=== PATIENT | female | born 1940 | race Caucasian/White ===

== ENCOUNTER → 2017-01-28 | Outpatient (CLI) | payer MEDICARE, BC ==
[~2017-01-28] MED LIST: ABIL15TA PO; AMIT75TA2 PO; ASPI81TA83 OR; COMBIGAN OS; FOCALIN PO; IBUP600T26 PO; KETOROLAC OS; LIDOCAINE 1% MDV 20ML VIAL As Ordered ONE; LIPI10TA OR; NORCOTAB PO; PREDNISOLONE 1% OS; PROZ20CA PO; RIVASTIGMINE PO; TRAVOPROST OS; VESICARE PO; VIGAMOX OS; ZOFR4TAB3 PO
--- NOTE | 2017-01-28 16:14 | REP ---
Specimen radiography left breast: History: Micro calcific grouping left breast. The patient is status post stereotactic needle biopsy. Findings: Specimen radiography demonstrates multiple polymorphic microcalcifications scattered about each of the removed specimens. Impression: Specimen radiography shows microcalcifications from the target grouping. Signed by Bret Galloway MD 01/28/2017 04:48 P
--- NOTE | 2017-01-28 17:22 | REP ---
STEREOTACTIC LEFT BREAST BIOPSY: The procedure was performed under the direct supervision of Dr. Galloway. The patient has a history of a suspicious cluster of calcifications in the upper inner left breast seen on a previous mammogram from [facility] performed on 01/20/2017. The risks and benefits of the procedure were explained to the patient and informed consent was obtained. A cranial caudal approach was utilized. The calcifications were localized using stereotactic mammographic guidance. The skin was prepped and draped in a sterile fashion 1% Lidocaine was used as a local anesthetic. A 10-gauge suction assisted Mammotome needle was inserted and 6 core biopsy samples were obtained. Specimen radiograph demonstrates the presence of calcifications to be within the specimen. A marker clip was placed at the biopsy site. Post-clip placement the patient did develop a large hematoma. Pressure was held at the site until hemostasis was achieved. The patient will return at a later date when the hematoma has subsided for post-clip placement images. Reviewed by JERE Emery 01/29/2017 08:53 AEdited and Signed by Bret Galloway MD 01/29/2017 12:46 P
== END ==
LOC: M RADPRO 12:03
PROVIDERS: ATTEND Internal Medicine
DX: C50.912 Malignant neoplasm of unspecified site of left female breast (principal); J45.909 Unspecified asthma, uncomplicated; M54.9 Dorsalgia, unspecified; M19.90 Unspecified osteoarthritis, unspecified site; G47.30 Sleep apnea, unspecified; F32.9 Major depressive disorder, single episode, unspecified; Z79.82 Long term (current) use of aspirin; Z79.899 Other long term (current) drug therapy

== ENCOUNTER 2017-02-02 05:57 | Emergency (ER) | payer MEDICARE, BC ==
[~2017-02-02] VITALS: Ht 165.1 cm; Wt 83.9 kg
[~2017-02-02 05:57] MED LIST changes: -IBUP600T26 PO; -LIDOCAINE 1% MDV 20ML VIAL As Ordered ONE; -NORCOTAB PO; -ZOFR4TAB3 PO
[2017-02-02] MEDS ORDERED: NS 1,000 ML IV ONE (06:45)
[2017-02-02 07:03] LABS: BASO % 0.3 % (0.0-1.0); EOS # 0.2 K/mm3 (0.0-0.50); EOS % 2.4 % (0.0-3.0); LARGE UNSTAINED CELL # 0.1 K/mm3 (0.0-0.4); LARGE UNSTAINED CELL % 1.4 % (0.0-4.0); LYMPH # 1.7 K/mm3 (1.5-4.5); LYMPH % 21.7 % (24.0-44.0); MEAN CORPUSCULAR HEMOGLOBIN 35.7 pg (27.0-33.0); MEAN CORPUSCULAR VOLUME 99.2 fl (80.0-96.0); MONO # 0.5 K/mm3 (0.0-0.8); MONO % 5.9 % (0.0-5.0); NEUTROPHILS # 5.4 K/mm3 (1.8-7.7); NEUTROPHILS % 68.3 % (36.0-66.0); PLATELET COUNT, AUTOMATED 166 k/mm3 (150-450); RED CELL DISTRIBUTION WIDTH 14.6 % (11.5-14.5); WHITE BLOOD COUNT 7.9 K/mm3 (4.0-10.0)
[2017-02-02 07:04] LABS: INR 1.05
[2017-02-02 07:21] LABS: ALBUMIN 3.3 GM/DL (3.2-5.2); ALBUMIN/GLOBULIN RATIO 0.94 (1.00-1.93); BILIRUBIN,DIRECT 0.2 MG/DL (0.0-0.2); BILIRUBIN,TOTAL 0.8 MG/DL (0.2-1.0); CREATININE FOR GFR 0.98 MG/DL (0.55-1.02); GLOMERULAR FILTRATION RATE 59.1 (>39); POTASSIUM SERUM 3.8 MEQ/L (3.5-5.1); TOTAL PROTEIN 6.8 GM/DL (6.4-8.2)
[2017-02-02] MEDS ORDERED: ISOVUE-370 76% 100ML VIAL (Q9967) As Ordered ONE (07:55)
[2017-02-02] MEDS ORDERED: KETOROLAC 30 MG/ML VIAL (J1885) IV ONE (08:30)
--- NOTE | 2017-02-02 09:07 | REP ---
CT ABDOMEN AND PELVIS WITH CONTRAST: CT ABDOMEN AND PELVIS WITH CONTRAST: TECHNIQUE: Axial contrast enhanced images from the lung bases to the pubic symphysis using 100 mL Isovue 370 intravenous contrast material with multiplanar reformations. Visualized lung bases demonstrate bibasilar fibroatelectatic change. There are a couple of cysts in the liver. The spleen, adrenals, and pancreas are unremarkable. Large duodenum diverticulum is noted. Small cysts are seen in the kidneys. There is moderate left hydroureteronephrosis caused by a 5 mm stone in the distal left ureter. No bladder calculi are seen. There is no abdominal aortic aneurysm. There is no adenopathy. There is no free air or free fluid. There is no bowel wall thickening. There is no pelvic mass. IMPRESSION: There is a 5 mm calculus of the distal left ureter causing moderate left hydroureteronephrosis. Signed by Diogo Manrique MD 02/02/2017 05:23 P
[2017-02-02] MEDS ORDERED: ZOFR4TAB3 PO (10:15)
[2017-02-02] MEDS ORDERED: IBUP600T26 PO (10:15)
[2017-02-02] MEDS ORDERED: NORCOTAB PO (10:15)
[2017-02-02 10:44] VITALS: BP 134/75
== END 2017-02-02 10:46 | disposition home or self-care (01) ==
LOC: M ED 07:00
DX: N13.2 Hydronephrosis with renal and ureteral calculous obstruction (principal); S20.02XA Contusion of left breast, initial encounter; X58.XXXA Exposure to other specified factors, initial encounter; Y92.89 Other specified places as the place of occurrence of the external cause; Y93.89 Activity, other specified; Y99.8 Other external cause status; C50.912 Malignant neoplasm of unspecified site of left female breast; G89.29 Other chronic pain; M54.9 Dorsalgia, unspecified; F33.9 Major depressive disorder, recurrent, unspecified; Z79.899 Other long term (current) drug therapy; Z79.82 Long term (current) use of aspirin; Z87.891 Personal history of nicotine dependence
CPT/HCPCS: 36415; 74177; 80048; 80076; 81001; 85025; 85610; 85730; 96361; 96374; 99283; J1885; Q9967

== ENCOUNTER → 2017-02-11 | Outpatient (REF) | payer MEDICARE, BC ==
[~2017-02-11] MED LIST changes: +IBUP600T26 PO; +NORCOTAB PO; +ZOFR4TAB3 PO
[2017-02-11 15:17] LABS: MICROSCOPIC INDICATED? MAN YES (NO)
[2017-02-11 15:18] LABS: WBC, URINE 0-1 /hpf (0-3)
[2017-02-11 15:19] LABS: BACTERIA, URINE SMALL AMOUNT; HYALINE CAST, URINE NONE SEEN /lpf (0-1); MICROSCOPIC EXAM UNSPUN; RBC, URINE NONE SEEN /hpf (0-3); SQUAMOUS EPITHELIAL CELL URINE SMALL AMOUNT /hpf (SMALL AMT)
== END ==
LOC: M SMT 12:51
PROVIDERS: ATTEND Nurse Practitioner Women's Health
DX: N13.2 Hydronephrosis with renal and ureteral calculous obstruction (principal)

== ENCOUNTER → 2017-03-16 | Day surgery (SDC) | payer MEDICARE, BC ==
[~2017-03-16] VITALS: Ht 165.1 cm; Wt 83.9 kg
[~2017-03-16] MED LIST changes: +ABIL5TAB5 PO; +AMIT75TA PO; +ASPI1TAB PO; +BUPIVACAINE/EPIN 0.25% 30 ML VIAL As Ordered ONE; +BUPR15TA PO; +GLYCOPYRROLATE INJ 0.2 MG/ML 2 ML VIAL As Ordered ONE; +HYDROmorphone HCL 2 MG/ML 1ML VIAL (J1170) As Ordered ONE; +LABETALOL HCL 100 MG/20 ML VIAL As Ordered ONE; +LABETALOL HCL 100 MG/20 ML VIAL IV ONE; +LIDOCAINE 1% MDV 20ML VIAL As Ordered ONE; +LIDOCAINE 1% SDV INJ 30 ML VIAL As Ordered ONE; +LIDOCAINE 2% INJ 100 MG/5 ML SDV (FOR ANES.) As Ordered ONE; +LIDOCAINE 5% (LIDODERM) PATCH As Ordered ONE; +LIDOCAINE 5% (LIDODERM) PATCH TD ONE; +LR 1,000 ML IV ONE; +LR 1,000 ML IV SCH; +METHYLENE BLUE 0.5% (5MG/ML) 10 ML AMP (PROVAYBLUE)(Q9968 PER 1MG) As Ordered ONE; +METOCLOPRAMIDE INJ 10MG/2ML VIAL (J2765) As Ordered ONE; +MIDAZOLAM INJ 2 MG/2 ML VIAL (J2250) As Ordered ONE; +MORPHINE 2 MG/ML 1ML SYRINGE IV PRN; +NEOSTIGMINE 1MG/ML 5 ML SYRINGE (J2710) As Ordered ONE; +NORCO, ANEXSIA 5/325MG TABLET (HYDROcodone/ACETAMINOPHEN) PO PRN; +OCUVTAB PO; +ONDANSETRON 4MG/2ML VIAL (J2405) As Ordered ONE; +ONDANSETRON 4MG/2ML VIAL (J2405) IV PRN; +PERCOCET 5MG/325MG TAB PO PRN; +PHENYLephrine HCL 500 MCG/5 ML (100MCG/ML) SYRINGE (J2370) As Ordered ONE; +PROPOFOL 200 MG/20 ML VIAL As Ordered ONE; +RIVA6CAP PO; +VITA400C29 PO; +ceFAZolin 1GM INJ (J0690) As Ordered ONE; +dexameTHASONE 4 MG/ML 1ML VIAL (J1100) As Ordered ONE; +fentaNYL 100 MCG/2 ML INJECTION (J3010) As Ordered ONE; +fentaNYL 100 MCG/2 ML INJECTION (J3010) IV PRN
[2017-03-16 13:49] VITALS: BP 170/74
[2017-03-16] MEDS: LABETALOL HCL 100 MG/20 ML VIAL IV SCH ×5 (13:49→14:15)
--- NOTE | 2017-03-16 15:46 | REP ---
LEFT BREAST LOCALIZATION: The procedure was performed under the direct supervision of Dr. Galloway. The patient has a history of a suspicious cluster of calcifications in the upper inner left breast seen on a previous mammogram from [facility] performed on 01/20/2017. The patient had a stereotactic left breast biopsy performed on 01/28/2017. A marker clip was placed at the biopsy site. The risks and benefits of the procedure were explained to the patient and informed consent was obtained. A craniocaudal approach was utilized. The marker clip was localized using mammographic guidance. The skin was prepped and draped in a sterile fashion. 1% Xylocaine was used as a local anesthetic. A 7.5 cm Boncarbo needle wire system was inserted. Followup mammographic images demonstrate good needle placement. The patient tolerated the procedure well and there were no immediate complications. Reviewed by JERE Emery 03/16/2017 04:15 PEdited and Signed by Bret Galloway MD 03/16/2017 05:24 P
--- NOTE | 2017-03-16 16:13 | ECGEPIP ---
Stationary ECG Study [facility] Test Date: 2017-03-16 Pat Name: JARET MAHARAJ Department: Room: - Gender: F Regulatory Compliance Coordinator: [place] : 1940 Requested By: Skip Aguilera Order Number: [id number] Reading MD: Lev Anaya Measurements Intervals [place] Rate: 82 P: 54 FL: 157 QRS: 11 QRSD: 87 T: 34 QT: 296 QTc: 346 Interpretive Statements SINUS RHYTHM WITH SINUS ARRHYTHMIA NONSPECIFIC T-WAVE ABNORMALITY Electronically Signed On 03-16-2017 16:13:10 EDT by Lev Anaya
--- NOTE | 2017-03-16 16:23 | REP ---
Specimen radiography: Single view: History: Left lumpectomy. Findings: A single radiograph of the excised specimen demonstrates the needle biopsy marker clip and some microcalcifications along with the known hematoma centrally located in the breast specimen along with the localizer wire needle device. This report was telephoned to Dr. Rich in the OR at the time of the study. Signed by Bret Galloway MD 03/16/2017 05:23 P
[2017-03-16 17:15] VITALS: BP 134/92
--- NOTE | 2017-03-16 20:47 | REP ---
LEFT BREAST LYMPHOSCINTIGRAPHY: The procedure was performed under the direct supervision of Dr. Galloway. The images were reviewed with Dr. Galloway. Using topical anesthetic and sterile technique, 1.037 mCi of technetium 99 filtered sulfur colloid was injected subdermally in eight fractionated periareolar injections. Images obtained one hour after injection show no appreciable uptake in the left axially region. IMPRESSION: Left breast lymphoscintigraphy. Reviewed by JERE Emery 03/18/2017 04:08 PEdited and Signed by Bret Galloway MD 03/18/2017 04:51 P
--- NOTE | 2017-03-22 05:25 | RO ---
DATE OF PROCEDURE: 03/16/2017 PREOPERATIVE DIAGNOSIS: Left breast cancer, ductal carcinoma in situ. POSTOPERATIVE DIAGNOSIS: Left breast cancer, ductal carcinoma in situ. PROCEDURE: Left breast quadrantectomy (needle localization) and sentinel node biopsy. SURGEON: Skip Rich MD BLENDING MACHINE OPERATOR: ANESTHESIA: General endotracheal anesthesia. ESTIMATED BLOOD LOSS: Minimal. FLUIDS: Crystalloid. DESCRIPTION OF PROCEDURE: The patient was brought to the operating room and was given general anesthesia. After adequate anesthesia and preoperative antibiotics were given, the patient had lymphoscintigraphy preoperatively. However, it did not reach the sentinel node on the preoperative x-rays. However, using the Neoprobe in the operating room, I was able to get a hot node that and was able to vito this out with a permanent marker location in the axilla. Periareolar infiltration of methylene blue was performed at this time to define a blue node as well. Next, the patient had a very large hematoma associated with a stereotactic biopsy previously. This was actually smaller than it was previously and I aspirated the hematoma and obtained 10 mL of old bloody fluid. After this was decompressed, it was much more amenable to excision. Thus, an elliptical incision was made around the needle and there was some very attenuated skin in this area where the hematoma had almost necessitated through the skin superior to the nipple-areolar complex. Then, skin flaps both superiorly and inferiorly were performed to include this entire hematoma, cue my hand on the hematoma and dissecting out lateral to this at least a centimeter margin was created around this hematoma and given the calcifications were posterior to the hematoma this continued circumferentially. Hemostasis was achieved with electrocautery throughout the dissection. Eventually the lesion was removed in its entirety and the lesion/dissection continued down to the pectoral fascia. This lesion/area of breast tissue was removed in its entirety. Given the previous hematoma site itself, this was relatively a large biopsy and was much more of a quadrantectomy than a typical lumpectomy. There was obvious defect of subcutaneous tissue in this area with some dimpling of the subcutaneous tissue in this area. In any case, the area was copiously irrigated until clear. Dermis was brought together with #3-0 Vicryl and #4-0 Vicryl subcuticular was used to approximate the skin. Then, the axilla was addressed in the following manner. The sentinel node was removed after affirmation of the hot node was obtained by needle probe and this transverse incision was made in the axilla. Blunt and sharp dissection as well as electrocautery was used cut through skin, dermis, subcutaneous tissue down through clavipectoral fascia. The axillary fat pad was able to be grasped at this time, mobilized up and the node was quite deep. It was almost up to the chest wall. Eventually, I was able to see this blue node and care was taken not to actually grasp the node and placing an Allis clamp on the fatty tissue around this, I was able to dissect this off surrounding tissue and some minimal bridging vessels in this area were treated with electrocautery. There was one small vein that was going adjacent to this and I did not know if there is a small branch coming off this. This was clipped. But otherwise, good hemostasis was achieved. The area was copiously irrigated and the hot node was 401 units and the background was 6. Once again, this may have been early in the lymphoscintigraphy, but in any case, the appropriate numbers for the hot node was obtained. The incision was closed in two layers with #3-0 Vicryl dermal layer and #4-0 Vicryl subcuticular. Steri-Strips and dry sterile dressing was applied. The patient was awakened, extubated, brought to the recovery room awake, alert, hemodynamically stable. Sponge, needle counts correct times two.
== END | disposition home or self-care (01) ==
LOC: M SDC 06:46
PROVIDERS: ATTEND Surgery
DX: C50.912 Malignant neoplasm of unspecified site of left female breast (principal); M17.0 Bilateral primary osteoarthritis of knee; M54.5 Low back pain; J45.909 Unspecified asthma, uncomplicated; G47.33 Obstructive sleep apnea (adult) (pediatric); R06.83 Snoring; F41.9 Anxiety disorder, unspecified; F32.9 Major depressive disorder, single episode, unspecified; Z79.899 Other long term (current) drug therapy; Z79.82 Long term (current) use of aspirin; Z87.442 Personal history of urinary calculi; Z90.710 Acquired absence of both cervix and uterus; Z78.0 Asymptomatic menopausal state
CPT/HCPCS: 19125; 38525; 72265; 76098; 78195; 88305; 88307; 93005; A9541; J0690; J1100; J1170; J2250; J2370; J2405; J2710; J2765; J3010; Q9968

== ENCOUNTER → 2017-04-29 | Outpatient (CLI) | payer MEDICARE, BC ==
[~2017-04-29] MED LIST changes: +ABIL1TAB11 PO; -ABIL5TAB5 PO; -BUPIVACAINE/EPIN 0.25% 30 ML VIAL As Ordered ONE; -GLYCOPYRROLATE INJ 0.2 MG/ML 2 ML VIAL As Ordered ONE; -HYDROmorphone HCL 2 MG/ML 1ML VIAL (J1170) As Ordered ONE; +IBUP-1022 PO; -IBUP600T26 PO; -LABETALOL HCL 100 MG/20 ML VIAL As Ordered ONE; -LABETALOL HCL 100 MG/20 ML VIAL IV ONE; -LIDOCAINE 1% MDV 20ML VIAL As Ordered ONE; -LIDOCAINE 1% SDV INJ 30 ML VIAL As Ordered ONE; -LIDOCAINE 2% INJ 100 MG/5 ML SDV (FOR ANES.) As Ordered ONE; -LIDOCAINE 5% (LIDODERM) PATCH As Ordered ONE; -LIDOCAINE 5% (LIDODERM) PATCH TD ONE; -LR 1,000 ML IV ONE; -LR 1,000 ML IV SCH; -METHYLENE BLUE 0.5% (5MG/ML) 10 ML AMP (PROVAYBLUE)(Q9968 PER 1MG) As Ordered ONE; -METOCLOPRAMIDE INJ 10MG/2ML VIAL (J2765) As Ordered ONE; -MIDAZOLAM INJ 2 MG/2 ML VIAL (J2250) As Ordered ONE; -MORPHINE 2 MG/ML 1ML SYRINGE IV PRN; -NEOSTIGMINE 1MG/ML 5 ML SYRINGE (J2710) As Ordered ONE; -NORCO, ANEXSIA 5/325MG TABLET (HYDROcodone/ACETAMINOPHEN) PO PRN; -ONDANSETRON 4MG/2ML VIAL (J2405) As Ordered ONE; -ONDANSETRON 4MG/2ML VIAL (J2405) IV PRN; -PERCOCET 5MG/325MG TAB PO PRN; -PHENYLephrine HCL 500 MCG/5 ML (100MCG/ML) SYRINGE (J2370) As Ordered ONE; -PROPOFOL 200 MG/20 ML VIAL As Ordered ONE; +VITA-110 PO; -VITA400C29 PO; -ceFAZolin 1GM INJ (J0690) As Ordered ONE; -dexameTHASONE 4 MG/ML 1ML VIAL (J1100) As Ordered ONE; -fentaNYL 100 MCG/2 ML INJECTION (J3010) As Ordered ONE; -fentaNYL 100 MCG/2 ML INJECTION (J3010) IV PRN
--- NOTE | 2017-04-29 21:28 | RADONC ---
RADIATION ONCOLOGY CONSULTATION NOTE DATE: 04/29/2017 CHART NUMBER: [id number] DIAGNOSIS: Left breast cancer. STAGE: 0, [id number]. ECOG PERFORMANCE STATUS: 0 Ms. 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 HISTORY OF PRESENT ILLNESS: The patient was in her usual state of health until routine mammogram was done and showed microcalcifications in the left breast. On 01/28/2017, the patient underwent stereotactic biopsy, and pathology revealed a poorly differentiated high-grade ductal carcinoma in situ. The tumor was weakly estrogen receptor positive and progesterone receptor negative. On 03/16/2017, the patient underwent re-excision and sentinel lymph node biopsy. Again, the specimen showed foci of residual ductal carcinoma in situ in proximity to the biopsy cavity. There was a small foci, which was stated to be worrisome for possible microinvasion of ductal carcinoma. All inked specimen margins were negative for malignancy. One sentinel lymph node was sampled and was negative for malignancy as well. The patient has done well since surgery and is now presenting for consideration of postoperative radiation therapy in an attempt to increase the likelihood of achieving local control and cure. PAST MEDICAL HISTORY: The patient's past medical history is positive for arthritis. ALLERGIES: The patient is allergic to SULFA DRUGS. SOCIAL HISTORY: The patient had been a smoker but quit smoking over 30 years ago. She does not abuse alcohol. FAMILY HISTORY: The patient's family history is negative for breast cancer or other malignancies. REVIEW OF SYSTEMS: The patient's review of systems is noncontributory. She denies nausea, vomiting, fevers, chills, night sweats, diplopia, headaches, anxiety or depression, anorexia, weight loss, visual disturbances, chest pain, urinary or bowel difficulties, bone pain, or neurological problems. PHYSICAL EXAMINATION The patient is a well-developed, well-nourished female in no acute distress. HEENT exam is normocephalic, atraumatic. Extraocular movements are intact. There is no palpable cervical, supraclavicular, infraclavicular, axillary, or inguinal lymphadenopathy present. Lungs are clear to auscultation and percussion. Heart has a regular rate and rhythm. Abdomen is benign with no hepatosplenomegaly, masses, or tenderness. Breast examination reveals no masses or discharge bilaterally. Skeletal examination reveals no tenderness to pressure or percussion of the bony skeleton. Extremities reveal no clubbing, cyanosis, or edema. Neurologic exam is grossly intact, as is the remainder of the physical examination. ASSESSMENT: Clearly, the patient is a candidate for external beam radiation therapy, and I have so informed her. I have discussed with the patient in detail the potential benefits as well as possible acute and chronic sequelae of external beam radiation therapy. We have discussed logistics of treatment planning, simulation, and subsequent fractionated daily radiation treatments. I have scheduled the patient for the next available simulation slot, and radiation treatments will begin subsequently. Thank you for allowing us to participate in the care of this very pleasant woman. If I could be of any further assistance or provide you with any information, please feel free to contact me at anytime. cc: Skip Rich Jr, MD Day Hills, MD Julie LaPointe, MD
--- NOTE | 2017-05-31 09:20 | RADONC ---
RADIATION ONCOLOGY SIMULATION NOTE DATE: 05/31/2017 CHART NUMBER: [id number] Ms. Velasquez was taken to the CT scan for simulation of her left breast field. Simulation was accomplished without difficulty or discomfort. Radiation treatment planning is underway and radiation treatments will begin subsequently. An immobilization device was created without difficulty or discomfort. It will be used throughout the course of treatment. I was physically present throughout the course of CT simulation.
== END ==
LOC: M ONCR 13:55
PROVIDERS: ATTEND Radiology Radiation Oncology
DX: C50.912 Malignant neoplasm of unspecified site of left female breast (principal)

== ENCOUNTER 2017-05-31 09:10 | Outpatient (RCR) | payer MEDICARE, BC ==
--- NOTE | 2017-06-08 12:26 | RADONC ---
RADIATION ONCOLOGY PROGRESS NOTE DATE: 06/07/2017 CHART NUMBER: [id number] Ms. Velasquez underwent her first fraction of radiation today to her breast. It was tolerated without difficulty or discomfort. The patient's review of systems is noncontributory. She denies nausea, vomiting, fevers, chills, night sweats, diplopia, headaches, anxiety or depression, anorexia, weight loss, visual disturbances, chest pain, urinary or bowel difficulties, bone pain, or neurological problems. PHYSICAL EXAMINATION: Clearly the patient's skin shows no evidence of radiation change present as this was her first fraction. The remainder of her physical exam remains unchanged since time of consultation. Ms. Velasquez tolerated her treatment quite well and radiation will continue as scheduled.
== END 2017-06-10 ==
LOC: M ONCR 09:10
PROVIDERS: ATTEND Radiology Radiation Oncology
DX: D05.12 Intraductal carcinoma in situ of left breast (principal)

== ENCOUNTER → 2017-05-31 | Outpatient (CLI) | payer MEDICARE, BC ==
[2017-05-31 10:02] LABS: MEAN CORPUSCULAR HEMOGLOBIN 32.8 pg (27.0-33.0); MEAN CORPUSCULAR VOLUME 99.5 fl (80.0-96.0)
== END ==
LOC: M RAD 08:12
PROVIDERS: ATTEND Radiology Radiation Oncology
DX: C50.919 Malignant neoplasm of unspecified site of unspecified female breast (principal)

== ENCOUNTER 2017-06-11 11:52 | Outpatient (RCR) | payer MEDICARE, BC ==
--- NOTE | 2017-06-16 08:53 | RADONC ---
RADIATION ONCOLOGY PROGRESS NOTE: DATE: 06/11/2017 CHART NUMBER: [id number]. PROGRESS NOTE: Ms. Velasquez is presently a dose of 1080 cGy to her left breast and is tolerating treatments quite well at this point with no complaints related to her radiation therapy. She is having no breast or bone pain. REVIEW OF SYSTEMS: The patient's review of systems is noncontributory. Denies nausea, vomiting, fevers, chills, night sweats, diplopia, headaches, anxiety or depression, anorexia, weight loss, visual disturbances, chest pain, urinary or bowel difficulties, bone pain, or neurological problems. PHYSICAL EXAMINATION: The patient's skin is in good condition with no evidence of radiation change present. There is no moist or dry desquamation. The remainder of her physical exam remains unchanged. Ms. Velasquez is tolerating treatments quite well and radiation will continue as scheduled.
--- NOTE | 2017-06-21 10:30 | RADONC ---
RADIATION ONCOLOGY PROGRESS NOTE DATE: 06/21/2017 CHART NUMBER: [id number] Ms. Velasquez is presently at a dose of 1800 cGy to her left breast and is tolerating treatments quite well at this point with no complaints related to her radiation therapy. She is having no breast or bone pain. REVIEW OF SYSTEMS: The patient's review of systems is noncontributory. Denies nausea, vomiting, fevers, chills, night sweats, diplopia, headaches, anxiety or depression, anorexia, weight loss, visual disturbances, chest pain, urinary or bowel difficulties, bone pain, or neurological problems. PHYSICAL EXAMINATION: The patient's skin is in good condition with no evidence of moist or dry desquamation. The remainder of her physical exam remains unchanged. Ms. Velasquez is tolerating treatments quite well and radiation will continue as scheduled.
--- NOTE | 2017-06-28 10:53 | RADONC ---
RADIATION ONCOLOGY PROGRESS NOTE: DATE: 06/28/2017 CHART NUMBER: [id number]. PROGRESS NOTE: Ms. Velasquez is presently at a dose of 2700 cGy to her left breast and is tolerating treatments quite well at this point with no complaints related to her radiation therapy. She is having no breast or bone pain. REVIEW OF SYSTEMS: The patient's review of systems is noncontributory. Denies nausea, vomiting, fevers, chills, night sweats, diplopia, headaches, anxiety or depression, anorexia, weight loss, visual disturbances, chest pain, urinary or bowel difficulties, bone pain, or neurological problems. PHYSICAL EXAMINATION: The patient's skin is in good condition with no evidence of moist or dry desquamation. The remainder of her physical exam remains unchanged. Ms. Velasquez is tolerating treatments quite well and radiation will continue as scheduled.
--- NOTE | 2017-07-05 13:56 | RADONC ---
RADIATION ONCOLOGY PROGRESS NOTE DATE: 07/05/2017 CHART NUMBER: [id number] Ms Velasquez is presently at a dose of 3600 cGy to her left breast and is tolerating treatments quite well at this point with no significant difficulties related to her radiation therapy other than some tenderness in the inframammary region. PHYSICAL EXAMINATION: On physical examination, the patient's skin overall is in good condition. There is some dry desquamation noted in the inframammary area. The remainder of her skin shows some erythema or tanning but no evidence of moist or dry desquamation. The remainder of her physical examination remains unchanged. Ms. Velasquez is tolerating her treatments quite well, and radiation will continue as scheduled.
--- NOTE | 2017-07-12 10:45 | RADONC ---
RADIATION ONCOLOGY PROGRESS NOTE DATE: 07/12/2017 CHART NUMBER: [id number] Ms. Velasquez is thus far at a dose of 4320 cGy to her left breast and was last treated on 07/09/2017. The patient came in today complaining of discomfort in the inframammary region. The patient's review of systems is positive for the inframammary discomfort but is otherwise noncontributory. She denies nausea, vomiting, fevers, chills, night sweats, diplopia, headaches, anxiety or depression, anorexia, weight loss, visual disturbances, chest pain, urinary or bowel difficulties, bone pain, or neurological problems. PHYSICAL EXAMINATION: The patient's skin overall shows marked tanning present. In the inframammary region, however, there is moist desquamation. The remainder of physical exam remains unchanged. The patient unfortunately is allergic to sulfa drugs. She is therefore using Aquaphor on the skin. I have given the patient 1 week rest and she will return to us on Wednesday for reevaluation. She has been instructed to feel free and contact me if I could be of any assistance in the meantime or if she has any questions or problems over this week.
== END 2017-07-10 ==
LOC: M ONCR 11:52
PROVIDERS: ATTEND Radiology Radiation Oncology
DX: D05.12 Intraductal carcinoma in situ of left breast (principal)

== ENCOUNTER → 2017-09-01 | Outpatient (CLI) | payer MEDICARE, BC ==
--- NOTE | 2017-09-03 07:06 | RADONC ---
RADIATION ONCOLOGY FOLLOWUP NOTE DATE: 09/01/2017 CHART NUMBER: [id number] DIAGNOSIS: Left breast cancer. STAGE: 0, [id number]. ECOG PERFORMANCE STATUS: 0 FOLLOWUP NOTE: Ms. 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 The patient presents today reporting that she is doing quite well with no difficulties at this time related to her radiation therapy or disease. She is having no breast or bone pain. REVIEW OF SYSTEMS: The patient's review of systems is noncontributory. She denies nausea, vomiting, fevers, chills, night sweats, diplopia, headaches, anxiety or depression, anorexia, weight loss, visual disturbances, chest pain, urinary or bowel difficulties, bone pain, or neurological problems. PHYSICAL EXAMINATION: The patient is a well-developed, well-nourished white female in no acute distress. HEENT exam is normocephalic, atraumatic. Extraocular movements are intact. There is no palpable cervical, supraclavicular, infraclavicular, axillary, or inguinal lymphadenopathy present. Lungs are clear to auscultation and percussion. Heart has a regular rate and rhythm. Abdomen is benign with no hepatosplenomegaly, masses, or tenderness. Breast examination reveals no masses or discharge bilaterally. Skeletal examination reveals no tenderness to pressure or percussion of the bony skeleton. Extremities reveal no clubbing, cyanosis, or edema. Neurologic exam is grossly intact, as is the remainder of the physical examination. ASSESSMENT: The patient is clinically ROSITA at this time and will be seen by us again in 3 months for further followup. She will also continue to be followed by her other physicians as well. cc: Balbina Aldrich MD, DELROY Rich Jr, MD Carmelina Dallas MD
== END ==
LOC: M ONCR 09:01
PROVIDERS: ATTEND Radiology Radiation Oncology
DX: D05.12 Intraductal carcinoma in situ of left breast (principal)

== ENCOUNTER → 2017-12-01 | Outpatient (CLI) | payer MEDICARE, BC | LOC: M ONCR 09:00 | DX: D05.12 Intraductal carcinoma in situ of left breast (principal) | CPT/HCPCS: G0463 ==

== ENCOUNTER → 2018-02-23 | Outpatient (CLI) | payer MEDICARE, BC | LOC: M RAD 07:43 | DX: Z12.31 Encounter for screening mammogram for malignant neoplasm of breast (principal) | CPT/HCPCS: 77067 ==

== ENCOUNTER 2018-03-29 20:56 | Emergency (ER) | payer MEDICARE, BC ==
[2018-03-29 22:12] LABS: BASO % 0.7 % (0.0-1.0); EOS # 0.8 10^3/uL (0.0-0.50); EOS % 14.1 % (0.0-3.0); HEMATOCRIT 38.7 % (36.0-47.0); HEMOGLOBIN 12.8 g/dl (12.0-15.5); IMMATURE GRANULOCYTE % 0.4 % (0-3.0); LYMPH # 1.8 10^3/uL (1.5-4.5); MEAN CORPUSCULAR HGB CONC 33.1 g/dl (32.0-36.5); MEAN CORPUSCULAR VOLUME 99.7 fl (80.0-96.0); MONO # 0.7 10^3/uL (0.0-0.8); MONO % 13.2 % (0.0-5.0); NEUTROPHILS # 2.1 10^3/uL (1.8-7.7); NEUTROPHILS % 38.6 % (36.0-66.0); PLATELET COUNT, AUTOMATED 207 10^3/uL (150-450); RED BLOOD COUNT 3.88 10^6/uL (4.00-5.40); RED CELL DISTRIBUTION WIDTH 14.2 % (11.5-14.5); WHITE BLOOD COUNT 5.5 10^3/uL (4.0-10.0)
[2018-03-29 22:20] LABS: ANION GAP 6 MEQ/L (8-16); BLOOD UREA NITROGEN 21 MG/DL (7-18); CALCIUM LEVEL 8.9 MG/DL (8.8-10.2); CARBON DIOXIDE LEVEL 29 MEQ/L (21-32); CHLORIDE LEVEL 113 MEQ/L (98-107); CK-MB VALUE MASS 5.1 NG/ML (<3.6); CPK CREATINE PHOSPHOKINASE 309 U/L (26-192); CREATININE FOR GFR 0.64 MG/DL (0.55-1.30); GLOMERULAR FILTRATION RATE > 60.0 (>39); GLUCOSE, FASTING 155 MG/DL (70-100); MB/CK RELATIVE INDEX 1.65 (< OR =4); POTASSIUM SERUM 3.8 MEQ/L (3.5-5.1); SODIUM LEVEL 148 MEQ/L (136-145); TROPONIN I < 0.02 NG/ML (< 0.10)
[2018-03-29 22:25] LABS: INR 0.92; PARTIAL THROMBOPLASTIN TIME 26.9 SECONDS (26.8-37.9); PROTHROMBIN TIME 12.4 SECONDS (12.4-14.5)
[2018-03-29] MEDS: dexameTHASONE 20 MG/5 ML VIAL (J1100) IV (22:40)
[2018-03-29] MEDS: NS 500 ML IV (22:42)
[2018-03-29 23:00] LABS: ABG BASE EXCESS -0.4 (-2.0-2.0); ABG O2 SATURATION 95.9 % (95.0-99.0); ABG PARTIAL PRESSURE CO2 33.9 mmHg (35.0-45.0); ABG PARTIAL PRESSURE O2 79.9 mmHg (75.0-100.0); ABG STANDARD HCO3 24.1 MEQ/L (22.0-26.0); ABG pH (ARTERIAL) 7.449 UNITS (7.350-7.450)
[2018-03-29] MEDS ORDERED: ISOVUE-370 76% 100ML VIAL (Q9967) As Ordered (23:12)
[2018-03-30 01:28] LABS: CK-MB VALUE MASS 4.6 NG/ML (<3.6); CPK CREATINE PHOSPHOKINASE 285 U/L (26-192); MB/CK RELATIVE INDEX 1.61 (< OR =4); TROPONIN I < 0.02 NG/ML (< 0.10)
== END 2018-03-30 01:54 | disposition home or self-care (01) ==
LOC: M ED 03-30 01:54
DX: J45.909 Unspecified asthma, uncomplicated (principal); R07.1 Chest pain on breathing; F32.9 Major depressive disorder, single episode, unspecified; Z85.3 Personal history of malignant neoplasm of breast; Z87.891 Personal history of nicotine dependence
CPT/HCPCS: J1100

== ENCOUNTER → 2018-04-06 | Outpatient (CLI) | payer MEDICARE, BC | LOC: M ONCR 09:31 | DX: C50.912 Malignant neoplasm of unspecified site of left female breast (principal) | CPT/HCPCS: G0463 ==

== ENCOUNTER 2018-06-30 08:46 | Emergency (ER) | payer MEDICARE, BC ==
[2018-06-30 11:06] LABS: KETONE, URINE AUTO RFX TRACE mg/dL (NEGATIVE); LEUKOCYTE ESTERASE UR AUTO RFX NEGATIVE (NEGATIVE); MUCUS, URINE RFX SMALL (NEGATIVE); NITRITE, URINE AUTO RFX NEGATIVE (NEGATIVE); RBC, URINE AUTO RFX 1 /HPF (0-3); SPECIFIC GRAVITY UR AUTO RFX 1.012 (1.002-1.035); SQUAM EPITHELIAL CELL UR AURFX 0 /HPF (0-6); WBC, URINE AUTO RFX 4 /HPF (0-3)
[2018-06-30] MEDS: MAGNESIUM CITRATE 300 ML BTL PO (13:03)
== END 2018-06-30 13:06 | disposition home or self-care (01) ==
LOC: M ED 08:46
DX: K59.00 Constipation, unspecified (principal); E11.9 Type 2 diabetes mellitus without complications; J45.909 Unspecified asthma, uncomplicated; Z87.442 Personal history of urinary calculi; Z85.3 Personal history of malignant neoplasm of breast; Z86.73 Personal history of transient ischemic attack (TIA), and cerebral infarction without residual deficits; Z87.891 Personal history of nicotine dependence; Z79.899 Other long term (current) drug therapy
CPT/HCPCS: 74021

== ENCOUNTER → 2018-12-14 | Outpatient (CLI) | payer MEDICARE, BC ==
[~2018-12-14] MED LIST changes: +ALEN10TA20 PO; +AMIT25TA; +CALC500T36 PO; +COLA100C5 PO; +EXEM25TA PO; +MELA5TAB20 PO; +PRED20TA PO; +TRAZ-160 PO; +ZOFR4TAB14 PO; -ZOFR4TAB3 PO
--- NOTE | 2018-12-14 10:59 | RADONC ---
RADIATION ONCOLOGY FOLLOWUP NOTE DATE: 12/14/2018 CHART #: [id number] DIAGNOSIS: Left breast cancer. STAGE: 0, [id number]. ECOG PERFORMANCE STATUS: 0. FOLLOWUP NOTE: Ms. 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 The patient presents today reporting that she is doing quite well with no complaints at this time related to her radiation therapy or disease. She has no breast or bone pain. REVIEW OF SYSTEMS: The patient's review of systems is noncontributory. Denies nausea, vomiting, fevers, chills, night sweats, diplopia, headaches, anxiety or depression, anorexia, weight loss, visual disturbances, chest pain, urinary or bowel difficulties, bone pain, or neurological problems. PHYSICAL EXAMINATION: The patient is a well-developed, well-nourished, 78-year-old female in no acute distress. HEENT exam is normocephalic, atraumatic. Extraocular movements are intact. There is no palpable cervical, supraclavicular, infraclavicular, axillary, or inguinal lymphadenopathy present. Lungs are clear to auscultation and percussion. Heart has a regular rate and rhythm. Abdomen is benign with no hepatosplenomegaly, masses, or tenderness. Breast examination reveals no masses or discharge bilaterally. Skeletal examination reveals no tenderness to pressure or percussion of the bony skeleton. Extremities reveal no clubbing, cyanosis, or edema. Neurologic exam is grossly intact, as is the remainder of the physical examination. ASSESSMENT: The patient is clinically ROSITA at this time. Since she is continuing her close followup and monitoring with her medical oncologist, I have discharged this patient from our followup except on a p.r.n. basis. We are available to her at anytime if she has any questions or if we could be of any assistance whatsoever. The patient has my cell phone number as well as my office number. I have ordered a bilateral screening mammogram to be undertaken after February 27 of this year. cc: Skip Rich Jr, MD Day Hills, MD Julie LaPointe, MD Ann LePine, YON
== END ==
LOC: M ONCR 09:57
PROVIDERS: ATTEND Radiology Radiation Oncology
DX: C50.912 Malignant neoplasm of unspecified site of left female breast (principal)

== ENCOUNTER → 2018-12-27 | Outpatient (REF) | payer MEDICARE, BC ==
[~2018-12-27] MED LIST changes: +BUPR150T3 PO; +FISH100042 PO; +VITA2000 PO
[2018-12-27 16:28] LABS: C REACTIVE PROTEIN QUANTITATIV < 0.30 MG/DL (0.00-0.30); RHEUMATOID FACTOR QUANT < 10.0 IU/ML (<15.0)
[2018-12-30 00:09] LABS: ANTINUCLEAR ANTIBODIES DIRECT Negative (Negative); CYCLIC CITRULLINATED PEPTIDE 7 units (0-19); Lyme Disease IgG/IgM Antibodie <0.91 ISR (0.00-0.90); Lyme Disease IgM Ab Quantitati <0.80 index (0.00-0.79)
== END ==
LOC: M LAB REF 15:40
PROVIDERS: ATTEND Internal Medicine
DX: M25.50 Pain in unspecified joint (principal)

== ENCOUNTER 2019-03-17 02:31 | Emergency (ER) | payer MEDICARE, BC ==
[~2019-03-17] VITALS: Ht 165.1 cm; Wt 80.5 kg
[~2019-03-17 02:31] MED LIST changes: -ASPI1TAB PO; +ASPI81TA26 PO; +CALC12504 PO; -CALC500T36 PO; +HYDR-3715 PO; -NORCOTAB PO; -TRAZ-160 PO; +TRAZ-252 PO
[2019-03-17] MEDS ORDERED: CALCTAB89 PO (03:03)
[2019-03-17] MEDS ORDERED: SERT-155 PO (03:03)
[2019-03-17] MEDS ORDERED: BUPR300T34 PO (03:03)
[2019-03-17 03:46] LABS: BASO # 0.1 10^3/uL (0.0-0.2); BASO % 0.5 % (0.0-1.0); EOS # 0.1 10^3/uL (0.0-0.50); EOS % 1.2 % (0.0-3.0); HEMOGLOBIN 14.5 g/dl (12.0-15.5); LYMPH # 1.2 10^3/uL (1.5-4.5); LYMPH % 12.6 % (24.0-44.0); MEAN CORPUSCULAR HGB CONC 34.5 g/dl (32.0-36.5); MEAN CORPUSCULAR VOLUME 101.4 fl (80.0-96.0); MONO # 0.8 10^3/uL (0.0-0.8); MONO % 8.5 % (0.0-5.0); NEUTROPHILS # 7.6 10^3/uL (1.8-7.7); NEUTROPHILS % 76.9 % (36.0-66.0); PLATELET COUNT, AUTOMATED 177 10^3/uL (150-450); RED BLOOD COUNT 4.14 10^6/uL (4.00-5.40); WHITE BLOOD COUNT 9.8 10^3/uL (4.0-10.0)
[2019-03-17 03:56] LABS: INR 1.02; PROTHROMBIN TIME 13.5 SECONDS (12.1-14.4)
[2019-03-17 04:20] LABS: ALBUMIN 3.8 GM/DL (3.2-5.2); ALT/SGPT 29 U/L (12-78); BILIRUBIN,DIRECT 0.2 MG/DL (0.0-0.2); BILIRUBIN,TOTAL 0.5 MG/DL (0.2-1.0); BLOOD UREA NITROGEN 21 MG/DL (7-18); CALCIUM LEVEL 9.9 MG/DL (8.8-10.2); CARBON DIOXIDE LEVEL 27 MEQ/L (21-32); CHLORIDE LEVEL 107 MEQ/L (98-107); CPK CREATINE PHOSPHOKINASE 147 U/L (26-192); CREATININE FOR GFR 0.83 MG/DL (0.55-1.30); FREE T4 1.15 NG/DL (0.76-1.46); GLOMERULAR FILTRATION RATE > 60.0 (>39); GLUCOSE, FASTING 109 MG/DL (70-100); MB/CK RELATIVE INDEX 1.77 (< OR =4); POTASSIUM SERUM 4.3 MEQ/L (3.5-5.1); SODIUM LEVEL 142 MEQ/L (136-145); TOTAL PROTEIN 6.5 GM/DL (6.4-8.2); TROPONIN I < 0.02 NG/ML (< 0.10)
--- NOTE | 2019-03-17 04:37 | REPVR ---
EXAM: CT Head Without Contrast EXAM DATE/TIME: 03/17/2019 3:04 AM CLINICAL HISTORY: 78 years old, female; Injury or trauma; Fall; Initial encounter; Blunt trauma (contusions or hematomas) TECHNIQUE: Imaging protocol: Axial computed tomography images of the head without contrast. Radiation optimization: All CT scans at this facility use at least one of these dose optimization techniques: automated exposure control; mA and/or kV adjustment per patient size (includes targeted exams where dose is matched to clinical indication); or iterative reconstruction. COMPARISON: CT Head without contrast 06/12/2014 2:04 PM FINDINGS: Brain: There is mild, diffuse parenchymal volume loss with slight progression of volume loss compared to 2013. The cortical/white matter interfaces are preserved throughout the brain. There is no evidence of intracranial hemorrhage. Ventricles: The ventricular system demonstrates mild diffuse compensatory enlargement. Bones/joints: No acute fractures of the skull are identified. Sinuses: The visualized paranasal sinuses are clear. Mastoid air cells: The visualized mastoid air cells are clear. Soft tissues: Unremarkable. Vasculature: Atherosclerotic calcifications are seen in the cerebral arteries at the skull base. IMPRESSION: No evidence of acute intracranial injury. Electronically signed by: Katrina Hebert On 03/17/2019 04:37:09 AM
--- NOTE | 2019-03-17 04:48 | REPVR ---
EXAM: CT Cervical Spine Without Contrast EXAM DATE/TIME: 03/17/2019 3:04 AM CLINICAL HISTORY: 78 years old, female; Injury or trauma; Fall; Initial encounter; Blunt trauma TECHNIQUE: Imaging protocol: Axial computed tomography images of the cervical spine without contrast. Coronal and sagittal reformatted images were created and reviewed. Radiation optimization: All CT scans at this facility use at least one of these dose optimization techniques: automated exposure control; mA and/or kV adjustment per patient size (includes targeted exams where dose is matched to clinical indication); or iterative reconstruction. COMPARISON: CT Spine,cervical w/o contrast 06/12/2014 2:04 PM FINDINGS: Vertebrae: There is again loss of the cervical lordosis with a mild kyphosis of the mid cervical spine. There is 1-2 mm of anterolisthesis of C3 on C4, unchanged. There is no evidence of acute fracture. Hypertrophic degenerative changes are seen at the articulation of the odontoid process with the anterior arch of C1. There is prominent bony hypertrophy especially extending anteriorly from C4-C7. There is multilevel facet joint hypertrophic arthropathy, most prominent at C3-C4 and C7-T1. Discs/Spinal canal/Neural foramina: There is again fusion across the C4-C5 disc. There is now also fusion across the C5-C6 disc. The C6-C7 disc is markedly narrowed, with associated endplate spurs endplate sclerosis. There is moderate to severe narrowing of the spinal canal at C4-C5, C5-C6, and C6-C7 with bilateral neuroforaminal narrowing at each of these levels as well. There is mild narrowing of the spinal canal at C3-C4, with more advanced bilateral neural foraminal narrowing related to the facet arthropathy at this level. Prevertebral Space: The prevertebral soft tissues appear normal. Soft tissues: Soft tissue calcifications are again seen adjacent to the tip of the spinous process of T1, increased from the prior exam. Lungs: The visualized lungs are grossly clear. IMPRESSION: 1. No acute fractures identified. 2. Fusion across the C4-C5 disc again seen, with progressive fusion across the C5-C6 disc, and advanced degenerative disc disease at C6-C7 with associated central and foraminal narrowing at these levels. 3. Slight anterolisthesis of C3 on C4 and kyphosis through the mid cervical spine, without significant change. 4. Multilevel advanced facet arthropathy, especially at C3-C4 and C7-T1. Electronically signed by: Katrina Hebert On 03/17/2019 04:48:26 AM
[2019-03-17] MEDS ORDERED: ADACEL/BOOSTRIX VACCINE (DIPHTH/PERTUSS/ACELL/TETANUS)0.5ML SYR (90715) IM ONE (05:45)
[2019-03-17 05:49] VITALS: O2SAT 94
[2019-03-17 05:50] VITALS: BP 139/79
--- NOTE | 2019-03-17 09:17 | REP ---
CHEST, TWO VIEWS: Two views of the chest are performed and compared to prior studies, including 01/25/2015. There is no acute infiltrate. Heart is not significantly enlarged. There is calcification and tortuosity of the thoracic aorta. The mediastinal silhouette is unchanged. There are degenerative changes of the spine. IMPRESSION: No acute pulmonary disease. Electronically Signed by Diogo Manrique MD 03/20/2019 05:02 P
--- NOTE | 2019-03-18 08:35 | ECGEPIP ---
[facility] - ED Test Date: 2019-03-17 Pat Name: JARET MAHARAJ Department: Room: - Gender: Female [employer]ator: SARAH : 1940 Requested By: ALMA Koroma Order Number: [id number] Reading MD: Lev Anyaa Measurements Intervals [place] Rate: 77 P: 52 WY: 156 QRS: 2 QRSD: 82 T: 46 QT: 385 QTc: 437 Interpretive Statements SINUS RHYTHM Electronically Signed on 03-18-2019 8:35:36 EDT by Lev Anaya
== END 2019-03-17 06:13 | disposition home or self-care (01) ==
LOC: M ED 02:31
DX: S01.01XA Laceration without foreign body of scalp, initial encounter (principal); W18.39XA Other fall on same level, initial encounter; Y92.89 Other specified places as the place of occurrence of the external cause; F33.9 Major depressive disorder, recurrent, unspecified; F41.9 Anxiety disorder, unspecified; E78.9 Disorder of lipoprotein metabolism, unspecified; M79.7 Fibromyalgia; M43.00 Spondylolysis, site unspecified; G47.33 Obstructive sleep apnea (adult) (pediatric); Z79.899 Other long term (current) drug therapy; Z79.82 Long term (current) use of aspirin; Z87.891 Personal history of nicotine dependence

== ENCOUNTER 2019-03-24 18:43 | Observation (INO) | payer MEDICARE, BC ==
[~2019-03-24] VITALS: Ht 165.1 cm; Wt 75.4 kg
[~2019-03-24 18:43] MED LIST changes: +BUPR300T34 PO; +CALCTAB89 PO; +SERT-155 PO
[2019-03-24] MEDS ORDERED: EXEM25TA PO (19:46)
[2019-03-24] MEDS ORDERED: ALEN70TA74 PO (19:47)
[2019-03-24] MEDS ORDERED: ABIL1TAB11 PO (19:47)
[2019-03-24 20:31] LABS: ALBUMIN 3.6 GM/DL (3.2-5.2); ALT/SGPT 32 U/L (12-78); BILIRUBIN,DIRECT 0.2 MG/DL (0.0-0.2); BILIRUBIN,TOTAL 0.4 MG/DL (0.2-1.0); CK-MB VALUE MASS 1.4 NG/ML (<3.6); CPK CREATINE PHOSPHOKINASE 96 U/L (26-192); MB/CK RELATIVE INDEX 1.46 (< OR =4); TOTAL PROTEIN 6.4 GM/DL (6.4-8.2); TROPONIN I < 0.02 NG/ML (< 0.10)
[2019-03-24] MEDS ORDERED: LIDOCAINE W/EPINEPHRINE 1% 20ML VIAL As Ordered ONE (20:37)
[2019-03-24] MEDS ORDERED: LIDOCAINE W/EPINEPHRINE 1% 20ML VIAL SC ONE (20:45)
[2019-03-24] MEDS: SERTRALINE HCL 50 MG TAB PO SCH (21:00)
--- NOTE | 2019-03-24 21:01 | REPVR ---
EXAM: CT Head Without Contrast EXAM DATE/TIME: 03/24/2019 8:02 PM CLINICAL HISTORY: 78 years old, female; Injury or trauma; Fall; Initial encounter; Blunt trauma (contusions or hematomas); Consciousness not specified TECHNIQUE: Imaging protocol: Axial computed tomography images of the head without contrast. Radiation optimization: All CT scans at this facility use at least one of these dose optimization techniques: automated exposure control; mA and/or kV adjustment per patient size (includes targeted exams where dose is matched to clinical indication); or iterative reconstruction. COMPARISON: CT Head without contrast 03/17/2019 2:56 AM FINDINGS: Brain: There is mild age-related parenchymal volume loss. White matter changes are demonstrated in the subcortical, centrum semiovale and periventricular white matter consistent with small vessel white matter angiopathic gliosis. Ventricles: Normal. No ventriculomegaly. Bones/joints: Unremarkable. No acute fracture. Sinuses: Visualized sinuses are unremarkable. No fluid levels. Mastoid air cells: Visualized mastoid air cells are well aerated. No mastoid effusion. Soft tissues: Right frontal soft tissue laceration. IMPRESSION: 1. There is mild age-related parenchymal volume loss. White matter changes are demonstrated in the subcortical, centrum semiovale and periventricular white matter consistent with small vessel white matter angiopathic gliosis. 2. Right frontal soft tissue laceration. No fracture. Electronically signed by: William Laws On 03/24/2019 21:01:11 PM
--- NOTE | 2019-03-24 21:09 | REPVR ---
EXAM: CT Cervical Spine Without Contrast EXAM DATE/TIME: 03/24/2019 8:02 PM CLINICAL HISTORY: 78 years old, female; Injury or trauma; Fall; Initial encounter; Blunt trauma TECHNIQUE: Imaging protocol: Axial computed tomography images of the cervical spine without contrast. Coronal and sagittal reformatted images were created and reviewed. Radiation optimization: All CT scans at this facility use at least one of these dose optimization techniques: automated exposure control; mA and/or kV adjustment per patient size (includes targeted exams where dose is matched to clinical indication); or iterative reconstruction. COMPARISON: CT Spine,cervical w/o contrast 03/17/2019 2:56 AM FINDINGS: Vertebrae: Reversal of normal cervical lordosis. Linear lucency in the superior articulating facet of C6 likely represents a nutrient foramen or less likely an incomplete fracture. Mild anterolisthesis of C3 on C4. Discs/Spinal canal/Neural foramina: Degenerative arthropathy atlantoaxial joint with thickening and calcification of the transverse ligament. Autofusion C4-5 disc space. Disc space narrowing at C5-6 and C6-7 with prominent uncovertebral osteophytes. Mild foraminal stenosis on the left at C2, bilateral moderate to severe foraminal stenosis at C3, severe foraminal stenosis on the right and moderate foraminal stenosis on the left at C4, bilateral severe foraminal stenosis at C5 bilateral severe foraminal stenosis at C6 secondary to uncinate joint hypertrophic changes. Multilevel disc osteophyte complexes most pronounced at C5-6 and C6-7 with mild left hemicord at C5-6 and diffuse mild impingement C6-7. Multilevel facet joint arthropathy. Soft tissues: Unremarkable. Lungs: Lung apices are normal. IMPRESSION: Degenerative spondylosis. No acute fractures. Electronically signed by: William Laws On 03/24/2019 21:09:06 PM
--- NOTE | 2019-03-24 21:12 | REPVR ---
EXAM: CT Maxillofacial Without Contrast EXAM DATE/TIME: 03/24/2019 8:02 PM CLINICAL HISTORY: 78 years old, female; Injury or trauma; Fall; Initial encounter; Blunt trauma (contusions or hematomas); Forehead TECHNIQUE: Imaging protocol: Axial computed tomography images of the face without intravenous contrast. Coronal and sagittal reformatted images were created and reviewed. Radiation optimization: All CT scans at this facility use at least one of these dose optimization techniques: automated exposure control; mA and/or kV adjustment per patient size (includes targeted exams where dose is matched to clinical indication); or iterative reconstruction. COMPARISON: No relevant prior studies available. FINDINGS: Orbits: No acute intraorbital abnormality. Globes are unremarkable. Sinuses: Normal. No air-fluid levels. Bones/joints: Age-indeterminate nasal fractures. Nasal cavity: Bilateral estefania bullosa. Deviated nasal septum to the right with an ipsilateral nasal spur. Soft tissues: Right frontal soft tissue contusion/laceration. IMPRESSION: 1. Right frontal soft tissue contusion/laceration. No skull fracture. 2. Age-indeterminate nasal fractures. Electronically signed by: William Laws On 03/24/2019 21:12:03 PM
[2019-03-24] MEDS ORDERED: POLYSPORIN TOPICAL OINTMENT 15GM TOP ONE (22:30)
[2019-03-24] MEDS ORDERED: NEOSPORIN OINT 0.9 GM PKT (FLOOR STOCK) TOP ONE (22:30)
[2019-03-24] MEDS ORDERED: traZODone 100 MG TAB PO PRN (22:45)
[2019-03-24] MEDS: ACETAMINOPHEN TAB 650MG DOSE (2X325MG) PO PRN (23:43)
--- NOTE | 2019-03-24 23:43 | HPE ---
DATE OF ADMISSION: 03/24/2019 PRIMARY CARE PROVIDER: Dr. Dallas CHIEF COMPLAINT: Fall at home. HISTORY OF THE PRESENT ILLNESS: The patient is a 78-year-old white female with a history of chronic back and depression, presented to the emergency room (ER) for evaluation after fall. History is provided by herself. Per the patient, she has chronic lower back pain, she had back surgery done in the past, and she usually uses a walker or a cane to move around. On 03/17/2019, she fell. She came to the ER here, and she was found to have a laceration on the back of her head, which was sutured and she was discharged home after treatment in the ER. She saw her primary care provider (PCP) recently and sutures were removed. Today, she stated she was carrying her groceries, and she fell in front of her apartment and came back to the ER for further evaluation. She denies any syncopal episode and no other injury. In the ER, she underwent CT of her head, face, and cervical spine, which did not show any fracture. However, she was found to have a skin laceration on her forehead, which was sutured in the ER. Medicine service was called for admission. REVIEW OF SYSTEMS: Denies fever, chills. No syncopal episode. No headache. No chest pain. No abdominal pain. No tingling, numbness, weakness of arms or lower extremities. All other systems were reviewed but negative. PAST MEDICAL HISTORY: 1. Depression. 2. Chronic lower back pain. PAST SURGICAL HISTORY: 1. Back surgery. 2. Hysterectomy. 3. Appendectomy. ALLERGIES: No known drug allergies. SOCIAL HISTORY: She denies tobacco use. Denies alcohol abuse. Denies illicit drug abuse. She lives by herself, and she is a F[employer]. MEDICATIONS: Reviewed. FAMILY HISTORY: Both parents , and no family history of coronary artery disease or diabetes. PHYSICAL EXAMINATION: VITAL SIGNS: Temperature 98.3 and pulse 73, respirations 18, blood pressure 158/77, oxygen saturation 97% on room air. She does not have orthostatic per ER management. GENERAL: She is awake, alert, oriented times three. She is not in acute distress. HEENT: She has a contusion as well as a skin laceration on her face and forehead, which was sutured. Pupils equal, round, reactive to light. Extraocular muscles intact. No jaundice. Ear, nose and throat are normal. Mouth: Mucosa a little dry. NECK: No jugular venous distention (JVD), no bruits. LUNGS: Clear. No wheezing, no crackles. HEART; S1, S2, regular. No murmur. ABDOMEN: Soft. Bowel sounds positive, nontender. LOWER EXTREMITIES: No edema in bilateral lower extremities. NEUROLOGIC: Nonfocal. SKIN: No rash. PSYCHOLOGIC: No acute psychosis. DIAGNOSTIC AND LAB STUDIES: CBC is pending and liver function test was normal. IMPRESSION: 1. Forehead skin laceration and contusion secondary to mechanical fall. 2. History of depression. 3. History of chronic low back pain. PLAN: The patient will be admitted for observation. Will get a physical therapy (PT), occupational therapy (OT) evaluation, and if she has a balance problem, may consider outpatient referral to see a neurologist.
[2019-03-25 02:00] VITALS: BP 132/75
[2019-03-25] MEDS: ACETAMINOPHEN TAB 650MG DOSE (2X325MG) PO PRN ×2 (04:45→08:55)
[2019-03-25 06:00] VITALS: BP 124/62
[2019-03-25] MEDS: OMEGA-3 1000MG CAPSULE PO SCH (08:23)
[2019-03-25] MEDS: ASPIRIN 81 MG ENTERIC TAB PO SCH (08:23)
[2019-03-25] MEDS: VITAMIN D 1,000 INTERNATIONAL UNITS TABLET PO SCH (08:23)
[2019-03-25] MEDS: buPROPion **XL** TABLET 150MG (WELLBUTRIN XL) PO SCH (08:23)
[2019-03-25 14:00] VITALS: BP 128/79
--- NOTE | 2019-03-25 16:58 | IPNPDOC ---
Text Note Date of Service The patient was seen on 03/25/19. NOTE Ms. Velasquez is seen on bedside rounds this morning, she states that she doesn't feel well but can't exactly put her finger on why, she thinks she is just very fatigued. She denies cp, sob , palpitations or n/v. She states she has fell about 5x in the past month, due to weakness, there is never any antecedent cp, sob, bowel or bladder incontinence, cough, n/v or light headedness, she just feels weak and sometimes falls. She is at home by herself. She usually ambulates well at home without the use of a walker or cane, however she sometimes uses a cane outside to walk. When she fell 6..19 she started to use a walker inside the house to help her ambulate. She has been eating and drinking appropriately at home, denies recent n/v, chills or fevers, no change in weight she is concerned with. She just doesn't want to go home today because she is still weak. ROS: 12 point ROS reviewed with patient and negative except for pertinent positives above PS: Vitals: see below General: 78 yo female sitting on her bed, conversant with full sentences, NAD,appears comfortable HEENT: moist mucus membranes, she has a small laceration on her middle forehead just medial to left eyebrow area, sutured, dried blood evident, she has bruising around her nose and mouth from her prior fall, EOMI, nares patent bl Cardiac: normal s1 and s2, no murmurs, rubs or gallops Resp: CTA b/l, no wheezing, rales or rhonchi appreciated Abdomen: soft, nabsx4, no pain to palpation, non distended, no rebound ridgity or guarding, no hepatosplenomegaly or masses Extremities: no swelling, cyanosis or mottling appreciated PLAN: 1. Recurrent mechianical falls -Right now, not a clear etiology to recurrent falls, CT head was without concern for stroke -PT has worked with patient and determined her safe for home d/c -we will have her stay one more night and continue to work with PT tomorrow to help her gain her strength, she may perhaps need rehab outpt -likely secondary to chronic deconditioning, do not suspect cardiac nature to this -c/w monitoring for now 2. Depression -c/w home medications 4. Insomnia -c/w home trazodone VS,Fishbone, I+O VS, Fishbone, I+O Vital Signs Date Time Temp Pulse Resp B/P (MAP) Pulse Ox O2 Delivery O2 Flow Rate FiO2 03/25/19 14:00 97.8 74 18 128/79 (95) 95 03/25/19 01:00 Room Air I&O- Last 24 Hours up to 6 AM 03/25/19 06:00 Intake Total 50 ml Output Total 150 ml Balance -100 ml GME ATTESTATION GME ATTESTATION My faculty preceptor for this patient encounter was physically present during the encounter and was fully available. All aspects of the patient interview, examination, medical decision making process, and medical care plan development were reviewed and approved by the faculty preceptor. The faculty preceptor is aware and concurs with the plan as stated in the body of this note and will attest to such by his/her cosignature. ATTENDING NOTE I have personally interviewed and examined the patient. I have discussed the plan of care with the resident. I agree with the resident's documentation above. NORAH BEACH DO Mar 25, 2019 16:58 FINA ORNELAS MD Mar 26, 2019 16:36
[2019-03-25] MEDS: SERTRALINE HCL 50 MG TAB PO SCH (20:42)
[2019-03-25 22:00] VITALS: BP 115/57
[2019-03-26 06:00] VITALS: BP 122/64
[2019-03-26 06:44] LABS: BASO % 0.5 % (0.0-1.0); EOS # 0.7 10^3/uL (0.0-0.50); EOS % 8.9 % (0.0-3.0); HEMATOCRIT 36.4 % (36.0-47.0); HEMOGLOBIN 12.4 g/dl (12.0-15.5); LYMPH # 2.1 10^3/uL (1.5-4.5); MEAN CORPUSCULAR HEMOGLOBIN 34.2 pg (27.0-33.0); MEAN CORPUSCULAR HGB CONC 34.1 g/dl (32.0-36.5); MEAN CORPUSCULAR VOLUME 100.3 fl (80.0-96.0); MONO % 13.9 % (0.0-5.0); NEUTROPHILS # 3.5 10^3/uL (1.8-7.7); NEUTROPHILS % 48.4 % (36.0-66.0); PLATELET COUNT, AUTOMATED 158 10^3/uL (150-450); RED BLOOD COUNT 3.63 10^6/uL (4.00-5.40); WHITE BLOOD COUNT 7.3 10^3/uL (4.0-10.0)
[2019-03-26 07:07] LABS: BLOOD UREA NITROGEN 22 MG/DL (7-18); CALCIUM LEVEL 9.1 MG/DL (8.8-10.2); CARBON DIOXIDE LEVEL 30 MEQ/L (21-32); CHLORIDE LEVEL 112 MEQ/L (98-107); CREATININE FOR GFR 0.71 MG/DL (0.55-1.30); GLOMERULAR FILTRATION RATE > 60.0 (>39); GLUCOSE, FASTING 82 MG/DL (70-100); SODIUM LEVEL 144 MEQ/L (136-145)
[2019-03-26] MEDS: ASPIRIN 81 MG ENTERIC TAB PO SCH (07:51)
[2019-03-26] MEDS: OMEGA-3 1000MG CAPSULE PO SCH (07:51)
[2019-03-26] MEDS: buPROPion **XL** TABLET 150MG (WELLBUTRIN XL) PO SCH (07:52)
[2019-03-26] MEDS: VITAMIN D 1,000 INTERNATIONAL UNITS TABLET PO SCH (07:52)
[2019-03-26] MEDS ORDERED: ACET-683 PO (09:50)
--- NOTE | 2019-03-26 15:51 | DS.PDOC ---
Discharge Summary General Date of Admission Mar 24, 2019 at 22:36 Date of Discharge 03/26/19 Discharge Summary PROCEDURES PERFORMED DURING STAY: Sutures on the forehead DISCHARGE DIAGNOSES: Mechanical fall and trauma to the face. 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 HISTORY OF PRESENT ILLNESS: Please see history and physical HOSPITAL COURSE: This is a 78 year old female with PMH of Breast cancer, chronic back pain s/p back surgery in the past, depression , gait instability , insomnia, multiple falls over the past 10 years came to the ED after another mechanical fall when she was walking with her cane. This is her second fall this month with lacerations requiring sutures. There was no dizziness or light headedness or loss of consciousness. Telemetry did not show any cardiac arrhythmia. Her trazodone was recently increased to 200 mg by her psychiatrist. This was felt to be a mechanical fall due to peripheral neuropathy, muscle weakness causing disbalance and gait instability. Recurrent mechanical falls Multifactorial Has history of moderate to severe cervical stenosis with lumber stenosis. Possibly also has peripheral neuropathy with chronic muscular deconditioning along with recent increase in trazodone. No cardiac cause found CT head was without concern for stroke PT has worked with patient and determined her safe for home d/c . Pateint instruted to always use her walker. SHe is no longer safe to use her cane . H/O Left Breast cancer s/p Lumpectomy adn Radiation. currently on Hormone therapy. DCIS ER weakly positive, DE negative. [facility] microinvasion Left breast lumpectomy done by Dr. Rich on March 16, 2017. 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 Pathology is poorly differentiated high- grade and the ER was still weakly positive, DE was negative. There was one small foci which was worrisome for microinvasion of ductal carcinoma. Margins were all clear and one sentinel node was negative. Stage 0 ([id number]). Adjuvant radiation therapy given completed in July 2017. Adjuvant endocrine therapy with letrozole begun May 2017. Exemestane switched over from letrozole for body aches February 2018 and tolerating exemestane reasonably well. Depression c/w home medications except will reduce trazodone to prior dosage. patient says it was recently increased form 150 mg to 200 mg. Insomnia -c/w home trazodone DISCHARGE MEDICATIONS: Please see below. ALLERGIES: Please see below. PHYSICAL EXAMINATION ON DISCHARGE: VITAL SIGNS: Please see below. General: 78 yo female sitting on her bed, conversant with full sentences, NAD,appears comfortable HEENT: moist mucus membranes, she has a small laceration on her middle forehead just medial to left eyebrow area, sutured, dried blood evident, she has bruising around her nose and mouth from her prior fall, EOMI, nares patent bl Cardiac: normal s1 and s2, no murmurs, rubs or gallops Resp: CTA b/l, no wheezing, rales or rhonchi appreciated Abdomen: soft, nabsx4, no pain to palpation, non distended, no rebound ridgity or guarding, no hepatosplenomegaly or masses Extremities: no swelling, cyanosis or mottling appreciated LABORATORY DATA: Please see below. ACTIVITY: [As tolerated]. DIET: As tolerated DISPOSITION: 01 Home, Self-Care. DISCHARGE INSTRUCTIONS: Follow up with PMD in 1 week for suture removal DISCHARGE CONDITION: [Stable]. TIME SPENT ON DISCHARGE: 35 minutes. Vital Signs/I&Os Vital Signs Date Time Temp Pulse Resp B/P (MAP) Pulse Ox O2 Delivery O2 Flow Rate FiO2 03/26/19 06:00 96.8 72 18 122/64 (83) 94 03/25/19 01:00 Room Air I&O- Last 24 Hours up to 6 AM 03/26/19 06:00 Intake Total 950 ml Output Total 425 ml Balance 525 ml Laboratory Data Labs 24H Laboratory Tests 2 03/26/19 06:27: Immature Granulocyte % (Auto) 0.3, White Blood Count 7.3, Red Blood Count 3.63L, Hemoglobin 12.4, Hematocrit 36.4, Mean Corpuscular Volume 100.3H, Mean Corpuscular Hemoglobin 34.2H, Mean Corpuscular Hemoglobin Concent 34.1, Red Cell Distribution Width 14.6H, Platelet Count 158, Neutrophils (%) (Auto) 48.4, Lymphocytes (%) (Auto) 28.0, Monocytes (%) (Auto) 13.9H, Eosinophils (%) (Auto) 8.9H, Basophils (%) (Auto) 0.5, Neutrophils # (Auto) 3.5, Lymphocytes # (Auto) 2.1, Monocytes # (Auto) 1.0H, Eosinophils # (Auto) 0.7H, Basophils # (Auto) 0.0, Nucleated Red Blood Cells % (auto) 0.0, Anion Gap 2L, Glomerular Filtration Rate > 60.0, Blood Urea Nitrogen 22H, Creatinine 0.71, Sodium Level 144, Potassium Level 4.0, Chloride Level 112H, Carbon Dioxide Level 30, Calcium Level 9.1 CBC/BMP Laboratory Tests 03/26/19 06:27 Red Blood Count 3.63 L, Mean Corpuscular Volume 100.3 H, Mean Corpuscular Hemoglobin 34.2 H, Mean Corpuscular Hemoglobin Concent 34.1, Red Cell D istribution Width 14.6 H, Neutrophils (%) (Auto) 48.4, Lymphocytes (%) (Auto) 28.0, Monocytes (%) (Auto) 13.9 H, Eosinophils (%) (Auto) 8.9 H, Basophils (%) (Auto) 0.5, Neutrophils # (Auto) 3.5, Lymphocytes # (Auto) 2.1, Monocytes # (Auto) 1.0 H, Eosinophils # (Auto) 0.7 H, Basophils # (Auto) 0.0, Calcium Level 9.1 Discharge Medications Scheduled Acetaminophen (Acetaminophen) 500 Mg Tablet, 1,000 MG PO Q8HP Alendronate Sodium (Alendronate Sodium) 70 Mg Tablet, 70 MG PO 1XWK, (Reported) TAKES ON WEDNESDAY Aripiprazole (Abilify) 5 Mg Tablet, 5 MG PO DAILY, (Reported) Aspirin (Aspirin EC) 81 Mg Tab, 81 MG PO DAILY, (Reported) Bupropion HCl (Bupropion Xl) 300 Mg Tab.er.24h, 300 MG PO DAILY, (Reported) Calcium Carbonate (Calcium) 600 Mg Tablet, 600 MG PO DAILY, (Reported) Cholecalciferol (Vitamin D3) (Vitamin D3) 2,000 Unit Cap, 2,000 UNIT PO DAILY, (Reported) Exemestane (Exemestane) 25 Mg Tablet, 25 MG PO DAILY, (Reported) [place]-3S/Dha/Epa/Fish Oil (Fish Oil Dr 1,000 mg Softgel) 1 Cap Cap, 1,000 MG PO DAILY, (Reported) Sertraline HCl (Sertraline HCl) 50 Mg Tablet, 150 MG PO QHS, (Reported) Scheduled PRN Trazodone HCl (Trazodone HCl) 50 Mg Tab, 100 MG PO QHS PRN for INSOMNIA, (Reported) Allergies Coded Allergies: No Known Allergies (Unverified , 01/04/19) FINA ORNELAS MD Mar 26, 2019 13:15
== END 2019-03-26 12:35 | disposition home or self-care (01) ==
LOC: EDBD 18:43 → M ED 19:49 → M ED INP 22:36 → M MSPAV 03-25 01:46
PROVIDERS: ADMIT Hospitalist; ATTEND Internal Medicine Nephrology
DX: G62.9 Polyneuropathy, unspecified (principal); M62.81 Muscle weakness (generalized); R26.81 Unsteadiness on feet; S01.81XA Laceration without foreign body of other part of head, initial encounter; W19.XXXA Unspecified fall, initial encounter; Y92.098 Other place in other non-institutional residence as the place of occurrence of the external cause; M54.5 Low back pain; F32.9 Major depressive disorder, single episode, unspecified; G47.00 Insomnia, unspecified; C50.912 Malignant neoplasm of unspecified site of left female breast; F41.9 Anxiety disorder, unspecified; M79.7 Fibromyalgia; G47.33 Obstructive sleep apnea (adult) (pediatric); F03.90 Unspecified dementia, unspecified severity, without behavioral disturbance, psychotic disturbance, mood disturbance, and anxiety; G47.61 Periodic limb movement disorder; Z91.81 History of falling; Z79.899 Other long term (current) drug therapy; Z79.82 Long term (current) use of aspirin
CPT/HCPCS: 12011; 36415; 70450; 70486; 72125; 80047; 80048; 80076; 82550; 82553; 84484; 85025; 97161; 99285; G0378

== ENCOUNTER 2019-04-15 18:28 | Emergency (ER) | payer MEDICARE, BC ==
[~2019-04-15] VITALS: Ht 165.1 cm; Wt 79.1 kg
[~2019-04-15 18:28] MED LIST changes: +ACET-683 PO; +ALEN70TA74 PO; -CALC12504 PO; +CALC500T61 PO
--- NOTE | 2019-04-15 20:35 | REPVR ---
EXAM: CT Lumbar Spine Without Contrast EXAM DATE/TIME: 04/15/2019 7:06 PM CLINICAL HISTORY: 78 years old, female; Injury or trauma; Fall; Initial encounter; Blunt trauma (contusions or hematomas) TECHNIQUE: Imaging protocol: Axial computed tomography images of the lumbar spine without intravenous contrast. Coronal and sagittal reformatted images were created and reviewed. Radiation optimization: All CT scans at this facility use at least one of these dose optimization techniques: automated exposure control; mA and/or kV adjustment per patient size (includes targeted exams where dose is matched to clinical indication); or iterative reconstruction. COMPARISON: No relevant prior studies available. FINDINGS: The lowest disc space is designated as L5-S1 for numbering purposes. L5-S1: There is posterior disc osteophyte at L5-S1 causing moderate impression on the anterior aspect of the thecal sac. There is sclerosis and facet hypertrophy bilaterally and causing severe bilateral L5 neural foramina narrowing. L4-L5: There is a grade 2 spondylolisthesis of L4 and L5. This creates a posterior bony ridge causing impression on the thecal sac. The facet hypertrophy all producing moderate central spinal canal stenosis. There is severe bilateral L4 neural foramina narrowing secondary to facet hypertrophy and disc osteophyte complex. L3-L4: There is severe bilateral L3 neural foramina narrowing secondary to facet hypertrophy and osteophyte formation. L2-L3: There is moderate posterior osteophyte formation and facet hypertrophy causing moderate central spinal canal stenosis. There is also severe bilateral L2 neural foramina narrowing secondary to facet hypertrophy and osteophyte formation. L1-L2: There is a large posterior osteophyte and with facet hypertrophy causing moderate central spinal canal stenosis. There is severe bilateral L1 neural foramina narrowing. There is no evidence of fracture. IMPRESSION: 1. Severe bilateral L5 neural foraminal narrowing. 2. L4-L5 level demonstrates moderate central spinal canal stenosis. Severe bilateral L4 neural foramina narrowing. 3. The L3-L4 level demonstrates severe bilateral L3 neural foramina narrowing. 4. The L2-L3 level demonstrates moderate central spinal canal stenosis and severe bilateral L2 neural foramina narrowing. 5. L1-L2 level demonstrates moderate central spinal canal stenosis severe bilateral L1 neural foramina narrowing. Electronically signed by: Harris Funk On 04/15/2019 20:35:06 PM
[2019-04-15 21:01] VITALS: BP 131/75
--- NOTE | 2019-04-17 13:07 | ED PDOC ---
Post-Departure Follow-Up dr ventura faxed formal report of ct ls spine for fu Jyoti Monson MD Apr 17, 2019 13:07
== END 2019-04-15 21:10 | disposition home or self-care (01) ==
LOC: M ED 18:28
DX: S20.229A Contusion of unspecified back wall of thorax, initial encounter (principal); W18.39XA Other fall on same level, initial encounter; Y92.018 Other place in single-family (private) house as the place of occurrence of the external cause; I25.10 Atherosclerotic heart disease of native coronary artery without angina pectoris; Z79.899 Other long term (current) drug therapy; Z79.82 Long term (current) use of aspirin

== ENCOUNTER → 2019-06-19 | Outpatient (REF) | payer MEDICARE, BC ==
[~2019-06-19] MED LIST changes: -ALEN10TA20 PO; +ALEN10TA21 PO
[2019-06-19 16:03] LABS: TOTAL PROTEIN 6.6 GM/DL (6.4-8.2)
[2019-06-19 16:13] LABS: FOLATE > 24.0 NG/ML; VITAMIN B12 LEVEL 542 PG/ML
[2019-06-22 10:00] LABS: ALBUMIN 4.17 GM/DL (3.29-5.55); ALBUMIN % 63.2 % (55.8-66.1); ALPHA-1-GLOBULIN % 4.4 % (2.9-4.9); ALPHA-1-GLOBULINS 0.29 GM/DL (0.17-0.41); ALPHA-2-GLOBULINS 0.69 GM/DL (0.42-0.99); ALPHA-2-GLOBULINS % 10.5 % (7.1-11.8); BETA-1-GLOBULINS % 6.1 % (4.7-7.2); BETA-2-GLOBULINS % 6.1 % (3.2-6.5); GAMMA GLOBULIN % 9.7 % (11.1-18.8); GAMMA GLOBULINS 0.64 GM/DL (0.65-1.58)
[2019-06-26 00:07] LABS: CERULOPLASMIN 22.8 mg/dL (19.0-39.0); VITAMIN B1 LEVEL WHOLE BLOOD 94.8 nmol/L (66.5-200.0); VITAMIN B6,PYRIDOXAL PHOSPHATE 1.7 ug/L (2.0-32.8); VITAMIN E(ALPHA TOCOPHEROL) 14.9 mg/L (9.0-29.0)
== END ==
LOC: M LAB REF 13:53
PROVIDERS: ATTEND Internal Medicine
DX: D51.9 Vitamin B12 deficiency anemia, unspecified (principal); E53.9 Vitamin B deficiency, unspecified; E83.01 Wilson's disease

== ENCOUNTER 2019-09-19 18:32 | Observation (INO) | payer MEDICARE, BC ==
[~2019-09-19] VITALS: Ht 167.6 cm; Wt 73.6 kg
[~2019-09-19 18:32] MED LIST changes: -SERT-155 PO; +SERT50TA29 PO
[2019-09-19] MEDS ORDERED: ONDANSETRON 4MG/2ML VIAL (J2405) IV ONE (19:45)
[2019-09-19] MEDS ORDERED: ACETAMINOPHEN TAB 650MG DOSE (2X325MG) PO ONE (19:45)
[2019-09-19] MEDS ORDERED: NS 1,000 ML IV ONE (19:45)
--- NOTE | 2019-09-19 19:52 | REPVR ---
PROCEDURE INFORMATION: Exam: CT Head Without Contrast Exam date and time: 09/19/2019 7:10 PM Age: 78 years old Clinical history: Injury or trauma; Fall; Initial encounter; Blunt trauma (contusions or hematomas); Additional info: Fall/weakness TECHNIQUE: Imaging protocol: Computed tomography of the head without contrast. Radiation optimization: All CT scans at this facility use at least one of these dose optimization techniques: automated exposure control; mA and/or kV adjustment per patient size (includes targeted exams where dose is matched to clinical indication); or iterative reconstruction. COMPARISON: CT Head without contrast 03/24/2019 7:53 PM FINDINGS: Brain: Subtle, patchy areas of hypoattenuation in the periventricular and subcortical white matter, nonspecific but suggestive of mild chronic small vessel ischemic disease. No CT evidence of acute intracranial hemorrhage or acute territorial infarction. No significant mass effect or midline shift. Basal cisterns patent. Ventricles: Prominence of the cortical sulci, cisterns and ventricular system, consistent with cerebral and cerebellar volume loss. Bones/joints: No acute osseous abnormality. Sinuses: Minimal ethmoid mucosal thickening. Mastoid air cells: Grossly unremarkable. Soft tissues: Grossly unremarkable. Vasculature: Calcific atherosclerotic disease in the cavernous internal carotid arteries. IMPRESSION: 1. No CT evidence of acute intracranial pathology. 2. Additional findings, as above. Electronically signed by: Zachery Morgan On 09/19/2019 19:52:37 PM
[2019-09-19 19:54] LABS: BASO % 0.2 % (0.0-1.0); HEMATOCRIT 41.8 % (36.0-47.0); HEMOGLOBIN 13.9 g/dl (12.0-15.5); LYMPH # 0.4 10^3/uL (1.5-5.0); LYMPH % 4.6 % (24.0-44.0); MEAN CORPUSCULAR HEMOGLOBIN 32.4 pg (27.0-33.0); MEAN CORPUSCULAR HGB CONC 33.3 g/dl (32.0-36.5); MEAN CORPUSCULAR VOLUME 97.4 fl (80.0-96.0); MONO # 0.4 10^3/uL (0.0-0.8); MONO % 4.8 % (0.0-5.0); NEUTROPHILS # 8.1 10^3/uL (1.5-8.5); PLATELET COUNT, AUTOMATED 130 10^3/uL (150-450); RED BLOOD COUNT 4.29 10^6/uL (4.00-5.40)
--- NOTE | 2019-09-19 19:56 | REPVR ---
PROCEDURE INFORMATION: Exam: CT Cervical Spine Without Contrast Exam date and time: 09/19/2019 7:15 PM Age: 78 years old Clinical history: Injury or trauma; Fall; Initial encounter; Blunt trauma TECHNIQUE: Imaging protocol: Computed tomography images of the cervical spine without contrast. Axial, coronal and sagittal reformatted images were created and reviewed. Radiation optimization: All CT scans at this facility use at least one of these dose optimization techniques: automated exposure control; mA and/or kV adjustment per patient size (includes targeted exams where dose is matched to clinical indication); or iterative reconstruction. COMPARISON: CT Spine,cervical w/o contrast 03/24/2019 7:53 PM FINDINGS: Vertebrae: Osteopenia. Reversal of the normal cervical lordosis. Alignment anatomic. No CT evidence of acute fracture, dislocation or subluxation. Vertebral body heights maintained. Discs/Spinal canal/Neural foramina: C4-C5 bony fusion. Multilevel degenerative changes, characterized by disc space narrowing, osteophytosis and uncovertebral and facet joint hypertrophy. Multilevel spinal canal and neural foraminal narrowing. Soft tissues: Grossly unremarkable. Lungs: Grossly unremarkable. IMPRESSION: 1. No CT evidence of acute cervical spine traumatic injury. 2. Additional findings, as above. Electronically signed by: Zachery Morgan On 09/19/2019 19:56:22 PM
[2019-09-19 19:58] LABS: INR 1.18; PROTHROMBIN TIME 14.7 SECONDS (11.8-14.0)
[2019-09-19 20:04] LABS: ALBUMIN 3.2 GM/DL (3.2-5.2); ALT/SGPT 30 U/L (12-78); BILIRUBIN,DIRECT 0.3 MG/DL (0.0-0.2); CK-MB VALUE MASS < 1.0 NG/ML (<3.6); CPK CREATINE PHOSPHOKINASE 124 U/L (26-192); LIPASE 95 U/L (73-393); MB/CK RELATIVE INDEX 0.81 (< OR =4); TOTAL PROTEIN 5.6 GM/DL (6.4-8.2); TROPONIN I < 0.02 NG/ML (< 0.10)
--- NOTE | 2019-09-20 00:49 | REPVR ---
PROCEDURE INFORMATION: Exam: CT Abdomen And Pelvis Without Contrast Exam date and time: 09/20/2019 12:19 AM Age: 78 years old Clinical history: Abdominal pain; Flank; Other: Bilateral; Additional info: Hematuria, b/l flank pain TECHNIQUE: Imaging protocol: Computed tomography of the abdomen and pelvis without contrast. Axial, coronal and sagittal reformatted images were created and reviewed. Radiation optimization: All CT scans at this facility use at least one of these dose optimization techniques: automated exposure control; mA and/or kV adjustment per patient size (includes targeted exams where dose is matched to clinical indication); or iterative reconstruction. COMPARISON: CT ABD/PEL W/IV CONTRAST ONLY 02/02/2017 8:00 AM FINDINGS: Lungs: Mild linear stranding and groundglass at the lung bases, likely due to atelectasis and/or scarring. Liver: Mild hepatic steatosis. Gallbladder and bile ducts: No radiodense gallstones. No biliary ductal dilatation. Pancreas: Unremarkable. Spleen: Unremarkable. Adrenals: Unremarkable. Kidneys and ureters: 1.9 x 1.6 cm right renal cyst. Nonobstructing bilateral renal calculi. No hydronephrosis. Stomach and bowel: Small duodenal diverticulum. Moderate amount of retained stool in the colon. No obstruction. No bowel wall thickening. No pneumatosis. Appendix: Appendix not identified with certainty but no right lower quadrant inflammatory change to suggest acute appendicitis. Intraperitoneal space: No free fluid. No organized fluid collection. No free air. Vasculature: Unremarkable. No aneurysm. Lymph nodes: No pathologically enlarged lymph nodes. Bladder: Mild circumferential urinary bladder wall thickening, possibly secondary to underdistention. Reproductive: Status post hysterectomy. Bones/joints: No acute osseous abnormality. Osteopenia. Degenerative changes. Soft tissues: Small, fat-containing umbilical hernia. Other findings: Elevated left hemidiaphragm. IMPRESSION: 1. Limited noncontrast examination. 2. Nonobstructing bilateral renal calculi. No hydronephrosis. 3. Mild circumferential urinary bladder wall thickening, possibly secondary to underdistention. Correlate with urinalysis to exclude cystitis. 4. Additional findings, as above. Electronically signed by: Zachery Morgan On 09/20/2019 00:48:37 AM
[2019-09-20] MEDS ORDERED: SERT-138 PO (00:52)
[2019-09-20] MEDS ORDERED: ACET-897 PO (00:52)
[2019-09-20] MEDS ORDERED: cefTRIAXone SOD 1 GM in D5W MINI-BAG PLUS 50 ML IV ONE (01:00)
[2019-09-20] MEDS ORDERED: traZODone 25MG PER 1/2 TABLET PO PRN (02:00)
[2019-09-20] MEDS ORDERED: NS 1,000 ML IV SCH (02:00)
[2019-09-20 02:55] VITALS: BP 125/77
[2019-09-20 03:07] LABS: C REACTIVE PROTEIN QUANTITATIV 6.72 MG/DL (0.00-0.30)
[2019-09-20] MEDS: SERTRALINE 100 MG TAB PO SCH ×2 (03:26→21:02)
[2019-09-20] MEDS: ASPIRIN 81 MG ENTERIC TAB PO SCH ×2 (03:26→21:02)
[2019-09-20] MEDS ORDERED: EXCEDRIN MIGRAINE TABLET PO PRN (04:45)
--- NOTE | 2019-09-20 05:00 | HPEPDOC ---
[facility] Medical History & Physical Date of Admission Sep 20, 2019 Date of Service: Sep 20, 2019 Primary Care Physician: Carmelina Dallas Attending Physician: CLAUS MOSHER MD History and Physical CHIEF COMPLAINT: Dizziness and weakness/ fall/head trauma HISTORY OF PRESENT ILLNESS: This is a 78-year-old female who presented to the ER for dizziness and weakness. Patient is not the best historian. She arrived to the ER via EMS. She states that when she was walking home last night she tripped and fell and hit her head on the ground. She denies having any syncopal episodes or any lightheadedness. She denies having her foot caught on anything and she just fell. She admits to having a history of falls in the past her last fall was in March which she contributes to her Abilify use. She states that she was evaluated by a neurologist and she was told that she had parkinsonian-like symptoms exacerbated by the Abilify. When she was taken off the Abilify shes noticed that shes not had as much frequent falls. She does endorse having some urinary incontinence for the last couple of months but no lower extremity weakness or sensation loss. She does have a history of chronic low back pain status post back surgery multiple years ago but nothing new. She does admit to having loose bowels the day before which she had explosive diarrhea. She denies having any blood in her stool or any nausea. She denies having any other episodes of loss of rectal tone. She denies any fevers chills or night sweats. She denies any weight loss, lightheadedness, chest pain, shortness of breath, cough, or chest pain. She does admit to having some headache at this current time but she admits that occurred after the fall. REVIEW OF SYSTEMS: 10 systems reviewed and negative other than HPI PAST MEDICAL HISTORY: 1. Depression. 2. Chronic lower back pain. PAST SURGICAL HISTORY: 1. Back surgery. 2. Hysterectomy. 3. Appendectomy. HOME MEDICATIONS: Please see below. ALLERGIES: Please see below SOCIAL HISTORY: Lives with: By herself,Tobacco use: Denies. ETOH: Denies, Illicit drug use: Tinnitus, CODE STATUS: Full code FAMILY HISTORY: Reviewed and noncontributory. No family history of heart disease or diabetes. PHYSICAL EXAMINATION: VITAL SIGNS: See below GENERAL: Pleasant 78-year-old female laying in bed sitting up in bed awake alert oriented speaking in complete sentences no acute distress HEENT: Pupils are equal round and reactive PERRLA, dry mucous membranes poor dentition no JVD noted. Over the left eyebrow on the forehead slight bruising s/p to fall. Slightly tender to touch but not significant with the no swelling CARDIOVASCULAR: S1 S2 regular no additional heart sounds appreciated. RESPIRATORY: Clear to auscultation bilaterally. ABDOMINAL: Bowel sounds present abdomen soft and nontender] obese abdomen normal rectal tone EXTREMITIES: No clubbing cyanosis or edema]. Minimal bruising appreciated on the right knee on the medial aspect. Trendelenburg test positive on the right? NEUROLOGICAL: Spontaneously moves all 4 extremities cranial 2 through 12 grossly intact no gross focal deficits appreciated] DTR areflexia (patient states is normal for her). Muscle strength 5 out of 5 in the upper and lower extremities. PSYCHOLOGICAL: Appropriate LABORATORY DATA: See below. MICROBIOLOGY: Please see below. IMAGIN09/19/[address] evidence of acute intracranial pathology. 2. Additional findings, as above. Cervical spine CT 1. No CT evidence of acute cervical spine traumatic injury. 2. Additional findings, as above. X-ray knee Official report pending X-ray chest Official report pending Abdominal/pelvis CT 1. Limited noncontrast examination. 2. Nonobstructing bilateral renal calculi. No hydronephrosis. 3. Mild circumferential urinary bladder wall thickening, possibly secondary to underdistention. Correlate with urinalysis to exclude cystitis. ASSESSMENT & PLAN: This is a 78-year-old female admitted for evaluation after having a fall. PROBLEMS: 1. Dizziness and weakness s/p Fall. Possible mechanical fall.. EKG in the ER sinus rhythm. Patient has a unsteady gait on exam with positive Trendelenburg test on the right possibly. No red sign symptoms or physical findings. Will obtain orthostatics 1. Gently hydrate the patient with IV fluids at 100cc an hour and reassess after 1 L. I believe the patient can benefit from PT and OT while admitted and appreciate the recommendation if he will need to continue outpatient. 2. Diarrhea- Patient did have a complaint of GI symptoms 24 hours prior. Will obtain GI panel if she is having loose stools while admitted. 3. Depression - continue with home Sertraline 100 mg daily at bedtime 4. Abnormal abdominal pelvic CT - Mild circumferential urinary bladder wall thickening documented on CT. Patient has a problem of urinary incontinence for last 6 months. If patient is stable can consider outpatient follow-up with urology vs inpatient. Urinalysis negative for UTI, antibiotics not indicated. 5. Insomnia. Continue trazodone 25 mg daily at bedtime as needed 6. Headache. Status post fall. Head CT negative for any acute processes. Excedrin 1 mg every 6 hours as needed (work. DVT PROPHYLAXIS: TEDs DISPOSITION: will likely go home after less than 2 midnight's stay Vital Signs Vital Signs Date Time Temp Pulse Resp B/P (MAP) Pulse Ox O2 Delivery O2 Flow Rate FiO2 09/20/19 02:55 98.1 44 18 125/77 (93) 95 Room Air Laboratory Data Labs 24H Laboratory Tests 2 09/19/19 18:54: Immature Granulocyte % (Auto) 0.4, Neutrophils (%) (Auto) 90.0H, Lymphocytes (%) (Auto) 4.6L, Monocytes (%) (Auto) 4.8, Eosinophils (%) (Auto) 0.0, Basophils (%) (Auto) 0.2, Neutrophils # (Auto) 8.1, Lymphocytes # (Auto) 0.4L, Monocytes # (Auto) 0.4, Eosinophils # (Auto) 0.0, Basophils # (Auto) 0.0, Nucleated Red Blood Cells % (auto) 0.0, Prothrombin Time 14.7H, Prothromb Time International Ratio 1.18, Activated Partial Thromboplast Time 30.0, Total Bilirubin 1.0, Direct Bilirubin 0.3H, Aspartate Amino Transf (AST/SGOT) 27, Alanine Aminotransferase (ALT/SGPT) 30, Alkaline Phosphatase 129H, Total Creatine Kinase 124, Creatine Kinase MB < 1.0, Creatine Kinase MB Relative Index 0.81, Troponin I < 0.02, C-Reactive Protein, Quantitative 6.72H, Total Protein 5.6L, Albumin 3.2, Albumin/Globulin Ratio 1.33, Lipase 95 09/19/19 20:44: POC Glucose (Misc Panel) 99, POC Sodium (Misc Panel) 138, POC Potassium (Misc Panel) 3.2L, POC Chloride (Misc Panel) 103, POC Total CO2 (Misc Panel) 23.0, POC Blood Urea Nitrogen (Misc Panel 21, POC Ionized Calcium (Misc Panel) 4.8, POC Creatinine (Misc Panel) 0.6, POC Hematocrit (Misc Panel) 39.0 09/19/19 22:46: Urine Color YELLOW, Urine Appearance HAZY, Urine pH 5.0, Urine Specific Boyds 1.021, Urine Protein 1+H, Urine Glucose (UA) NEGATIVE, Urine Ketones TRACEH, U rine Blood 3+H, Urine Nitrite NEGATIVE, Urine Bilirubin NEGATIVE, Urine Urobilinogen 0.2, Urine Leukocyte Esterase NEGATIVE, Urine WBC (Auto) 1, Urine RBC (Auto) TNTCH, Urine Hyaline Casts (Auto) 0, Urine Bacteria (Auto) NEGATIVE, Urine Squamous Epithelial Cells 0, Urine Mucus (Auto) SMALL, Urine Sperm (Auto) CBC/BMP Laboratory Tests 09/19/19 18:54 Microbiology Microbiology 09/19/19 Blood Culture, Received Pending 09/19/19 Blood Culture, Received Pending Home Medications Scheduled Alendronate Sodium (Alendronate Sodium) 70 Mg Tablet, 70 MG PO 1XWK TAKES ON WEDNESDAY Aspirin (Aspirin EC) 81 Mg Tab, 81 MG PO QHS Cephalexin (Keflex) 500 Mg Capsule, 1 CAP PO BID Exemestane (Exemestane) 25 Mg Tablet, 25 MG PO QHS Sertraline HCl (Sertraline HCl) 100 Mg Tablet, 100 MG PO QHS Scheduled PRN Acetaminophen (Tylenol Extra Strength) 500 Mg Tablet, 1,000 MG PO Q6H PRN for HEADACHE OR PAIN Trazodone HCl (Trazodone HCl) 50 Mg Tab, 25 MG PO QHS PRN for INSOMNIA Allergies Coded Allergies: No Known Allergies (Unverified , 01/04/19) GME ATTESTATION GME ATTESTATION My faculty preceptor for this patient encounter was physically present during the encounter and was fully available. All aspects of the patient interview, examination, medical decision making process, and medical care plan development were reviewed and approved by the faculty preceptor. The faculty preceptor is aware and concurs with the plan as stated in the body of this note and will attest to such by his/her cosignature. ATTENDING NOTE TIME OF SERVICE 228AM I reviewed 's note, edited it and agree with the findings as documented. GERDA JARAMILLO DO Sep 20, 2019 05:00 CLAUS MOSHER MD Sep 20, 2019 05:44
[2019-09-20] MEDS: ACETAMINOPHEN TAB 650MG DOSE (2X325MG) PO PRN ×2 (05:39→21:02)
--- NOTE | 2019-09-20 05:40 | ECGEPIP ---
[facility] - ED Test Date: 2019-09-19 Pat Name: JARET MAHARAJ Department: Room: - Gender: Female [employer]: : [id number] Requested By: Deanna Casey Order Number: [id number] Reading MD: Rufus Stack Measurements Intervals [place] Rate: 80 P: 65 SC: 147 QRS: 30 QRSD: 77 T: 31 QT: 293 QTc: 338 Interpretive Statements SINUS RHYTHM NONSPECIFIC T-WAVE ABNORMALITY SIMILAR TO 03/17/19 Electronically Signed on 09-20-2019 5:39:59 EST by Rufus Stack
[2019-09-20 05:41] VITALS: BP 127/79
[2019-09-20 05:44] VITALS: BP 130/79
[2019-09-20 05:49] VITALS: BP 131/80
[2019-09-20 06:00] VITALS: BP 121/78
--- NOTE | 2019-09-20 08:35 | REP ---
Two-view chest: 09/19/2019. Indication: Epigastric pain. Comparison: 03/17/2019. Findings: There is no focal airspace consolidation. There is no pleural effusion or pneumothorax. Cardiac silhouette is unremarkable. Aortic atherosclerotic disease and ectasia are present. Impression: No acute cardiopulmonary process. Electronically Signed by Christiano Pearl DO 09/20/2019 08:27 A
--- NOTE | 2019-09-20 08:49 | REP ---
Five views right knee: 09/19/2019. Indication: Right knee pain following fall. Comparison: 02/18/2015. Findings: There is no acute fracture, subluxation or dislocation. No significant joint effusion is present. Tricompartmental osteoarthritic changes are present and have advance compared to the previous study most pronounced within the medial compartment. Impression: No acute osseous right knee injury. Electronically Signed by Christiano Pearl DO 09/20/2019 08:41 A
[2019-09-20] MEDS ORDERED: ONDANSETRON 4MG/2ML VIAL (J2405) IV PRN (12:45)
[2019-09-20] MEDS: NS 1,000 ML IV SCH (13:02)
[2019-09-20 19:45] VITALS: BP 119/80
[2019-09-21] MEDS ORDERED: cefTRIAXone SOD 1 GM in D5W MINI-BAG PLUS 50 ML IV SCH (01:00)
[2019-09-21] MEDS: NS 1,000 ML IV SCH (03:29)
[2019-09-21 05:40] VITALS: BP 131/85
[2019-09-21 06:25] LABS: BASO % 0.5 % (0.0-1.0); EOS # 0.2 10^3/uL (0.0-0.5); EOS % 4.8 % (0.0-3.0); HEMATOCRIT 37.6 % (36.0-47.0); HEMOGLOBIN 12.2 g/dl (12.0-15.5); LYMPH # 1.3 10^3/uL (1.5-5.0); LYMPH % 31.9 % (24.0-44.0); MEAN CORPUSCULAR HEMOGLOBIN 31.9 pg (27.0-33.0); MEAN CORPUSCULAR HGB CONC 32.4 g/dl (32.0-36.5); MEAN CORPUSCULAR VOLUME 98.2 fl (80.0-96.0); MONO # 0.6 10^3/uL (0.0-0.8); MONO % 15.2 % (0.0-5.0); NEUTROPHILS # 1.9 10^3/uL (1.5-8.5); NEUTROPHILS % 47.1 % (36.0-66.0); PLATELET COUNT, AUTOMATED 110 10^3/uL (150-450); RED BLOOD COUNT 3.83 10^6/uL (4.00-5.40)
[2019-09-21 06:49] LABS: ALBUMIN 2.6 GM/DL (3.2-5.2); ALT/SGPT 26 U/L (12-78); BILIRUBIN,TOTAL 0.4 MG/DL (0.2-1.0); BLOOD UREA NITROGEN 13 MG/DL (7-18); CALCIUM LEVEL 8.2 MG/DL (8.8-10.2); CARBON DIOXIDE LEVEL 26 MEQ/L (21-32); CHLORIDE LEVEL 116 MEQ/L (98-107); CREATININE FOR GFR 0.53 MG/DL (0.55-1.30); GLOMERULAR FILTRATION RATE > 60.0 (>39); GLUCOSE, FASTING 94 MG/DL (70-100); POTASSIUM SERUM 3.1 MEQ/L (3.5-5.1); SODIUM LEVEL 148 MEQ/L (136-145); TOTAL PROTEIN 5.2 GM/DL (6.4-8.2)
[2019-09-21] MEDS ORDERED: POTASSIUM CHLORIDE 10 MEQ SR TABLET PO ONE (07:45)
[2019-09-21 08:00] VITALS: BP 144/74
[2019-09-21] MEDS ORDERED: KEFL500C17 PO (10:09)
--- NOTE | 2019-09-21 11:41 | DS.PDOC ---
Discharge Summary General Date of Admission Sep 19, 2019 at 18:33 Date of Discharge 09/21/19 Discharge Summary PROCEDURES PERFORMED DURING STAY: None. ADMITTING DIAGNOSES: 1. UTI, fall. DISCHARGE DIAGNOSES: 1. UTI, no virus infection, hypokalemia, fall. COMPLICATIONS/CHIEF COMPLAINT: UTI. HISTORY OF PRESENT ILLNESS: This is a 78-year-old female who presented to the ER for dizziness and weakness. Patient is not the best historian. She arrived to the ER via EMS. She states that when she was walking home last night she tripped and fell and hit her head on the ground. She denies having any syncopal episodes or any lightheadedness. She denies having her foot caught on anything and she just fell. She admits to having a history of falls in the past her last fall was in March which she contributes to her Abilify use. She states that she was evaluated by a neurologist and she was told that she had parkinsonian-like symptoms exacerbated by the Abilify. When she was taken off the Abilify shes noticed that shes not had as much frequent falls. She does endorse having some urinary incontinence for the last couple of months but no lower extremity weakness or sensation loss. She does have a history of chronic low back pain status post back surgery multiple years ago but nothing new. She does admit to having loose bowels the day before which she had explosive diarrhea. She denies having any blood in her stool or any nausea. She denies having any other episodes of loss of rectal tone. She denies any fevers chills or night sweats. She denies any weight loss, lightheadedness, chest pain, shortness of breath, cough, or chest pain. She does admit to having some headache at this current time but she admits that occurred after the fal. HOSPITAL COURSE: April admitted with the diagnosis of falls, which was most likely secondary to Abilify causing Parkinson symptoms. Abilify has been stopped and patient had very less falls except of 1 prior to admission when she feels tired and sustained a fall. Patient was found to have no virus positive in the stool cultures. Also, there was questionable UTI. Patient was treated with IV hydration and IV antibiotics for UTI and oral hydration was recommended for possible no viral infection. Patient is clinically stable. Her potassium was slightly low. She'll see was supplemented with by mouth potassium and she'll be discharged home on all her all her current medications as well as by mouth cephalosporins for possible UTI. Patient will follow with her PCP in one week. DISCHARGE MEDICATIONS: Please see below. ALLERGIES: Please see below. PHYSICAL EXAMINATION ON DISCHARGE: VITAL SIGNS: Please see below. GENERAL: Within normal limits HEENT: PERRLA. Extraocular muscles intact NECK: Supple CARDIOVASCULAR EXAMINATION: S1, S2, regular RESPIRATORY EXAMINATION: Clear to A&P ABDOMINAL EXAMINATION: , Soft, nontender, bowel sounds present EXTREMITIES: No clubbing, cyanosis, edema SKIN: Within normal limits NEUROLOGICAL EXAMINATION: . No focal motor sensory deficit PSYCHIATRIC EXAMINATION: Within normal limits LABORATORY DATA: Please see below. IMAGING: CT head: Negative PROGNOSIS: Good ACTIVITY: As tolerated. DIET: As tolerated DISCHARGE PLAN: Follow with PCP in one week DISPOSITION: . Home DISCHARGE INSTRUCTIONS: 1. As per discharge instructions. ITEMS TO FOLLOWUP ON ON OUTPATIENT: 1. [Follow with PCP in one week DISCHARGE CONDITION: Stable. TIME SPENT ON DISCHARGE: 38 minutes. Vital Signs/I&Os Vital Signs Date Time Temp Pulse Resp B/P (MAP) Pulse Ox O2 Delivery O2 Flow Rate FiO2 09/21/19 08:00 97.4 62 18 144/74 (97) 95 Room Air I&O- Last 24 Hours up to 6 AM 09/21/19 06:00 Intake Total 2860 ml Output Total 600 ml Balance 2260 ml Laboratory Data Labs 24H Laboratory Tests 2 09/20/19 19:42: Bedside Glucose (Misc Panel) 100 09/21/19 06:04: Immature Granulocyte % (Auto) 0.5, Neutrophils (%) (Auto) 47.1, Lymphocytes (%) (Auto) 31.9, Monocytes (%) (Auto) 15.2H, Eosinophils (%) (Auto) 4.8H, Basophils (%) (Auto) 0.5, Neutrophils # (Auto) 1.9, Lymphocytes # (Auto) 1.3L, Monocytes # (Auto) 0.6, Eosinophils # (Auto) 0.2, Basophils # (Auto) 0.0, Nucleated Red Blood Cells % (auto) 0.0, Anion Gap 6L, Glomerular Filtration Rate > 60.0, Calcium Level 8.2L, Magnesium Level 2.0, Total Bilirubin 0.4#, Aspartate Amino Transf (AST/SGOT) 26, Alanine Aminotransferase (ALT/SGPT) 26, Alkaline Phosphatase 123H, Total Protein 5.2L, Albumin 2.6L, Albumin/Globulin Ratio 1.00 CBC/BMP Laboratory Tests 09/21/19 06:04 FSBS Laboratory Tests Test 09/20/19 19:42 Range/Units Bedside Glucose (Misc Panel) 100 83-110 MG/DL Microbiology Microbiology 09/20/19 Gastrointestinal Tract Panel (PCR) - Final, Complete Norovirus 09/19/19 Blood Culture - Preliminary, Resulted No growth after 24 hours . All specim... 09/19/19 Blood Culture - Preliminary, Resulted No growth after 24 hours . All specim... Discharge Medications Scheduled Alendronate Sodium (Alendronate Sodium) 70 Mg Tablet, 70 MG PO 1XWK, (Reported) TAKES ON WEDNESDAY Aspirin (Aspirin EC) 81 Mg Tab, 81 MG PO QHS, (Reported) Cephalexin (Keflex) 500 Mg Capsule, 1 CAP PO BID Exemestane (Exemestane) 25 Mg Tablet, 25 MG PO QHS, (Reported) Sertraline HCl (Sertraline HCl) 100 Mg Tablet, 100 MG PO QHS, (Reported) Scheduled PRN Acetaminophen (Tylenol Extra Strength) 500 Mg Tablet, 1,000 MG PO Q6H PRN for HEADACHE OR PAIN, (Reported) Trazodone HCl (Trazodone HCl) 50 Mg Tab, 25 MG PO QHS PRN for INSOMNIA, (Reported) Allergies Coded Allergies: No Known Allergies (Unverified , 01/04/19) KELYL GABRIEL MD Sep 21, 2019 11:41
== END 2019-09-21 14:30 | disposition home or self-care (01) ==
LOC: EDBD 18:32 → M ED 18:32 → M ED INP 18:33 → M MS5PR 09-20 02:42
PROVIDERS: ADMIT Internal Medicine; ATTEND Internal Medicine
DX: N39.0 Urinary tract infection, site not specified (principal); A08.11 Acute gastroenteropathy due to Norwalk agent; E87.6 Hypokalemia; S00.83XA Contusion of other part of head, initial encounter; S80.01XA Contusion of right knee, initial encounter; W01.198A Fall on same level from slipping, tripping and stumbling with subsequent striking against other object, initial encounter; Y92.89 Other specified places as the place of occurrence of the external cause; F32.9 Major depressive disorder, single episode, unspecified; M54.2 Cervicalgia; R32 Unspecified urinary incontinence; G47.00 Insomnia, unspecified; R51 Headache; R26.2 Difficulty in walking, not elsewhere classified; Z79.899 Other long term (current) drug therapy; Z79.82 Long term (current) use of aspirin; Z79.2 Long term (current) use of antibiotics; Z91.81 History of falling
CPT/HCPCS: 36415; 70450; 71046; 72125; 73564; 74176; 80047; 80053; 80076; 81001; 82550; 82553; 83690; 83735; 84484; 85025; 85610; 85730; 86140; 87040; 87507; 93005; 93041; 96361; 96365; 96366; 96375; 97161; 97165; 99285; G0378; J0696; J2405; P9612

== ENCOUNTER → 2019-11-06 | Outpatient (REF) | payer MEDICARE, BC ==
[~2019-11-06] MED LIST changes: +ACET-897 PO; -ALEN10TA21 PO; +ALEN10TA5 PO; -BUPR300T34 PO; +BUPR300T92 PO; +KEFL500C17 PO; +SERT-138 PO
[2019-11-06 19:56] LABS: APPEARANCE, URINE HAZY (CLEAR); BACTERIA, URINE AUTO NEGATIVE (NEGATIVE); BILIRUBIN, URINE AUTO NEGATIVE (NEGATIVE); BLOOD, URINE BLOOD 2+ (NEGATIVE); COLOR, URINE YELLOW (YELLOW); GLUCOSE, URINE (UA) AUTO NEGATIVE (NEGATIVE); KETONE, URINE AUTO NEGATIVE (NEGATIVE); LEUKOCYTE ESTERASE, URINE AUTO NEGATIVE (NEGATIVE); MUCUS, URINE SMALL (NEGATIVE); NITRITE, URINE AUTO NEGATIVE (NEGATIVE); PROTEIN, URINE AUTO NEGATIVE (NEGATIVE); RBC, URINE AUTO 80 /HPF (0-3); SPECIFIC GRAVITY URINE AUTO 1.016 (1.002-1.035); SQUAMOUS EPITHELIAL CELL UR AU 1 /HPF (0-6); UROBILINOGEN, URINE AUTO 0.2 mg/dL (0.0-2.0); WBC, URINE AUTO 4 /HPF (0-3)
== END ==
LOC: M SMT 17:45
PROVIDERS: ATTEND Nurse Practitioner Family
DX: R32 Unspecified urinary incontinence (principal)
CPT/HCPCS: 51798; 81001; 87086; G0463

== ENCOUNTER → 2019-11-30 | Outpatient (REF) | payer MEDICARE, BC ==
[2019-11-30 14:44] LABS: AMORPHOUS SEDIMENT SMALL (NEGATIVE); APPEARANCE, URINE HAZY (CLEAR); BACTERIA, URINE AUTO NEGATIVE (NEGATIVE); BILIRUBIN, URINE AUTO NEGATIVE (NEGATIVE); BLOOD, URINE BLOOD 2+ (NEGATIVE); COLOR, URINE YELLOW (YELLOW); GLUCOSE, URINE (UA) AUTO NEGATIVE (NEGATIVE); KETONE, URINE AUTO NEGATIVE (NEGATIVE); LEUKOCYTE ESTERASE, URINE AUTO NEGATIVE (NEGATIVE); MUCUS, URINE SMALL (NEGATIVE); NITRITE, URINE AUTO NEGATIVE (NEGATIVE); OSMOLALITY URINE 416 MOSM/KG (500-800); PROTEIN, URINE AUTO NEGATIVE (NEGATIVE); RBC, URINE AUTO 144 /HPF (0-3); SQUAMOUS EPITHELIAL CELL UR AU 0 /HPF (0-6); UROBILINOGEN, URINE AUTO 0.2 mg/dL (0.0-2.0); WBC, URINE AUTO 2 /HPF (0-3)
[2019-11-30 15:05] LABS: SODIUM,RANDOM URINE 104 MEQ/L
== END ==
LOC: M LAB REF 14:09
PROVIDERS: ATTEND Internal Medicine
DX: G25.70 Drug induced movement disorder, unspecified (principal); E87.6 Hypokalemia; F32.89 Other specified depressive episodes

== ENCOUNTER 2020-01-29 12:04 | Emergency (ER) | payer MEDICARE, BC ==
[~2020-01-29] VITALS: Ht 167.6 cm; Wt 77.3 kg
[~2020-01-29 12:04] MED LIST changes: -RIVA6CAP PO; +RIVA6CAP17 PO
[2020-01-29] MEDS ORDERED: INGR80CA (12:20)
[2020-01-29] MEDS ORDERED: OXYB5TAB10 (12:20)
[2020-01-29] MEDS ORDERED: BRIN10TA4 (12:20)
[2020-01-29] MEDS ORDERED: lisinopriL 10 MG TAB PO ONE (12:30)
[2020-01-29] MEDS ORDERED: NS 1,000 ML IV SCH (12:30)
[2020-01-29 12:53] LABS: BASO # 0.1 10^3/uL (0.0-0.2); EOS # 0.4 10^3/uL (0.0-0.5); EOS % 7.2 % (0.0-3.0); HEMATOCRIT 44.8 % (36.0-47.0); HEMOGLOBIN 14.9 g/dl (12.0-15.5); LYMPH # 1.4 10^3/uL (1.5-5.0); MEAN CORPUSCULAR HGB CONC 33.3 g/dl (32.0-36.5); MEAN CORPUSCULAR VOLUME 99.3 fl (80.0-96.0); MONO # 0.5 10^3/uL (0.0-0.8); MONO % 10.2 % (0.0-5.0); NEUTROPHILS # 2.8 10^3/uL (1.5-8.5); NEUTROPHILS % 54.4 % (36.0-66.0); PLATELET COUNT, AUTOMATED 158 10^3/uL (150-450); RED BLOOD COUNT 4.51 10^6/uL (4.00-5.40); WHITE BLOOD COUNT 5.1 10^3/uL (4.0-10.0)
[2020-01-29 13:03] LABS: INR 1.08; PROTHROMBIN TIME 13.7 SECONDS (11.8-14.0)
[2020-01-29 13:20] LABS: ALBUMIN 3.7 GM/DL (3.2-5.2); ALT/SGPT 21 U/L (12-78); BILIRUBIN,DIRECT 0.2 MG/DL (0.0-0.2); BILIRUBIN,TOTAL 0.8 MG/DL (0.2-1.0); BLOOD UREA NITROGEN 14 MG/DL (7-18); CALCIUM LEVEL 10.1 MG/DL (8.8-10.2); CARBON DIOXIDE LEVEL 29 MEQ/L (21-32); CHLORIDE LEVEL 108 MEQ/L (98-107); CREATININE FOR GFR 0.63 MG/DL (0.55-1.30); GLOMERULAR FILTRATION RATE > 60.0 (>39); GLUCOSE, FASTING 112 MG/DL (70-100); SODIUM LEVEL 142 MEQ/L (136-145); TOTAL PROTEIN 6.9 GM/DL (6.4-8.2)
--- NOTE | 2020-01-29 13:46 | REP ---
CHEST, PORTABLE: AP portable view of the chest is performed and compared to a prior study of 09/19/2019. There is chronic interstitial prominence of the lung bases, stable. No definite superimposed acute infiltrate is seen. The heart does not appear to be significantly enlarged. There is calcification and tortuosity of the thoracic aorta. The mediastinal silhouette is unchanged. Metallic clips are again seen in the left chest wall. IMPRESSION: Stable chronic findings without evidence of superimposed infiltrate. Electronically Signed by Diogo Manrique MD 01/29/2020 01:51 P
[2020-01-29] MEDS ORDERED: ISOVUE-370 76% 100ML VIAL As Ordered ONE (14:11)
[2020-01-29] MEDS ORDERED: LABETALOL 100MG/20ML VIAL IV STA (15:18)
--- NOTE | 2020-01-29 15:26 | REP ---
CT ANGIOGRAM CHEST: TECHNIQUE: Axial contrast enhanced images from the thoracic inlet to the upper abdomen using 100 mL Isovue 370 intravenous contrast material with multiplanar reformations. There is no CT evidence of pulmonary embolism. There is no thoracic aortic aneurysm or dissection. There is no axillary, mediastinal or hilar adenopathy. The heart is slightly enlarged. There is no pleural or pericardial effusion. Diffuse interstitial fibrosis is seen in both lungs. There appears to be a subcentimeter cyst or hemangioma in the liver near the gallbladder. There are degenerative changes of the spine. There appears to be mild chronic anterior listhesis of T2 on T3 due to posterior facet arthropathy. IMPRESSION: No CT evidence of pulmonary embolism. No aortic dissection. Chronic interstitial fibrosis in the lungs. Electronically Signed by Diogo Manrique MD 01/29/2020 07:37 P
[2020-01-29 15:30] VITALS: BP 186/85
[2020-01-29 15:57] VITALS: BP 128/70
== END 2020-01-29 15:59 | disposition home or self-care (01) ==
LOC: M ED 12:04 → EDBD 12:04 → M ED 15:59
DX: I10 Essential (primary) hypertension (principal); F41.9 Anxiety disorder, unspecified; R31.9 Hematuria, unspecified; Z86.73 Personal history of transient ischemic attack (TIA), and cerebral infarction without residual deficits; Z79.899 Other long term (current) drug therapy; Z79.82 Long term (current) use of aspirin
CPT/HCPCS: 71045; 71275; 80048; 80076; 81001; 85025; 85610; 87040; 93041; 94760; 96361; 96374; 99285; Q9967

== ENCOUNTER → 2020-02-21 | Outpatient (CLI) | payer MEDICARE, BC ==
[~2020-02-21] MED LIST changes: +BRIN10TA4; +GABA-1171 PO; +INGR80CA; +OXYB5TAB10
[2020-02-21 12:42] LABS: BASO # 0.1 10^3/uL (0.0-0.2); EOS # 0.3 10^3/uL (0.0-0.5); EOS % 5.7 % (0.0-3.0); HEMATOCRIT 40.2 % (36.0-47.0); HEMOGLOBIN 13.5 g/dl (12.0-15.5); LYMPH # 1.1 10^3/uL (1.5-5.0); LYMPH % 21.4 % (24.0-44.0); MEAN CORPUSCULAR HEMOGLOBIN 33.4 pg (27.0-33.0); MEAN CORPUSCULAR HGB CONC 33.6 g/dl (32.0-36.5); MEAN CORPUSCULAR VOLUME 99.5 fl (80.0-96.0); MONO # 0.5 10^3/uL (0.0-0.8); NEUTROPHILS # 3.2 10^3/uL (1.5-8.5); NEUTROPHILS % 61.7 % (36.0-66.0); PLATELET COUNT, AUTOMATED 158 10^3/uL (150-450); RED BLOOD COUNT 4.04 10^6/uL (4.00-5.40); WHITE BLOOD COUNT 5.1 10^3/uL (4.0-10.0)
[2020-02-21 13:12] LABS: ALBUMIN 3.4 GM/DL (3.2-5.2); ALT/SGPT 25 U/L (12-78); BILIRUBIN,TOTAL 0.8 MG/DL (0.2-1.0); BLOOD UREA NITROGEN 13 MG/DL (7-18); CALCIUM LEVEL 10.1 MG/DL (8.8-10.2); CARBON DIOXIDE LEVEL 27 MEQ/L (21-32); CHLORIDE LEVEL 109 MEQ/L (98-107); CREATININE FOR GFR 0.62 MG/DL (0.55-1.30); GLOMERULAR FILTRATION RATE > 60.0 (>39); GLUCOSE, FASTING 111 MG/DL (70-100); POTASSIUM SERUM 3.8 MEQ/L (3.5-5.1); SODIUM LEVEL 143 MEQ/L (136-145); TOTAL PROTEIN 6.3 GM/DL (6.4-8.2)
== END ==
LOC: M WUC 09:51
PROVIDERS: ATTEND Internal Medicine Hematology & Oncology
DX: D05.12 Intraductal carcinoma in situ of left breast (principal)

== ENCOUNTER 2020-03-05 11:54 | Emergency (ER) | payer MEDICARE, BC ==
[~2020-03-05] VITALS: Ht 165.1 cm; Wt 75.2 kg
[~2020-03-05 11:54] MED LIST changes: -BRIN10TA4; +BRIN10TA4 PO; -INGR80CA; +INGR80CA PO; -OXYB5TAB10; +OXYB5TAB10 PO
[2020-03-05 15:50] LABS: BASO # 0.1 10^3/uL (0.0-0.2); BASO % 0.9 % (0.0-1.0); EOS # 0.2 10^3/uL (0.0-0.5); EOS % 3.5 % (0.0-3.0); HEMATOCRIT 42.4 % (36.0-47.0); HEMOGLOBIN 14.4 g/dl (12.0-15.5); LYMPH # 1.8 10^3/uL (1.5-5.0); LYMPH % 33.4 % (24.0-44.0); MEAN CORPUSCULAR HEMOGLOBIN 33.6 pg (27.0-33.0); MEAN CORPUSCULAR VOLUME 98.8 fl (80.0-96.0); MONO # 0.6 10^3/uL (0.0-0.8); MONO % 10.9 % (0.0-5.0); NEUTROPHILS # 2.8 10^3/uL (1.5-8.5); NEUTROPHILS % 51.1 % (36.0-66.0); PLATELET COUNT, AUTOMATED 183 10^3/uL (150-450); RED BLOOD COUNT 4.29 10^6/uL (4.00-5.40); WHITE BLOOD COUNT 5.4 10^3/uL (4.0-10.0)
[2020-03-05 15:53] LABS: APPEARANCE, URINE CLEAR (CLEAR); BACTERIA, URINE AUTO NEGATIVE (NEGATIVE); BILIRUBIN, URINE AUTO NEGATIVE (NEGATIVE); BLOOD, URINE BLOOD 2+ (NEGATIVE); COLOR, URINE YELLOW (YELLOW); GLUCOSE, URINE (UA) AUTO NEGATIVE (NEGATIVE); KETONE, URINE AUTO NEGATIVE (NEGATIVE); LEUKOCYTE ESTERASE, URINE AUTO 1+ (NEGATIVE); MUCUS, URINE SMALL (NEGATIVE); NITRITE, URINE AUTO NEGATIVE (NEGATIVE); PROTEIN, URINE AUTO NEGATIVE (NEGATIVE); RBC, URINE AUTO 77 /HPF (0-3); SPECIFIC GRAVITY URINE AUTO 1.017 (1.002-1.035); SQUAMOUS EPITHELIAL CELL UR AU 0 /HPF (0-6); WBC, URINE AUTO 20 /HPF (0-3)
[2020-03-05 16:16] LABS: BLOOD UREA NITROGEN 16 MG/DL (7-18); CALCIUM LEVEL 9.7 MG/DL (8.8-10.2); CARBON DIOXIDE LEVEL 30 MEQ/L (21-32); CHLORIDE LEVEL 109 MEQ/L (98-107); CK-MB VALUE MASS 1.6 NG/ML (<3.6); CPK CREATINE PHOSPHOKINASE 170 U/L (26-192); CREATININE FOR GFR 0.62 MG/DL (0.55-1.30); FREE T4 1.04 NG/DL (0.76-1.46); GLOMERULAR FILTRATION RATE > 60.0 (>39); GLUCOSE, FASTING 88 MG/DL (70-100); MB/CK RELATIVE INDEX 0.94 (< OR =4); POTASSIUM SERUM 3.6 MEQ/L (3.5-5.1); SODIUM LEVEL 141 MEQ/L (136-145); THYROID STIMULATING HORMONE 0.508 uIU/ML (0.358-3.740); TROPONIN I < 0.02 NG/ML (< 0.10)
[2020-03-05] MEDS ORDERED: CARB25TA18 PO (16:48)
[2020-03-05 16:55] VITALS: BP 168/91
--- NOTE | 2020-03-05 18:58 | ECGEPIP ---
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
--- NOTE | 2020-03-05 23:00 | REP ---
CT BRAIN WITHOUT CONTRAST: CT brain performed without IV contrast. Coronal reconstruction images are performed. There is mild atrophy. There is no midline shift or mass effect. Basal ganglia calcification is seen on the left. I see no acute intracranial hemorrhage or extra-axial fluid collection. I see no skull fracture. There are mild vascular calcifications in the carotid siphons. IMPRESSION: Mild atrophy. No acute intracranial hemorrhage or skull fracture. Electronically Signed by Diogo Manrique MD 03/06/2020 09:19 A
--- NOTE | 2020-03-05 23:08 | REP ---
CT CERVICAL SPINE WITHOUT CONTRAST: CT cervical spine performed without IV contrast. Sagittal and coronal reconstruction images are performed. There is no compression fracture or malalignment. There is mild reversal of the normal cervical lordosis. C4 and C5 vertebral bodies are fused. There is moderate anterior spurring diffusely. There is probably partial fusion at C6-7. There is no prevertebral soft tissue swelling. Facet and uncovertebral spurring appear to cause mild to moderate foraminal narrowing at C3-4 on the right with moderate to moderately severe narrowing of C4-5 on the right and C5-6 on the left. There is mild to moderate spinal stenosis at C5-6 level. IMPRESSION: Diffuse degenerative changes. No evidence of fracture or dislocation. Electronically Signed by Diogo Manrique MD 03/06/2020 09:20 A
== END 2020-03-05 16:58 | disposition home or self-care (01) ==
LOC: M ED 11:54
DX: S09.90XA Unspecified injury of head, initial encounter (principal); R00.1 Bradycardia, unspecified; W19.XXXA Unspecified fall, initial encounter; Y92.89 Other specified places as the place of occurrence of the external cause; F32.9 Major depressive disorder, single episode, unspecified; G31.9 Degenerative disease of nervous system, unspecified; R73.03 Prediabetes; J45.909 Unspecified asthma, uncomplicated; M54.9 Dorsalgia, unspecified; G89.29 Other chronic pain; Z85.3 Personal history of malignant neoplasm of breast; F41.9 Anxiety disorder, unspecified; Z87.442 Personal history of urinary calculi; Z91.81 History of falling; Z79.899 Other long term (current) drug therapy; Z79.82 Long term (current) use of aspirin; Z88.2 Allergy status to sulfonamides

== ENCOUNTER 2020-03-16 12:34 | Emergency (ER) | payer MEDICARE, BC ==
[~2020-03-16] VITALS: Ht 165.1 cm; Wt 75.0 kg
[~2020-03-16 12:34] MED LIST changes: -ALEN70TA74 PO; +ALEN70TA82 PO; -AMIT25TA; +AMIT25TA17; -BUPR150T3 PO; +BUPR150T4 PO; +CARB25TA18 PO
[2020-03-16] MEDS ORDERED: ACETAMINOPHEN TAB 650MG DOSE (2X325MG) PO ONE (14:30)
[2020-03-16] MEDS ORDERED: traMADol 50 MG TAB PO ONE (14:30)
[2020-03-16] MEDS ORDERED: TRAM50TA2 PO (16:15)
[2020-03-16 16:35] VITALS: BP 128/71
[2020-03-17] MEDS ORDERED: TRAM50TA2 PO (00:19)
[2020-03-17] MEDS ORDERED: BENZ-52 PO (00:19)
[2020-03-17] MEDS ORDERED: CARB25TA18 PO (00:19)
--- NOTE | 2020-03-18 10:51 | REP ---
REASON FOR EXAM: Trauma. Preliminary report given by Dr. Trevino. Fractures are seen involving the distal fibula and the medial malleolus. The bones are somewhat demineralized. There is soft tissue swelling and a joint effusion. Plantar and retrocalcaneal heel spurs are present. Degenerative changes are seen involving the mid foot and hindfoot regions. IMPRESSION: Fractures and other related findings as described above. Electronically Signed by Kwabena Stuart DO 03/18/2020 10:59 A
--- NOTE | 2020-03-18 10:58 | REP ---
REASON FOR EXAM: Proximal pain as well as ankle pain. Preliminary report given by Dr. Trevino. Please see the ankle report made same day showing medial and lateral fractures. There is a proximal fibular fracture consistent with a Maisonneuve fracture. Degenerative changes are also seen involving the knee. IMPRESSION: Maisonneuve fracture. Electronically Signed by Kwabena Stuart DO 03/18/2020 03:13 P
[2020-04-01] MEDS ORDERED: PANT40TA29 PO (10:07)
[2020-04-01] MEDS ORDERED: AMLO1TAB24 PO (10:07)
== END 2020-03-16 16:37 | disposition home or self-care (01) ==
LOC: M ED 12:34
DX: S82.862A Displaced Maisonneuve's fracture of left leg, initial encounter for closed fracture (principal); S82.52XA Displaced fracture of medial malleolus of left tibia, initial encounter for closed fracture; S82.832A Other fracture of upper and lower end of left fibula, initial encounter for closed fracture; M77.32 Calcaneal spur, left foot; M17.12 Unilateral primary osteoarthritis, left knee; X50.1XXA Overexertion from prolonged static or awkward postures, initial encounter; Y92.099 Unspecified place in other non-institutional residence as the place of occurrence of the external cause; Y93.9 Activity, unspecified; Y99.9 Unspecified external cause status; Z86.73 Personal history of transient ischemic attack (TIA), and cerebral infarction without residual deficits; J45.909 Unspecified asthma, uncomplicated; Z87.01 Personal history of pneumonia (recurrent); G47.33 Obstructive sleep apnea (adult) (pediatric); Z87.440 Personal history of urinary (tract) infections; Z87.442 Personal history of urinary calculi; R73.03 Prediabetes; Z85.3 Personal history of malignant neoplasm of breast; M54.9 Dorsalgia, unspecified; F41.9 Anxiety disorder, unspecified; F32.9 Major depressive disorder, single episode, unspecified; Z79.82 Long term (current) use of aspirin; Z79.899 Other long term (current) drug therapy; Z88.2 Allergy status to sulfonamides

== ENCOUNTER 2020-03-16 22:53 | Inpatient (IN) | payer MEDICARE, BC ==
[~2020-03-16] VITALS: Ht 165.1 cm; Wt 72.5 kg
[~2020-03-16 22:53] MED LIST changes: +ALEN70TA74 PO; -ALEN70TA82 PO; +AMIT25TA; -AMIT25TA17; +BUPR150T3 PO; -BUPR150T4 PO; +TRAM50TA2 PO
[2020-03-16] MEDS ORDERED: NORCO, ANEXSIA 5/325MG TABLET (HYDROcodone/ACETAMINOPHEN) PO ONE (23:45)
[2020-03-17] MEDS ORDERED: BENZ-52 PO (00:19)
[2020-03-17] MEDS ORDERED: TRAM50TA2 PO (00:19)
[2020-03-17] MEDS ORDERED: CARB25TA18 PO (00:19)
[2020-03-17] MEDS ORDERED: MAALOX 30 ML SUSP *UDC PO PRN (01:45)
[2020-03-17] MEDS ORDERED: ACETAMINOPHEN TAB 650MG DOSE (2X325MG) PO PRN (01:45)
[2020-03-17] MEDS ORDERED: MOM 30ML SUSPENSION UDC PO PRN (01:45)
[2020-03-17] MEDS ORDERED: PERCOCET 5MG/325MG TAB PO ONE (01:45)
[2020-03-17] MEDS ORDERED: PERCOCET 5MG/325MG TAB PO PRN (01:45)
[2020-03-17] MEDS ORDERED: MORPHINE 2 MG/ML 1ML VIAL (J2270) IV PRN (01:45)
--- NOTE | 2020-03-17 01:50 | HPEPDOC ---
General Date of Admission Mar 17, 2020 at 01:35 Date of Service: Mar 17, 2020 Chief Complaint The patient is a 79-year-old female admitted with a reason for visit of Fibula Fracture, Unable To Ambulate. Source: Patient Exam Limitations: No limitations Timing/Duration: Other (since yesterday) Severity: Severe Associated Symptoms: Other (, unable to ambulate and severe pain in her left lower extremity) History of Present Illness This is a 79 years old white female with past medical history of anxiety, depression, asthma, fibromyalgia, COPD, dementia, periodic limb movement disorder was seen in ED yesterday when she tripped and sustained fracture of distal and the fibula on left side and she had a cast placed in. Patient lives alone in a alf community. When she was discharged home. She has been exp eriencing severe pain in her left lower extremity and she is unable to ambulate and she was brought back by ambulance back to the emergency room. On interview, patient complaining of increasing severe pain in the left lower extremity and she is unable to ambulate and take care of for daily chores. Patient lives alone and has been no help at home. Patient denies chest pain, shortness of breath, nausea, vomiting, diarrhea, etc. Home Medications Scheduled Aspirin (Aspirin EC) 81 Mg Tab, 81 MG PO QHS, (Reported) Benztropine Mesylate (Benztropine Mesylate) 1 Mg Tablet, 1 MG PO BID, (Reported) Carbidopa/Levodopa (Carbidopa-Levo 25-100 mg Odt) 1 Each Tab.rapdis, 0.5 TAB PO TID, (Reported) Oxybutynin Chloride (Oxybutynin Chloride) 5 Mg Tablet, 5 MG PO BID, (Reported) Valbenazine Tosylate (Ingrezza) 80 Mg Capsule, 80 MG PO DAILY, (Reported) Vortioxetine Hydrobromide (Trintellix) 10 Mg Tablet, 10 MG PO DAILY, (Reported) Scheduled PRN Acetaminophen (Tylenol Extra Strength) 500 Mg Tablet, 1,000 MG PO Q6H PRN for HEADACHE OR PAIN, (Reported) Tramadol HCl (Tramadol HCl) 50 Mg Tablet, 50 MG PO Q6H PRN for PAIN, (Reported) NEW MEDICATION, HAS NOT STARTED Trazodone HCl (Trazodone HCl) 50 Mg Tab, 25 MG PO QHS PRN for INSOMNIA, (Reported) Allergies Coded Allergies: Sulfa (Sulfonamide Antibiotics) (Verified Adverse Reaction, Mild, nausea , 03/16/20) Past Medical History Medical History anxiety, depression, asthma, fibromyalgia, COPD, dementia, periodic limb movement disord, left distal fibula fracture Surgical History Hysterectomy and bilateral cataract surgery Family History As per patient, she has a history of pancreatic cancer in the family. Otherwise noncontributory Social History * Smoker: Denies Alcohol: Denies Drugs: denies A-FIB/CHADSVASC A-FIB History Current/History of A-Fib/PAF?: No Review of Systems Constitutional: Denies: Chills, Fever, Malaise, Night Sweats, Weakness, Fatigue, Weight Loss, Lethargy, Other Eyes: Denies: Pain, Vision change, Conjunctivae inflammation, Eyelid inflammation, Redness, Other ENT: Denies: Head Aches, Ear Pain, Dysphagia, Sinus Congestion, Post Nasal Drip, Sore Throat, Epistaxis, Other Symptoms Skin: Denies: Rash, Lesions, Jaundice, Bruising, Itching, Dry, Breakdown, Nail Changes, Other Pulmonary: Denies: Dyspnea, Cough, Pleuritic Chest Pain, Other Symptoms Cardiovascular: Denies: Chest Pain, Palpitations, Orthopnea, Paroxysmal Noc. Dyspnea, Edema, Lt Headedness, Other Symptoms Gastrointestinal: Denies: Nausea, Vomiting, Abdominal Pain, Diarrhea, Constipation, Melena, Hematochezia, Other Symptoms Genitourinary: Denies: Dysuria, Frequency, Incontinence, Hematuria, Retention, Other Symptoms Hematologic: Denies: Bruising, Bleeding Excessively, Petecchia, Purpura, Enlarged Lymph Nodes, Other Hematologic Endocrine: Denies: Polydipsia, Polyphagia, Polyuria, Heat Intolerance, Cold Intolerance, Other Endocrine Sx Musculoskeletal: Reports: Other Symptoms (pain and left lower extremity) Neurological: Denies: Weakness, Numbness, Incoordination, Change in speech, Confusion, Seizures, Other Symptoms Psych: Denies: Mood Normal, Anxiety, Depression, Memory Issues, Thoughts of Self Harm, Anger, Thoughts of Harming Other, Other Psych Physical Examination General Exam: Positive: Alert, Cooperative Eye Exam: Positive: PERRLA, Conjunctiva & lids normal ENT Exam: Positive: Atraumatic, Mucous membr. moist/pink Neck Exam: Positive: Supple Chest Exam: Positive: Clear to auscultation, Normal air movement Heart Exam: Positive: Rate Normal, Normal S1, Normal S2 Abdomen Exam: Positive: Normal bowel sounds Extremity Exam: Positive: Other (casted left lower extremity. Distal pulses positive bilaterally) Neuro Exam: Positive: Cranial Nerves 3-12 NL, Other (. Strength positive all extremities except left lower extreme which could not be examined) Psych Exam: Positive: Mood NL, Oriented x 3 Vital Signs Vital Signs Date Time Temp Pulse Resp B/P (MAP) Pulse Ox O2 Delivery O2 Flow Rate FiO2 03/17/20 00:45 16 03/17/20 00:15 Room Air 03/16/20 23:01 99.9 76 140/74 95 Problems (1) Unable to ambulate Status: Acute Problem Text: 79 years old pleasant white female lives in a alf community, had a mechanical fall sustaining a fracture of her left distal fibula and she was seen in emergency room and cast was applied. Patient went home but has been uncomfortable, unable to ambulate increasing pain and unable to take care of for her activities of daily living and decided to come back for possible placement in the rehabilitation unit. Admit patient to Medr floor Elevated left lower extremity to make patient comfortable Pain management with Percocet and morphine sulfate for breakthrough as per orders Continue all home meds Social work consult for placement in rehabilitation facility as patient lives alone and is unable to take care of herself. Physical therapy consult called in a.m. Diet regular Activity as per physical therapy recommendations DVT prophylaxis with heparin (2) Intractable pain Status: Acute Problem Text: Secondary fracture of her left distal fibula Pain management has been ordered and will follow patient clinically (3) Fracture of left fibula Status: Acute Problem Text: Patient was seen in emergency room and its nonsurgical fracture. Hence, the cast was applied Further, as per orthopedic as outpatient Plan / VTE VTE Prophylaxis Ordered?: Yes KELLY GABRIEL MD Mar 17, 2020 01:50
[2020-03-17 04:30] VITALS: BP 133/74
[2020-03-17] MEDS: PERCOCET 5MG/325MG TAB PO PRN (05:49)
[2020-03-17] MEDS ORDERED: traMADol 50 MG TAB PO PRN (07:00)
[2020-03-17] MEDS: SINEMET 12.5MG/50MG PER 1/2 TABLET PO SCH ×3 (08:33→20:24)
[2020-03-17] MEDS: oxyBUTYnin 5 MG TAB PO SCH ×2 (08:33→20:24)
[2020-03-17] MEDS: BENZTROPINE 1 MG TAB PO SCH ×2 (08:33→20:24)
[2020-03-17] MEDS: DOCUSATE SODIUM 100 MG CAP PO SCH ×2 (08:33→20:24)
[2020-03-17] MEDS: HEPARIN SOD (PORCINE) 5000UNITS/ML VIAL (J1644 PER 1000UNITS) SC SCH ×2 (08:35→20:24)
[2020-03-17] MEDS: MIRALAX *UNIT DOSE* 17GM PACKET PO SCH (08:35)
[2020-03-17 08:47] LABS: BASO % 0.7 % (0.0-1.0); EOS # 0.2 10^3/uL (0.0-0.5); EOS % 4.1 % (0.0-3.0); HEMATOCRIT 35.7 % (36.0-47.0); HEMOGLOBIN 12.1 g/dl (12.0-15.5); LYMPH # 1.6 10^3/uL (1.5-5.0); LYMPH % 29.3 % (24.0-44.0); MEAN CORPUSCULAR HEMOGLOBIN 33.8 pg (27.0-33.0); MEAN CORPUSCULAR HGB CONC 33.9 g/dl (32.0-36.5); MEAN CORPUSCULAR VOLUME 99.7 fl (80.0-96.0); MONO # 0.8 10^3/uL (0.0-0.8); MONO % 15.1 % (0.0-5.0); NEUTROPHILS # 2.7 10^3/uL (1.5-8.5); NEUTROPHILS % 50.6 % (36.0-66.0); PLATELET COUNT, AUTOMATED 105 10^3/uL (150-450); RED BLOOD COUNT 3.58 10^6/uL (4.00-5.40); WHITE BLOOD COUNT 5.4 10^3/uL (4.0-10.0)
[2020-03-17 09:07] LABS: ALBUMIN 3.1 GM/DL (3.2-5.2); ALT/SGPT 20 U/L (12-78); BILIRUBIN,TOTAL 1.4 MG/DL (0.2-1.0); BLOOD UREA NITROGEN 20 MG/DL (7-18); CALCIUM LEVEL 9.1 MG/DL (8.8-10.2); CARBON DIOXIDE LEVEL 29 MEQ/L (21-32); CHLORIDE LEVEL 108 MEQ/L (98-107); GLOMERULAR FILTRATION RATE > 60.0 (>39); GLUCOSE, FASTING 99 MG/DL (70-100); POTASSIUM SERUM 3.8 MEQ/L (3.5-5.1); SODIUM LEVEL 141 MEQ/L (136-145); TOTAL PROTEIN 5.6 GM/DL (6.4-8.2)
[2020-03-17 09:12] LABS: INR 1.23; PARTIAL THROMBOPLASTIN TIME 27.8 SECONDS (25.0-38.4); PROTHROMBIN TIME 15.2 SECONDS (11.8-14.0)
[2020-03-17 14:00] VITALS: BP 128/70
--- NOTE | 2020-03-17 14:42 | IPNPDOC ---
Date Seen The patient was seen on 03/17/20. Progress Note SUBJECTIVE: Has no acute complaints this AM on exam. Discussed case with orthopedic surgery, who recommends eggshell weightbearing and splint, ambulate with crutches and encourage ambulation. If the patient is not able to be mobilized then orthopedic surgery will follow her while inpatient and discuss possible surgery. Currently she denies shortness of breath, nausea, vomiting fevers, chills, increased lower extremity pain. OBJECTIVE: VITAL SIGNS: Please see below PHYSICAL EXAMINATION: CONSTITUTIONAL: No acute distress, resting comfortably, AAO x 3 EYES: PERRLA, EOM intact HENT, MOUTH: Normocephalic, atraumatic, moist mucous membranes NECK: SUPPLE, no JVD, no lymphadenopathy, no carotid bruit CV: Regular rate and rhythm, S1S2 normal, no murmurs/rubs/gallops RESPIRATORY: Clear to auscultation bilaterally, no rales/rhonchi/wheezes GI: BS positive in 4 quadrants, soft, nontender, nondistended, no rebound or guarding, no organomegaly : Deferred MUSCULOSKELETAL: ROM not tested. No cyanosis, clubbing, swelling, joint deformity, extremity edema. LLE in cast/splint, Pulses strong in LLE, good capillary refill in digits on Left foot INTEGUMENTARY: Intact, no rashes, no lesions, no erythema NEUROLOGIC: Cranial Nerves II-XII are intact, no focal deficits PSYCHIATRIC: Mood and affect are normal CURRENT MEDICATIONS: Please see below LABORATORY DATA: Please see below IMAGING: No new imaging ASSESSMENT: 79 y/o F admitted for ambulatory dysfunction 2/2 to left nondisplaced medial malleolus fracture and distal fibular fracture. PLAN: 1. Ambulatory dysfunction 2/2 to left nondisplaced medial malleolus fracture and distal fibular fracture. Eggshell weightbearing and splint, ambulate with c rutches and encourage ambulation. Orthopedic surgery will be happy to see her in office after discharge. If unable to mobilize, patient will be followed by orthopedic surgery and surgery can be discussed. Pain regimen in place, PT/OT. 2. Anxiety/depression. Stable. C/w home medications. 3. Periodic limb movements. C/w home medications 4. Dementia. ? Parkinson's disease. C/w home meds. 5. DVT px. Heparin sc. DISPOSITION: Will discuss discharge with planning team on 03/18/20. PT/OT, orthop edic surgery consulted. VS, I&O, 24H, Fishbone Vital Signs/I&O Vital Signs Date Time Temp Pulse Resp B/P (MAP) Pulse Ox O2 Delivery O2 Flow Rate FiO2 03/17/20 09:04 14 03/17/20 04:30 98.8 65 133/74 (93) 93 Room Air I&O- Last 24 Hours up to 6 AM 03/17/20 05:59 Intake Total 0 ml Output Total 200 ml Balance -200 ml Laboratory Data 24H LABS Laboratory Tests 2 03/17/20 08:31: Immature Granulocyte % (Auto) 0.2, Neutrophils (%) (Auto) 50.6, Lymphocytes (%) (Auto) 29.3, Monocytes (%) (Auto) 15.1H, Eosinophils (%) (Auto) 4.1H, Basophils (%) (Auto) 0.7, Neutrophils # (Auto) 2.7, Lymphocytes # (Auto) 1.6, Monocytes # (Auto) 0.8, Eosinophils # (Auto) 0.2, Basophils # (Auto) 0.0, Nucleated Red Blood Cells % (auto) 0.0, Prothrombin Time 15.2H, Prothromb Time International Ratio 1.23, Activated Partial Thromboplast Time 27.8, Anion Gap 4L, Glomerular Filtration Rate > 60.0, Calcium Level 9.1, Total Bilirubin 1.4H, Aspartate Amino Transf (AST/SGOT) 22, Alanine Aminotransferase (ALT/SGPT) 20, Alkaline Phosphatase 97, Total Protein 5.6L, Albumin 3.1L, Albumin/Globulin Ratio 1.2 CBC/BMP Laboratory Tests 03/17/20 08:31 Current Medications Current Medications Medications (Trade) Dose Ordered Sig/Johnny Route PRN Reason Start Time Stop Time Status Last Admin Dose Admin Acetaminophen (Tylenol Tab) 650 mg Q4H PRN PO PAIN OR FEVER 03/17/20 01:45 Al Hydrox/Mg Hydrox/Simethicone (Mylanta) 30 ml DAILY PRN PO DYSPEPSIA 03/17/20 01:45 Aspirin (Ecotrin) 81 mg QHS PO 03/17/20 21:00 Benztropine Mesylate (Cogentin) 1 mg BID PO 03/17/20 09:00 03/17/20 08:33 Carbidopa/Levodopa (Sinemet 12.5/50) 1 tab TID PO 03/17/20 09:00 03/17/20 08:33 Docusate Sodium (Colace) 100 mg BID PO 03/17/20 09:00 03/17/20 08:33 Heparin Sodium (Porcine) (Heparin) 5,000 units Q12H SC 03/17/20 09:00 03/17/20 08:35 Home Med (Med Rec Complete!) ASDIRECTED XX 03/17/20 00:30 03/17/20 00:25 DC Magnesium Hydroxide (Milk Of Magnesia) 30 ml DAILY PRN PO CONSTIPATION 03/17/20 01:45 Morphine Sulfate (Morphine Sulfate Inj) 2 mg Q4H PRN IV BREAKTHROUGH PAIN 03/17/20 01:45 Cancel Nystatin (Mycostatin Powder, Nystop) 1 dose BID TOP 03/17/20 21:00 Oxybutynin Chloride (Ditropan) 5 mg BID PO 03/17/20 09:00 03/17/20 08:33 Oxycodone/ Acetaminophen (Percocet 5mg/ 325mg Tablet) 1 tab Q4HP PRN PO MILD/MODERATE PAIN (PS 1-7) 03/17/20 05:15 03/17/20 05:49 Oxycodone/ Acetaminophen (Percocet 5mg/ 325mg Tablet) 2 tab Q4HP PRN PO SEVERE PAIN (PS 8-10) 03/17/20 01:45 Polyethylene Glycol (Miralax) 1 pkt DAILY PO 03/17/20 09:00 03/17/20 08:35 Tramadol HCl (Ultram) 50 mg Q6H PRN PO PAIN 03/17/20 07:00 03/17/20 08:34 Trazodone HCl (Desyrel) 25 mg QHS PRN PO INSOMNIA 03/17/20 07:00 Allergies Coded Allergies: Sulfa (Sulfonamide Antibiotics) (Verified Adverse Reaction, Mild, nausea , 03/16/20) Mary Green MD Mar 17, 2020 14:42
[2020-03-17] MEDS: NYSTATIN 100,000 UNITS/GM TOPICAL PWD 15 GM TOP SCH (20:24)
[2020-03-17] MEDS: ASPIRIN 81 MG ENTERIC TAB PO SCH (20:24)
[2020-03-17 22:00] VITALS: BP 130/85
[2020-03-18] VITALS (9 sets, daily range): BP systolic 110–169; BP diastolic 69–86
[2020-03-18] MEDS: PERCOCET 5MG/325MG TAB PO PRN (00:19)
[2020-03-18] MEDS ORDERED: ceFAZolin SOD 2 GM in IV 1 EA IV ONE (06:00)
[2020-03-18 07:37] LABS: HEMATOCRIT 36.2 % (36.0-47.0); HEMOGLOBIN 12.1 g/dl (12.0-15.5); MEAN CORPUSCULAR HEMOGLOBIN 33.7 pg (27.0-33.0); MEAN CORPUSCULAR HGB CONC 33.4 g/dl (32.0-36.5); MEAN CORPUSCULAR VOLUME 100.8 fl (80.0-96.0); PLATELET COUNT, AUTOMATED 106 10^3/uL (150-450); RED BLOOD COUNT 3.59 10^6/uL (4.00-5.40); WHITE BLOOD COUNT 5.8 10^3/uL (4.0-10.0)
[2020-03-18 07:56] LABS: ALBUMIN 3.1 GM/DL (3.2-5.2); ALT/SGPT 19 U/L (12-78); BILIRUBIN,TOTAL 1.3 MG/DL (0.2-1.0); BLOOD UREA NITROGEN 15 MG/DL (7-18); CALCIUM LEVEL 9.1 MG/DL (8.8-10.2); CARBON DIOXIDE LEVEL 27 MEQ/L (21-32); CHLORIDE LEVEL 108 MEQ/L (98-107); CREATININE FOR GFR 0.63 MG/DL (0.55-1.30); GLOMERULAR FILTRATION RATE > 60.0 (>39); GLUCOSE, FASTING 98 MG/DL (70-100); MAGNESIUM LEVEL 1.8 MG/DL (1.8-2.4); POTASSIUM SERUM 3.9 MEQ/L (3.5-5.1); SODIUM LEVEL 140 MEQ/L (136-145); TOTAL PROTEIN 5.7 GM/DL (6.4-8.2)
--- NOTE | 2020-03-18 08:47 | CR ---
DATE OF CONSULTATION: 03/17/2020 Consult for the hospital service. CHIEF COMPLAINT: Fibula fracture, inability to ambulate. HISTORY OF PRESENT ILLNESS: 79-year-old woman with anxiety, depression, asthma, fibromyalgia, chronic obstructive pulmonary disease (COPD), dementia and other problems who had tripped and sustained a fracture that was described as a fibular fracture on the left side. She was placed in a splint by the ER and able to be mobilized, admitted for mobilization and pain control. She lives in an assisted living community. She had actually been placed in a splint and then discharged home. She was unable to ambulate at home and was brought back in the ambulance. In the assisted living community, she apparently has no help, it is an independent facility. The consultation was accomplished on 03/17/2020, yesterday. ALLERGIES: - SULFA apparently causes nausea MEDICAL HISTORY: As per history of present illness (HPI), anxiety, depression, asthma, fibromyalgia, COPD, dementia, periodic limb movement disorder, left fibula fracture as described. PAST SURGICAL HISTORY: Includes hysterectomy and bilateral cataract surgery. MEDICATIONS AT HOME: - aspirin - benztropine - carbidopa-levodopa - oxybutynin - Ingrezza - Trintellex - tramadol and trazodone used p.r.n. FAMILY HISTORY: Not contributory. SOCIAL HISTORY: She does not smoke, drink or use illicit drugs. IMAGING STUDIES: I reviewed the imaging. She has a nondisplaced proximal fibula fracture. She has a minimally laterally displaced distal fibula fracture. She also has a medial malleolus fracture that was not noted previously. REVIEW OF SYSTEMS: Ten point review of systems was reviewed with the patient and negative except as per HPI. CLINICAL EXAMINATION: She is alert, oriented, cooperative, and pleasant. She is not febrile. Respiratory: She is not short of breath. No evidence of respiratory infection. Coronary: Regular, about 70. Abdomen: Soft. Not distended. No obesity. Neurologic: Seems to appreciate light touch in both lower extremities. Musculoskeletal: Left lower extremity has tenderness about the ankle. No appreciable edema. Warm and well-perfused. No effusion at the knee. No tenderness with hip rotation. Recorded vitals include temperature peak of 99.9, pulse of 76, blood pressure of 140/74, and pulse oximetry 95% room air. LABS: Hematocrit is 35, creatinine 0.6, albumin 3.1. COVID screen reported to be negative. IMPRESSION: Bimalleolar fracture in a 79-year-old female. Suspect osteoporosis. RECOMMENDATIONS: Because of the bimalleolar component, this would likely benefit from a surgical stabilization. I coordinated with Dr. Cardoso with respect to the patient's situation and we planned to offer the patient surgery on 03/18/2020. The surgery will be performed by Dr. Cardoso who is available at that time. Further coordination with Dr. Cardoso was accomplished. Coordination with the operating room was accomplished. For further details, please refer to the medical record.
[2020-03-18] MEDS: MIRALAX *UNIT DOSE* 17GM PACKET PO SCH (09:00)
[2020-03-18] MEDS: HEPARIN SOD (PORCINE) 5000UNITS/ML VIAL (J1644 PER 1000UNITS) SC SCH ×2 (09:00→20:28)
[2020-03-18] MEDS: DOCUSATE SODIUM 100 MG CAP PO SCH ×2 (09:00→20:28)
[2020-03-18] MEDS: NYSTATIN 100,000 UNITS/GM TOPICAL PWD 15 GM TOP SCH ×2 (09:30→20:29)
[2020-03-18] MEDS: SINEMET 12.5MG/50MG PER 1/2 TABLET PO SCH ×3 (09:30→20:28)
[2020-03-18] MEDS: oxyBUTYnin 5 MG TAB PO SCH ×2 (09:30→20:29)
[2020-03-18] MEDS: BENZTROPINE 1 MG TAB PO SCH ×2 (09:30→20:28)
[2020-03-18] MEDS ORDERED: MIDAZOLAM INJ 2MG/2ML VIAL (J2250 PER 1MG) As Ordered ONE (10:56)
[2020-03-18] MEDS ORDERED: propofoL 500 MG/50 ML VIAL As Ordered ONE (10:57)
[2020-03-18] MEDS ORDERED: fentaNYL 100 MCG/2 ML INJECTION (J3010) As Ordered ONE (10:57)
[2020-03-18] MEDS ORDERED: LIDOCAINE 2% 100MG/5ML SDV (FOR ANES.) As Ordered ONE (10:57)
[2020-03-18] MEDS ORDERED: ROCURONIUM BROMIDE 50 MG/5 ML VIAL As Ordered ONE (11:06)
[2020-03-18] MEDS ORDERED: SUGAMMADEX SODIUM 500 MG/5 ML VIAL (BRIDION) As Ordered ONE (11:06)
[2020-03-18] MEDS ORDERED: dexameTHASONE 4 MG/ML 1ML VIAL (J1100 PER 1MG) As Ordered ONE (11:06)
[2020-03-18] MEDS ORDERED: ONDANSETRON 4MG/2ML VIAL As Ordered ONE (11:06)
[2020-03-18] MEDS ORDERED: ceFAZolin 2 GM/D5W 50 ML IV BAG (J0690 PER 500MG) As Ordered ONE (11:35)
[2020-03-18] MEDS ORDERED: BUPIVACAINE HCL 0.5% 30 ML VIAL As Ordered ONE (11:36)
[2020-03-18] MEDS ORDERED: ePHEDrine SULFATE 25 MG/5 ML(5MG/ML) SYRINGE As Ordered ONE (13:27)
[2020-03-18] MEDS ORDERED: PHENYLephrine HCL 500 MCG/5 ML (100MCG/ML) SYRINGE (J2370) As Ordered ONE (13:27)
[2020-03-18] MEDS ORDERED: fentaNYL 100 MCG/2 ML INJECTION (J3010) IV PRN (14:00)
[2020-03-18] MEDS ORDERED: LR 1,000 ML IV SCH (14:00)
[2020-03-18] MEDS ORDERED: METOCLOPRAMIDE INJ 10MG/2ML VIAL (J2765 PER 1) IV PRN (14:00)
[2020-03-18] MEDS ORDERED: PERCOCET 5MG/325MG TAB PO PRN (14:00)
[2020-03-18] MEDS ORDERED: ONDANSETRON 4MG/2ML VIAL IV PRN (14:00)
--- NOTE | 2020-03-18 14:47 | IPNPDOC ---
Date Seen The patient was seen on 03/18/20. Progress Note SUBJECTIVE: Has no acute complaints this AM on exam. Discussed case with orthopedic surgery, who recommends eggshell weightbearing and splint, ambulate with crutches and encourage ambulation. If the patient is not able to be mobilized then orthopedic surgery will follow her while inpatient and discuss possible surgery. Currently she denies shortness of breath, nausea, vomiting fevers, chills, increased lower extremity pain. OBJECTIVE: VITAL SIGNS: Please see below PHYSICAL EXAMINATION: CONSTITUTIONAL: No acute distress, resting comfortably, AAO x 3 EYES: PERRLA, EOM intact HENT, MOUTH: Normocephalic, atraumatic, moist mucous membranes NECK: SUPPLE, no JVD, no lymphadenopathy, no carotid bruit CV: Regular rate and rhythm, S1S2 normal, no murmurs/rubs/gallops RESPIRATORY: Clear to auscultation bilaterally, no rales/rhonchi/wheezes GI: BS positive in 4 quadrants, soft, nontender, nondistended, no rebound or guarding, no organomegaly : Deferred MUSCULOSKELETAL: ROM not tested. No cyanosis, clubbing, swelling, joint deformity, extremity edema. LLE in cast/splint, Pulses strong in LLE, good capillary refill in digits on Left foot INTEGUMENTARY: Intact, no rashes, no lesions, no erythema NEUROLOGIC: Cranial Nerves II-XII are intact, no focal deficits PSYCHIATRIC: Mood and affect are normal CURRENT MEDICATIONS: Please see below LABORATORY DATA: Please see below IMAGING: No new imaging ASSESSMENT: 79 y/o F admitted for ambulatory dysfunction 2/2 to left nondisplaced medial malleolus fracture and distal fibular fracture. PLAN: 1. Ambulatory dysfunction 2/2 to left nondisplaced medial malleolus fracture and distal fibular fracture. Eggshell weightbearing and splint, ambulate with c rutches and encourage ambulation. Orthopedic surgery will be happy to see her in office after discharge. If unable to mobilize, patient will be followed by orthopedic surgery and surgery can be discussed. Pain regimen in place, PT/OT. 2. Anxiety/depression. Stable. C/w home medications. 3. Periodic limb movements. C/w home medications 4. Dementia. ? Parkinson's disease. C/w home meds. 5. DVT px. Heparin sc. DISPOSITION: Will discuss discharge with planning team on 03/18/20. PT/OT, orthop edic surgery consulted. VS, I&O, 24H, Fishbone Vital Signs/I&O Vital Signs Date Time Temp Pulse Resp B/P (MAP) Pulse Ox O2 Delivery O2 Flow Rate FiO2 03/18/20 14:35 98.6 69 18 141/67 (91) 93 Room Air 03/18/20 13:38 10 I&O- Last 24 Hours up to 6 AM 03/18/20 05:59 Intake Total 760 ml Output Total 1150 ml Balance -390 ml Laboratory Data 24H LABS Laboratory Tests 2 03/18/20 07:16: Nucleated Red Blood Cells % (auto) 0.0, Anion Gap 5L, Glomerular Filtration Rate > 60.0, Calcium Level 9.1, Magnesium Level 1.8, Total Bilirubin 1.3H, Aspartate Amino Transf (AST/SGOT) 25, Alanine Aminotransferase (ALT/SGPT) 19, Alkaline Phosphatase 100, Total Protein 5.7L, Albumin 3.1L, Albumin/Globulin Ratio 1.2 CBC/BMP Laboratory Tests 03/18/20 07:16 Microbiology Microbiology 03/18/20 Respiratory Virus Panel (PCR) ([facility]) - Final, Complete Mary Green MD Mar 18, 2020 14:47
--- NOTE | 2020-03-18 16:01 | IPNPDOC ---
Date Seen The patient was seen on 03/18/20. Progress Note SUBJECTIVE: The patient had continued pain throughout the day and into the evening. Orthopedic surgery decided to take patient for surgery today. Currently she denies shortness of breath, nausea, vomiting fevers, chills, increased lower extremity pain. OBJECTIVE: VITAL SIGNS: Please see below PHYSICAL EXAMINATION: CONSTITUTIONAL: No acute distress, resting comfortably, AAO x 3 EYES: PERRLA, EOM intact HENT, MOUTH: Normocephalic, atraumatic, moist mucous membranes NECK: SUPPLE, no JVD, no lymphadenopathy, no carotid bruit CV: Regular rate and rhythm, S1S2 normal, no murmurs/rubs/gallops RESPIRATORY: Clear to auscultation bilaterally, no rales/rhonchi/wheezes GI: BS positive in 4 quadrants, soft, nontender, nondistended, no rebound or guarding, no organomegaly : Deferred MUSCULOSKELETAL: ROM not tested. No cyanosis, clubbing, swelling, joint deformity, extremity edema. LLE in cast/splint, Pulses strong in LLE, good capillary refill in digits on Left foot INTEGUMENTARY: Intact, no rashes, no lesions, no erythema NEUROLOGIC: Cranial Nerves II-XII are intact, no focal deficits PSYCHIATRIC: Mood and affect are normal CURRENT MEDICATIONS: Please see below LABORATORY DATA: Please see below IMAGING: No new imaging ASSESSMENT: 79 y/o F admitted for ambulatory dysfunction 2/2 to left nondisp laced medial malleolus fracture and distal fibular fracture. PLAN: 1. Ambulatory dysfunction 2/2 to left nondisplaced medial malleolus fracture and distal fibular fracture. RCRI 0, Class I risk. Risks/benefits to be discussed with patient by orthopedic surgery. NPO for OR today, f/u post-operatively. Pain regimen in place. PT/OT to resume when ok with orthopedic surgery. 2. Anxiety/depression. Stable. C/w home medications. 3. Periodic limb movements. C/w home medications 4. Dementia. ? Parkinson's disease. C/w home meds. 5. DVT px. Heparin sc. DISPOSITION: Attempted to discuss case with daughter Claudia, left message with call back number per request by patient. Once PT/OT given ok to resume, we will have a better idea about discharge. VS, I&O, 24H, Fishbone Vital Signs/I&O Vital Signs Date Time Temp Pulse Resp B/P (MAP) Pulse Ox O2 Delivery O2 Flow Rate FiO2 03/18/20 15:47 98.5 83 18 129/85 (100) 94 Room Air 03/18/20 13:38 10 I&O- Last 24 Hours up to 6 AM 03/18/20 05:59 Intake Total 760 ml Output Total 1150 ml Balance -390 ml Laboratory Data 24H LABS Laboratory Tests 2 03/18/20 07:16: Nucleated Red Blood Cells % (auto) 0.0, Anion Gap 5L, Glomerular Filtration Rate > 60.0, Calcium Level 9.1, Magnesium Level 1.8, Total Bilirubin 1.3H, Aspartate Amino Transf (AST/SGOT) 25, Alanine Aminotransferase (ALT/SGPT) 19, Alkaline Phosphatase 100, Total Protein 5.7L, Albumin 3.1L, Albumin/Globulin Ratio 1.2 CBC/BMP Laboratory Tests 03/18/20 07:16 Microbiology Microbiology 03/18/20 Respiratory Virus Panel (PCR) (BLANCA) - Final, Complete Current Medications Current Medications Medications (Trade) Dose Ordered Sig/Johnny Route PRN Reason Start Time Stop Time Status Last Admin Dose Admin Acetaminophen (Tylenol Tab) 650 mg Q4H PRN PO PAIN OR FEVER 03/17/20 01:45 03/17/20 20:24 Al Hydrox/Mg Hydrox/Simethicone (Mylanta) 30 ml DAILY PRN PO DYSPEPSIA 03/17/20 01:45 Aspirin (Ecotrin) 81 mg QHS PO 03/17/20 21:00 03/17/20 20:24 Benztropine Mesylate (Cogentin) 1 mg BID PO 03/17/20 09:00 03/18/20 09:30 Carbidopa/Levodopa (Sinemet 12.5/50) 1 tab TID PO 03/17/20 09:00 03/18/20 09:30 Cefazolin Sodium/ Dextrose 2 gm/IV Miscellaneous Supplies 50 ml @ 75 mls/hr Q8H IV 03/18/20 20:00 03/19/20 04:39 Docusate Sodium (Colace) 100 mg BID PO 03/17/20 09:00 03/17/20 20:24 Fentanyl Citrate (Sublimaze) 25 mcg Q5MP PRN IV PAIN LEVEL 5-10 03/18/20 14:00 03/18/20 15:00 DC Heparin Sodium (Porcine) (Heparin) 5,000 units Q12H SC 03/17/20 09:00 03/17/20 20:24 Home Med (Med Rec Complete!) ASDIRECTED XX 03/17/20 00:30 03/17/20 00:25 DC Lactated Ringer's 1,000 ml @ 100 mls/hr Q10H IV 03/18/20 14:00 03/18/20 15:00 DC Magnesium Hydroxide (Milk Of Magnesia) 30 ml DAILY PRN PO CONSTIPATION 03/17/20 01:45 Metoclopramide HCl (REGLAN INJection) 10 mg Q6HP PRN IV NAUSEA OR VOMITING 03/18/20 14:00 03/18/20 15:00 DC Morphine Sulfate (Morphine Sulfate Inj) 2 mg Q4H PRN IV BREAKTHROUGH PAIN 03/17/20 01:45 Cancel Nystatin (Mycostatin Powder, Nystop) 1 dose BID TOP 03/17/20 21:00 03/18/20 09:30 Ondansetron HCl (ZOFRAN INJection) 4 mg Q4HP PRN IV NAUSEA OR VOMITING 03/18/20 14:00 03/18/20 15:00 DC Oxybutynin Chloride (Ditropan) 5 mg BID PO 03/17/20 09:00 03/18/20 09:30 Oxycodone/ Acetaminophen (Percocet 5mg/ 325mg Tablet) 1 tab ASDIRECTED PRN PO PAIN LEVEL 1-4 03/18/20 14:00 03/18/20 15:00 DC Oxycodone/ Acetaminophen (Percocet 5mg/ 325mg Tablet) 1 tab Q4HP PRN PO MILD/MODERATE PAIN (PS 1-7) 03/17/20 05:15 03/18/20 00:19 Oxycodone/ Acetaminophen (Percocet 5mg/ 325mg Tablet) 2 tab Q4HP PRN PO SEVERE PAIN (PS 8-10) 03/17/20 01:45 Polyethylene Glycol (Miralax) 1 pkt DAILY PO 03/17/20 09:00 03/17/20 08:35 Tramadol HCl (Ultram) 50 mg Q6H PRN PO PAIN 03/17/20 07:00 03/17/20 08:34 Trazodone HCl (Desyrel) 25 mg QHS PRN PO INSOMNIA 03/17/20 07:00 Allergies Coded Allergies: Sulfa (Sulfonamide Antibiotics) (Verified Adverse Reaction, Mild, nausea , 03/16/20) Mary Green MD Mar 18, 2020 16:01
--- NOTE | 2020-03-18 17:29 | REP ---
C-ARM VIEWS LEFT ANKLE: Multiple C-arm views left ank performed during placement of metallic internal fixation in the distal tibia and fibula. The osseous structures are well aligned. The ankle mortise appears anatomic. 83 seconds fluoroscopy time utilized. Electronically Signed by Diogo Manrique MD 03/18/2020 11:13 P
[2020-03-18] MEDS ORDERED: traMADol 50 MG TAB PO PRN (18:15)
[2020-03-18] MEDS: ceFAZolin SOD 2 GM in IV 1 EA IV SCH (20:27)
[2020-03-18] MEDS: ASPIRIN 81 MG ENTERIC TAB PO SCH (20:28)
[2020-03-18] MEDS: ACETAMINOPHEN 500 MG TAB PO PRN (20:29)
[2020-03-18] MEDS: traZODone 25MG PER 1/2 TABLET PO PRN (20:34)
[2020-03-19 02:00] VITALS: BP 121/73
[2020-03-19] MEDS: ceFAZolin SOD 2 GM in IV 1 EA IV SCH (04:20)
[2020-03-19 06:00] VITALS: BP 126/75
[2020-03-19 07:12] LABS: HEMATOCRIT 33.9 % (36.0-47.0); HEMOGLOBIN 11.8 g/dl (12.0-15.5); MEAN CORPUSCULAR HEMOGLOBIN 34.2 pg (27.0-33.0); MEAN CORPUSCULAR HGB CONC 34.8 g/dl (32.0-36.5); MEAN CORPUSCULAR VOLUME 98.3 fl (80.0-96.0); PLATELET COUNT, AUTOMATED 117 10^3/uL (150-450); RED BLOOD COUNT 3.45 10^6/uL (4.00-5.40); WHITE BLOOD COUNT 8.7 10^3/uL (4.0-10.0)
[2020-03-19] MEDS ORDERED: XARE10TA PO (08:45)
[2020-03-19] MEDS: MIRALAX *UNIT DOSE* 17GM PACKET PO SCH (09:12)
[2020-03-19] MEDS: DOCUSATE SODIUM 100 MG CAP PO SCH ×2 (09:12→21:43)
[2020-03-19] MEDS: oxyBUTYnin 5 MG TAB PO SCH ×2 (09:12→21:43)
[2020-03-19] MEDS: BENZTROPINE 1 MG TAB PO SCH ×2 (09:12→21:43)
[2020-03-19] MEDS: NYSTATIN 100,000 UNITS/GM TOPICAL PWD 15 GM TOP SCH ×2 (09:13→21:43)
[2020-03-19] MEDS: HEPARIN SOD (PORCINE) 5000UNITS/ML VIAL (J1644 PER 1000UNITS) SC SCH (09:13)
[2020-03-19] MEDS: SINEMET 12.5MG/50MG PER 1/2 TABLET PO SCH ×3 (09:13→21:43)
[2020-03-19 10:00] VITALS: BP 130/72
[2020-03-19] MEDS: ACETAMINOPHEN 500 MG TAB PO PRN ×2 (10:26→21:43)
[2020-03-19 14:00] VITALS: BP 126/69
[2020-03-19] MEDS: RIVAROXABAN 10 MG TAB (XARELTO) PO SCH (17:02)
--- NOTE | 2020-03-19 17:22 | IPNPDOC ---
Text Note Date of Service The patient was seen on 03/19/20. NOTE SUBJECTIVE: -s/p L ankle ORIF yesterday OBJECTIVE: VITALS: HDS, afebrile, see below for details CONSTITUTIONAL: NAD, resting comfortably EYES: PERRLA, EOMI HENT, MOUTH: NCAT, MMM NECK: SUPPLE, no JVD, no adenopathy CV: Regular rate and rhythm, S1S2 normal, no murmurs/rubs/gallops RESPIRATORY: Clear to auscultation bilaterally, no rales/rhonchi/wheezes GI: Normoactive bowel sounds, soft, nontender, nondistended, no rebound or guarding, no organomegaly EXT: ROM not tested with LLE in cast. WWP toes, no cyanosis or swelling. SKIN: Intact, no rashes, no lesions, no erythema NEUROLOGIC: Cranial Nerves II-XII are intact, no focal deficits. PSYCHIATRIC: AOx3 LABORATORY DATA: Reviewed WBC 8.7 hgb 11.8 platelets 117 Cr 0.63 mag 1.8 IMAGING: No new imaging ASSESSMENT: 79 y/o W L bimalleolar fracture now s/p L ankle ORIF. PLAN: 1. Inability to ambulate 2/2 to left nondisplaced medial malleolus fracture and distal fibular fracture. -s/p L ORIF yesterdat -Pain regimen in place per orthopedics - PT/OT per orthopedics recs 2. Anxiety/depression. -Stable. C/w home medications. 3. Periodic limb movements. -C/w home medications 4. Dementia. ? Parkinson's disease. -C/w home meds. 5. DVT px. Heparin sc. being switched to Xarelto per ortho DISPOSITION: pending PT/OT recs VS,Fishbone, I+O VS, Fishbone, I+O Laboratory Tests 03/19/20 06:54 Vital Signs Date Time Temp Pulse Resp B/P (MAP) Pulse Ox O2 Delivery O2 Flow Rate FiO2 03/19/20 06:00 97.5 68 19 126/75 (92) 93 Room Air 03/18/20 13:38 10 I&O- Last 24 Hours up to 6 AM 03/19/20 06:00 Intake Total 1770 ml Output Total 700 ml Balance 1070 ml SHERICE MCDONALD MD Mar 19, 2020 08:39
[2020-03-19] MEDS: traZODone 25MG PER 1/2 TABLET PO PRN (21:43)
[2020-03-19 22:00] VITALS: BP 135/76
[2020-03-20 06:00] VITALS: BP 138/80
[2020-03-20 06:03] LABS: HEMOGLOBIN 11.8 g/dl (12.0-15.5); MEAN CORPUSCULAR HEMOGLOBIN 34.3 pg (27.0-33.0); MEAN CORPUSCULAR HGB CONC 34.7 g/dl (32.0-36.5); MEAN CORPUSCULAR VOLUME 98.8 fl (80.0-96.0); PLATELET COUNT, AUTOMATED 123 10^3/uL (150-450); RED BLOOD COUNT 3.44 10^6/uL (4.00-5.40); WHITE BLOOD COUNT 6.1 10^3/uL (4.0-10.0)
[2020-03-20] MEDS: NYSTATIN 100,000 UNITS/GM TOPICAL PWD 15 GM TOP SCH (08:55)
[2020-03-20] MEDS: BENZTROPINE 1 MG TAB PO SCH (08:56)
[2020-03-20] MEDS: SINEMET 12.5MG/50MG PER 1/2 TABLET PO SCH ×2 (08:56→16:43)
[2020-03-20] MEDS: DOCUSATE SODIUM 100 MG CAP PO SCH (08:56)
[2020-03-20] MEDS: MIRALAX *UNIT DOSE* 17GM PACKET PO SCH (08:56)
[2020-03-20] MEDS: oxyBUTYnin 5 MG TAB PO SCH (08:56)
[2020-03-20] MEDS ORDERED: TRAM50TA2 PO (10:42)
[2020-03-20] MEDS ORDERED: NYST10006 TOP (10:42)
[2020-03-20] MEDS ORDERED: DOCU100C16 PO (10:42)
--- NOTE | 2020-03-20 10:44 | DS.PDOC ---
Discharge Summary General Date of Admission Mar 17, 2020 at 01:35 Date of Discharge 03/20/2020 Attending Physician: SHERICE MCDONALD MD Discharge Summary PROCEDURES PERFORMED DURING STAY: L ankle ORIF on 03/18/2020 ADMITTING DIAGNOSES: 1. L fibula fracture with inability to ambulate DISCHARGE DIAGNOSES: L fibula fracture with inability to ambulate anxiety depression asthma without acute exacerbation this admission fibromyalgia COPD without acute exacerbation this admission dementia, periodic limb movement disorder COMPLICATIONS/CHIEF COMPLAINT: Fibula Fracture, Unable To Ambulate. HISTORY OF PRESENT ILLNESS: 79 years old white W with a history of anxiety, depression, asthma, fibromyalgia, COPD, dementia, periodic limb movement disorder was seen in ED the day a prior to admission after tripping and sustaining fracture of distal fibula on left side and she had a cast placed, complaining of inability to ambulate and severe pain with any movement, with the challenge being that she lives alone in a residential community. HOSPITAL COURSE: She was admitted to medicine and had an L ankle ORIF on 03/18 and thereafter had her pain managed by the orthopedics, was started on xarelto per orthopedics guidelines and evaluated for physical rehabilitation and is now bein g discharged to the ARU. DISCHARGE MEDICATIONS: Please see below. ALLERGIES: Please see below. PHYSICAL EXAMINATION ON DISCHARGE: VITAL SIGNS: Please see below. GENERAL: NAD, sitting up in chair EYES: PERRLA, EOMI HENT, MOUTH: NCAT, MMM NECK: SUPPLE, no JVD, no adenopathy CV: Regular rate and rhythm, S1S2 normal, no murmurs/rubs/gallops RESPIRATORY: Clear to auscultation bilaterally, no rales/rhonchi/wheezes GI: Normoactive bowel sounds, soft, nontender, nondistended, no rebound or guarding, no organomegaly EXT: LLE in cast. WWP toes, no cyanosis or swelling. RLE wnl with FROM SKIN: Intact, no rashes, no lesions, no erythema NEUROLOGIC: Cranial Nerves II-XII are intact, no focal deficits. PSYCHIATRIC: AOx3 LABORATORY DATA: Please see below. IMAGING: None this admission PROGNOSIS: Good ACTIVITY: As tolerated DIET: regular DISCHARGE PLAN: ARU DISPOSITION: ARU DISCHARGE INSTRUCTIONS: 1. per ARU. To follow up with orthopedics as an outpatient ITEMS TO FOLLOWUP ON ON OUTPATIENT: 1. L ankle fracture s/p ORIF DISCHARGE CONDITION: Stable TIME SPENT ON DISCHARGE: 33 minutes. Vital Signs/I&Os Vital Signs Date Time Temp Pulse Resp B/P (MAP) Pulse Ox O2 Delivery O2 Flow Rate FiO2 03/20/20 06:00 99.0 67 19 138/80 (99) 92 Room Air 03/18/20 13:38 10 I&O- Last 24 Hours up to 6 AM 03/20/20 06:00 Intake Total 1420 ml Output Total 200 ml Balance 1220 ml Laboratory Data Labs 24H Laboratory Tests 2 03/20/20 05:51: Nucleated Red Blood Cells % (auto) 0.0 CBC/BMP Laboratory Tests 03/20/20 05:51 Microbiology Microbiology 03/18/20 Respiratory Virus Panel (PCR) (BLANCA) - Final, Complete Discharge Medications Scheduled Aspirin (Aspirin EC) 81 Mg Tab, 81 MG PO QHS, (Reported) Benztropine Mesylate (Benztropine Mesylate) 1 Mg Tablet, 1 MG PO BID, (Reported) Carbidopa/Levodopa (Carbidopa-Levo 25-100 mg Odt) 1 Each Tab.rapdis, 0.5 TAB PO TID, (Reported) Docusate Sodium (Docusate Sodium) 100 Mg Capsule, 100 MG PO BID Nystatin (Nystop) 60 Gm Powder, 1 DOSE TOP BID Oxybutynin Chloride (Oxybutynin Chloride) 5 Mg Tablet, 5 MG PO BID, (Reported) Rivaroxaban (Xarelto) 10 Mg Tablet, 10 MG PO DAILY Valbenazine Tosylate (Ingrezza) 80 Mg Capsule, 80 MG PO DAILY, (Reported) Vortioxetine Hydrobromide (Trintellix) 10 Mg Tablet, 10 MG PO DAILY, (Reported) Scheduled PRN Acetaminophen (Tylenol Extra Strength) 500 Mg Tablet, 1,000 MG PO Q6H PRN for HEADACHE OR PAIN, (Reported) Tramadol HCl (Tramadol HCl) 50 Mg Tablet, 100 MG PO Q6H PRN for PAIN NEW MEDICATION, HAS NOT STARTED Trazodone HCl (Trazodone HCl) 50 Mg Tab, 25 MG PO QHS PRN for INSOMNIA, (Reported) Allergies Coded Allergies: Sulfa (Sulfonamide Antibiotics) (Verified Adverse Reaction, Mild, nausea , 03/16/20) SHERICE MCDONALD MD Mar 20, 2020 07:24
[2020-03-20] MEDS: ACETAMINOPHEN 500 MG TAB PO PRN (11:04)
[2020-03-20 14:00] VITALS: BP 132/78
[2020-03-20] MEDS: RIVAROXABAN 10 MG TAB (XARELTO) PO SCH (16:43)
--- NOTE | 2020-03-21 22:51 | RO ---
DATE OF PROCEDURE: 03/18/2020 PREPROCEDURE DIAGNOSIS: Left bimalleolar ankle fracture with associated proximal fibula fracture. POSTPROCEDURE DIAGNOSIS: Left bimalleolar ankle fracture with associated proximal fibula fracture. PROCEDURE: Open reduction internal fixation left bimalleolar ankle fracture. SURGEON: Faith Cardoso MD TILTING SAW OPERATOR: None. ANESTHESIA: ESTIMATED BLOOD LOSS: 25 mL. COMPLICATIONS: None. CONDITION: Stable to recovery. INDICATIONS: Florencia Velasquez is a 79-year-old female who sustained a mechanical fall in her bathroom. She was unable to ambulate and was found to have a left bimalleolar ankle fracture. She was admitted to the medical service and has been cleared for surgery. Risks and benefits of surgery were discussed with the patient in detail and include, but are not limited to, infection, damage to nerves and blood vessels, continued pain and stiffness, need for additional procedures. Informed consent was obtained prior to the procedure. DESCRIPTION OF PROCEDURE: The patient was met in the preoperative holding area where her left lower extremity was marked as the corrective operative site. She was taken to the operating room where she underwent spinal anesthetic. A well-padded tourniquet was placed on the left upper thigh. The left lower extremity was prepped and draped in the normal sterile fashion. She received antibiotics within 60 minutes prior to incision. An official time-out was held where the correct patient, operative side and operative procedure were verified. The leg was exsanguinated and tourniquet was inflated to 250 mmHg. It was up for approximately 80 minutes. An incision was made over the posterolateral aspect of the fibula. Fracture was identified and cleaned the hematoma and debris. This was a somewhat comminuted fracture with a small butterfly fragment. Given the comminution, I was unable to place a lag screw, but fracture was reduced and held in place with a 0.062 K-wire. I then placed a 7-hole bridge plate with good fixation. Proximally, was secured with 3.5 mm cortical screws and distally with 4.0 cancellous screws. After the fibula fracture was fixed, the medial incision was made. The medial malleolar fracture was cleaned of hematoma and debris. It was reduced and held in place with a 0.062 K-wire. I then placed two 4.0 mm partially threaded 40 mm screws. Final x-rays were performed in AP, lateral, mortise view and reduction and hardware placement were found to be satisfactory. The ankle was stable to external rotation and cotton test. Copious irrigation was performed of both wounds. Soft tissues were closed with #3-0 Vicryl and #3-0 nylon I was able to close the periosteum over the plate laterally. Then, I used 0.50% Marcaine for local anesthesia. A sterile dressing was applied, as well as a well-padded splint. The patient was taken to the recovery room in stable condition. PLAN: The patient will be non-weightbearing on the left lower extremity for 6 weeks. She will be seen in 2 weeks for a wound check and cast placement.
== END 2020-03-20 17:10 | DRG 494 ==
LOC: M ED 22:53 → M ED INP 03-17 01:35 → ENRESERV 03-17 02:04 → M MS5PR 03-17 03:59
PROVIDERS: ADMIT Internal Medicine; ATTEND Internal Medicine
PROC: 0QSK04Z Reposition Left Fibula with Internal Fixation Device, Open Approach (ICD-10-PCS; principal; 2020-03-18 10:15)
DX: S82.842A Displaced bimalleolar fracture of left lower leg, initial encounter for closed fracture (principal); J44.9 Chronic obstructive pulmonary disease, unspecified; F03.90 Unspecified dementia, unspecified severity, without behavioral disturbance, psychotic disturbance, mood disturbance, and anxiety; F41.9 Anxiety disorder, unspecified; F32.9 Major depressive disorder, single episode, unspecified; Z79.899 Other long term (current) drug therapy; Z79.82 Long term (current) use of aspirin; Z88.2 Allergy status to sulfonamides; M79.7 Fibromyalgia; W18.30XA Fall on same level, unspecified, initial encounter; Y92.009 Unspecified place in unspecified non-institutional (private) residence as the place of occurrence of the external cause

== ENCOUNTER 2020-03-20 12:10 | Inpatient (IN) | payer MEDICARE, BC ==
[~2020-03-20] VITALS: Ht 165.1 cm; Wt 73.2 kg
[~2020-03-20 12:10] MED LIST changes: +BENZ-52 PO; +DOCU100C16 PO; +NYST10006 TOP; +XARE10TA PO
[2020-03-20] MEDS ORDERED: BISACODYL 10 MG SUPP PR PRN (14:15)
[2020-03-20] MEDS: REMEDY PHYTOPLEX Z-GUARD PASTE 113GM TUBE (FROM STOREROOM PRODUCT) TOP SCH ×2 (16:00→21:00)
[2020-03-20] MEDS: ACETAMINOPHEN 500 MG TAB PO SCH ×2 (16:00→21:00)
[2020-03-20] MEDS: DOCUSATE SODIUM 100 MG CAP PO SCH (21:00)
--- NOTE | 2020-03-20 22:05 | REPVR ---
PROCEDURE INFORMATION: Exam: US Duplex Lower Extremity Veins, Bilateral Exam date and time: 03/20/2020 9:54 PM Age: 79 years old Clinical indication: Screening exam; Immobility; Prior surgery TECHNIQUE: Imaging protocol: Real-time duplex ultrasound of the extremities with 2-D joyner scale, color Doppler flow and spectral waveform analysis with image documentation. Complete exam focused on the bilateral lower extremity veins. COMPARISON: US Duplex, Ext,LOWER veins,unilat 03/29/2018 11:00 PM FINDINGS: Right deep veins: Unremarkable. The common femoral, femoral, proximal profunda femoral and popliteal veins are patent without thrombus. Normal Doppler waveforms. Normal compressibility and/or augmentation response. Right superficial veins: Saphenofemoral junction is patent without thrombus. Left deep veins: Unremarkable. The common femoral, femoral, proximal profunda femoral and popliteal veins are patent without thrombus. Normal Doppler waveforms. Normal compressibility and/or augmentation response. Left superficial veins: Saphenofemoral junction is patent without thrombus. Soft tissues: Unremarkable. IMPRESSION: No evidence of deep vein thrombosis. Electronically signed by: Dave Hebert On 03/20/2020 22:04:48 PM
[2020-03-20 22:30] VITALS: BP 133/65
[2020-03-20] MEDS: NYSTATIN 100,000 UNITS/GM TOPICAL PWD 15 GM TOP SCH (22:35)
[2020-03-20] MEDS: BENZTROPINE 1 MG TAB PO SCH (22:36)
[2020-03-20] MEDS: SENNA 8.6 MG TAB (SENOKOT) PO SCH (22:36)
[2020-03-20] MEDS: traZODone 25MG PER 1/2 TABLET PO PRN (22:36)
[2020-03-20] MEDS: oxyBUTYnin 5 MG TAB PO SCH (22:36)
[2020-03-20] MEDS: SINEMET 12.5MG/50MG PER 1/2 TABLET PO SCH (22:36)
[2020-03-20] MEDS: traMADol 50 MG TAB PO PRN (22:36)
[2020-03-21 06:41] LABS: BASO # 0.1 10^3/uL (0.0-0.2); BASO % 0.8 % (0.0-1.0); EOS # 0.6 10^3/uL (0.0-0.5); EOS % 8.6 % (0.0-3.0); HEMATOCRIT 35.8 % (36.0-47.0); HEMOGLOBIN 11.9 g/dl (12.0-15.5); LYMPH # 1.9 10^3/uL (1.5-5.0); LYMPH % 28.9 % (24.0-44.0); MEAN CORPUSCULAR HGB CONC 33.2 g/dl (32.0-36.5); MEAN CORPUSCULAR VOLUME 99.2 fl (80.0-96.0); MONO # 0.8 10^3/uL (0.0-0.8); MONO % 12.6 % (0.0-5.0); NEUTROPHILS # 3.2 10^3/uL (1.5-8.5); NEUTROPHILS % 48.8 % (36.0-66.0); PLATELET COUNT, AUTOMATED 140 10^3/uL (150-450); RED BLOOD COUNT 3.61 10^6/uL (4.00-5.40); WHITE BLOOD COUNT 6.5 10^3/uL (4.0-10.0)
[2020-03-21 07:09] LABS: ALBUMIN 2.8 GM/DL (3.2-5.2); ALT/SGPT 15 U/L (12-78); BILIRUBIN,TOTAL 1.1 MG/DL (0.2-1.0); BLOOD UREA NITROGEN 14 MG/DL (7-18); CALCIUM LEVEL 8.7 MG/DL (8.8-10.2); CARBON DIOXIDE LEVEL 27 MEQ/L (21-32); CHLORIDE LEVEL 109 MEQ/L (98-107); CREATININE FOR GFR 0.57 MG/DL (0.55-1.30); GLOMERULAR FILTRATION RATE > 60.0 (>39); GLUCOSE, FASTING 85 MG/DL (70-100); POTASSIUM SERUM 3.8 MEQ/L (3.5-5.1); SODIUM LEVEL 142 MEQ/L (136-145); TOTAL PROTEIN 5.4 GM/DL (6.4-8.2)
[2020-03-21 08:00] VITALS: BP 168/90
[2020-03-21] MEDS: IPRATROPIUM 0.5MG/ALBUTEROL 2.5MG INH SOL UD 3ML (DUONEB) NEB SCH ×4 (08:00→19:54)
[2020-03-21 08:30] VITALS: BP 160/84
--- NOTE | 2020-03-21 09:11 | HPEPDOC ---
Edger Technician Note DATE OF ADMISSION: 03-20-20 DATE OF SERVICE: 03-20-20 TIME OF ADMISSION: Please refer to physician's admission order. SOURCE OF ADMISSION INFORMATION: [facility] record and patient CHIEF COMPLAINT: ankle and fibular fracture in setting of parkinsons HISTORY OF PRESENT ILLNESS: 79F pmh parkinsons, anxiety/depression, asthma, fibromyalgia, COPD, dementia fell at home and presented to [facility] ED on 03-17-20 with ankle pain and difficulty walking after having been sent home from the ED the previous day for a deemed to be non-operative left bilateral malleoli and proximal maisonneuve fracture. She had been casted, but was unable to mobilize around her home and had extreme pain. She returned to [facility], was re-evaluated by surgery and underwent a left ank le ORIF on 03-18-20 with no complications except for post-op anemia and persistent pain. She was evaluated by therapy, found to be well below her prior level of function with impairments in mobility and ADLs and deemed medically appropriate for discharge to ARU on 03-20-20. REVIEW OF SYSTEMS: The following is a completed review of systems and has been reviewed. Review of systems otherwise unremarkable. PAIN: Patient self reports left ankle pain EYES: No recent vision changes EARS, NOSE, & THROAT: No throat pain, or dysphagia, or rhinorrhea CARDIOVASCULAR: Denies chest pain or palpitations PULMONARY: Denies shortness of breath GASTROINTESTINAL: Denies constipation/diarrhea GENITOURINARY: +dysuria MUSCULOSKELETAL:left ankle and proximal fibular fracture NEUROLOGICAL:+tardive dyskinesia HEMATOLOGICAL: denies easy bruising SKIN: no rash PSYCHIATRIC: Unremarkable All other review of systems found to be negative. PAST MEDICAL HISTORY: as per HPI PAST SURGICAL HISTORY: Hysterectomy, bilat cataracts ALLERGIES: Please see below. MEDICATIONS: Please see below. FAMILY HISTORY:pancreatic cancer SOCIAL HISTORY: No etoh/illicit drugs/smoking DIET: regular PHYSICAL EXAMINATION: VITAL SIGNS: Please see below. GENERAL: Pleasant and cooperative. No acute distress. HEENT: PERRL. Extraocular movements intact. Clear conjunctiva CARDIOVASCULAR: Regular rate and rhythm. No murmurs, rubs, or gallops LUNGS: Clear to auscultation bilaterally. No wheezes. No rhonchi ABDOMEN: Soft, nontender, nondistended. Positive bowel sounds. Normal active bowel sounds NEUROLOGICAL: Alert and oriented times three. Cranial nerves II through XII grossly intact. Sensation grossly intact +tardive dyskinesia EXTREMITIES: 5\5 strength bilateral upper extremities.5\5 strength right lower extremity. on left able to wiggle toes, hip flexors >3/5 (limited to due casting) SKIN: no sacral erythrma LABORATORY DATA: Please see below. IMAGING:Imaging documentation personally reviewed by record FUNCTIONAL STATUS: Premorbid: Independent with all activities of daily life as well as mobility On Admission: Min-Total assist for bed mobility and functional transfers, max for toileting, and total for toileting GOALS:Mod-I from a wheelchair level, functional transfers, dressing, bathing, toileting ASSESSMENT:79-year-old F with past medical history of parkinson's who presents status post fall with left ankle fracture PLAN: 1. Rehab- PT/OT advance mobility and ADLs with NWB to the LLE- strengthen/stretch.maintain ROM 2. Neuro- hx of parkinson's c/u sinemet, movement disorder contributing to her overall mobility impairments, will adjust sinemet dosing as needed -hx of dementia c/u cogentin 3. CArdiac-no rerpoted active hx, c/u ASA for cardiac protection -medicine consulted to assist with overall management 4. Resp: hx of COPD, encourage incentive spirometry, monitor for infection -duonebs prn 5. Ortho- s/p left ankle ORIF, NWB-ortho consulted 6. DVT ppx- XArelto 7. Pain- Tylenol and tramadol 8. - c/u ditropan 9. DIspo- TBD POST ADMISSION PHYSICIAN EVALUATION: Medical and functional status: Description of medical status, medical assessment: As above. Rehabilitation diagnosis and current and prior cold morbid medical conditions as above. Risk of complications and plans to mitigate them as above. Description of functional status current status is as above. Prior status as above. Status compared to preadmission: There are no clinically significant differences between the patient's current status and the information described on the preadmission screening document. Treatment plan anticipated: Treatment plan is as described above. Required disciplines including physical therapy, occupational therapy, others as noted above. Intensity of services: 3 hours a day,6 days a week. Special considerations: There are no specific special or safety considerations that would likely preclude immediate implementation of an intensive rehabilitation program or subsequently influence the plan of care. ATTESTATION: Considering all the information above, it is my best judgment that this patient requires intensive rehabilitation therapy as described above and an inpatient hospital environment due to the complexity of nursing, medical, and rehabilitation needs required by the patient. Furthermore, this patient can reasonably be expected to participate in an benefit from an inpatient rehabilitation stay with an interdisciplinary team approach to the delivery of rehabilitation care under the direction and supervision of rehabilitation physician PROGNOSIS: Excellent ESTIMATED LENGTH OF STAY:10-14 days. PROJECTED DISCHARGE DESTINATION: Home with family support and any durable medical equipment required to increase functional safety and mobility. TIME SPENT COUNSELING AND COORDINATING INITIAL CARE: Greater than 70 minutes. Vital Signs Vital Sign - Last 24 Hours 03/20/20 03/20/20 03/20/20 03/21/20 22:30 22:36 23:36 08:00 Temp 97.9 98.0 Pulse 76 77 Resp 18 18 16 17 B/P (MAP) 133/65 (87) 168/90 (116) Pulse Ox 97 94 O2 Delivery Room Air Room Air 03/21/20 08:30 B/P (MAP) 160/84 (109) Laboratory Data CBC/BMP Laboratory Tests 03/21/20 06:25 Labs 24H Laboratory Tests 2 03/21/20 06:25: Immature Granulocyte % (Auto) 0.3, Neutrophils (%) (Auto) 48.8, Lymphocytes (%) (Auto) 28.9, Monocytes (%) (Auto) 12.6H, Eosinophils (%) (Auto) 8.6H, Basophils (%) (Auto) 0.8, Neutrophils # (Auto) 3.2, Lymphocytes # (Auto) 1.9, Monocytes # (Auto) 0.8, Eosinophils # (Auto) 0.6H, Basophils # (Auto) 0.1, Nucleated Red Blood Cells % (auto) 0.0, Anion Gap 6L, Glomerular Filtration Rate > 60.0, Calcium Level 8.7L, Total Bilirubin 1.1H, Aspartate Amino Transf (AST/SGOT) 17, Alanine Aminotransferase (ALT/SGPT) 15, Alkaline Phosphatase 109, Total Protein 5.4L, Albumin 2.8L, Albumin/Globulin Ratio 1.1L Home Medications Scheduled Aspirin (Aspirin EC) 81 Mg Tab, 81 MG PO QHS, (Reported) Benztropine Mesylate (Benztropine Mesylate) 1 Mg Tablet, 1 MG PO BID, (Reported) Carbidopa/Levodopa (Carbidopa-Levo 25-100 mg Odt) 1 Each Tab.rapdis, 0.5 TAB PO TID, (Reported) Docusate Sodium (Docusate Sodium) 100 Mg Capsule, 100 MG PO BID Nystatin (Nystop) 60 Gm Powder, 1 DOSE TOP BID Oxybutynin Chloride (Oxybutynin Chloride) 5 Mg Tablet, 5 MG PO BID, (Reported) Rivaroxaban (Xarelto) 10 Mg Tablet, 10 MG PO DAILY Valbenazine Tosylate (Ingrezza) 80 Mg Capsule, 80 MG PO DAILY, (Reported) Vortioxetine Hydrobromide (Trintellix) 10 Mg Tablet, 10 MG PO DAILY, (Reported) Scheduled PRN Acetaminophen (Tylenol Extra Strength) 500 Mg Tablet, 1,000 MG PO Q6H PRN for HEADACHE OR PAIN, (Reported) Tramadol HCl (Tramadol HCl) 50 Mg Tablet, 100 MG PO Q6H PRN for PAIN NEW MEDICATION, HAS NOT STARTED Trazodone HCl (Trazodone HCl) 50 Mg Tab, 25 MG PO QHS PRN for INSOMNIA, (Reported) Allergies Coded Allergies: Sulfa (Sulfonamide Antibiotics) (Verified Adverse Reaction, Mild, nausea , 03/16/20) A-FIB/CHADSVASC A-FIB History Current/History of A-Fib/PAF?: No SUYAPA ABBOTT MD Mar 21, 2020 09:11
[2020-03-21] MEDS: ASPIRIN 81 MG ENTERIC TAB PO SCH (10:07)
[2020-03-21] MEDS: SINEMET 12.5MG/50MG PER 1/2 TABLET PO SCH ×3 (10:07→20:35)
[2020-03-21] MEDS: BENZTROPINE 1 MG TAB PO SCH ×2 (10:07→20:35)
[2020-03-21] MEDS: oxyBUTYnin 5 MG TAB PO SCH ×2 (10:07→20:35)
[2020-03-21] MEDS: DOCUSATE SODIUM 100 MG CAP PO SCH ×2 (10:07→20:35)
[2020-03-21] MEDS: PANTOPRAZOLE 40MG TAB (PROTONIX) PO SCH (10:08)
[2020-03-21] MEDS: NYSTATIN 100,000 UNITS/GM TOPICAL PWD 15 GM TOP SCH ×2 (10:09→20:36)
[2020-03-21] MEDS: ACETAMINOPHEN 500 MG TAB PO SCH ×3 (10:09→20:36)
[2020-03-21] MEDS: REMEDY PHYTOPLEX Z-GUARD PASTE 113GM TUBE (FROM STOREROOM PRODUCT) TOP SCH ×3 (10:10→20:36)
[2020-03-21 10:13] VITALS: BP 134/66
[2020-03-21 14:00] VITALS: BP 132/84
[2020-03-21] MEDS: RIVAROXABAN 10 MG TAB (XARELTO) PO SCH (17:04)
--- NOTE | 2020-03-21 17:06 | IPNPDOC ---
Text Note Date of Service The patient was seen on 03/21/20. NOTE SUBJECTIVE: -Discharged from inpatient hospital to ARU s/p L ankle ORIF -No complaints today OBJECTIVE: VITALS: HDS, afebrile, see below for details CONSTITUTIONAL: NAD, resting comfortably EYES: PERRLA, EOMI HENT, MOUTH: NCAT, MMM NECK: SUPPLE, no JVD, no adenopathy CV: Regular rate and rhythm, S1S2 normal, no murmurs/rubs/gallops RESPIRATORY: Clear to auscultation bilaterally, no rales/rhonchi/wheezes GI: Normoactive bowel sounds, soft, nontender, nondistended, no rebound or guarding, no organomegaly EXT: ROM not tested with LLE bandaged. WWP toes, no cyanosis or swelling. SKIN: Intact, no rashes, no lesions, no erythema NEUROLOGIC: Cranial Nerves II-XII are intact, no focal deficits. PSYCHIATRIC: AOx3 LABORATORY DATA: Reviewed WBC 6.5 hgb 11.9 platelets 140 Cr 0.57 IMAGING: LE venous doppler US were negative for DVTs ASSESSMENT: 79 y/o W L bimalleolar fracture now s/p L ankle ORIF and now in ARU for acute rehabilitation. PLAN: 1. Inability to ambulate 2/2 to left nondisplaced medial malleolus fracture and distal fibular fracture. -s/p L ORIF -continue pain regime -PT/OT per PM&R 2. Anxiety/depression. -Stable. C/w home medications. 3. Periodic limb movements. -C/w home medications 4. Dementia. ? Parkinson's disease. -C/w home meds, Sinemet, congentin 5. DVT px. on Xarelto per ortho DISPOSITION: per PM&R VS,Fishbone, I+O VS, Fishbone, I+O Laboratory Tests 03/21/20 06:25 Vital Signs Date Time Temp Pulse Resp B/P (MAP) Pulse Ox O2 Delivery O2 Flow Rate FiO2 03/21/20 14:00 97.7 101 18 132/84 (100) 93 Room Air I&O- Last 24 Hours up to 6 AM 03/21/20 06:00 Intake Total 0 ml Balance 0 ml SHERICE MCDONALD MD Mar 21, 2020 17:06
[2020-03-21 20:34] VITALS: BP 105/52
[2020-03-21] MEDS: SENNA 8.6 MG TAB (SENOKOT) PO SCH (20:36)
[2020-03-22] MEDS: IPRATROPIUM 0.5MG/ALBUTEROL 2.5MG INH SOL UD 3ML (DUONEB) NEB SCH ×7 (04:00→23:19)
[2020-03-22 06:00] VITALS: BP 139/69
[2020-03-22 07:45] LABS: BASO # 0.1 10^3/uL (0.0-0.2); BASO % 0.7 % (0.0-1.0); EOS # 0.8 10^3/uL (0.0-0.5); EOS % 9.8 % (0.0-3.0); HEMATOCRIT 37.5 % (36.0-47.0); HEMOGLOBIN 12.9 g/dl (12.0-15.5); LYMPH # 1.7 10^3/uL (1.5-5.0); LYMPH % 22.2 % (24.0-44.0); MEAN CORPUSCULAR HGB CONC 34.4 g/dl (32.0-36.5); MEAN CORPUSCULAR VOLUME 98.9 fl (80.0-96.0); MONO # 0.7 10^3/uL (0.0-0.8); MONO % 9.5 % (0.0-5.0); NEUTROPHILS # 4.4 10^3/uL (1.5-8.5); NEUTROPHILS % 57.4 % (36.0-66.0); PLATELET COUNT, AUTOMATED 171 10^3/uL (150-450); RED BLOOD COUNT 3.79 10^6/uL (4.00-5.40); WHITE BLOOD COUNT 7.7 10^3/uL (4.0-10.0)
[2020-03-22 08:06] LABS: BLOOD UREA NITROGEN 18 MG/DL (7-18); CARBON DIOXIDE LEVEL 27 MEQ/L (21-32); CHLORIDE LEVEL 110 MEQ/L (98-107); CREATININE FOR GFR 0.64 MG/DL (0.55-1.30); GLOMERULAR FILTRATION RATE > 60.0 (>39); GLUCOSE, FASTING 101 MG/DL (70-100); POTASSIUM SERUM 3.9 MEQ/L (3.5-5.1); SODIUM LEVEL 144 MEQ/L (136-145)
[2020-03-22] MEDS: SINEMET 12.5MG/50MG PER 1/2 TABLET PO SCH ×3 (09:00→20:50)
[2020-03-22] MEDS: DOCUSATE SODIUM 100 MG CAP PO SCH ×2 (09:09→20:50)
[2020-03-22] MEDS: PANTOPRAZOLE 40MG TAB (PROTONIX) PO SCH (09:09)
[2020-03-22] MEDS: ASPIRIN 81 MG ENTERIC TAB PO SCH (09:10)
[2020-03-22] MEDS: traMADol 50 MG TAB PO PRN (09:10)
[2020-03-22] MEDS: oxyBUTYnin 5 MG TAB PO SCH ×2 (09:10→20:51)
[2020-03-22] MEDS: ACETAMINOPHEN 500 MG TAB PO SCH ×3 (09:11→20:50)
[2020-03-22] MEDS: NYSTATIN 100,000 UNITS/GM TOPICAL PWD 15 GM TOP SCH ×2 (09:11→20:51)
[2020-03-22] MEDS: REMEDY PHYTOPLEX Z-GUARD PASTE 113GM TUBE (FROM STOREROOM PRODUCT) TOP SCH ×3 (09:12→20:53)
[2020-03-22] MEDS: BENZTROPINE 1 MG TAB PO SCH ×2 (12:12→20:51)
[2020-03-22 14:00] VITALS: BP 143/69
[2020-03-22] MEDS: RIVAROXABAN 10 MG TAB (XARELTO) PO SCH (17:15)
[2020-03-22] MEDS: SENNA 8.6 MG TAB (SENOKOT) PO SCH (20:51)
[2020-03-22 22:00] VITALS: BP 125/63
[2020-03-23] MEDS: IPRATROPIUM 0.5MG/ALBUTEROL 2.5MG INH SOL UD 3ML (DUONEB) NEB SCH ×4 (04:00→20:00)
[2020-03-23 06:00] VITALS: BP 141/78
[2020-03-23] MEDS: BENZTROPINE 1 MG TAB PO SCH ×2 (08:23→20:51)
[2020-03-23] MEDS: DOCUSATE SODIUM 100 MG CAP PO SCH ×2 (08:24→20:51)
[2020-03-23] MEDS: traMADol 50 MG TAB PO PRN (08:24)
[2020-03-23] MEDS: SINEMET 12.5MG/50MG PER 1/2 TABLET PO SCH ×3 (08:24→20:50)
[2020-03-23] MEDS: oxyBUTYnin 5 MG TAB PO SCH ×2 (08:24→20:51)
[2020-03-23] MEDS: PANTOPRAZOLE 40MG TAB (PROTONIX) PO SCH (08:24)
[2020-03-23] MEDS: ASPIRIN 81 MG ENTERIC TAB PO SCH (08:24)
[2020-03-23] MEDS: ACETAMINOPHEN 500 MG TAB PO SCH ×3 (08:25→20:51)
[2020-03-23] MEDS: REMEDY PHYTOPLEX Z-GUARD PASTE 113GM TUBE (FROM STOREROOM PRODUCT) TOP SCH ×3 (09:00→20:51)
[2020-03-23] MEDS: NYSTATIN 100,000 UNITS/GM TOPICAL PWD 15 GM TOP SCH ×2 (09:00→20:54)
[2020-03-23 14:00] VITALS: BP 133/75
[2020-03-23] MEDS: RIVAROXABAN 10 MG TAB (XARELTO) PO SCH (16:47)
[2020-03-23] MEDS: NYSTATIN 500,000 U/5 ML SUSP UDC PO SCH ×2 (16:47→20:51)
[2020-03-23] MEDS: MIRALAX *UNIT DOSE* 17GM PACKET PO SCH (16:52)
[2020-03-23] MEDS: MAGIC MOUTHWASH SUSPENSION BTL SSP SCH (16:56)
[2020-03-23 20:00] VITALS: BP 134/75
[2020-03-23] MEDS: SENNA 8.6 MG TAB (SENOKOT) PO SCH (20:51)
[2020-03-24 06:00] VITALS: BP 164/90
[2020-03-24] MEDS: IPRATROPIUM 0.5MG/ALBUTEROL 2.5MG INH SOL UD 3ML (DUONEB) NEB SCH ×3 (07:21→19:25)
[2020-03-24] MEDS: MAGIC MOUTHWASH SUSPENSION BTL SSP SCH ×3 (07:28→18:02)
[2020-03-24] MEDS: oxyBUTYnin 5 MG TAB PO SCH ×2 (08:45→20:37)
[2020-03-24] MEDS: NYSTATIN 500,000 U/5 ML SUSP UDC PO SCH ×4 (08:45→20:38)
[2020-03-24] MEDS: MIRALAX *UNIT DOSE* 17GM PACKET PO SCH (08:46)
[2020-03-24] MEDS: PANTOPRAZOLE 40MG TAB (PROTONIX) PO SCH (08:46)
[2020-03-24] MEDS: DOCUSATE SODIUM 100 MG CAP PO SCH ×2 (08:46→20:36)
[2020-03-24] MEDS: traMADol 50 MG TAB PO PRN ×2 (08:47→20:38)
[2020-03-24] MEDS: ACETAMINOPHEN 500 MG TAB PO SCH ×3 (08:47→20:37)
[2020-03-24] MEDS: ASPIRIN 81 MG ENTERIC TAB PO SCH (08:48)
[2020-03-24] MEDS: BENZTROPINE 1 MG TAB PO SCH ×2 (08:48→20:37)
[2020-03-24] MEDS: SINEMET 12.5MG/50MG PER 1/2 TABLET PO SCH ×3 (08:48→20:36)
[2020-03-24] MEDS: NYSTATIN 100,000 UNITS/GM TOPICAL PWD 15 GM TOP SCH ×2 (08:50→20:41)
[2020-03-24] MEDS: REMEDY PHYTOPLEX Z-GUARD PASTE 113GM TUBE (FROM STOREROOM PRODUCT) TOP SCH ×3 (08:52→20:41)
[2020-03-24 14:00] VITALS: BP 129/64
[2020-03-24] MEDS: RIVAROXABAN 10 MG TAB (XARELTO) PO SCH (18:02)
[2020-03-24] MEDS: SENNA 8.6 MG TAB (SENOKOT) PO SCH (20:36)
[2020-03-24] MEDS: traZODone 25MG PER 1/2 TABLET PO PRN (20:37)
[2020-03-24 22:00] VITALS: BP 138/79
[2020-03-25 06:00] VITALS: BP 161/81
[2020-03-25] MEDS: IPRATROPIUM 0.5MG/ALBUTEROL 2.5MG INH SOL UD 3ML (DUONEB) NEB SCH ×3 (07:22→19:24)
[2020-03-25] MEDS: MAGIC MOUTHWASH SUSPENSION BTL SSP SCH ×2 (07:30→12:00)
[2020-03-25] MEDS: MIRALAX *UNIT DOSE* 17GM PACKET PO SCH (09:56)
[2020-03-25] MEDS: ASPIRIN 81 MG ENTERIC TAB PO SCH (09:56)
[2020-03-25] MEDS: DOCUSATE SODIUM 100 MG CAP PO SCH ×2 (09:56→20:30)
[2020-03-25] MEDS: oxyBUTYnin 5 MG TAB PO SCH ×2 (09:56→20:30)
[2020-03-25] MEDS: ACETAMINOPHEN 500 MG TAB PO SCH ×3 (09:57→20:31)
[2020-03-25] MEDS: BENZTROPINE 1 MG TAB PO SCH ×2 (09:57→20:30)
[2020-03-25] MEDS: SINEMET 12.5MG/50MG PER 1/2 TABLET PO SCH ×3 (09:57→20:30)
[2020-03-25] MEDS: PANTOPRAZOLE 40MG TAB (PROTONIX) PO SCH (09:57)
[2020-03-25] MEDS: NYSTATIN 500,000 U/5 ML SUSP UDC PO SCH ×4 (09:57→20:30)
[2020-03-25] MEDS: REMEDY PHYTOPLEX Z-GUARD PASTE 113GM TUBE (FROM STOREROOM PRODUCT) TOP SCH ×3 (09:58→20:32)
[2020-03-25] MEDS: NYSTATIN 100,000 UNITS/GM TOPICAL PWD 15 GM TOP SCH ×2 (09:58→20:31)
[2020-03-25 10:52] LABS: BASO % 0.6 % (0.0-1.0); EOS # 0.6 10^3/uL (0.0-0.5); EOS % 10.1 % (0.0-3.0); HEMATOCRIT 37.5 % (36.0-47.0); HEMOGLOBIN 12.5 g/dl (12.0-15.5); LYMPH # 1.2 10^3/uL (1.5-5.0); LYMPH % 21.2 % (24.0-44.0); MEAN CORPUSCULAR HEMOGLOBIN 34.3 pg (27.0-33.0); MEAN CORPUSCULAR HGB CONC 33.3 g/dl (32.0-36.5); MONO # 0.5 10^3/uL (0.0-0.8); NEUTROPHILS # 3.1 10^3/uL (1.5-8.5); NEUTROPHILS % 57.7 % (36.0-66.0); PLATELET COUNT, AUTOMATED 207 10^3/uL (150-450); RED BLOOD COUNT 3.64 10^6/uL (4.00-5.40); WHITE BLOOD COUNT 5.4 10^3/uL (4.0-10.0)
[2020-03-25 11:14] LABS: BLOOD UREA NITROGEN 14 MG/DL (7-18); CALCIUM LEVEL 9.3 MG/DL (8.8-10.2); CARBON DIOXIDE LEVEL 26 MEQ/L (21-32); CHLORIDE LEVEL 109 MEQ/L (98-107); CREATININE FOR GFR 0.64 MG/DL (0.55-1.30); GLOMERULAR FILTRATION RATE > 60.0 (>39); GLUCOSE, FASTING 103 MG/DL (70-100); POTASSIUM SERUM 3.8 MEQ/L (3.5-5.1); SODIUM LEVEL 142 MEQ/L (136-145)
[2020-03-25 14:00] VITALS: BP 156/81
--- NOTE | 2020-03-25 14:56 | IPNPDOC ---
PM&R Progress Note DATE OF SERVICE: Mar 25, 2020 Quality Project Manager Progress Note Subjective: Patient reporting her tongue is very sore and that the moutkote is not helping. She also reports feeling constipated and would like a suppository. REVIEW OF SYSTEMS: The following is a completed review of systems and has been reviewed. Review of systems otherwise unremarkable. PAIN: Patient self reports left ankle pain EYES: No recent vision changes EARS, NOSE, & THROAT: No throat pain, or dysphagia, or rhinorrhea, +tongue pain CARDIOVASCULAR: Denies chest pain or palpitations PULMONARY: Denies shortness of breath GASTROINTESTINAL: +constipation GENITOURINARY: +dysuria (resolved) MUSCULOSKELETAL:left ankle and proximal fibular fracture NEUROLOGICAL:+tardive dyskinesia HEMATOLOGICAL: denies easy bruising SKIN: no rash PSYCHIATRIC: Unremarkable All other review of systems found to be negative. PHYSICAL EXAMINATION: VITAL SIGNS: Please see below. GENERAL: Pleasant and cooperative. No acute distress. HEENT: PERRL. Extraocular movements intact. Clear conjunctiva, tongue pink without white coating, no lesions noted CARDIOVASCULAR: Regular rate and rhythm. No murmurs, rubs, or gallops LUNGS: Clear to auscultation bilaterally. No wheezes. No rhonchi ABDOMEN: Soft, nontender, nondistended. Positive bowel sounds. Normal active bowel sounds NEUROLOGICAL: Alert and oriented times three. Cranial nerves II through XII grossly intact. Sensation grossly intact +tardive dyskinesia EXTREMITIES: 5\5 strength bilateral upper extremities.5\5 strength right lower extremity. on left able to wiggle toes, hip flexors >3/5 (limited to due casting) SKIN: no sacral erythema ASSESSMENT:79-year-old F with past medical history of parkinson's who presents status post fall with left ankle fracture PLAN: 1. Rehab- PT/OT advance mobility and ADLs with NWB to the LLE- strengthen/stretch.maintain ROM 2. Neuro- hx of parkinson's c/u sinemet, movement disorder contributing to her overall mobility impairments, will adjust sinemet dosing as needed -hx of dementia c/u cogentin 3. CArdiac-no rerpoted active hx, c/u ASA for cardiac protection -medicine consulted to assist with overall management 4. Resp: hx of COPD, encourage incentive spirometry, monitor for infection -duonebs prn 5. Ortho- s/p left ankle ORIF, NWB-ortho consulted 6. DVT ppx- XArelto 7. Pain- Tylenol and tramadol -patient reporting sore tongue that she says preceded her admission, mouthkote not effective and no thrush seen on exam -will trial viscous lidocaine and gabapentin 100 mg daily 8. - c/u ditropan 9. DIspo- TBD Allergies Coded Allergies: Sulfa (Sulfonamide Antibiotics) (Verified Adverse Reaction, Mild, nausea , 03/16/20) Vital Signs Vital Signs Date Time Temp Pulse Resp B/P (MAP) Pulse Ox O2 Delivery O2 Flow Rate FiO2 03/25/20 14:00 97.8 77 18 156/81 (106) 98 Room Air Laboratory Data CBC/BMP Laboratory Tests 03/25/20 10:28 Labs 24H Laboratory Tests 2 03/25/20 10:28: Immature Granulocyte % (Auto) 0.4, Neutrophils (%) (Auto) 57.7, Lymphocytes (%) (Auto) 21.2L, Monocytes (%) (Auto) 10.0H, Eosinophils (%) (Auto) 10.1H, Basophils (%) (Auto) 0.6, Neutrophils # (Auto) 3.1, Lymphocytes # (Auto) 1.2L, Monocytes # (Auto) 0.5, Eosinophils # (Auto) 0.6H, Basophils # (Auto) 0.0, Nucleated Red Blood Cells % (auto) 0.0, Anion Gap 7L, Glomerular Filtration Rate > 60.0, Calcium Level 9.3 Current Medications Current Medications Current Medications Medications (Trade) Dose Ordered Sig/Johnny Route PRN Reason Start Time Stop Time Status Last Admin Dose Admin Acetaminophen (Tylenol Tab) 1,000 mg TID PO 03/20/20 16:00 03/25/20 09:57 Albuterol/ Ipratropium (Duoneb (Ipr 0.5mg/Alb 2.5mg)) 3 ml RQ4H NEB 03/21/20 08:00 03/23/20 14:50 DC 03/23/20 12:57 Albuterol/ Ipratropium (Duoneb (Ipr 0.5mg/Alb 2.5mg)) 3 ml RTID NEB 03/23/20 20:00 03/25/20 07:22 Aspirin (Ecotrin) 81 mg DAILY PO 03/21/20 09:00 03/25/20 09:56 Benztropine Mesylate (Cogentin) 1 mg BID PO 03/20/20 21:00 03/25/20 09:57 Bisacodyl (Dulcolax Suppository) 10 mg DAILYPRN PRN [place] CONSTIPATION 03/20/20 14:15 Carbidopa/Levodopa (Sinemet 12.5/50) 1 tab TID PO 03/20/20 21:00 03/25/20 09:57 Docusate Sodium (Colace) 100 mg BID PO 03/20/20 21:00 03/25/20 09:56 Home Med (Med Rec Complete!) ASDIRECTED XX 03/20/20 22:45 03/20/20 22:42 DC Lidocaine/ Diphenhydr/Alum/ Mg/Simeth (Magic Mouthwash) 5ML AC SSP 03/23/20 17:30 03/24/20 18:02 Nystatin (Mycostatin Powder, Nystop) abdomial folds and groin BID TOP 03/20/20 21:00 03/25/20 09:58 Nystatin (Mycostatin) 5 ml QID PO 03/23/20 17:00 03/25/20 13:10 Oxybutynin Chloride (Ditropan) 5 mg BID PO 03/20/20 21:00 03/25/20 09:56 Pantoprazole Sodium (Protonix) 40 mg DAILY PO 03/21/20 09:00 03/25/20 09:57 Polyethylene Glycol (Miralax) 1 pkt DAILY PO 03/23/20 09:00 03/25/20 09:56 Rivaroxaban (Xarelto) 10 mg DAILY@1800 PO 03/21/20 18:00 03/24/20 18:02 Senna (Senokot) 1 tab QHS PO 03/20/20 21:00 03/24/20 20:36 Tramadol HCl (Ultram) 50 mg Q4HP PRN PO MODERATE PAIN (PS 5-7) 03/20/20 14:15 03/24/20 20:38 Trazodone HCl (Desyrel) 25 mg QHSP PRN PO INSOMNIA 03/20/20 14:15 03/24/20 20:37 SUYAPA ABBOTT MD Mar 25, 2020 14:56
[2020-03-25] MEDS: LIDOCAINE VISCOUS 2% SOLN 15ML UDC SSP SCH ×2 (16:04→20:31)
[2020-03-25] MEDS ORDERED: LACTULOSE 20 GM/30 ML SYRUP UD PO ONE (18:00)
[2020-03-25] MEDS: RIVAROXABAN 10 MG TAB (XARELTO) PO SCH (18:17)
[2020-03-25 20:00] VITALS: BP_SYST 132; BP_SYST 141; BP_DIAS 67; BP_DIAS 70
[2020-03-25] MEDS ORDERED: BISACODYL 10 MG SUPP PR ONE (20:00)
[2020-03-25] MEDS: GABAPENTIN 100 MG CAP PO SCH (20:30)
[2020-03-25] MEDS: SENNA 8.6 MG TAB (SENOKOT) PO SCH (20:30)
[2020-03-25] MEDS: traMADol 50 MG TAB PO PRN (20:31)
[2020-03-26] MEDS: traMADol 50 MG TAB PO PRN ×2 (02:42→21:22)
[2020-03-26 06:00] VITALS: BP 134/78
[2020-03-26] MEDS: IPRATROPIUM 0.5MG/ALBUTEROL 2.5MG INH SOL UD 3ML (DUONEB) NEB SCH ×3 (07:11→20:00)
[2020-03-26] MEDS: DOCUSATE SODIUM 100 MG CAP PO SCH ×2 (08:14→21:00)
[2020-03-26] MEDS: SINEMET 12.5MG/50MG PER 1/2 TABLET PO SCH ×3 (08:14→21:21)
[2020-03-26] MEDS: GABAPENTIN 100 MG CAP PO SCH ×2 (08:14→21:22)
[2020-03-26] MEDS: MIRALAX *UNIT DOSE* 17GM PACKET PO SCH (08:14)
[2020-03-26] MEDS: PANTOPRAZOLE 40MG TAB (PROTONIX) PO SCH (08:15)
[2020-03-26] MEDS: ASPIRIN 81 MG ENTERIC TAB PO SCH (08:15)
[2020-03-26] MEDS: ACETAMINOPHEN 500 MG TAB PO SCH ×3 (08:15→21:22)
[2020-03-26] MEDS: oxyBUTYnin 5 MG TAB PO SCH ×2 (08:15→21:21)
[2020-03-26] MEDS: BENZTROPINE 1 MG TAB PO SCH ×2 (08:15→21:22)
[2020-03-26] MEDS: LIDOCAINE VISCOUS 2% SOLN 15ML UDC SSP SCH ×3 (08:16→21:22)
[2020-03-26] MEDS: NYSTATIN 500,000 U/5 ML SUSP UDC PO SCH (08:16)
[2020-03-26] MEDS: NYSTATIN 100,000 UNITS/GM TOPICAL PWD 15 GM TOP SCH ×2 (08:16→21:00)
[2020-03-26] MEDS: REMEDY PHYTOPLEX Z-GUARD PASTE 113GM TUBE (FROM STOREROOM PRODUCT) TOP SCH ×3 (08:19→21:00)
[2020-03-26 14:00] VITALS: BP 141/80
[2020-03-26] MEDS: RIVAROXABAN 10 MG TAB (XARELTO) PO SCH (17:44)
[2020-03-26 20:00] VITALS: BP 116/62
[2020-03-26] MEDS: SENNA 8.6 MG TAB (SENOKOT) PO SCH (21:00)
[2020-03-27 06:00] VITALS: BP 149/73
[2020-03-27 06:45] LABS: BASO # 0.1 10^3/uL (0.0-0.2); BASO % 1.1 % (0.0-1.0); EOS # 0.7 10^3/uL (0.0-0.5); EOS % 15.2 % (0.0-3.0); HEMATOCRIT 34.6 % (36.0-47.0); HEMOGLOBIN 11.7 g/dl (12.0-15.5); LYMPH # 1.3 10^3/uL (1.5-5.0); LYMPH % 26.4 % (24.0-44.0); MEAN CORPUSCULAR HEMOGLOBIN 34.1 pg (27.0-33.0); MEAN CORPUSCULAR HGB CONC 33.8 g/dl (32.0-36.5); MEAN CORPUSCULAR VOLUME 100.9 fl (80.0-96.0); MONO # 0.5 10^3/uL (0.0-0.8); MONO % 11.4 % (0.0-5.0); NEUTROPHILS # 2.2 10^3/uL (1.5-8.5); NEUTROPHILS % 45.7 % (36.0-66.0); PLATELET COUNT, AUTOMATED 213 10^3/uL (150-450); RED BLOOD COUNT 3.43 10^6/uL (4.00-5.40); WHITE BLOOD COUNT 4.7 10^3/uL (4.0-10.0)
[2020-03-27 07:13] LABS: BLOOD UREA NITROGEN 14 MG/DL (7-18); CALCIUM LEVEL 8.9 MG/DL (8.8-10.2); CARBON DIOXIDE LEVEL 26 MEQ/L (21-32); CHLORIDE LEVEL 113 MEQ/L (98-107); CREATININE FOR GFR 0.55 MG/DL (0.55-1.30); GLOMERULAR FILTRATION RATE > 60.0 (>39); GLUCOSE, FASTING 104 MG/DL (70-100); SODIUM LEVEL 145 MEQ/L (136-145)
[2020-03-27] MEDS: IPRATROPIUM 0.5MG/ALBUTEROL 2.5MG INH SOL UD 3ML (DUONEB) NEB SCH ×3 (08:00→19:21)
[2020-03-27] MEDS: BENZTROPINE 1 MG TAB PO SCH ×2 (08:19→20:46)
[2020-03-27] MEDS: MIRALAX *UNIT DOSE* 17GM PACKET PO SCH (08:19)
[2020-03-27] MEDS: oxyBUTYnin 5 MG TAB PO SCH ×2 (08:19→20:46)
[2020-03-27] MEDS: DOCUSATE SODIUM 100 MG CAP PO SCH ×2 (08:19→20:45)
[2020-03-27] MEDS: ASPIRIN 81 MG ENTERIC TAB PO SCH (08:19)
[2020-03-27] MEDS: GABAPENTIN 100 MG CAP PO SCH ×3 (08:19→20:45)
[2020-03-27] MEDS: PANTOPRAZOLE 40MG TAB (PROTONIX) PO SCH (08:19)
[2020-03-27] MEDS: LIDOCAINE VISCOUS 2% SOLN 15ML UDC SSP SCH ×3 (08:20→20:46)
[2020-03-27] MEDS: ACETAMINOPHEN 500 MG TAB PO SCH ×3 (08:20→20:45)
[2020-03-27] MEDS: SINEMET 12.5MG/50MG PER 1/2 TABLET PO SCH ×3 (08:24→20:45)
[2020-03-27] MEDS: REMEDY PHYTOPLEX Z-GUARD PASTE 113GM TUBE (FROM STOREROOM PRODUCT) TOP SCH ×3 (08:27→20:47)
[2020-03-27] MEDS: NYSTATIN 100,000 UNITS/GM TOPICAL PWD 15 GM TOP SCH ×2 (08:27→20:47)
--- NOTE | 2020-03-27 09:51 | IPNPDOC ---
PM&R Progress Note DATE OF SERVICE: Mar 26, 2020 Precision Assembler Bench Progress Note DATE OF ADMISSION: Mar 20, 2020 at 17:15 INPATIENT REHABILITATION ADMISSION DAY: # SUBJECTIVE: Patient is a -year-old with . ALLERGIES: See Below MEDICATIONS: Reviewed, see below. OBJECTIVE: VITAL SIGNS: Please see below. PHYSICAL EXAMINATION: GENERAL: [Cachectic, well developed, sitting up in bed, no acute distress]. HEENT: [Normocephalic, atraumatic]. [No facial droop]. [Poor dentition, missing teeth. PERRL, EOMI]. CARDIOVASCULAR: [S1, S2, irregular rate]. [No lower limb edema or calf tenderness]. LUNGS: [Decreased breath sounds, coarse throughout]. ABDOMEN: [Soft, nontender, nondistended. Normoactive bowel sounds throughout]. MUSCULOSKELETAL: MMT: /5 strength proximally bilateral shoulder abduction, forward flexion and bilateral hip flexion. /5 strength bilateral elbow flexion, knee flexion, /5 bilateral elbow extension and knee extension. /5 [place], dorsiflexion, plantar flexion. NEUROLOGICAL: [Alert and oriented times three]. [Answers all question appropriately]. SKIN: . LABORATORY DATA: Reviewed. Please see below. MICROBIOLOGY: Please see below. IMAGING: ASSESSMENT AND PLAN: 1. . 2. . 3. . TIME SPENT: Chart Review, examination and documentation minutes. Allergies Coded Allergies: Sulfa (Sulfonamide Antibiotics) (Verified Adverse Reaction, Mild, nausea , 03/16/20) Vital Signs Vital Signs Date Time Temp Pulse Resp B/P (MAP) Pulse Ox O2 Delivery O2 Flow Rate FiO2 03/27/20 06:00 98.4 75 16 149/73 (98) 96 Room Air Laboratory Data CBC/BMP Laboratory Tests 03/27/20 06:09 Labs 24H Laboratory Tests 2 03/27/20 06:09: Immature Granulocyte % (Auto) 0.2, Neutrophils (%) (Auto) 45.7, Lymphocytes (%) (Auto) 26.4, Monocytes (%) (Auto) 11.4H, Eosinophils (%) (Auto) 15.2H, Basophils (%) (Auto) 1.1H, Neutrophils # (Auto) 2.2, Lymphocytes # (Auto) 1.3L, Monocytes # (Auto) 0.5, Eosinophils # (Auto) 0.7H, Basophils # (Auto) 0.1, Nucleated Red Blood Cells % (auto) 0.0, Anion Gap 6L, Glomerular Filtration Rate > 60.0, Calcium Level 8.9 Current Medications Current Medications Current Medications Medications (Trade) Dose Ordered Sig/Ojhnny Route PRN Reason Start Time Stop Time Status Last Admin Dose Admin Acetaminophen (Tylenol Tab) 1,000 mg TID PO 03/20/20 16:00 03/27/20 08:20 Albuterol/ Ipratropium (Duoneb (Ipr 0.5mg/Alb 2.5mg)) 3 ml RQ4H NEB 03/21/20 08:00 03/23/20 14:50 DC 03/23/20 12:57 Albuterol/ Ipratropium (Duoneb (Ipr 0.5mg/Alb 2.5mg)) 3 ml RTID NEB 03/23/20 20:00 03/26/20 07:11 Aspirin (Ecotrin) 81 mg DAILY PO 03/21/20 09:00 03/27/20 08:19 Benztropine Mesylate (Cogentin) 1 mg BID PO 03/20/20 21:00 03/27/20 08:19 Bisacodyl (Dulcolax Suppository) 10 mg DAILYPRN PRN [place] CONSTIPATION 03/20/20 14:15 Carbidopa/Levodopa (Sinemet 12.5/50) 1 tab TID PO 03/20/20 21:00 03/27/20 08:24 Docusate Sodium (Colace) 100 mg BID PO 03/20/20 21:00 03/27/20 08:19 Gabapentin (Neurontin) 100 mg BID PO 03/25/20 21:00 03/27/20 08:19 Home Med (Med Rec Complete!) ASDIRECTED XX 03/20/20 22:45 03/20/20 22:42 DC Lidocaine HCl (Lidocaine 2% Visc Soln) 5 ml TID@0900,1500,2100 SSP 03/25/20 15:00 03/27/20 08:20 Lidocaine/ Diphenhydr/Alum/ Mg/Simeth (Magic Mouthwash) 5ML AC SSP 03/23/20 17:30 03/25/20 15:04 DC 03/24/20 18:02 Nystatin (Mycostatin Powder, Nystop) abdomial folds and groin BID TOP 03/20/20 21:00 03/26/20 08:16 Nystatin (Mycostatin) 5 ml QID PO 03/23/20 17:00 03/26/20 10:24 DC 03/26/20 08:16 Oxybutynin Chloride (Ditropan) 5 mg BID PO 03/20/20 21:00 03/27/20 08:19 Pantoprazole Sodium (Protonix) 40 mg DAILY PO 03/21/20 09:00 03/27/20 08:19 Polyethylene Glycol (Miralax) 1 pkt DAILY PO 03/23/20 09:00 03/27/20 08:19 Rivaroxaban (Xarelto) 10 mg DAILY@1800 PO 03/21/20 18:00 03/26/20 17:44 Senna (Senokot) 1 tab QHS PO 03/20/20 21:00 03/25/20 20:30 Tramadol HCl (Ultram) 50 mg Q4HP PRN PO MODERATE PAIN (PS 5-7) 03/20/20 14:15 03/26/20 21:22 Trazodone HCl (Desyrel) 25 mg QHSP PRN PO INSOMNIA 03/20/20 14:15 03/24/20 20:37 SUYAPA ABBOTT MD Mar 27, 2020 09:51
--- NOTE | 2020-03-27 13:04 | IPNPDOC ---
PM&R Progress Note DATE OF SERVICE: Mar 27, 2020 Disk Grinder Progress Note Subjective: Patient reporting her tongue is less sore and she can comfortably eat. She would like to try a higher dose of Gabapentin. She is anxious about going home. REVIEW OF SYSTEMS: The following is a completed review of systems and has been reviewed. Review of systems otherwise unremarkable. PAIN: Patient self reports left ankle pain EYES: No recent vision changes EARS, NOSE, & THROAT: No throat pain, or dysphagia, or rhinorrhea, +tongue pain CARDIOVASCULAR: Denies chest pain or palpitations PULMONARY: Denies shortness of breath GASTROINTESTINAL: +constipation (resolved) GENITOURINARY: +dysuria (resolved) MUSCULOSKELETAL:left ankle and proximal fibular fracture NEUROLOGICAL:+tardive dyskinesia HEMATOLOGICAL: denies easy bruising SKIN: no rash PSYCHIATRIC: Unremarkable All other review of systems found to be negative. PHYSICAL EXAMINATION: VITAL SIGNS: Please see below. GENERAL: Pleasant and cooperative. No acute distress. HEENT: PERRL. Extraocular movements intact. Clear conjunctiva, tongue pink without white coating, no lesions noted CARDIOVASCULAR: Regular rate and rhythm. No murmurs, rubs, or gallops LUNGS: Clear to auscultation bilaterally. No wheezes. No rhonchi ABDOMEN: Soft, nontender, nondistended. Positive bowel sounds. Normal active bowel sounds NEUROLOGICAL: Alert and oriented times three. Cranial nerves II through XII grossly intact. Sensation grossly intact +tardive dyskinesia EXTREMITIES: 5\5 strength bilateral upper extremities.5\5 strength right lower extremity. on left able to wiggle toes, hip flexors >3/5 (limited to due casting) SKIN: no sacral erythema ASSESSMENT:79-year-old F with past medical history of parkinson's who presents status post fall with left ankle fracture PLAN: 1. Rehab- PT/OT advance mobility and ADLs with NWB to the LLE- strengthen/stretch/maintain ROM, inconsistent motor planning with transfers 2. Neuro- hx of parkinson's c/u sinemet, movement disorder contributing to her overall mobility impairments, will adjust Sinemet dosing as needed -hx of dementia c/u cogentin 3. CArdiac-no reported active hx, c/u ASA for cardiac protection -medicine consulted to assist with overall management 4. Resp: hx of COPD, encourage incentive spirometry, monitor for infection -duonebs prn 5. Ortho- s/p left ankle ORIF, NWB-ortho consulted 6. DVT ppx- XArelto 7. Pain- Tylenol and tramadol -patient reporting sore tongue that she says preceded her admission, mouthkote not effective and no thrush seen on exam, c/u viscous lidocaine and will increase gabapentin to 100mg TID, patient reporting less painful tongue 8. - c/u ditropan 9. DIspo- 04-01-20 to home ,progressing slowly towards goals Allergies Coded Allergies: Sulfa (Sulfonamide Antibiotics) (Verified Adverse Reaction, Mild, nausea , 03/16/20) Vital Signs Vital Signs Date Time Temp Pulse Resp B/P (MAP) Pulse Ox O2 Delivery O2 Flow Rate FiO2 03/27/20 06:00 98.4 75 16 149/73 (98) 96 Room Air Laboratory Data CBC/BMP Laboratory Tests 03/27/20 06:09 Labs 24H Laboratory Tests 2 03/27/20 06:09: Immature Granulocyte % (Auto) 0.2, Neutrophils (%) (Auto) 45.7, Lymphocytes (%) (Auto) 26.4, Monocytes (%) (Auto) 11.4H, Eosinophils (%) (Auto) 15.2H, Basophils (%) (Auto) 1.1H, Neutrophils # (Auto) 2.2, Lymphocytes # (Auto) 1.3L, Monocytes # (Auto) 0.5, Eosinophils # (Auto) 0.7H, Basophils # (Auto) 0.1, Nucleated Red Blood Cells % (auto) 0.0, Anion Gap 6L, Glomerular Filtration Rate > 60.0, Calcium Level 8.9 Current Medications Current Medications Current Medications Medications (Trade) Dose Ordered Sig/Johnny Route PRN Reason Start Time Stop Time Status Last Admin Dose Admin Acetaminophen (Tylenol Tab) 1,000 mg TID PO 03/20/20 16:00 03/27/20 08:20 Albuterol/ Ipratropium (Duoneb (Ipr 0.5mg/Alb 2.5mg)) 3 ml RQ4H NEB 03/21/20 08:00 03/23/20 14:50 DC 03/23/20 12:57 Albuterol/ Ipratropium (Duoneb (Ipr 0.5mg/Alb 2.5mg)) 3 ml RTID NEB 03/23/20 20:00 03/26/20 07:11 Aspirin (Ecotrin) 81 mg DAILY PO 03/21/20 09:00 03/27/20 08:19 Benztropine Mesylate (Cogentin) 1 mg BID PO 03/20/20 21:00 03/27/20 08:19 Bisacodyl (Dulcolax Suppository) 10 mg DAILYPRN PRN [place] CONSTIPATION 03/20/20 14:15 Carbidopa/Levodopa (Sinemet 12.5/50) 1 tab TID PO 03/20/20 21:00 03/27/20 08:24 Docusate Sodium (Colace) 100 mg BID PO 03/20/20 21:00 03/27/20 08:19 Gabapentin (Neurontin) 100 mg BID PO 03/25/20 21:00 03/27/20 08:19 Home Med (Med Rec Complete!) ASDIRECTED XX 03/20/20 22:45 03/20/20 22:42 DC Lidocaine HCl (Lidocaine 2% Visc Soln) 5 ml TID@0900,1500,2100 SSP 03/25/20 15:00 03/27/20 08:20 Lidocaine/ Diphenhydr/Alum/ Mg/Simeth (Magic Mouthwash) 5ML AC SSP 03/23/20 17:30 03/25/20 15:04 DC 03/24/20 18:02 Nystatin (Mycostatin Powder, Nystop) abdomial folds and groin BID TOP 03/20/20 21:00 03/26/20 08:16 Nystatin (Mycostatin) 5 ml QID PO 03/23/20 17:00 03/26/20 10:24 DC 03/26/20 08:16 Oxybutynin Chloride (Ditropan) 5 mg BID PO 03/20/20 21:00 03/27/20 08:19 Pantoprazole Sodium (Protonix) 40 mg DAILY PO 03/21/20 09:00 03/27/20 08:19 Polyethylene Glycol (Miralax) 1 pkt DAILY PO 03/23/20 09:00 03/27/20 08:19 Rivaroxaban (Xarelto) 10 mg DAILY@1800 PO 03/21/20 18:00 03/26/20 17:44 Senna (Senokot) 1 tab QHS PO 03/20/20 21:00 03/25/20 20:30 Tramadol HCl (Ultram) 50 mg Q4HP PRN PO MODERATE PAIN (PS 5-7) 03/20/20 14:15 03/26/20 21:22 Trazodone HCl (Desyrel) 25 mg QHSP PRN PO INSOMNIA 03/20/20 14:15 03/24/20 20:37 SUYAPA ABBOTT MD Mar 27, 2020 13:04
[2020-03-27 14:00] VITALS: BP 130/69
[2020-03-27] MEDS: RIVAROXABAN 10 MG TAB (XARELTO) PO SCH (17:56)
[2020-03-27 20:33] VITALS: BP 137/61
[2020-03-27] MEDS: SENNA 8.6 MG TAB (SENOKOT) PO SCH (20:45)
[2020-03-28 05:34] VITALS: BP 160/80
[2020-03-28] MEDS: IPRATROPIUM 0.5MG/ALBUTEROL 2.5MG INH SOL UD 3ML (DUONEB) NEB SCH ×3 (07:20→20:00)
[2020-03-28] MEDS: BENZTROPINE 1 MG TAB PO SCH ×2 (07:45→21:01)
[2020-03-28] MEDS: DOCUSATE SODIUM 100 MG CAP PO SCH ×2 (07:45→21:01)
[2020-03-28] MEDS: oxyBUTYnin 5 MG TAB PO SCH ×2 (07:45→21:01)
[2020-03-28] MEDS: ASPIRIN 81 MG ENTERIC TAB PO SCH (07:45)
[2020-03-28] MEDS: LIDOCAINE VISCOUS 2% SOLN 15ML UDC SSP SCH ×3 (07:45→21:02)
[2020-03-28] MEDS: GABAPENTIN 100 MG CAP PO SCH ×3 (07:45→21:01)
[2020-03-28] MEDS: PANTOPRAZOLE 40MG TAB (PROTONIX) PO SCH (07:46)
[2020-03-28] MEDS: ACETAMINOPHEN 500 MG TAB PO SCH ×3 (07:46→21:02)
[2020-03-28] MEDS: SINEMET 12.5MG/50MG PER 1/2 TABLET PO SCH ×3 (07:46→21:01)
[2020-03-28] MEDS: MIRALAX *UNIT DOSE* 17GM PACKET PO SCH (07:46)
[2020-03-28] MEDS: NYSTATIN 100,000 UNITS/GM TOPICAL PWD 15 GM TOP SCH ×2 (07:47→21:02)
[2020-03-28] MEDS: REMEDY PHYTOPLEX Z-GUARD PASTE 113GM TUBE (FROM STOREROOM PRODUCT) TOP SCH ×3 (07:47→21:02)
--- NOTE | 2020-03-28 10:47 | IPNPDOC ---
PM&R Progress Note DATE OF SERVICE: Mar 28, 2020 Vapor Coater Progress Note Subjective: Patient reporting her tongue pain is nearly resolved and she is concerned that she won't be able to have enough help when she goes home. REVIEW OF SYSTEMS: The following is a completed review of systems and has been reviewed. Review of systems otherwise unremarkable. PAIN: Patient self reports left ankle pain EYES: No recent vision changes EARS, NOSE, & THROAT: No throat pain, or dysphagia, or rhinorrhea, +tongue pain CARDIOVASCULAR: Denies chest pain or palpitations PULMONARY: Denies shortness of breath GASTROINTESTINAL: +constipation (resolved) GENITOURINARY: +dysuria (resolved) MUSCULOSKELETAL:left ankle and proximal fibular fracture NEUROLOGICAL:+tardive dyskinesia HEMATOLOGICAL: denies easy bruising SKIN: no rash PSYCHIATRIC: Unremarkable All other review of systems found to be negative. PHYSICAL EXAMINATION: VITAL SIGNS: Please see below. GENERAL: Pleasant and cooperative. No acute distress. HEENT: PERRL. Extraocular movements intact. Clear conjunctiva, tongue pink without white coating, no lesions noted CARDIOVASCULAR: Regular rate and rhythm. No murmurs, rubs, or gallops LUNGS: Clear to auscultation bilaterally. No wheezes. No rhonchi ABDOMEN: Soft, nontender, nondistended. Positive bowel sounds. Normal active bowel sounds NEUROLOGICAL: Alert and oriented times three. Cranial nerves II through XII grossly intact. Sensation grossly intact +tardive dyskinesia EXTREMITIES: 5\5 strength bilateral upper extremities.5\5 strength right lower extremity. on left able to wiggle toes, hip flexors >3/5 (limited to due casting) SKIN: no sacral erythema ASSESSMENT:79-year-old F with past medical history of parkinson's who presents status post fall with left ankle fracture PLAN: 1. Rehab- PT/OT advance mobility and ADLs with NWB to the LLE- strengthen/stretch/maintain ROM, inconsistent motor planning with transfers 2. Neuro- hx of parkinson's c/u sinemet, movement disorder contributing to her overall mobility impairments, will adjust Sinemet dosing as needed -hx of dementia c/u cogentin 3. CArdiac-no reported active hx, however patient with elevated BPs, will start Norvasc, c/u ASA for cardiac protection -medicine consulted to assist with overall management 4. Resp: hx of COPD, encourage incentive spirometry, monitor for infection -duonebs prn 5. Ortho- s/p left ankle ORIF, NWB-ortho consulted 6. DVT ppx- XArelto 7. Pain- Tylenol and tramadol -patient reporting sore tongue that she says preceded her admission, mouthkote not effective and no thrush seen on exam, c/u viscous lidocaine and gabapentin to 100mg TID, patient reporting less painful tongue 8. - c/u ditropan 9. DIspo- 04-01-20 to home, progressing slowly towards goals, will consider SNF placement for more rehab if patient's family unable to provide home support Allergies Coded Allergies: Sulfa (Sulfonamide Antibiotics) (Verified Adverse Reaction, Mild, nausea , 03/16/20) Vital Signs Vital Signs Date Time Temp Pulse Resp B/P (MAP) Pulse Ox O2 Delivery O2 Flow Rate FiO2 03/28/20 05:34 98.0 73 18 160/80 (106) 93 Room Air Current Medications Current Medications Current Medications Medications (Trade) Dose Ordered Sig/Johnny Route PRN Reason Start Time Stop Time Status Last Admin Dose Admin Acetaminophen (Tylenol Tab) 1,000 mg TID PO 03/20/20 16:00 03/28/20 07:46 Albuterol/ Ipratropium (Duoneb (Ipr 0.5mg/Alb 2.5mg)) 3 ml RQ4H NEB 03/21/20 08:00 03/23/20 14:50 DC 03/23/20 12:57 Albuterol/ Ipratropium (Duoneb (Ipr 0.5mg/Alb 2.5mg)) 3 ml RTID NEB 03/23/20 20:00 03/28/20 07:20 Aspirin (Ecotrin) 81 mg DAILY PO 03/21/20 09:00 03/28/20 07:45 Benztropine Mesylate (Cogentin) 1 mg BID PO 03/20/20 21:00 03/28/20 07:45 Bisacodyl (Dulcolax Suppository) 10 mg DAILYPRN PRN [place] CONSTIPATION 03/20/20 14:15 Carbidopa/Levodopa (Sinemet 12.5/50) 1 tab TID PO 03/20/20 21:00 03/28/20 07:46 Docusate Sodium (Colace) 100 mg BID PO 03/20/20 21:00 03/28/20 07:45 Gabapentin (Neurontin) 100 mg BID PO 03/25/20 21:00 03/27/20 12:59 DC 03/27/20 08:19 Gabapentin (Neurontin) 100 mg TID PO 03/27/20 16:00 03/28/20 07:45 Home Med (Med Rec Complete!) ASDIRECTED XX 03/20/20 22:45 03/20/20 22:42 DC Lidocaine HCl (Lidocaine 2% Visc Soln) 5 ml TID@0900,1500,2100 SSP 03/25/20 15:00 03/28/20 07:45 Lidocaine/ Diphenhydr/Alum/ Mg/Simeth (Magic Mouthwash) 5ML AC SSP 03/23/20 17:30 03/25/20 15:04 DC 03/24/20 18:02 Nystatin (Mycostatin Powder, Nystop) abdomial folds and groin BID TOP 03/20/20 21:00 03/27/20 20:47 Nystatin (Mycostatin) 5 ml QID PO 03/23/20 17:00 03/26/20 10:24 DC 03/26/20 08:16 Oxybutynin Chloride (Ditropan) 5 mg BID PO 03/20/20 21:00 03/28/20 07:45 Pantoprazole Sodium (Protonix) 40 mg DAILY PO 03/21/20 09:00 03/28/20 07:46 Polyethylene Glycol (Miralax) 1 pkt DAILY PO 03/23/20 09:00 03/28/20 07:46 Rivaroxaban (Xarelto) 10 mg DAILY@1800 PO 03/21/20 18:00 03/27/20 17:56 Senna (Senokot) 1 tab QHS PO 03/20/20 21:00 03/27/20 20:45 Tramadol HCl (Ultram) 50 mg Q4HP PRN PO MODERATE PAIN (PS 5-7) 03/20/20 14:15 03/26/20 21:22 Trazodone HCl (Desyrel) 25 mg QHSP PRN PO INSOMNIA 03/20/20 14:15 03/24/20 20:37 SUYAPA ABBOTT MD Mar 28, 2020 10:47
[2020-03-28] MEDS: amLODIPine 5 MG TAB PO SCH (13:13)
[2020-03-28 14:00] VITALS: BP 118/63
[2020-03-28] MEDS: RIVAROXABAN 10 MG TAB (XARELTO) PO SCH (17:12)
[2020-03-28 20:41] VITALS: BP 128/68
[2020-03-28] MEDS: SENNA 8.6 MG TAB (SENOKOT) PO SCH (21:01)
[2020-03-28] MEDS: traMADol 50 MG TAB PO PRN (22:12)
[2020-03-29 05:38] VITALS: BP 154/81
[2020-03-29] MEDS: IPRATROPIUM 0.5MG/ALBUTEROL 2.5MG INH SOL UD 3ML (DUONEB) NEB SCH ×3 (07:20→19:16)
[2020-03-29 08:28] LABS: BASO % 0.8 % (0.0-1.0); EOS # 0.6 10^3/uL (0.0-0.5); EOS % 12.3 % (0.0-3.0); HEMATOCRIT 34.3 % (36.0-47.0); HEMOGLOBIN 11.4 g/dl (12.0-15.5); LYMPH # 1.7 10^3/uL (1.5-5.0); LYMPH % 34.4 % (24.0-44.0); MEAN CORPUSCULAR HEMOGLOBIN 33.7 pg (27.0-33.0); MEAN CORPUSCULAR HGB CONC 33.2 g/dl (32.0-36.5); MEAN CORPUSCULAR VOLUME 101.5 fl (80.0-96.0); MONO # 0.4 10^3/uL (0.0-0.8); MONO % 8.2 % (0.0-5.0); NEUTROPHILS # 2.2 10^3/uL (1.5-8.5); NEUTROPHILS % 44.1 % (36.0-66.0); PLATELET COUNT, AUTOMATED 241 10^3/uL (150-450); RED BLOOD COUNT 3.38 10^6/uL (4.00-5.40)
[2020-03-29 08:43] LABS: BLOOD UREA NITROGEN 14 MG/DL (7-18); CALCIUM LEVEL 8.9 MG/DL (8.8-10.2); CARBON DIOXIDE LEVEL 27 MEQ/L (21-32); CHLORIDE LEVEL 113 MEQ/L (98-107); CREATININE FOR GFR 0.69 MG/DL (0.55-1.30); GLOMERULAR FILTRATION RATE > 60.0 (>39); GLUCOSE, FASTING 127 MG/DL (70-100); POTASSIUM SERUM 3.9 MEQ/L (3.5-5.1); SODIUM LEVEL 147 MEQ/L (136-145)
[2020-03-29] MEDS: MIRALAX *UNIT DOSE* 17GM PACKET PO SCH (09:00)
[2020-03-29] MEDS: oxyBUTYnin 5 MG TAB PO SCH ×2 (09:26→20:05)
[2020-03-29] MEDS: ASPIRIN 81 MG ENTERIC TAB PO SCH (09:26)
[2020-03-29] MEDS: PANTOPRAZOLE 40MG TAB (PROTONIX) PO SCH (09:26)
[2020-03-29] MEDS: SINEMET 12.5MG/50MG PER 1/2 TABLET PO SCH ×3 (09:26→20:05)
[2020-03-29] MEDS: BENZTROPINE 1 MG TAB PO SCH ×2 (09:26→20:05)
[2020-03-29] MEDS: DOCUSATE SODIUM 100 MG CAP PO SCH ×2 (09:26→20:05)
[2020-03-29] MEDS: GABAPENTIN 100 MG CAP PO SCH ×3 (09:26→20:05)
[2020-03-29] MEDS: ACETAMINOPHEN 500 MG TAB PO SCH ×3 (09:27→20:06)
[2020-03-29] MEDS: LIDOCAINE VISCOUS 2% SOLN 15ML UDC SSP SCH ×3 (09:27→20:06)
[2020-03-29] MEDS: amLODIPine 5 MG TAB PO SCH (09:27)
[2020-03-29] MEDS: NYSTATIN 100,000 UNITS/GM TOPICAL PWD 15 GM TOP SCH ×2 (09:28→20:07)
[2020-03-29] MEDS: REMEDY PHYTOPLEX Z-GUARD PASTE 113GM TUBE (FROM STOREROOM PRODUCT) TOP SCH ×3 (09:29→20:06)
[2020-03-29 14:00] VITALS: BP 118/77
[2020-03-29] MEDS: RIVAROXABAN 10 MG TAB (XARELTO) PO SCH (17:58)
[2020-03-29] MEDS: traMADol 50 MG TAB PO PRN (18:06)
[2020-03-29 20:00] VITALS: BP 133/68
[2020-03-29] MEDS: SENNA 8.6 MG TAB (SENOKOT) PO SCH (20:05)
[2020-03-30 06:00] VITALS: BP 138/76
[2020-03-30] MEDS: IPRATROPIUM 0.5MG/ALBUTEROL 2.5MG INH SOL UD 3ML (DUONEB) NEB SCH ×3 (08:05→19:14)
[2020-03-30] MEDS: oxyBUTYnin 5 MG TAB PO SCH ×2 (09:33→20:33)
[2020-03-30] MEDS: DOCUSATE SODIUM 100 MG CAP PO SCH ×2 (09:33→20:33)
[2020-03-30] MEDS: LIDOCAINE VISCOUS 2% SOLN 15ML UDC SSP SCH ×3 (09:33→20:33)
[2020-03-30] MEDS: PANTOPRAZOLE 40MG TAB (PROTONIX) PO SCH (09:33)
[2020-03-30] MEDS: ACETAMINOPHEN 500 MG TAB PO SCH ×3 (09:33→20:34)
[2020-03-30] MEDS: SINEMET 12.5MG/50MG PER 1/2 TABLET PO SCH ×3 (09:33→20:34)
[2020-03-30] MEDS: GABAPENTIN 100 MG CAP PO SCH ×3 (09:33→20:34)
[2020-03-30] MEDS: ASPIRIN 81 MG ENTERIC TAB PO SCH (09:33)
[2020-03-30] MEDS: MIRALAX *UNIT DOSE* 17GM PACKET PO SCH (09:33)
[2020-03-30] MEDS: NYSTATIN 100,000 UNITS/GM TOPICAL PWD 15 GM TOP SCH ×2 (09:34→20:34)
[2020-03-30] MEDS: REMEDY PHYTOPLEX Z-GUARD PASTE 113GM TUBE (FROM STOREROOM PRODUCT) TOP SCH ×3 (09:34→20:34)
[2020-03-30] MEDS: BENZTROPINE 1 MG TAB PO SCH ×2 (09:34→20:34)
[2020-03-30] MEDS: amLODIPine 5 MG TAB PO SCH (09:34)
[2020-03-30 14:00] VITALS: BP 154/68
[2020-03-30] MEDS: RIVAROXABAN 10 MG TAB (XARELTO) PO SCH (17:13)
[2020-03-30 20:00] VITALS: BP 110/69
[2020-03-30] MEDS: SENNA 8.6 MG TAB (SENOKOT) PO SCH (20:34)
[2020-03-31 06:00] VITALS: BP 136/82
[2020-03-31] MEDS: IPRATROPIUM 0.5MG/ALBUTEROL 2.5MG INH SOL UD 3ML (DUONEB) NEB SCH ×3 (07:42→19:21)
[2020-03-31] MEDS: LIDOCAINE VISCOUS 2% SOLN 15ML UDC SSP SCH ×3 (09:46→21:07)
[2020-03-31] MEDS: DOCUSATE SODIUM 100 MG CAP PO SCH ×2 (09:46→21:07)
[2020-03-31] MEDS: SINEMET 12.5MG/50MG PER 1/2 TABLET PO SCH ×3 (09:46→21:07)
[2020-03-31] MEDS: GABAPENTIN 100 MG CAP PO SCH ×3 (09:46→21:07)
[2020-03-31] MEDS: PANTOPRAZOLE 40MG TAB (PROTONIX) PO SCH (09:46)
[2020-03-31] MEDS: ACETAMINOPHEN 500 MG TAB PO SCH ×3 (09:46→21:07)
[2020-03-31] MEDS: MIRALAX *UNIT DOSE* 17GM PACKET PO SCH (09:46)
[2020-03-31] MEDS: ASPIRIN 81 MG ENTERIC TAB PO SCH (09:46)
[2020-03-31] MEDS: oxyBUTYnin 5 MG TAB PO SCH ×2 (09:46→21:07)
[2020-03-31] MEDS: BENZTROPINE 1 MG TAB PO SCH ×2 (09:47→21:07)
[2020-03-31] MEDS: amLODIPine 5 MG TAB PO SCH (09:47)
[2020-03-31] MEDS: REMEDY PHYTOPLEX Z-GUARD PASTE 113GM TUBE (FROM STOREROOM PRODUCT) TOP SCH ×3 (09:47→21:08)
[2020-03-31] MEDS: NYSTATIN 100,000 UNITS/GM TOPICAL PWD 15 GM TOP SCH ×2 (09:47→21:08)
[2020-03-31 14:00] VITALS: BP 134/71
[2020-03-31] MEDS: RIVAROXABAN 10 MG TAB (XARELTO) PO SCH (16:58)
[2020-03-31 20:00] VITALS: BP 106/53
[2020-03-31] MEDS: SENNA 8.6 MG TAB (SENOKOT) PO SCH (21:07)
[2020-04-01 04:53] VITALS: BP 136/79
[2020-04-01] MEDS: IPRATROPIUM 0.5MG/ALBUTEROL 2.5MG INH SOL UD 3ML (DUONEB) NEB SCH (07:01)
[2020-04-01] MEDS: DOCUSATE SODIUM 100 MG CAP PO SCH (08:20)
[2020-04-01] MEDS: PANTOPRAZOLE 40MG TAB (PROTONIX) PO SCH (08:20)
[2020-04-01] MEDS: BENZTROPINE 1 MG TAB PO SCH (08:20)
[2020-04-01] MEDS: oxyBUTYnin 5 MG TAB PO SCH (08:20)
[2020-04-01] MEDS: SINEMET 12.5MG/50MG PER 1/2 TABLET PO SCH (08:20)
[2020-04-01] MEDS: GABAPENTIN 100 MG CAP PO SCH (08:20)
[2020-04-01] MEDS: ASPIRIN 81 MG ENTERIC TAB PO SCH (08:20)
[2020-04-01] MEDS: ACETAMINOPHEN 500 MG TAB PO SCH (08:20)
[2020-04-01 08:21] VITALS: BP 130/80
[2020-04-01] MEDS: LIDOCAINE VISCOUS 2% SOLN 15ML UDC SSP SCH (08:21)
[2020-04-01] MEDS: amLODIPine 5 MG TAB PO SCH (08:21)
[2020-04-01] MEDS: MIRALAX *UNIT DOSE* 17GM PACKET PO SCH (08:23)
[2020-04-01] MEDS: NYSTATIN 100,000 UNITS/GM TOPICAL PWD 15 GM TOP SCH (08:24)
[2020-04-01] MEDS: REMEDY PHYTOPLEX Z-GUARD PASTE 113GM TUBE (FROM STOREROOM PRODUCT) TOP SCH (08:25)
[2020-04-01] MEDS ORDERED: CARB25TA9 PO (10:07)
[2020-04-01] MEDS ORDERED: DOCU100C16 PO (10:07)
[2020-04-01] MEDS ORDERED: TRAZ-252 PO (10:07)
[2020-04-01] MEDS ORDERED: ASPI81TAEC PO (10:07)
[2020-04-01] MEDS ORDERED: AMLO5TAB6 PO (10:07)
[2020-04-01] MEDS ORDERED: GABA-1171 PO (10:07)
[2020-04-01] MEDS ORDERED: XARE10TA PO (10:07)
[2020-04-01] MEDS ORDERED: TRAM50TA2 PO (10:07)
[2020-04-01] MEDS ORDERED: ACET-683 PO (10:07)
[2020-04-01] MEDS ORDERED: BISA10SU PR (10:07)
[2020-04-01] MEDS ORDERED: BENZ-52 PO (10:07)
[2020-04-01] MEDS ORDERED: NYST10006 TOP (10:07)
[2020-04-01] MEDS ORDERED: SENN18TA PO (10:07)
[2020-04-01] MEDS ORDERED: PANT40TA3 PO (10:07)
[2020-04-01] MEDS ORDERED: OXYB5TAB10 PO (10:07)
== END 2020-04-01 12:20 | DRG 561 ==
LOC: M PM&R 17:15
PROVIDERS: ADMIT Physical Medicine & Rehabilitation; ATTEND Physical Medicine & Rehabilitation
DX: S82.842D Displaced bimalleolar fracture of left lower leg, subsequent encounter for closed fracture with routine healing (principal); S82.862D Displaced Maisonneuve's fracture of left leg, subsequent encounter for closed fracture with routine healing; G20 Parkinson's disease; F41.9 Anxiety disorder, unspecified; F32.9 Major depressive disorder, single episode, unspecified; J45.909 Unspecified asthma, uncomplicated; M79.7 Fibromyalgia; J44.9 Chronic obstructive pulmonary disease, unspecified; F03.90 Unspecified dementia, unspecified severity, without behavioral disturbance, psychotic disturbance, mood disturbance, and anxiety; K14.8 Other diseases of tongue; R26.89 Other abnormalities of gait and mobility; W19.XXXD Unspecified fall, subsequent encounter; R30.0 Dysuria; K59.00 Constipation, unspecified; G24.01 Drug induced subacute dyskinesia; G47.61 Periodic limb movement disorder; Y92.009 Unspecified place in unspecified non-institutional (private) residence as the place of occurrence of the external cause; Z98.41 Cataract extraction status, right eye; Z98.42 Cataract extraction status, left eye; Z79.82 Long term (current) use of aspirin; Z79.01 Long term (current) use of anticoagulants; Z79.899 Other long term (current) drug therapy; Z88.2 Allergy status to sulfonamides; Z11.59 Encounter for screening for other viral diseases; Z74.09 Other reduced mobility

== ENCOUNTER → 2020-04-03 | Outpatient (REF) ==
[~2020-04-03] MED LIST changes: -ALEN70TA74 PO; +ALEN70TA82 PO; -AMIT25TA; +AMIT25TA17; +AMLO1TAB24 PO; +ASPI81TAEC PO; +BISA10SU PR; -BUPR150T3 PO; +BUPR150T4 PO; +CARB25TA9 PO; +PANT40TA29 PO; +SENN18TA PO
[2020-04-03 11:26] LABS: HEMATOCRIT 40.3 % (36.0-47.0); HEMOGLOBIN 13.4 g/dl (12.0-15.5); MEAN CORPUSCULAR HEMOGLOBIN 33.9 pg (27.0-33.0); MEAN CORPUSCULAR HGB CONC 33.3 g/dl (32.0-36.5); PLATELET COUNT, AUTOMATED 258 10^3/uL (150-450); RED BLOOD COUNT 3.95 10^6/uL (4.00-5.40); WHITE BLOOD COUNT 5.2 10^3/uL (4.0-10.0)
[2020-04-03 12:02] LABS: BLOOD UREA NITROGEN 20 MG/DL (7-18); CALCIUM LEVEL 9.9 MG/DL (8.8-10.2); CARBON DIOXIDE LEVEL 27 MEQ/L (21-32); CHLORIDE LEVEL 110 MEQ/L (98-107); CREATININE FOR GFR 0.66 MG/DL (0.55-1.30); GLOMERULAR FILTRATION RATE > 60.0 (>39); GLUCOSE, FASTING 135 MG/DL (70-100); POTASSIUM SERUM 3.9 MEQ/L (3.5-5.1); SODIUM LEVEL 143 MEQ/L (136-145)
== END ==
PROVIDERS: ATTEND Internal Medicine
DX: Z79.01 Long term (current) use of anticoagulants (principal)

== ENCOUNTER → 2020-04-10 | Outpatient (REF) ==
[~2020-04-10] MED LIST changes: +ALEN70TA74 PO; -ALEN70TA82 PO; +AMIT25TA; -AMIT25TA17; -AMLO1TAB24 PO; +AMLO5TAB6 PO; +BUPR150T3 PO; -BUPR150T4 PO; -PANT40TA29 PO; +PANT40TA3 PO
[2020-04-10 10:00] LABS: HEMATOCRIT 39.8 % (36.0-47.0); HEMOGLOBIN 13.3 g/dl (12.0-15.5); MEAN CORPUSCULAR HEMOGLOBIN 33.8 pg (27.0-33.0); MEAN CORPUSCULAR HGB CONC 33.4 g/dl (32.0-36.5); PLATELET COUNT, AUTOMATED 200 10^3/uL (150-450); RED BLOOD COUNT 3.94 10^6/uL (4.00-5.40); WHITE BLOOD COUNT 5.7 10^3/uL (4.0-10.0)
[2020-04-10 10:18] LABS: BLOOD UREA NITROGEN 14 MG/DL (7-18); CALCIUM LEVEL 9.6 MG/DL (8.8-10.2); CARBON DIOXIDE LEVEL 28 MEQ/L (21-32); CHLORIDE LEVEL 111 MEQ/L (98-107); CREATININE FOR GFR 0.58 MG/DL (0.55-1.30); GLOMERULAR FILTRATION RATE > 60.0 (>39); GLUCOSE, FASTING 91 MG/DL (70-100); POTASSIUM SERUM 3.6 MEQ/L (3.5-5.1); SODIUM LEVEL 146 MEQ/L (136-145)
== END ==
PROVIDERS: ATTEND Internal Medicine
DX: Z79.01 Long term (current) use of anticoagulants (principal)

== ENCOUNTER → 2020-05-02 | Outpatient (REF) ==
[~2020-05-02] MED LIST changes: +AMLO1TAB24 PO; -AMLO5TAB6 PO; +PANT40TA29 PO; -PANT40TA3 PO
[2020-05-02 08:50] LABS: BASO % 0.9 % (0.0-1.0); EOS # 0.4 10^3/uL (0.0-0.5); EOS % 8.5 % (0.0-3.0); HEMATOCRIT 38.4 % (36.0-47.0); HEMOGLOBIN 13.3 g/dl (12.0-15.5); LYMPH # 1.6 10^3/uL (1.5-5.0); LYMPH % 35.1 % (24.0-44.0); MEAN CORPUSCULAR HEMOGLOBIN 34.9 pg (27.0-33.0); MEAN CORPUSCULAR HGB CONC 34.6 g/dl (32.0-36.5); MEAN CORPUSCULAR VOLUME 100.8 fl (80.0-96.0); MONO # 0.5 10^3/uL (0.0-0.8); MONO % 10.8 % (0.0-5.0); NEUTROPHILS % 44.5 % (36.0-66.0); PLATELET COUNT, AUTOMATED 187 10^3/uL (150-450); RED BLOOD COUNT 3.81 10^6/uL (4.00-5.40); WHITE BLOOD COUNT 4.5 10^3/uL (4.0-10.0)
[2020-05-02 09:20] LABS: ALBUMIN 3.3 GM/DL (3.2-5.2); ALT/SGPT 19 U/L (12-78); BILIRUBIN,TOTAL 0.6 MG/DL (0.2-1.0); BLOOD UREA NITROGEN 12 MG/DL (7-18); CALCIUM LEVEL 9.9 MG/DL (8.8-10.2); CARBON DIOXIDE LEVEL 27 MEQ/L (21-32); CHLORIDE LEVEL 109 MEQ/L (98-107); CREATININE FOR GFR 0.65 MG/DL (0.55-1.30); FERRITIN 181 NG/ML (8-252); GLOMERULAR FILTRATION RATE > 60.0 (>39); GLUCOSE, FASTING 138 MG/DL (70-100); IRON (FE) 87 UG/DL (50-170); PERCENT SATURATION 37.5 % (13.2-45.0); POTASSIUM SERUM 3.6 MEQ/L (3.5-5.1); SODIUM LEVEL 144 MEQ/L (136-145); TOTAL IRON BINDING CAPACITY 232 UG/DL (250-450); TOTAL PROTEIN 6.1 GM/DL (6.4-8.2)
== END ==
PROVIDERS: ATTEND Internal Medicine
DX: D64.9 Anemia, unspecified (principal)

== ENCOUNTER → 2020-05-07 | Outpatient (REF) | payer MEDICARE, BC ==
[2020-07-14 23:55] LABS: BACTERIA, URINE SMALL AMOUNT; BILIRUBIN, URINE MANUAL NEGATIVE (NEGATIVE); BLOOD URINE MANUAL POSITIVE (NEGATIVE); GLUCOSE, URINE (UA) MANUAL NEGATIVE (NEGATIVE); HYALINE CAST, URINE NONE SEEN /lpf (0-1); KETONE, URINE MANUAL NEGATIVE (NEGATIVE); LEUKOCYTE ESTERASE, URINE MAN POSITIVE (NEGATIVE); NITRITE, URINE MANUAL POSITIVE (NEGATIVE); PROTEIN, URINE MANUAL 2+ mg/dL (NEGATIVE); RBC, URINE TNTC /hpf (0-3); SPECIFIC GRAVITY,URINE MANUAL 1.015 (1.002-1.035); SQUAMOUS EPITHELIAL CELL URINE SMALL AMOUNT /hpf (SMALL AMT); UROBILINOGEN, URINE MANUAL NORMAL (NORMAL)
[2020-07-14 23:56] LABS: MUCUS, URINE SMALL AMOUNT (NEGATIVE)
== END ==
PROVIDERS: ATTEND Internal Medicine
DX: R31.9 Hematuria, unspecified (principal)

== ENCOUNTER → 2020-05-09 | Outpatient (REF) | payer MEDICARE, BC ==
[2020-06-21 10:40] LABS: WHITE BLOOD COUNT 4.8 10^3/uL (4.0-10.0)
[2020-06-21 10:41] LABS: HEMATOCRIT 38.1 % (36.0-47.0); MEAN CORPUSCULAR HEMOGLOBIN 34.3 pg (27.0-33.0); MEAN CORPUSCULAR HGB CONC 34.1 g/dl (32.0-36.5); MEAN CORPUSCULAR VOLUME 100.5 fl (80.0-96.0); PLATELET COUNT, AUTOMATED 165 10^3/uL (150-450); RED BLOOD COUNT 3.79 10^6/uL (4.00-5.40)
[2020-06-23 04:30] LABS: BLOOD UREA NITROGEN 13 MG/DL (7-18); CALCIUM LEVEL 9.5 MG/DL (8.8-10.2); CARBON DIOXIDE LEVEL 31 MEQ/L (21-32); CHLORIDE LEVEL 110 MEQ/L (98-107); CREATININE FOR GFR 0.51 MG/DL (0.55-1.30); GLOMERULAR FILTRATION RATE > 60.0 (>39); GLUCOSE, FASTING 96 MG/DL (70-100); POTASSIUM SERUM 3.2 MEQ/L (3.5-5.1); SODIUM LEVEL 147 MEQ/L (136-145)
== END ==
PROVIDERS: ATTEND Internal Medicine
DX: R41.82 Altered mental status, unspecified (principal)

== ENCOUNTER → 2020-05-17 | Outpatient (REF) | payer MEDICARE, BC ==
[2020-07-11 13:25] LABS: HEMATOCRIT 39.5 % (36.0-47.0); HEMOGLOBIN 13.6 g/dl (12.0-15.5); MEAN CORPUSCULAR HEMOGLOBIN 34.9 pg (27.0-33.0); MEAN CORPUSCULAR HGB CONC 34.4 g/dl (32.0-36.5); MEAN CORPUSCULAR VOLUME 101.3 fl (80.0-96.0); PLATELET COUNT, AUTOMATED 174 10^3/uL (150-450); WHITE BLOOD COUNT 7.1 10^3/uL (4.0-10.0)
[2020-07-11 13:25] LABS: ALBUMIN 3.5 GM/DL (3.2-5.2); ALT/SGPT 10 U/L (12-78); BILIRUBIN,TOTAL 0.9 MG/DL (0.2-1.0); BLOOD UREA NITROGEN 11 MG/DL (7-18); CALCIUM LEVEL 9.7 MG/DL (8.8-10.2); CARBON DIOXIDE LEVEL 30 MEQ/L (21-32); CHLORIDE LEVEL 105 MEQ/L (98-107); GLOMERULAR FILTRATION RATE > 60.0 (>39); GLUCOSE, FASTING 168 MG/DL (70-100); SODIUM LEVEL 142 MEQ/L (136-145); THYROID STIMULATING HORMONE 0.855 uIU/ML (0.358-3.740); TOTAL PROTEIN 6.3 GM/DL (6.4-8.2)
== END ==
PROVIDERS: ATTEND Internal Medicine
DX: R41.82 Altered mental status, unspecified (principal)

== ENCOUNTER → 2020-05-17 | Outpatient (CLI) | payer MEDICARE, BC | LOC: M LAB 14:38 | PROVIDERS: ATTEND Internal Medicine | DX: R41.82 Altered mental status, unspecified (principal) ==

== ENCOUNTER → 2020-05-22 | Outpatient (REF) | payer MEDICARE, BC ==
[2020-07-11 13:21] LABS: BLOOD UREA NITROGEN 12 MG/DL (7-18); CALCIUM LEVEL 9.9 MG/DL (8.8-10.2); CARBON DIOXIDE LEVEL 30 MEQ/L (21-32); CHLORIDE LEVEL 109 MEQ/L (98-107); CREATININE FOR GFR 0.74 MG/DL (0.55-1.30); GLOMERULAR FILTRATION RATE > 60.0 (>39); GLUCOSE, FASTING 132 MG/DL (70-100); POTASSIUM SERUM 3.2 MEQ/L (3.5-5.1); SODIUM LEVEL 145 MEQ/L (136-145)
== END ==
PROVIDERS: ATTEND Internal Medicine
DX: Z79.899 Other long term (current) drug therapy (principal)
CPT/HCPCS: 36415; 80048; G0463

== ENCOUNTER → 2020-05-24 | Outpatient (REF) | payer MEDICARE, BC | PROVIDERS: ATTEND Internal Medicine | DX: I82.409 Acute embolism and thrombosis of unspecified deep veins of unspecified lower extremity (principal) ==

== ENCOUNTER → 2020-06-25 | Outpatient (REF) | payer MEDICARE, BC ==
[2020-06-25 13:58] LABS: APPEARANCE, URINE HAZY (CLEAR); BACTERIA, URINE AUTO NEGATIVE (NEGATIVE); BILIRUBIN, URINE AUTO NEGATIVE (NEGATIVE); BLOOD, URINE BLOOD 3+ (NEGATIVE); CALCIUM OXALATE CRYSTALS SMALL; COLOR, URINE YELLOW (YELLOW); GLUCOSE, URINE (UA) AUTO NEGATIVE (NEGATIVE); KETONE, URINE AUTO NEGATIVE (NEGATIVE); LEUKOCYTE ESTERASE, URINE AUTO NEGATIVE (NEGATIVE); MUCUS, URINE SMALL (NEGATIVE); NITRITE, URINE AUTO NEGATIVE (NEGATIVE); PROTEIN, URINE AUTO NEGATIVE (NEGATIVE); RBC, URINE AUTO TNTC /HPF (0-3); SPECIFIC GRAVITY URINE AUTO 1.014 (1.002-1.035); SQUAMOUS EPITHELIAL CELL UR AU 0 /HPF (0-6); UROBILINOGEN, URINE AUTO 0.2 mg/dL (0.0-2.0); WBC, URINE AUTO 4 /HPF (0-3)
== END ==
LOC: M SMT 12:55
PROVIDERS: ATTEND Nurse Practitioner Family
DX: N39.0 Urinary tract infection, site not specified (principal)

== ENCOUNTER → 2020-08-21 | Outpatient (REF) | payer MEDICARE, BC ==
[2020-08-21 17:44] LABS: APPEARANCE, URINE HAZY (CLEAR); BACTERIA, URINE AUTO NEGATIVE (NEGATIVE); BILIRUBIN, URINE AUTO NEGATIVE (NEGATIVE); BLOOD, URINE BLOOD 3+ (NEGATIVE); CALCIUM OXALATE CRYSTALS SMALL; COLOR, URINE YELLOW (YELLOW); GLUCOSE, URINE (UA) AUTO NEGATIVE (NEGATIVE); KETONE, URINE AUTO NEGATIVE (NEGATIVE); LEUKOCYTE ESTERASE, URINE AUTO NEGATIVE (NEGATIVE); MUCUS, URINE SMALL (NEGATIVE); NITRITE, URINE AUTO NEGATIVE (NEGATIVE); PROTEIN, URINE AUTO 1+ mg/dL (NEGATIVE); RBC, URINE AUTO TNTC /HPF (0-3); SPECIFIC GRAVITY URINE AUTO 1.021 (1.002-1.035); SQUAMOUS EPITHELIAL CELL UR AU 4 /HPF (0-6); UROBILINOGEN, URINE AUTO 0.2 mg/dL (0.0-2.0); WBC, URINE AUTO 1 /HPF (0-3)
== END ==
LOC: M SMT 16:47
PROVIDERS: ATTEND Nurse Practitioner Women's Health
DX: R31.29 Other microscopic hematuria (principal)
CPT/HCPCS: 81001; 87088; 87186; G0463

== ENCOUNTER → 2020-09-09 | Outpatient (REF) | payer MEDICARE, BC | LOC: M LAB REF 11:54 | PROVIDERS: ATTEND Internal Medicine | DX: R79.89 Other specified abnormal findings of blood chemistry (principal) ==

== ENCOUNTER → 2020-09-13 | Outpatient (CLI) | payer BC, MEDICARE ==
[2020-09-13 11:48] LABS: HEMATOCRIT 39.1 % (36.0-47.0); HEMOGLOBIN 12.8 g/dl (12.0-15.5); MEAN CORPUSCULAR HEMOGLOBIN 33.2 pg (27.0-33.0); MEAN CORPUSCULAR HGB CONC 32.7 g/dl (32.0-36.5); MEAN CORPUSCULAR VOLUME 101.6 fl (80.0-96.0); PLATELET COUNT, AUTOMATED 175 10^3/uL (150-450); RED BLOOD COUNT 3.85 10^6/uL (4.00-5.40); WHITE BLOOD COUNT 4.6 10^3/uL (4.0-10.0)
[2020-09-13 12:33] LABS: ALBUMIN 3.5 GM/DL (3.2-5.2); ALT/SGPT 17 U/L (12-78); BILIRUBIN,TOTAL 0.7 MG/DL (0.2-1.0); BLOOD UREA NITROGEN 15 MG/DL (7-18); CARBON DIOXIDE LEVEL 30 MEQ/L (21-32); CHLORIDE LEVEL 111 MEQ/L (98-107); CHOLESTEROL LEVEL 197 MG/DL (<200); CHOLESTEROL RISK RATIO 2.774 (<5); CREATININE FOR GFR 0.53 MG/DL (0.55-1.30); GLOMERULAR FILTRATION RATE > 60.0 (>39); GLUCOSE, FASTING 107 MG/DL (70-100); HDL CHOLESTEROL 71 MG/DL (>40); LDL CHOLESTEROL 112 MG/DL (<100); NON-HDL-C 126 MG/DL; PHOSPHORUS LEVEL 3.1 MG/DL (2.5-4.9); POTASSIUM SERUM 3.9 MEQ/L (3.5-5.1); SODIUM LEVEL 144 MEQ/L (136-145); THYROID STIMULATING HORMONE 0.689 uIU/ML (0.358-3.740); TOTAL 25(OH) VITAMIN D 29.2 NG/ML (30.0-100.0); TOTAL PROTEIN 6.6 GM/DL (6.4-8.2); TRIGLYCERIDES LEVEL 72 MG/DL (<150)
== END ==
LOC: M LAB 10:43
PROVIDERS: ATTEND Nurse Practitioner Psychiatric/Mental Health
DX: F33.9 Major depressive disorder, recurrent, unspecified (principal); Z79.899 Other long term (current) drug therapy

== ENCOUNTER → 2020-09-17 | Outpatient (CLI) | payer MEDICARE | LOC: M LABSMTC 10:55 | PROVIDERS: ATTEND Pediatrics | DX: Z11.59 Encounter for screening for other viral diseases (principal) ==

== ENCOUNTER → 2020-11-29 | Outpatient (CLI) | payer MEDICARE, BC ==
[~2020-11-29] MED LIST changes: -ALEN70TA74 PO; +ALEN70TA82 PO; -AMIT25TA; +AMIT25TA17; +ASPI-569 PO; -ASPI81TAEC PO; +BUPR150T12 PO; -BUPR150T3 PO
--- NOTE | 2020-11-29 13:18 | REP ---
INDICATION: PAIN. COMPARISON: MRI 02/16/2020, CT 09/20/2019 abdomen pelvis TECHNIQUE: Three views FINDINGS: The AP view shows very of mild levoconvex curve centered at L2-3. Diffuse lumbar spondylosis and lower thoracic spondylosis with loss of disc height, vacuum phenomenon a throughout and the least involved level for disc space narrowing is L4-5. However there is grade 1 anterolisthesis of of L4 on 5 due to facet arthropathy in this is stable. No gross spondylolysis. Posterior and anterior osteophytes are present throughout. No compression fractures or destructive lesions noted. Sacral ala and foramina intact. SI joints symmetric some degenerative changes of the hips. IMPRESSION: 1. Diffuse lumbar spondylosis with marginal osteophytes disc space narrowing and some vacuum phenomenon at all levels of the lumbar spine and least loss of disc height at L4-5 2. Some mild levoconvex curvature centered at L2-3. 3. Grade 1 spondylolisthesis L4 on 5, stable. <Electronically signed by Spike Malik > 11/29/20 [id number]
== END ==
LOC: M SOG 09:55
PROVIDERS: ATTEND Orthopaedic Surgery Sports Medicine
DX: M42.16 Adult osteochondrosis of spine, lumbar region (principal); M54.16 Radiculopathy, lumbar region; M47.816 Spondylosis without myelopathy or radiculopathy, lumbar region; M25.78 Osteophyte, vertebrae

== ENCOUNTER → 2020-12-09 | Outpatient (CLI) | payer MEDICARE, BC ==
--- NOTE | 2020-12-20 10:35 | REPMRS ---
Patient History The patient states she had a clinical breast exam in November 2020. Patient has history of skin cancer at age 79, has history of cancer in the left breast at age 76, and has history of high-risk lesion on a previous biopsy at age 76. High risk radio exam breast specimen, March 16, 2017. Malignant localization of breast nodule of the left breast, March 16, 2017. Malignant radio exam breast specimen of the left breast, January 28, 2017. High risk stereotatic loc for ea lesion of the left breast, January 28, 2017. Taking tamoxifen for 4 years. 3D TOMOSYNTHESIS WAS PERFORMED. [place] breast density c. Digital Woman Screen Mammo: December 09, 2020 - Exam #: [id number] Bilateral CC and MLO view(s) were taken. Technologist: Holly Pereraologist Prior study comparison: February 28, 2019, bilateral digital mammo screening bilat, performed at [facility]. February 23, 2018, bilateral digital mammo screening bilat, performed at [facility]. FINDINGS: There are scattered fibroglandular densities. There is a fairly symmetric fibroglandular pattern in both breasts. There has been no interval development of masses, areas of architectural distortion or clusters of microcalcifications typical of malignancy. There are stable post treatment changes of the left breast. No significant changes when compared with prior studies. Assessment: BI-RADS/ACR category 2 mammogram. Benign Findings. Recommendation Routine screening mammogram of both breasts in 1 year (for women over age 40). This mammogram was interpreted with the aid of an FDA-approved computer-aided dectection system. Electronically Signed By: Diogo Manrique MD 12/20/20 [id number]
== END ==
LOC: M WHC 11:17
PROVIDERS: ATTEND Specialist
DX: Z12.31 Encounter for screening mammogram for malignant neoplasm of breast (principal); Z85.3 Personal history of malignant neoplasm of breast; Z85.828 Personal history of other malignant neoplasm of skin

== ENCOUNTER 2021-03-28 16:12 | Inpatient (IN) | payer MEDICARE, BC ==
[~2021-03-28] VITALS: Ht 165.1 cm; Wt 75.5 kg
[2021-03-28] MEDS ORDERED: ISOVUE-370 76% 100ML VIAL As Ordered ONE (17:04)
[2021-03-28 17:29] LABS: BASO % 0.6 % (0.0-1.0); EOS # 0.4 10^3/uL (0.0-0.5); EOS % 5.5 % (0.0-3.0); HEMOGLOBIN 15.1 g/dl (12.0-15.5); LYMPH # 2.1 10^3/uL (1.5-5.0); LYMPH % 32.4 % (24.0-44.0); MEAN CORPUSCULAR HEMOGLOBIN 34.6 pg (27.0-33.0); MEAN CORPUSCULAR HGB CONC 34.3 g/dl (32.0-36.5); MEAN CORPUSCULAR VOLUME 100.7 fl (80.0-96.0); MONO # 0.7 10^3/uL (0.0-0.8); MONO % 10.1 % (2.0-8.0); NEUTROPHILS # 3.3 10^3/uL (1.5-8.5); NEUTROPHILS % 51.1 % (36.0-66.0); PLATELET COUNT, AUTOMATED 172 10^3/uL (150-450); RED BLOOD COUNT 4.37 10^6/uL (4.00-5.40); WHITE BLOOD COUNT 6.4 10^3/uL (4.0-10.0)
--- NOTE | 2021-03-28 17:33 | REP ---
INDICATION: Altered Mental Status. COMPARISON: 01/29/2020 TECHNIQUE: Portable FINDINGS: The technique utilized in obtaining the radiograph has magnified the cardiac silhouette and accentuated the interstitial markings. The cardiomediastinal silhouette lung abraham are unchanged. No acute patchy parenchymal opacities or pleural effusions have developed. Interstitial fibrotic changes are again noted with bibasilar predominance status quo. There is no change in the osseous structures. IMPRESSION: Stable appearing chronic changes. <Electronically signed by Kwabena Stuart > 03/28/21 [id number]
--- NOTE | 2021-03-28 17:35 | REPVR ---
PROCEDURE INFORMATION: Exam: CT Head Without Contrast Exam date and time: 03/28/2021 5:03 PM Age: 80 years old Clinical indication: Altered mental status/memory loss TECHNIQUE: Imaging protocol: Computed tomography of the head without contrast. Radiation optimization: All CT scans at this facility use at least one of these dose optimization techniques: automated exposure control; mA and/or kV adjustment per patient size (includes targeted exams where dose is matched to clinical indication); or iterative reconstruction. Other technique: STROKE PROTOCOL was implemented. COMPARISON: CT Head without contrast 05/17/2020 3:56 PM FINDINGS: Brain: Artifact limits evaluation of the cerebellum and cosme. No acute intracranial hemorrhage is visualized aside from the areas of artifact. There is minimal periventricular white matter hypodensity, likely representing small vessel ischemic disease in a patient this age. The acuity of the white matter disease is indeterminate. The white-joyner differentiation is otherwise preserved demonstrating no acute territorial type infarct. There is no midline shift. There is mild prominence of sulci, compatible with atrophy. Calcifications are seen within the globus pallidus bilaterally. Cerebral ventricles: No ventriculomegaly. Paranasal sinuses: Visualized sinuses are unremarkable. No fluid levels. Mastoid air cells: No mastoid effusion. Orbital cavity: Bilateral orbital lens implants. Vasculature: Intracranial atherosclerosis visualized. Mild increased density of the left middle cerebral artery. Bones/joints: The calvarium demonstrates no evidence for a depressed fracture. Soft tissues: Unremarkable. IMPRESSION: 1. Artifact limits evaluation of the cerebellum and cosme. Otherwise, there is no definitive acute intracranial hemorrhage or acute territorial type infarct. 2. There is minimal periventricular white matter hypodensity, likely representing small vessel ischemic disease in a patient this age. 3. Mild atrophy. 4. Mild increased density of the left middle cerebral artery. Refer to CTA images for further discussion. 5. If further evaluation is clinically indicated, an MRI of the brain is recommended. ASSESSMENT: [place] Stroke Program Early CT Score (ASPECTS) = 10 Electronically signed by: Immanuel Rice On 03/28/2021 17:34:31 PM
[2021-03-28 17:44] LABS: INR 0.96
[2021-03-28 17:45] LABS: PARTIAL THROMBOPLASTIN TIME 25.2 SECONDS (24.2-38.5)
--- NOTE | 2021-03-28 17:59 | REPVR ---
PROCEDURE INFORMATION: Exam: CT Angiography Neck With Contrast Exam date and time: 03/28/2021 5:03 PM Age: 80 years old Clinical indication: Other: CVA; Additional info: CVA - nursing interventions must not delay CT TECHNIQUE: Imaging protocol: Computed tomography angiography of the neck with contrast. 3D rendering (Not supervised by radiologist): MIP and/or 3D reconstructed images were created by the technologist. Radiation optimization: All CT scans at this facility use at least one of these dose optimization techniques: automated exposure control; mA and/or kV adjustment per patient size (includes targeted exams where dose is matched to clinical indication); or iterative reconstruction. Contrast material: ISOVUE 370; Contrast volume: 75 ml; Contrast route: INTRAVENOUS (IV); COMPARISON: CT Spine,cervical w/o contrast 09/19/2019 7:14 PM FINDINGS: Right common carotid artery: Artifact limits evaluation of the right common carotid artery proximally, without occlusion. No significant stenosis or occlusion of the remaining right common carotid artery. Right internal carotid artery: See below. Right external carotid artery: No occlusion or significant stenosis. Left common carotid artery: No significant stenosis. No dissection or occlusion. Left internal carotid artery: Irregular contour of the mid left internal carotid artery, suggestive of fibromuscular dysplasia. There is slight irregular contour of the mid right internal carotid artery as well. Artifact limits evaluation of the mid to distal internal carotid arteries bilaterally. Left external carotid artery: No occlusion or significant stenosis. Right vertebral artery: No significant stenosis. No dissection or occlusion. Left vertebral artery: A dominant left vertebral artery is identified. Mild stenosis of the proximal V2 segment of the left vertebral artery. Right subclavian artery: Venous enhancement and artifact limit evaluation of the right subclavian artery. The left subclavian artery is patent, as visualized. Aorta: Atherosclerosis of the aortic arch. Thyroid: Thyroid nodules are visualized bilaterally. Within the right thyroid lobe, there is a 1.5 cm nodule. Soft tissues: No significant soft tissue swelling. Bones/joints: Reversal of the lordotic curvature of the cervical spine. Degenerative changes visualized at multiple cervical and upper thoracic levels. Mild anterolisthesis of C3 on C4 and T2 on T3. There is stable irregularity of the T1 spinous process. The C4 and C5 vertebral bodies are fused. Esophagus: Mild gaseous distention of the esophagus. IMPRESSION: 1. Irregular contour of the mid left internal carotid artery, suggestive of fibromuscular dysplasia. There is slight irregular contour of the mid right internal carotid artery as well. 2. A dominant left vertebral artery is identified. Mild stenosis of the proximal V2 segment of the left vertebral artery. 3. Thyroid nodules are visualized bilaterally. Follow-up ultrasonography recommended. 4. Mild gaseous distention of the esophagus. 5. Additional findings described above. COMMENTS: Consistent with the [employer]'s Incidental Findings Committee white paper (J Am Tulio Radiol 2015): In patients aged 35 years and older with an incidental thyroid nodule equal to or greater than 1.[address], MRI or extrathyroidal US, further evaluation with dedicated thyroid US is recommended for patients with normal life expectancy and without comorbidities. For smaller nodules without suspicious features, no further evaluation or follow up is recommended. REFERENCES: NASCET CRITERIA. The degree of internal carotid artery stenosis is based on NASCET criteria. Normal is no stenosis. Mild is less than 50% stenosis. Moderate is 50-69% stenosis. Severe is 70% to 99% stenosis. Total occlusion is no detectable patent lumen. Findings are discussed with FLORA VELEZ , 03/28/2021 5:58 PM EDT. The findings were acknowledged and understood. Electronically signed by: Immanuel Rice On 03/28/2021 17:58:54 PM
[2021-03-28 18:02] LABS: ACETAMINOPHEN LEVEL < 2.0 UG/ML (10.0-30.0); ALBUMIN 3.8 GM/DL (3.2-5.2); ALT/SGPT 21 U/L (12-78); BILIRUBIN,DIRECT 0.3 MG/DL (0.0-0.2); BLOOD UREA NITROGEN 14 MG/DL (7-18); CALCIUM LEVEL 9.7 MG/DL (8.8-10.2); CARBON DIOXIDE LEVEL 29 MEQ/L (21-32); CHLORIDE LEVEL 111 MEQ/L (98-107); CPK CREATINE PHOSPHOKINASE 149 U/L (26-192); ETHYL ALCOHOL (ETHANOL) < 0.003 % (0.000-0.010); GLOMERULAR FILTRATION RATE > 60.0 (>39); GLUCOSE, FASTING 90 MG/DL (70-100); MB/CK RELATIVE INDEX 2.01 (< OR =4); POTASSIUM SERUM 4.2 MEQ/L (3.5-5.1); SALICYLATE LEVEL < 1.7 MG/DL (5.0-30.0); SODIUM LEVEL 144 MEQ/L (136-145); THYROID STIMULATING HORMONE 0.754 uIU/ML (0.358-3.740); TOTAL PROTEIN 6.5 GM/DL (6.4-8.2); TROPONIN I < 0.02 NG/ML (< 0.10)
--- NOTE | 2021-03-28 18:20 | REPVR ---
PROCEDURE INFORMATION: Exam: CT Angiography Head With Contrast, Arteriography Exam date and time: 03/28/2021 5:03 PM Age: 80 years old Clinical indication: Other: CVA; Additional info: CVA - nursing interventions must not delay CT TECHNIQUE: Imaging protocol: Computed tomography angiography of the head with contrast. Exam focused on the arteries. 3D rendering (Not supervised by radiologist): MIP and/or 3D reconstructed images were created by the technologist. Radiation optimization: All CT scans at this facility use at least one of these dose optimization techniques: automated exposure control; mA and/or kV adjustment per patient size (includes targeted exams where dose is matched to clinical indication); or iterative reconstruction. Contrast material: ISOVUE 370; Contrast volume: 75 ml; Contrast route: INTRAVENOUS (IV); COMPARISON: CT Head without contrast 05/17/2020 3:56 PM FINDINGS: ANTERIOR CIRCULATION: Right internal carotid artery: Atherosclerosis and mild stenosis of the right internal carotid artery. No aneurysm. Right middle cerebral artery: See below. Right anterior cerebral artery: Hypoplasia of the A1 segment of the right anterior cerebral artery. Stenoses are visualized of A3 through A5 segments of the bilateral anterior cerebral arteries. Left internal carotid artery: Mild atherosclerotic changes of the left internal carotid artery, without significant stenosis or occlusion. No aneurysm. Left middle cerebral artery: Stenoses are identified of M2 and M3 segments of the bilateral middle cerebral arteries. Left anterior cerebral artery: See above. POSTERIOR CIRCULATION: Right vertebral artery: Mild hypoplasia of the distal right vertebral artery, without occlusion. Left vertebral artery: A dominant left vertebral artery is identified. No significant stenosis or occlusion of the left vertebral artery. Basilar artery: No occlusion or significant stenosis. No aneurysm. Right posterior cerebral artery: Mild stenosis of the right posterior cerebral artery at the junction of the P1 and P2 segments. Left posterior cerebral artery: No occlusion or significant stenosis. No aneurysm. Veins: There is focal narrowing of the superior sagittal sinus, as visualized on series 501, image 67. Brain: No definite mass, mass effect, or midline shift. Refer to the head CT report from the same day. Cerebral ventricles: No ventriculomegaly. Bones/joints: No acute fracture. Soft tissues: Unremarkable. IMPRESSION: 1. A dominant left vertebral artery is identified. 2. Mild stenosis of the right posterior cerebral artery at the junction of the P1 and P2 segments. 3. Stenoses are visualized of A3 through A5 segments of the bilateral anterior cerebral arteries. 4. Stenoses are identified of M2 and M3 segments of the bilateral middle cerebral arteries. 5. Atherosclerosis and mild stenosis of the right internal carotid artery. 6. Additional findings described above. Electronically signed by: Immanuel Rice On 03/28/2021 18:20:05 PM
[2021-03-28 18:28] LABS: AMPHETAMINES LEVEL URINE NEGATIVE (NEGATIVE); BARBITURATES URINE NEGATIVE (NEGATIVE); BENZODIAZEPINES URINE NEGATIVE (NEGATIVE); CANNABINOIDS URINE NEGATIVE (NEGATIVE); COCAINE METABOLITE URINE NEGATIVE (NEGATIVE); METHADONE URINE NEGATIVE (NEGATIVE); OPIATES URINE NEGATIVE (NEGATIVE); PHENCYCLIDINE URINE NEGATIVE (NEGATIVE)
[2021-03-28] MEDS ORDERED: PANT-23 PO (19:00)
[2021-03-28] MEDS ORDERED: DOK100TA2 PO (19:00)
[2021-03-28] MEDS ORDERED: ACET-683 PO (19:00)
[2021-03-28] MEDS ORDERED: BRIN1TAB PO (19:00)
[2021-03-28] MEDS ORDERED: ASPI-117 PO (19:00)
[2021-03-28] MEDS ORDERED: VALB40CA PO (19:00)
[2021-03-28] MEDS ORDERED: AMLO2.5T3 PO (19:00)
[2021-03-28] MEDS ORDERED: GABA-1171 PO (19:00)
[2021-03-28] MEDS ORDERED: ATRO1OPD SL (19:02)
[2021-03-28] MEDS ORDERED: POTA10TA17 PO (19:02)
[2021-03-28] MEDS ORDERED: TOVI4TAB PO (19:02)
[2021-03-28] MEDS ORDERED: BUSP10TA PO (19:02)
[2021-03-28] MEDS ORDERED: med rec comment (19:15)
--- NOTE | 2021-03-28 20:04 | HPEPDOC ---
[facility] Medical History & Physical Date of Admission Mar 28, 2021 Date of Service: Mar 28, 2021 Primary Care Physician: Carmelina Dallas Attending Physician: CLAUS MOSHER MD History and Physical CHIEF COMPLAINT: Altered mental status with patient having been found down HISTORY OF PRESENT ILLNESS: . Mrs. Velasquez is a 80-year-old female who is brought in by EMS after having been found down in her independent living apartment. It is unknown when she was last well. She has a history of akathisia and sometimes has slurred speech. She also apparently has difficulty with drooling from one side of her mouth according to her daughter, Hortensia, who was available by phone. She says that her mother is also very unsteady on her feet and has always been clumsy. She usually uses a walker and walks very slowly at baseline. EMS noted that the patient is on Ingrezza. The patient related that she had picked up the medication just today, but EMS says 8 pills were missing. Of note, the patient is oriented to year, but cannot tell me exactly where she is other than "on [employer] [facility] She also told me that she has had a previous stroke, but her daughter denies this. At this point in time she is unable to comprehend her current condition, or participate in the treatment plan. Details of history are obtained from a thorough review of the medical record and from her daughter, Hortensia, by phone. On initial evaluation, patient had an NIH score of [address] Manrique, ER provider. She related that the patient was having difficulty with left-sided vision, mild dysarthria, and difficulties with distinction. CT of the head showed small vessel ischemic disease with CTA showing stenosis of the bilateral anterior and middle cerebral arteries. There was no obvious hemorrhage. CTA of the neck showed an irregular contour of the mid left internal carotid artery suggestive of fibromuscular dysplasia and a slight irregular contour of the mid right internal carotid artery. Radiology also noted thyroid nodules visualized bilaterally and mild gaseous distention of the esophagus. TSH was noted to be low normal. She did have a mild increase in her ammonia level at 39. Alkaline phosphatase was also elevated at 154. Labs were otherwise unremarkable. Patient's family denies any history of hypertension but her blood pressure is 159/93. She does take amlodipine at home. Patient also has a history of obstruc tive sleep apnea but stopped using her CPAP about 3 years ago. She also has a documented history of Parkinson's disease but her daughter states she never completed the workup and so the diagnosis was never confirmed. The patient refused to go to [place] for continued evaluation. She has a documented history of chronic obstructive pulmonary disease and asthma but again her daughter denies this. She has no history of tobacco use. Dr. Manrique. Discussed the case with Dr. Rhoades, neurology, who recommended that the patient be started on Plavix and a statin. He also requested MRI and MRA. PAST MEDICAL HISTORY: 1. Hypertension. 2. Obstructive sleep apnea, noncompliant with CPAP. 3. Breast cancer on the left. 4. Osteoporosis. 5. Depression and anxiety. 6. Osteoarthritis. 7. Possible Parkinson's. 8. Asthma which patient's family denies 9. COPD with patient's family denying 10. Dementia. 11. Falls at home. 12. Borderline diabetes. 13. Kidney stones PAST SURGICAL HISTORY: 1. Left breast lumpectomy with node dissection. 2. Left foot ORIF. 3. Hysterectomy. 4. Bilateral cataracts SOCIAL HISTORY: Tobacco use:. None ETOH:. None Illicit drug use: None Patient lives with: By herself in an independent living apartment FAMILY HISTORY: Patient's father had a history of colon cancer. Patient's mother had pancreatic cancer. REVIEW OF SYSTEMS: Complete 10 point review systems is negative except as noted above PHYSICAL EXAMINATION: Patient is seen in the ER, lying on the stretcher.. She is alert but oriented only to self and year. Answers to questions, do not make sense most of the time. She appears to be giving incorrect information . When answers to make sense. HEENT iwith no facial droop. Tongue is midline. Speech is easily understood. She does appear to have a visual deficit, but again this is difficult to assess since answers are not always appropriate. Neck is supple. Lungs are clear to auscultation. Heart regular rate and rhythm without murmur. Abdomen is soft, non-tender to palpation with bowel sounds positive. Extremities with good ROM and strength is equal bilaterally. . There is no drift. No lower extremity edema. Pedal pulses are positive. Skin is warm and dry with no obvious rash or lesion except for a bruise on her knee. Neuro: As described. Psych: As noted ASSESSMENT AND PLAN: 1., Possible cerebrovascular accident. Will check MRI and MRA. Continue the patient on low-dose aspirin and add statin and Plavix. Appreciate neurology input. Will ask physical, occupational and speech therapies to evaluate and treat. Keep patient nothing by mouth until she is cleared with dysphasia screen. 2. Hypertension, essential. Will continue amlodipine and monitor with routine vital signs. Adjust medications as needed based on trends. 3. Mild transaminitis with mild elevation of ammonia level. CT the abdomen and pelvis in 2019 showed mild hepatic steatosis. No history of hepatitis or liver disease. Recheck labs in the morning. 4. Major depressive disorder with anxiety. Hold home treatment Trintellix for now until patient cleared with dysphasia screen. Will need to resume with patient's own medications. Continue supportive care. 5. Tardive dyskinesia. Will resume atropine drops and Ingrezza, with patient's home supply of medication, when cleared for by mouth intake. 6. Chronic back pain with osteoarthritis and osteoporosis. Will resume gabapentin when okay for po intake. 7. Obstructive sleep apnea. Will have oxygen available for use as needed. Encourage good pulmonary toilet. 8. DVT prophylaxis. Will have Lovenox. CODE STATUS: Patient is unable to address CODE STATUS, but her daughter, Hortensia, is acting as her surrogate and wishes for the patient to be considered full code. Patient is considered high risk of further deterioration including extension of acute CVA. She is admitted as inpatient and expected to remain at least 2-3 midnight. 11:[address] Rhoades about MRI/MRA results with stenosis bilateral internal carotid arteries, as well as CTA results. Dr. Rhoades will see the patient in the morning. No further recommendations at this time. Vital Signs Vital Signs Date Time Temp Pulse Resp B/P (MAP) Pulse Ox O2 Delivery O2 Flow Rate FiO2 03/28/21 18:27 99 18 97 Room Air 03/28/21 18:15 158/90 (112) 03/28/21 16:31 96.5 Laboratory Data Labs 24H Laboratory Tests 2 03/28/21 16:49: POC Glucose (Misc Panel) 96, POC Sodium (Misc Panel) 144, POC Potassium (Misc Panel) 4.1, POC Chloride (Misc Panel) 105, POC Total CO2 (Misc Panel) 25.0, POC Blood Urea Nitrogen (Misc Panel 15, POC Ionized Calcium (Misc Panel) 5.0, POC Creatinine (Misc Panel) 0.6, POC Hematocrit (Misc Panel) 44.0 03/28/21 16:50: Immature Granulocyte % (Auto) 0.3, Neutrophils (%) (Auto) 51.1, Lymphocytes (%) (Auto) 32.4, Monocytes (%) (Auto) 10.1H, Eosinophils (%) (Auto) 5.5H, Basophils (%) (Auto) 0.6, Neutrophils # (Auto) 3.3, Lymphocytes # (Auto) 2.1, Monocytes # (Auto) 0.7, Eosinophils # (Auto) 0.4, Basophils # (Auto) 0.0, Nucleated Red Blood Cells % (auto) 0.0, Prothrombin Time 13.0, Prothromb Time International Ratio 0.96, Activated Partial Thromboplast Time 25.2, Anion Gap 4L, Glomerular Filtration Rate > 60.0, Calcium Level 9.7, Total Bilirubin 1.0, Direct Bilirubin 0.3H, Aspartate Amino Transf (AST/SGOT) 19, Alanine Aminotransferase (ALT/SGPT) 21, Alkaline Phosphatase 154H, Ammonia 39H, Total Creatine Kinase 149, Creatine Kinase MB 3.0, Creatine Kinase MB Relative Index 2.01, Troponin I < 0.02, Total Protein 6.5, Albumin 3.8, Albumin/Globulin Ratio 1.4, Thyroid Stimulating Hormone (TSH) 0.754, Salicylates Level < 1.7L, Acetaminophen Level < 2.0L, Ethyl Alcohol Level < 0.003 03/28/21 16:53: Urine Color YELLOW, Urine Appearance HAZY, Urine pH 8.0, Urine Specific [place] 1.008, Urine Protein NEGATIVE, Urine Glucose (UA) NEGATIVE, Urine Ketones NEGATIVE, Urine Blood 1+H, Urine Nitrite NEGATIVE, Urine Bilirubin NEGATIVE, Urine Urobilinogen 4.0H, Urine Leukocyte Esterase NEGATIVE, Urine WBC (Auto) 2, Urine RBC (Auto) 15H, Urine Hyaline Casts (Auto) 0, Urine Bacteria (Auto) 1+H, Urine Squamous Epithelial Cells 14, Urine Mucus (Auto) SMALL, Urine Sperm (Auto) , Lactic Acid Level 1.6, Urine Opiates Screen NEGATIVE, Urine Methadone Screen NEGATIVE, Urine Barbiturates Screen NEGATIVE, Urine Phencyclidine Screen NEGATIVE, Urine Amphetamines Screen NEGATIVE, Urine Benzodiazepines Screen NEGATIVE, Urine Cocaine Metabolite Screen NEGATIVE, Urine Cannabinoids Screen NEGATIVE 03/28/21 16:57: POC Troponin I (Misc) 0.00 03/28/21 17:40: Bedside Glucose (Misc Panel) 94 CBC/BMP Laboratory Tests 03/28/21 16:50 Microbiology Microbiology 03/28/21 Blood Culture, Received Pending 03/28/21 Respiratory Virus Panel (PCR) (BLANCA) - Final, Complete 03/28/21 Blood Culture, Received Pending Home Medications Scheduled Acetaminophen (Acetaminophen) 500 Mg Tablet, 1,000 MG PO TID Amlodipine Besylate (Amlodipine Besylate) 2.5 Mg Tablet, 2.5 MG PO QPM Aspirin (Aspirin EC) 81 Mg Tablet.dr, 81 MG PO DAILY Atropine Sulfate (Atropine Sulfate) 1% 2ML Drops, 1 DROP SL TID Buspirone HCl (Buspirone HCl) 10 Mg Tablet, 10 MG PO BID Docusate Sodium (Dok) 100 Mg Tablet, 100 MG PO BID Fesoterodine Fumarate (Toviaz) 4 Mg Tab.er.24h, 4 MG PO QPM Gabapentin (Gabapentin) 100 Mg Capsule, 100 MG PO TID Pantoprazole Sodium (Pantoprazole Sodium) 40 Mg Tablet.dr, 40 MG PO DAILY Potassium Chloride (Potassium Chloride) 10 Meq Tab.er.prt, 10 MG PO DAILY Valbenazine Tosylate (Ingrezza) 40 Mg Capsule, 40 MG PO DAILY Vortioxetine Hydrobromide (Trintellix) 5 Mg Tablet, 15 MG PO QPM Scheduled PRN Trazodone HCl (Trazodone HCl) 50 Mg Tab, 25 MG PO QHS PRN for INSOMNIA Miscellaneous Medications [med rec comment] unable to speak with patient used list from [facility] and external. Allergies Coded Allergies: Sulfa (Sulfonamide Antibiotics) (Verified Adverse Reaction, Mild, nausea , 03/16/20) A-FIB/CHADSVASC A-FIB History Current/History of A-Fib/PAF?: No CEDRIC CAMACHO Mar 28, 2021 20:04
--- NOTE | 2021-03-28 21:26 | REPVR ---
PROCEDURE INFORMATION: Exam: MR Head Without Contrast Exam date and time: 03/28/2021 8:55 PM Age: 80 years old Clinical indication: Other: CVA; Patient HX: HX of breast CA, PT presents to mri with marked confusion TECHNIQUE: Imaging protocol: MR of the head without contrast. COMPARISON: CT Head without contrast 03/28/2021 5:07 PM FINDINGS: Limitations: Motion artifact significant limits this study. Brain: Although limited by artifact, there is no definitive restricted diffusion to suggest an acute infarct. Mild FLAIR hyperintense periventricular gliosis, likely representing chronic small vessel ischemic disease. No significant cerebral edema. Magnetic susceptibility calcifications or hemosiderin within the bilateral basal ganglia. No intracranial mass effect. Cerebral ventricles: There is mild prominence of the ventricles and sulci, compatible with atrophy. Mild age-appropriate prominence of the ventricles. Bones/joints: Evaluation limited by motion artifact. Paranasal sinuses: Minimal mucosal thickening of scattered ethmoid air cells. Mastoid air cells: No mastoid effusion. Orbital cavity: Suboptimal evaluation of the orbits due to artifact. Soft tissues: Unremarkable, as visualized. IMPRESSION: 1. No definitive acute infarct on this motion limited study. 2. Mild periventricular gliosis, likely representing chronic small vessel ischemic disease. 3. Mild atrophy. 4. Additional findings described above. Electronically signed by: Immanuel Rice On 03/28/2021 21:26:15 PM
--- NOTE | 2021-03-28 21:33 | REPVR ---
PROCEDURE INFORMATION: Exam: MRA Head Without Contrast; Arteriography Exam date and time: 03/28/2021 8:55 PM Age: 80 years old Clinical indication: Cognitive deficit; Type not specified; Additional info: CVA TECHNIQUE: Imaging protocol: Magnetic resonance angiography head without contrast. Exam focused on the arteries. COMPARISON: CT ANGIO HEAD 03/28/2021 5:07 PM FINDINGS: ANTERIOR CIRCULATION: Right internal carotid artery: Severe stenoses of the bilateral petrous internal carotid arteries, although this can be contributed by artifact. Narrowing of these segments is less significant on the CTA from the same day. Right middle cerebral artery: Suboptimal evaluation due to artifact. Flow-limiting pathology cannot be excluded. Right anterior cerebral artery: Suboptimal evaluation due to artifact. Flow-limiting pathology cannot be excluded. Left internal carotid artery: See above. Left middle cerebral artery: Suboptimal evaluation due to artifact. Flow-limiting pathology cannot be excluded. Left anterior cerebral artery: Suboptimal evaluation due to artifact. Flow-limiting pathology cannot be excluded. POSTERIOR CIRCULATION: Right vertebral artery: Suboptimal evaluation due to artifact. Flow-limiting pathology cannot be excluded. Left vertebral artery: Suboptimal evaluation due to artifact. Flow-limiting pathology cannot be excluded. Basilar artery: Mild increased tortuosity of the basilar artery, without significant stenosis or occlusion. Right posterior cerebral artery: Suboptimal evaluation due to artifact. Flow-limiting pathology cannot be excluded. Left posterior cerebral artery: Suboptimal evaluation due to artifact. Flow-limiting pathology cannot be excluded. IMPRESSION: 1. Severe stenoses of the bilateral petrous internal carotid arteries, although this can be contributed by artifact. 2. There is suboptimal evaluation of the posterior cerebral arteries, distal vertebral arteries, middle cerebral arteries, anterior cerebral arteries due to artifact. Flow-limiting pathology cannot be excluded. Refer to the CTA head report from the same day for further discussion. Electronically signed by: Immanuel Rice On 03/28/2021 21:33:10 PM
[2021-03-28 22:00] VITALS: BP 146/66
[2021-03-28] MEDS ORDERED: LACTULOSE 20 GM/30 ML SYRUP UD PR ONE (22:15)
[2021-03-28] MEDS ORDERED: LACTULOSE 20 GM/30 ML SYRUP UD PO ONE (23:50)
[2021-03-29] VITALS: BP 126/73
[2021-03-29 04:00] VITALS: BP 133/59
[2021-03-29] MEDS ORDERED: IBUPROFEN 400MG TAB PO ONE (05:20)
[2021-03-29 05:44] LABS: HEMATOCRIT 42.3 % (36.0-47.0); HEMOGLOBIN 14.2 g/dl (12.0-15.5); MEAN CORPUSCULAR HEMOGLOBIN 34.1 pg (27.0-33.0); MEAN CORPUSCULAR HGB CONC 33.6 g/dl (32.0-36.5); MEAN CORPUSCULAR VOLUME 101.4 fl (80.0-96.0); PLATELET COUNT, AUTOMATED 160 10^3/uL (150-450); RED BLOOD COUNT 4.17 10^6/uL (4.00-5.40); WHITE BLOOD COUNT 6.6 10^3/uL (4.0-10.0)
[2021-03-29 06:17] LABS: ALBUMIN 3.3 GM/DL (3.2-5.2); ALT/SGPT 18 U/L (12-78); BILIRUBIN,TOTAL 1.1 MG/DL (0.2-1.0); BLOOD UREA NITROGEN 15 MG/DL (7-18); CALCIUM LEVEL 9.1 MG/DL (8.8-10.2); CARBON DIOXIDE LEVEL 28 MEQ/L (21-32); CHLORIDE LEVEL 110 MEQ/L (98-107); CREATININE FOR GFR 0.61 MG/DL (0.55-1.30); GLOMERULAR FILTRATION RATE > 60.0 (>39); GLUCOSE, FASTING 89 MG/DL (70-100); MAGNESIUM LEVEL 2.1 MG/DL (1.8-2.4); POTASSIUM SERUM 3.7 MEQ/L (3.5-5.1); SODIUM LEVEL 141 MEQ/L (136-145); TOTAL PROTEIN 6.3 GM/DL (6.4-8.2)
--- NOTE | 2021-03-29 07:48 | ECGEPIP ---
[facility] - ED Test Date: 2021-03-28 Pat Name: JARET MAHARAJ Department: Room: - Gender: Female Trans Router: HC : 1940 Requested By: Jyoti Mcnally Order Number: [id number] Reading MD: Lev Anaya Measurements Intervals [place] Rate: 97 P: 59 MN: 158 QRS: 31 QRSD: 72 T: 57 QT: 346 QTc: 439 Interpretive Statements Normal sinus rhythm Nonspecific T wave abnormality Similar to tracing done 03-05-20 Electronically Signed on 03-29-2021 7:48:06 EDT by Lev Anaya
[2021-03-29 08:00] VITALS: BP 122/61
[2021-03-29] MEDS: ENOXAPARIN 40MG/0.4ML SYRINGE (J1650 PER 10MG) SC SCH (08:55)
[2021-03-29] MEDS: CLOPIDOGREL 75 MG TAB PO SCH (08:55)
[2021-03-29] MEDS: ATORVASTATIN 20 MG TAB PO SCH (08:56)
--- NOTE | 2021-03-29 09:01 | REP ---
INDICATION: Assess stenosis TECHNIQUE: Carotid ultrasonography was performed bilaterally FINDINGS: Right: CCA systolic: 81.3 centimeters/second CCA diastolic: 14.0 centimeters/second ICA systolic: 57.6 centimeters/second ICA diastolic: 19.9 centimeters/second ICA CCA ratio: 0.71 Left: CCA systolic: 70.0 centimeters/second CCA diastolic: 14.9 centimeters/second ICA systolic: 52.0 centimeters/second ICA diastolic: 17.6 centimeters/second ICA CCA ratio: 0.74 Vertebral artery: Right: Antegrade flow left: Antegrade flow IMPRESSION: According to the SRU criteria there is less than 50% stenosis of the internal carotid artery bilaterally. Only a small amount of plaque formation was seen along the carotid arterial go. <Electronically signed by Kwabena Stuart > 03/29/21 0830
--- NOTE | 2021-03-29 09:03 | REP ---
INDICATION: Assess carotids for stroke workup and thyroid nodules. COMPARISON: None. TECHNIQUE: Thyroid ultrasound FINDINGS: The right lobe of the thyroid gland measures 5 x 2 x 1.9 cm and the left lobe measures 5.5 x 1.9 x 1.9 cm. In the right lobe there is a 1.5 cm sized complex cystic and solid nodule. Two other subcentimeter sized solid nodules are also noted. In the left lobe there are 2 1 cm size nodule and 1 sub cm sized nodule. The isthmus measures 3 mm. IMPRESSION: Complex nodule in the right lobe as described above along with other smaller or equal sized solid nodules. Follow-up is suggested. Ultrasonography cannot rule out thyroid cancer. <Electronically signed by Kwabena Stuart > 03/29/21 0900
--- NOTE | 2021-03-29 09:57 | REPVR ---
PROCEDURE INFORMATION: Exam: US Abdomen, Limited; Right Upper Quadrant Exam date and time: 03/29/2021 6:36 AM Age: 80 years old Clinical indication: Abnormal findings; Abnormal lab test; Other: Elevated ammonia TECHNIQUE: Imaging protocol: US abdomen. Real time ultrasound with image documentation. Limited exam focused on the right upper quadrant. COMPARISON: CT ABD PELVIS W/O CONTRAST 09/20/2019 12:30 AM FINDINGS: Liver: The liver has a generally coarsened echotexture, which could reflect cirrhosis or other hepatocellular disease. No demonstrated lesion. Gallbladder: The gallbladder contains some sludge, without stones or wall thickening, and there is no significant pericholecystic fluid. Sonographic Galvez sign is reportedly negative. Common bile duct: The common bile duct is normal in size for a patient of this age at 3.8 mm. Pancreas: Visualized portions of the pancreas, not fully including the head or tail, are without demonstrated abnormality. Right kidney: The right kidney measures 12.0 x 5.3 x 4.5 cm. Normal appearing echotexture. There is a 1.8 x 1.6 x 1.9 cm cyst in the lower pole. No hydronephrosis or demonstrated stone or mass. IMPRESSION: 1. Generally coarsened echotexture of the liver, could reflect cirrhosis or other hepatocellular disease. 2. Gallbladder sludge without cholelithiasis or other sonographic evidence of cholecystitis. Electronically signed by: Zachery Suarez On 03/29/2021 09:57:14 AM
[2021-03-29 12:00] VITALS: BP 115/57
--- NOTE | 2021-03-29 14:56 | IPNPDOC ---
Text Note Date of Service The patient was seen on 03/29/21. NOTE Subjective: I saw and examined the patient this morning at bedside she feels a lot better and this morning she is alert and oriented 3 she tells me that she believes she knows what happened last evening. She states that she was recently prescribed atropine sublingual to help with controlling problems she has due to tardive dyskinesia. The sublingual atropine was prescribed by her psychiatry nurse practitioner and she took her first dose last evening and within 1 minute or so of taking this is when she felt unsteady and dizzy and felt her speech becoming slurred and she lost her balance and fell next 6 she remembers is briefly speaking to the provider last night and feels much better this morning. I reviewed imaging results with patient. And answered all her questions. Right now she denies any weakness or slurred speech. She feels back to her normal self she passed a bedside swallow evaluation. Tells me she takes all her medications as prescribed and refutes reports that 8 pills were missing from her Ingrezza and assure this is an error. Objective: Constitutional: Awake and alert, in no apparent distress. ENT: Sclera are clear. Mucosa is moist. Respiratory: Lungs CTA bilaterally. No respiratory distress. No use of accessory muscles. Cardiovascular: RRR S1 and S2 are normal, no murmur Gastrointestinal: Abdomen is soft, non distended, non tender, BS present. Galvez sign negative. Musculoskeletal: No lower extremity edema. mental status: The patient is awake, alert, oriented to name, location, and date. Cranial nerves: Pupils are equal, round, and reactive to light. Extraocular muscles intact. Visual abraham full bilaterally. Smile is symmetrical. Tongue is midline. Intact sensation on both sides of face. Motor: At least 4+/5 in both upper and lower extremities without any drifting. Sensory: Intact to sensation bilaterally. Reflexes: Symmetrical, non-hyperreflexic. Not pathological. Coordination: Heabgo-nk-azhg grossly intact. Assessment: # Syncope, slurred speech. Rule out stroke # complex thyroid nodules # Tardive Dyskinesia # Hypertension plan: Patient was admitted for stroke workup. MRI does not show stroke. She is on aspirin and was started on Plavix and statin. Sublingual atropine could very likely explain her symptoms last evening and she should probably avoid this drug moving forward SL. Ultrasound carotids showed less than 50% stenosis bilaterally. Passed bedside swallow evaluation. Dr. Rhoades was consulted last night I appreciate his recommendations. Continue tele monitoring today, no events thus far. PT/OT for HSE. Regarding the thyroid nodules seen on US. Spoke with Dr Plascencia on-call of ENT to get his recommendations to have Ms Valenzuela follow up with him in clinic after discharge. His clinic number is [phone] to make an appointment. Continue home medications for chronic medical problems DVT prophylaxis Oscar Alston Hospitalist Isaac ZAMORA, I+O VSIsaac I+O Laboratory Tests 03/28/21 16:50 03/29/21 05:13 Vital Signs Date Time Temp Pulse Resp B/P (MAP) Pulse Ox O2 Delivery O2 Flow Rate FiO2 03/29/21 12:00 98.1 78 19 115/57 (76) 93 Room Air I&O- Last 24 Hours up to 6 AM 03/29/21 06:00 Intake Total 0 ml Output Total 120 ml Balance -120 ml COLETTE ALSTON MD Mar 29, 2021 14:55
[2021-03-29 16:00] VITALS: BP 138/63
[2021-03-29 20:00] VITALS: BP 109/62
[2021-03-30 04:00] VITALS: BP 131/64
[2021-03-30 08:00] VITALS: BP 137/77
--- NOTE | 2021-03-30 08:20 | DS.PDOC ---
Discharge Summary General Date of Admission Mar 28, 2021 at 19:04 Date of Discharge 03/30/21 Discharge Summary PROCEDURES PERFORMED DURING STAY: [None]. ADMITTING/DISCHARGE DIAGNOSES: 1. Syncope, slurred speech suspected 2/2 medication effect 2. thyroid nodules COMPLICATIONS/CHIEF COMPLAINT: Non-Hemorrhagic Cerebrovascular Accident. HISTORY OF PRESENT ILLNESS/HOSPITAL COURSE: From admitting providers H&P: Mrs. Velasquez is a 80-year-old female who is brought in by EMS after having been found down in her independent living apartment. It is unknown when she was last well. She has a history of akathisia and sometimes has slurred speech. She also apparently has difficulty with drooling from one side of her mouth according to her daughter, Hortensia, who was available by phone. She says that her mother is also very unsteady on her feet and has always been clumsy. She usually uses a walker and walks very slowly at baseline. EMS noted that the patient is on Ingrezza. The patient related that she had picked up the medication just today, but EMS says 8 pills were missing. Of note, the patient is oriented to year, but cannot tell me exactly where she is other than "on [employer] at [facility]". She also told me that she has had a previous stroke, but her daughter denies this. At this point in time she is unable to comprehend her current condition, or participate in the treatment plan. Details of history are obtained from a thorough review of the medical record and from her daughter, Hortensia, by phone. HOSPITAL COURSE: Patient was admitted for stroke workup. MRI does not show stroke. She is on aspirin. Plavix and statin were started in hospital Dr Rhoades recommended continuing the statin long terms and using plavix in conjunction with the asa for 30 days and then discontinuing the plavix and staying on asa only. Sublingual atropine could very likely explain her symptoms last evening and she should probably avoid this drug moving forward. Dr Rhoades agrees with this assessment and also believes her presentation to be secondary to anticholinergic effects of atropine. Ultrasound carotids showed less than 50% stenosis bilaterally. Passed bedside swallow evaluation. Dr. Rhoades neurologist was consulted was consulted and agreed with plan for discharge today. Passed PT for HSE. Regarding the thyroid nodules seen on US. Spoke with Dr Plascencia on-call of ENT to get his recommendations to have Ms Valenzuela follow up with him in clinic after discharge. His clinic number is [phone] to make an appointment. DISCHARGE MEDICATIONS: Please see below. ALLERGIES: Please see below. PHYSICAL EXAMINATION ON DISCHARGE: VITAL SIGNS: Please see below. Constitutional: Awake and alert, in no apparent distress. ENT: Sclera are clear. Mucosa is moist. Respiratory: Lungs CTA bilaterally. No respiratory distress. No use of acces merissa muscles. Cardiovascular: RRR S1 and S2 are normal, no murmur Gastrointestinal: Abdomen is soft, non distended, non tender, BS present. Galvez sign negative. Musculoskeletal: No lower extremity edema. mental status: The patient is awake, alert, oriented to name, location, and date. Cranial nerves: Pupils are equal, round, and reactive to light. Extraocular muscles intact. Visual abraham full bilaterally. Smile is symmetrical. Tongue is midline. Intact sensation on both sides of face. Motor: At least 4+/5 in both upper and lower extremities without any drifting. Sensory: Intact to sensation bilaterally. Reflexes: Symmetrical, non-hyperreflexic. Not pathological. Coordination: Rbyuiy-pj-qurq grossly intact. LABORATORY DATA: Please see below. IMAGING: See chart PROGNOSIS: fair ACTIVITY: [As tolerated]. DISPOSITION: home DISCHARGE INSTRUCTIONS: Please follow up with your primary care physician within 1 week from discharge. If you do not have one, please follow up with us to schedule an appointment. Please keep all of your follow up appointments. Please call central to book your appointments with hospital specialists. Please take all your medications as prescribed. Please call/come to Clinic or go to the Emergency Department if - Temp >101, intractable Nausea/Vomiting, Diarrhea, Mouth sores, Headaches, Altered mental status, Seizures, sudden onset of swelling, bleeding, shortness of breath or chest pain. ITEMS TO FOLLOWUP ON ON OUTPATIENT: Follow-up with Dr. Plascencia from ENT regarding thyroid nodules as discussed DISCHARGE CONDITION: [Stable]. TIME SPENT ON DISCHARGE: 35 minutes. Vital Signs/I&Os Vital Signs Date Time Temp Pulse Resp B/P (MAP) Pulse Ox O2 Delivery O2 Flow Rate FiO2 03/30/21 04:00 97.9 67 18 131/64 (86) 92 Room Air I&O- Last 24 Hours up to 6 AM 03/30/21 06:00 Intake Total 915 ml Output Total 50 ml Balance 865 ml Laboratory Data Labs 24H Laboratory Tests 2 03/30/21 08:02: Microbiology Microbiology 03/28/21 Blood Culture - Preliminary, Resulted No growth after 24 hours . All specim... 03/28/21 Respiratory Virus Panel (PCR) ([facility]AN[facility]) - Final, Complete 03/28/21 Blood Culture - Preliminary, Resulted No growth after 24 hours . All specim... Discharge Medications Scheduled Acetaminophen (Acetaminophen) 500 Mg Tablet, 1,000 MG PO TID, (Reported) Amlodipine Besylate (Amlodipine Besylate) 2.5 Mg Tablet, 2.5 MG PO QPM, (Repor shaista) Aspirin (Aspirin EC) 81 Mg Tablet.dr, 81 MG PO DAILY, (Reported) Atorvastatin Calcium (Atorvastatin Calcium) 20 Mg Tablet, 80 MG PO DAILY Buspirone HCl (Buspirone HCl) 10 Mg Tablet, 10 MG PO BID, (Reported) Clopidogrel Bisulfate (Clopidogrel) 75 Mg Tablet, 75 MG PO DAILY Docusate Sodium (Dok) 100 Mg Tablet, 100 MG PO BID, (Reported) Fesoterodine Fumarate (Toviaz) 4 Mg Tab.er.24h, 4 MG PO QPM, (Reported) Gabapentin (Gabapentin) 100 Mg Capsule, 100 MG PO TID, (Reported) Pantoprazole Sodium (Pantoprazole Sodium) 40 Mg Tablet.dr, 40 MG PO DAILY, (Reported) Potassium Chloride (Potassium Chloride) 10 Meq Tab.er.prt, 10 MG PO DAILY, (Reported) Valbenazine Tosylate (Ingrezza) 40 Mg Capsule, 40 MG PO DAILY, (Reported) Vortioxetine Hydrobromide (Trintellix) 5 Mg Tablet, 15 MG PO QPM, (Reported) Scheduled PRN Trazodone HCl (Trazodone HCl) 50 Mg Tab, 25 MG PO QHS PRN for INSOMNIA, (Reported) Allergies Coded Allergies: Sulfa (Sulfonamide Antibiotics) (Verified Adverse Reaction, Mild, nausea , 03/16/20) COLETTE GLOVER MD Mar 30, 2021 08:20
[2021-03-30] MEDS: ATORVASTATIN 20 MG TAB PO SCH (08:34)
[2021-03-30] MEDS: CLOPIDOGREL 75 MG TAB PO SCH (08:34)
[2021-03-30] MEDS: ENOXAPARIN 40MG/0.4ML SYRINGE (J1650 PER 10MG) SC SCH (08:35)
[2021-03-30 08:37] LABS: HEMATOCRIT 40.8 % (36.0-47.0); MEAN CORPUSCULAR HEMOGLOBIN 34.5 pg (27.0-33.0); MEAN CORPUSCULAR HGB CONC 34.3 g/dl (32.0-36.5); MEAN CORPUSCULAR VOLUME 100.5 fl (80.0-96.0); PLATELET COUNT, AUTOMATED 138 10^3/uL (150-450); RED BLOOD COUNT 4.06 10^6/uL (4.00-5.40); WHITE BLOOD COUNT 5.8 10^3/uL (4.0-10.0)
[2021-03-30 08:43] LABS: BLOOD UREA NITROGEN 19 MG/DL (7-18); CALCIUM LEVEL 8.6 MG/DL (8.8-10.2); CARBON DIOXIDE LEVEL 25 MEQ/L (21-32); CHLORIDE LEVEL 113 MEQ/L (98-107); CHOLESTEROL LEVEL 176 MG/DL (<200); CREATININE FOR GFR 0.48 MG/DL (0.55-1.30); GLOMERULAR FILTRATION RATE > 60.0 (>39); GLUCOSE, FASTING 101 MG/DL (70-100); HDL CHOLESTEROL 64 MG/DL (>40); LDL CHOLESTEROL 97 MG/DL (<100); NON-HDL-C 112 MG/DL; POTASSIUM SERUM 3.8 MEQ/L (3.5-5.1); SODIUM LEVEL 145 MEQ/L (136-145); TRIGLYCERIDES LEVEL 74 MG/DL (<150)
[2021-03-30 12:00] VITALS: BP 129/73
[2021-03-30] MEDS ORDERED: CLOP75TA2 PO (12:51)
[2021-03-30] MEDS ORDERED: ATOR1TAB21 PO (12:51)
--- NOTE | 2021-03-30 17:37 | CR ---
CONSULTATION DATE: 03/30/2021 REFERRING PHYSICIAN: Casey Alston MD HISTORY OF PRESENT ILLNESS: The patient is a 80-year-old woman who was brought to [facility] after being found down in her independent living apartment. The patient has history of tardive dyskinesia and sometimes has slurred speech. She has difficulty with drooling from one side of her mouth according to daughter. The patient felt unsteady on her feet. She has baseline difficulty walking. She is a walker and walks slowly at her baseline. According to note from admitting physician, the patient had picked up her Ingrezza on the day of admission and according to EMS, eight pills were missing. The patient was noted to be confused when she was examined in the emergency department. The patient now appears back to her baseline. She states that due to her abnormal movements, her doctor had given a prescription for atropine and after she took one dose, she became dizzy, fell down on her knees and felt slurred speech. She pressed her Lif[facility] and called EMS. Her blood pressure in the emergency department was noted to be 159/93. She has a history of sleep apnea and stopped using her CPAP three years ago. DIAGNOSTIC STUDIES: CT angiography of head and neck showed multivessel intracranial stenosis of internal carotid arteries, middle cerebral arteries and anterior cerebral artery. CTA of neck showed atherosclerosis of internal carotid arteries. There was no significant stenosis. MRI of brain later showed small vessel ischemic disease of brain without acute disease. PAST MEDICAL HISTORY: 1. Hypertension. 2. Sleep apnea, noncompliant with CPAP. 3. Breast cancer. 4. Osteoporosis. 5. Depression. 6. Anxiety. 7. Osteoarthritis. 8. Asthma. 9. COPD. 10. Dementia. 11. Borderline diabetes. 12. Kidney stones. 13. Questionable parkinsonism and patient had no benefits from carbidopa/levodopa, benztropine. PAST SURGICAL HISTORY: 1. Left breast lumpectomy with node dissection. 2. Hysterectomy. 3. Bilateral cataract surgery. SOCIAL HISTORY: She denies smoking, alcohol or illicit drugs. FAMILY HISTORY: Father with a history of colon cancer. Mother with a history of pancreatic cancer. REVIEW OF SYSTEMS: All systems were reviewed and found to be noncontributory except as mentioned in history of present illness. HOME MEDICATIONS: 1. Tylenol 500 mg p.o. t.i.d. p.r.n. 2. Amlodipine 2.5 mg. p.o. daily. 3. Aspirin 81 mg p.o. daily. 4. Atropine 1%, 2 mL drops sublingual t.i.d. p.r.n. 5. Buspirone 10 mg p.o. b.i.d. 6. Gabapentin 100 mg p.o. t.i.d. 7. Protonix 40 mg p.o. daily. 8. Ingrezza 40 mg p.o. daily. 9. Trintellix 15 mg p.o. daily. 10. Potassium chloride 10 mEq p.o. daily. 11. Protonix 40 mg p.o. daily. 12. Gabapentin 100 mg p.o. t.i.d. 13. Toviaz 4 mg p.o. q.h.s. 14. Trazodone 50 mg 1/2 tablet p.o. q.h.s. p.r.n. ALLERGIES: SULFA. PHYSICAL EXAMINATION: VITAL SIGNS: Temperature 98.1, pulse 78, respiratory rate 19, blood pressure 115/57, 93% saturation on room air. HEART: Regular rate and rhythm. LUNGS: Clear to auscultation. ABDOMEN: Soft, nontender, nondistended. EXTREMITIES: No pedal edema. MUSCULOSKELETAL: No abnormalities. SKIN: No rash. NEUROLOGICAL: No signs of meningeal irritation. The patient is awake, alert, oriented to place, person and time. Normal speech, comprehension and repetition. Extraocular muscles are intact. No facial weakness. Tongue and uvula are midline. 5/5 strength in all four extremities. Deep tendon reflexes are 2+ throughout, normal sensation throughout. The patient is able to walk with her cane. Her gait is mildly unsteady. There is no shuffling or stooped posturing. There is no cogwheel rigidity or tremor. LABORATORY STUDIES: CBC and metabolic profile were unremarkable. ASSESSMENT: 1. Altered mental status and speech possibly due to anticholinergic medication side effects such as atropine. The patient did not tolerate other anticholinergic medications in the past when they were tried for parkinsonism. 2. TIA is in differential although less likely. 3. 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 4. Bilateral internal carotid artery atherosclerotic disease in neck without significant stenosis. 5. Parkinson's disease is unlikely due to lack of response to medications. PLAN: 1. Aspirin 81 mg p.o. daily and Plavix 75 mg p.o. daily. After 30 days, Plavix can be discontinued. 2. Atorvastatin 80 mg p.o. daily and check fasting lipid profile to adjust its dose based on LDL. 3. Physical and occupational therapy. 4. Follow up with psychiatry for her mood disorder and tardive dyskinesia.
== END 2021-03-30 14:00 | disposition home or self-care (01) | DRG 312 ==
LOC: EDBD 16:12 → M ED 16:12 → M ED INP 19:04 → M PCU 21:42
PROVIDERS: ADMIT Internal Medicine; ATTEND Internal Medicine
DX: R55 Syncope and collapse (principal); T44.3X5A Adverse effect of other parasympatholytics [anticholinergics and antimuscarinics] and spasmolytics, initial encounter; R41.82 Altered mental status, unspecified; R47.81 Slurred speech; I10 Essential (primary) hypertension; G47.33 Obstructive sleep apnea (adult) (pediatric); Z91.19 Patient's noncompliance with other medical treatment and regimen; Z85.3 Personal history of malignant neoplasm of breast; M81.0 Age-related osteoporosis without current pathological fracture; F41.9 Anxiety disorder, unspecified; F32.9 Major depressive disorder, single episode, unspecified; M19.90 Unspecified osteoarthritis, unspecified site; G20 Parkinson's disease; J44.9 Chronic obstructive pulmonary disease, unspecified; F03.90 Unspecified dementia, unspecified severity, without behavioral disturbance, psychotic disturbance, mood disturbance, and anxiety; R29.6 Repeated falls; R73.03 Prediabetes; Z87.442 Personal history of urinary calculi; Z98.41 Cataract extraction status, right eye; Z98.42 Cataract extraction status, left eye; R74.01 Elevation of levels of liver transaminase levels; G24.01 Drug induced subacute dyskinesia; M54.5 Low back pain; Z79.82 Long term (current) use of aspirin; Z79.899 Other long term (current) drug therapy; Z88.2 Allergy status to sulfonamides; Z20.822 Contact with and (suspected) exposure to COVID-19; E04.2 Nontoxic multinodular goiter

== ENCOUNTER → 2021-05-14 | Outpatient (CLI) | payer BC, MEDICARE ==
[~2021-05-14] MED LIST changes: +AMLO2.5T3 PO; +ASPI-117 PO; +ATOR1TAB21 PO; +ATRO1OPD SL; +BRIN1TAB PO; +BUSP10TA PO; +CLOP75TA2 PO; +DOK100TA2 PO; +LIDOCAINE 1% MDV 20ML VIAL As Ordered ONE; +PANT-23 PO; +POTA10TA17 PO; +TOVI4TAB PO; +VALB40CA PO; +med rec comment
[2021-05-14 12:56] VITALS: BP 137/74
--- NOTE | 2021-05-14 17:17 | REP ---
INDICATION: RT THYROID NODULE. COMPARISON: None. TECHNIQUE: The procedure was performed under the direct supervision of Dr. Manrique. The patient has a history of a 1.5 cm size complex cystic and solid nodule in the right lobe of the thyroid seen on a previous ultrasound dated 03/29/2021. The risks and benefits of the procedure were explained to the patient and informed consent was obtained. The right thyroid nodule was localized using ultrasound guidance. The skin was prepped and draped in a sterile fashion. 3 mL of 1% lidocaine was used as a local anesthetic. Using ultrasound guidance 6 fine-needle aspirations were obtained using 25 gauge needles. The patient tolerated the procedure well and there were no immediate complications. After the appropriate amount to monitor convalescence the patient was discharged from the department. FINDINGS: None IMPRESSION: Ultrasound-guided right thyroid biopsy. <Electronically signed by Greg Gonzalez > 05/14/21 0553 <Electronically signed by Diogo Manrique > 05/14/21 [id number]
== END ==
LOC: M IRPRO 11:47
PROVIDERS: ATTEND Otolaryngology
DX: D34 Benign neoplasm of thyroid gland (principal)

== ENCOUNTER → 2021-12-03 | Outpatient (CLI) | payer MEDICARE, BC ==
[~2021-12-03] MED LIST changes: -LIDOCAINE 1% MDV 20ML VIAL As Ordered ONE; +RIVA1CAP7 PO; -RIVA6CAP17 PO
== END ==
LOC: M WHC 12:43
PROVIDERS: ATTEND Specialist
DX: M16.0 Bilateral primary osteoarthritis of hip (principal); C50.919 Malignant neoplasm of unspecified site of unspecified female breast

== ENCOUNTER 2022-01-03 18:24 | Emergency (ER) | payer MEDICARE, BC ==
[~2022-01-03] VITALS: Ht 165.1 cm; Wt 77.3 kg
[2022-01-03 18:25] VITALS: BP 165/96
[2022-01-03] MEDS ORDERED: IPRATROPIUM 0.5MG/ALBUTEROL 2.5MG INH SOL UD 3ML (DUONEB) NEB ONE (19:20)
[2022-01-03] MEDS ORDERED: guaiFENesin ER 600 MG TAB PO ONE (20:30)
[2022-01-03] MEDS ORDERED: PROAAER10 INH (20:46)
== END 2022-01-03 21:02 | disposition home or self-care (01) ==
LOC: M ED 18:24
DX: U07.1 COVID-19 (principal); Z79.82 Long term (current) use of aspirin; Z79.899 Other long term (current) drug therapy; Z88.2 Allergy status to sulfonamides

== ENCOUNTER 2022-03-06 14:43 | Outpatient (CLI) | payer MEDICARE, BC ==
[~2022-03-06] VITALS: Ht 165.1 cm; Wt 77.2 kg
[~2022-03-06 14:43] MED LIST changes: +PROAAER10 INH; +ZOLEDRONIC ACID 5 MG in IV 1 EA IV ONE
[2022-03-06 15:00] VITALS: BP 168/88
== END 2022-03-06 15:45 | disposition home or self-care (01) ==
LOC: M INFU 14:43
PROVIDERS: ATTEND Internal Medicine
DX: M81.0 Age-related osteoporosis without current pathological fracture (principal); Z88.2 Allergy status to sulfonamides
CPT/HCPCS: 96365; J3489

== ENCOUNTER 2022-05-16 17:24 | Emergency (ER) | payer MEDICARE, BC ==
[~2022-05-16] VITALS: Ht 165.1 cm; Wt 72.7 kg
[~2022-05-16 17:24] MED LIST changes: +POTA-150 PO; -POTA10TA17 PO; -ZOLEDRONIC ACID 5 MG in IV 1 EA IV ONE
[2022-05-16 18:46] LABS: BASO # 0.1 10^3/uL (0.0-0.2); EOS # 0.3 10^3/uL (0.0-0.5); EOS % 5.8 % (0.0-3.0); HEMATOCRIT 39.2 % (36.0-47.0); LYMPH # 1.4 10^3/uL (1.5-5.0); LYMPH % 27.3 % (24.0-44.0); MEAN CORPUSCULAR HEMOGLOBIN 34.8 pg (27.0-33.0); MEAN CORPUSCULAR HGB CONC 33.2 g/dl (32.0-36.5); MEAN CORPUSCULAR VOLUME 104.8 fl (80.0-96.0); MONO # 0.7 10^3/uL (0.0-0.8); MONO % 13.1 % (2.0-8.0); NEUTROPHILS # 2.6 10^3/uL (1.5-8.5); NEUTROPHILS % 52.6 % (36.0-66.0); PLATELET COUNT, AUTOMATED 126 10^3/uL (150-450); RED BLOOD COUNT 3.74 10^6/uL (4.00-5.40)
[2022-05-16 19:11] LABS: RSV AMPLIFICATION NEGATIVE (NEGATIVE)
[2022-05-16 19:16] LABS: BLOOD UREA NITROGEN 12 MG/DL (7-18); CARBON DIOXIDE LEVEL 28 MEQ/L (21-32); CHLORIDE LEVEL 111 MEQ/L (98-107); CREATININE FOR GFR 0.61 MG/DL (0.55-1.30); FREE T4 1.19 NG/DL (0.76-1.46); GLOMERULAR FILTRATION RATE > 60.0 (>39); GLUCOSE, FASTING 89 MG/DL (70-100); MAGNESIUM LEVEL 2.2 MG/DL (1.8-2.4); POTASSIUM SERUM 4.1 MEQ/L (3.5-5.1); SODIUM LEVEL 143 MEQ/L (136-145); THYROID STIMULATING HORMONE 0.656 uIU/ML (0.358-3.740)
[2022-05-16] MEDS ORDERED: ACETAMINOPHEN 325 MG TAB PO ONE (20:05)
[2022-05-16 20:44] VITALS: O2SAT 98
[2022-05-16 21:33] VITALS: BP 136/74
== END 2022-05-16 21:39 | disposition home or self-care (01) ==
LOC: EDBD 17:24 → M ED 17:24
DX: R53.1 Weakness (principal); W19.XXXA Unspecified fall, initial encounter; Y92.099 Unspecified place in other non-institutional residence as the place of occurrence of the external cause; I10 Essential (primary) hypertension; M54.50 Low back pain, unspecified; F41.9 Anxiety disorder, unspecified; F32.9 Major depressive disorder, single episode, unspecified; Z85.3 Personal history of malignant neoplasm of breast; Z92.3 Personal history of irradiation; Z79.82 Long term (current) use of aspirin; Z79.899 Other long term (current) drug therapy; Z88.2 Allergy status to sulfonamides

== ENCOUNTER 2022-05-26 09:36 | Emergency (ER) | payer BC, MEDICARE ==
[2022-05-26] MEDS ORDERED: LIDOCAINE 2% 5ML JELLY UROJET TOP ONE (09:50)
[2022-05-26 10:55] LABS: AMORPHOUS SEDIMENT, URINE SMALL AMOUNT (NEGATIVE); BACTERIA, URINE SMALL AMOUNT; HYALINE CAST, URINE NONE SEEN /lpf (0-1); MUCUS, URINE MOD AMOUNT (NEGATIVE); RBC, URINE 20-30 /hpf (0-3); SQUAMOUS EPITHELIAL CELL URINE SMALL AMOUNT /hpf (SMALL AMT)
[2022-05-26 11:16] LABS: BLOOD UREA NITROGEN 16 MG/DL (7-18); CALCIUM LEVEL 9.3 MG/DL (8.8-10.2); CARBON DIOXIDE LEVEL 28 MEQ/L (21-32); CHLORIDE LEVEL 111 MEQ/L (98-107); CREATININE FOR GFR 0.66 MG/DL (0.55-1.30); GLOMERULAR FILTRATION RATE > 60.0 (>39); GLUCOSE, FASTING 220 MG/DL (70-100); POTASSIUM SERUM 3.7 MEQ/L (3.5-5.1); SODIUM LEVEL 142 MEQ/L (136-145)
[2022-05-26 11:19] LABS: ALBUMIN 3.3 GM/DL (3.2-5.2); BILIRUBIN,DIRECT 0.3 MG/DL (0.0-0.2); BILIRUBIN,TOTAL 0.7 MG/DL (0.2-1.0)
[2022-05-26] MEDS ORDERED: CEFD300C PO (11:29)
[2022-05-26 12:35] VITALS: BP 128/98
[2022-05-26] MEDS ORDERED: BRIN10TA4 PO (15:51)
[2022-05-26] MEDS ORDERED: ROSU5TAB5 PO (15:51)
[2022-05-26] MEDS ORDERED: ALEN70TA82 PO (15:51)
== END 2022-05-26 12:37 | disposition home or self-care (01) ==
LOC: M ED 09:36 → EDBD 09:36 → M ED 12:37
DX: R33.9 Retention of urine, unspecified (principal); N39.0 Urinary tract infection, site not specified; I10 Essential (primary) hypertension; G47.33 Obstructive sleep apnea (adult) (pediatric); G20 Parkinson's disease; G30.9 Alzheimer's disease, unspecified; Z87.891 Personal history of nicotine dependence; Z85.3 Personal history of malignant neoplasm of breast; Z92.3 Personal history of irradiation; Z79.82 Long term (current) use of aspirin; Z79.899 Other long term (current) drug therapy; Z88.2 Allergy status to sulfonamides

== ENCOUNTER 2022-05-26 14:33 | Inpatient (IN) | payer BC, MEDICARE ==
[~2022-05-26] VITALS: Ht 165.1 cm; Wt 72.7 kg
[~2022-05-26 14:33] MED LIST changes: +CEFD300C PO
[2022-05-26 15:23] LABS: BASO # 0.1 10^3/uL (0.0-0.2); EOS # 0.4 10^3/uL (0.0-0.5); EOS % 6.1 % (0.0-3.0); HEMATOCRIT 38.1 % (36.0-47.0); HEMOGLOBIN 12.7 g/dl (12.0-15.5); LYMPH # 1.4 10^3/uL (1.5-5.0); LYMPH % 23.7 % (24.0-44.0); MEAN CORPUSCULAR HEMOGLOBIN 34.9 pg (27.0-33.0); MEAN CORPUSCULAR HGB CONC 33.3 g/dl (32.0-36.5); MEAN CORPUSCULAR VOLUME 104.7 fl (80.0-96.0); MONO # 0.9 10^3/uL (0.0-0.8); MONO % 15.2 % (2.0-8.0); NEUTROPHILS # 3.1 10^3/uL (1.5-8.5); NEUTROPHILS % 53.8 % (36.0-66.0); PLATELET COUNT, AUTOMATED 170 10^3/uL (150-450); RED BLOOD COUNT 3.64 10^6/uL (4.00-5.40); WHITE BLOOD COUNT 5.7 10^3/uL (4.0-10.0)
[2022-05-26] MEDS ORDERED: ALEN70TA82 PO (15:51)
[2022-05-26] MEDS ORDERED: ROSU5TAB5 PO (15:51)
[2022-05-26] MEDS ORDERED: BRIN10TA4 PO (15:51)
[2022-05-26] MEDS ORDERED: HOME MED LIST COMPLETE! XX SCH (16:00)
[2022-05-26] MEDS ORDERED: ALBUTEROL 90 MCG/ACT 8GM HFA INHALER INH PRN (16:05)
[2022-05-26 16:09] LABS: RSV AMPLIFICATION NEGATIVE (NEGATIVE)
[2022-05-26] MEDS ORDERED: PILL CUTTER 1 EACH XX PRN (16:15)
[2022-05-26 16:45] VITALS: BP 137/76
[2022-05-26] MEDS ORDERED: cefTRIAXone SOD 1 GM in D5W MINI-BAG PLUS 50 ML IV SCH (18:00)
[2022-05-26] MEDS: GABAPENTIN 100 MG CAP PO SCH (18:42)
[2022-05-26 20:12] VITALS: BP 142/79
[2022-05-26] MEDS: ROSUVASTATIN 10 MG TAB (CRESTOR) PO SCH (21:03)
[2022-05-26] MEDS: busPIRone 10 MG TAB PO SCH (21:03)
[2022-05-27] MEDS ORDERED: MOM 30ML SUSPENSION UDC PO PRN (01:45)
[2022-05-27] MEDS ORDERED: MIRALAX *UNIT DOSE* 17GM PACKET PO PRN (01:45)
[2022-05-27] MEDS: RAMELTEON 8 MG TAB (ROZEREM) PO PRN ×2 (02:53→21:09)
[2022-05-27] MEDS: ACETAMINOPHEN TAB 650MG DOSE (2X325MG) PO PRN ×4 (04:21→21:09)
[2022-05-27 05:11] VITALS: BP 142/78
[2022-05-27] MEDS ORDERED: traMADol 50 MG TAB PO PRN (05:40)
[2022-05-27 07:24] LABS: HEMATOCRIT 38.4 % (36.0-47.0); HEMOGLOBIN 12.9 g/dl (12.0-15.5); MEAN CORPUSCULAR HEMOGLOBIN 34.8 pg (27.0-33.0); MEAN CORPUSCULAR HGB CONC 33.6 g/dl (32.0-36.5); MEAN CORPUSCULAR VOLUME 103.5 fl (80.0-96.0); PLATELET COUNT, AUTOMATED 164 10^3/uL (150-450); RED BLOOD COUNT 3.71 10^6/uL (4.00-5.40); WHITE BLOOD COUNT 5.7 10^3/uL (4.0-10.0)
[2022-05-27 07:55] LABS: BLOOD UREA NITROGEN 10 MG/DL (7-18); CALCIUM LEVEL 9.1 MG/DL (8.8-10.2); CARBON DIOXIDE LEVEL 28 MEQ/L (21-32); CHLORIDE LEVEL 110 MEQ/L (98-107); CREATININE FOR GFR 0.48 MG/DL (0.55-1.30); GLOMERULAR FILTRATION RATE > 60.0 (>39); GLUCOSE, FASTING 112 MG/DL (70-100); POTASSIUM SERUM 3.6 MEQ/L (3.5-5.1); SODIUM LEVEL 143 MEQ/L (136-145)
[2022-05-27] MEDS: PANTOPRAZOLE 40MG TAB (PROTONIX) PO SCH (08:57)
[2022-05-27] MEDS: ASPIRIN 81MG ENTERIC TABLET PO SCH (08:57)
[2022-05-27] MEDS: busPIRone 10 MG TAB PO SCH ×2 (08:57→21:01)
[2022-05-27] MEDS: GABAPENTIN 100 MG CAP PO SCH ×2 (08:57→15:12)
[2022-05-27] MEDS: ENOXAPARIN 40MG/0.4ML SYRINGE (J1650 PER 10MG) SC SCH (08:57)
[2022-05-27] MEDS ORDERED: ISOVUE-370 76% 100ML VIAL As Ordered ONE (10:34)
[2022-05-27 14:00] VITALS: BP 141/77
[2022-05-27] MEDS: VITAMIN D 1,000 INTERNATIONAL UNITS TABLET PO SCH (16:09)
[2022-05-27] MEDS: ROSUVASTATIN 10 MG TAB (CRESTOR) PO SCH (21:01)
[2022-05-27 22:00] VITALS: BP 136/79
[2022-05-28 06:10] LABS: HEMATOCRIT 38.1 % (36.0-47.0); HEMOGLOBIN 12.8 g/dl (12.0-15.5); MEAN CORPUSCULAR HGB CONC 33.6 g/dl (32.0-36.5); MEAN CORPUSCULAR VOLUME 104.1 fl (80.0-96.0); PLATELET COUNT, AUTOMATED 170 10^3/uL (150-450); RED BLOOD COUNT 3.66 10^6/uL (4.00-5.40); WHITE BLOOD COUNT 4.4 10^3/uL (4.0-10.0)
[2022-05-28 06:44] LABS: BLOOD UREA NITROGEN 14 MG/DL (7-18); CARBON DIOXIDE LEVEL 27 MEQ/L (21-32); CHLORIDE LEVEL 112 MEQ/L (98-107); CREATININE FOR GFR 0.41 MG/DL (0.55-1.30); GLOMERULAR FILTRATION RATE > 60.0 (>39); GLUCOSE, FASTING 104 MG/DL (70-100); POTASSIUM SERUM 3.5 MEQ/L (3.5-5.1); SODIUM LEVEL 145 MEQ/L (136-145)
[2022-05-28] MEDS: SENOKOT S TAB PO PRN (08:33)
[2022-05-28] MEDS: ASPIRIN 81MG ENTERIC TABLET PO SCH (08:33)
[2022-05-28] MEDS: VITAMIN D 1,000 INTERNATIONAL UNITS TABLET PO SCH (08:33)
[2022-05-28] MEDS: GABAPENTIN 100 MG CAP PO SCH ×2 (08:33→15:07)
[2022-05-28] MEDS: busPIRone 10 MG TAB PO SCH ×2 (08:33→20:20)
[2022-05-28] MEDS: PANTOPRAZOLE 40MG TAB (PROTONIX) PO SCH (08:33)
[2022-05-28] MEDS: ENOXAPARIN 40MG/0.4ML SYRINGE (J1650 PER 10MG) SC SCH (08:34)
[2022-05-28 14:00] VITALS: BP 119/75
[2022-05-28] MEDS: NYSTATIN 100,000 UNITS/GM TOPICAL PWD 15 GM TOP SCH ×2 (14:02→20:21)
[2022-05-28] MEDS: ROSUVASTATIN 10 MG TAB (CRESTOR) PO SCH (20:19)
[2022-05-28] MEDS: ACETAMINOPHEN TAB 650MG DOSE (2X325MG) PO PRN ×2 (20:20→21:45)
[2022-05-28 22:00] VITALS: BP 110/64
[2022-05-29] MEDS: ACETAMINOPHEN TAB 650MG DOSE (2X325MG) PO PRN ×3 (04:16→20:24)
[2022-05-29 05:52] LABS: HEMATOCRIT 38.6 % (36.0-47.0); HEMOGLOBIN 12.9 g/dl (12.0-15.5); MEAN CORPUSCULAR HEMOGLOBIN 34.1 pg (27.0-33.0); MEAN CORPUSCULAR HGB CONC 33.4 g/dl (32.0-36.5); MEAN CORPUSCULAR VOLUME 102.1 fl (80.0-96.0); PLATELET COUNT, AUTOMATED 163 10^3/uL (150-450); RED BLOOD COUNT 3.78 10^6/uL (4.00-5.40); WHITE BLOOD COUNT 4.7 10^3/uL (4.0-10.0)
[2022-05-29 06:00] VITALS: BP 129/78
[2022-05-29 06:28] LABS: BLOOD UREA NITROGEN 14 MG/DL (7-18); CALCIUM LEVEL 8.4 MG/DL (8.8-10.2); CARBON DIOXIDE LEVEL 28 MEQ/L (21-32); CHLORIDE LEVEL 112 MEQ/L (98-107); CREATININE FOR GFR 0.46 MG/DL (0.55-1.30); GLOMERULAR FILTRATION RATE > 60.0 (>39); GLUCOSE, FASTING 110 MG/DL (70-100); POTASSIUM SERUM 3.6 MEQ/L (3.5-5.1); SODIUM LEVEL 145 MEQ/L (136-145)
[2022-05-29] MEDS: PANTOPRAZOLE 40MG TAB (PROTONIX) PO SCH (08:55)
[2022-05-29] MEDS: VITAMIN D 1,000 INTERNATIONAL UNITS TABLET PO SCH (08:55)
[2022-05-29] MEDS: GABAPENTIN 100 MG CAP PO SCH ×2 (08:55→15:02)
[2022-05-29] MEDS: busPIRone 10 MG TAB PO SCH ×2 (08:55→20:18)
[2022-05-29] MEDS: ASPIRIN 81MG ENTERIC TABLET PO SCH (08:55)
[2022-05-29] MEDS: ENOXAPARIN 40MG/0.4ML SYRINGE (J1650 PER 10MG) SC SCH (08:56)
[2022-05-29] MEDS: NYSTATIN 100,000 UNITS/GM TOPICAL PWD 15 GM TOP SCH ×2 (08:56→20:28)
[2022-05-29 14:00] VITALS: BP 104/59
[2022-05-29] MEDS: ROSUVASTATIN 10 MG TAB (CRESTOR) PO SCH (20:18)
[2022-05-29] MEDS: RAMELTEON 8 MG TAB (ROZEREM) PO PRN (20:23)
[2022-05-29 21:41] VITALS: BP 102/60
[2022-05-30] MEDS: ACETAMINOPHEN TAB 650MG DOSE (2X325MG) PO PRN ×3 (00:26→20:58)
[2022-05-30 06:00] VITALS: BP 143/84
[2022-05-30] MEDS: IBUPROFEN 400MG TAB PO PRN (06:28)
[2022-05-30] MEDS: VITAMIN D 1,000 INTERNATIONAL UNITS TABLET PO SCH (09:21)
[2022-05-30] MEDS: PANTOPRAZOLE 40MG TAB (PROTONIX) PO SCH (09:21)
[2022-05-30] MEDS: GABAPENTIN 100 MG CAP PO SCH ×2 (09:21→14:16)
[2022-05-30] MEDS: ASPIRIN 81MG ENTERIC TABLET PO SCH (09:21)
[2022-05-30] MEDS: busPIRone 10 MG TAB PO SCH ×2 (09:21→20:58)
[2022-05-30] MEDS: ENOXAPARIN 40MG/0.4ML SYRINGE (J1650 PER 10MG) SC SCH (09:22)
[2022-05-30] MEDS: NYSTATIN 100,000 UNITS/GM TOPICAL PWD 15 GM TOP SCH ×2 (09:26→20:59)
[2022-05-30 14:00] VITALS: BP 114/61
[2022-05-30] MEDS: RAMELTEON 8 MG TAB (ROZEREM) PO PRN (20:57)
[2022-05-30] MEDS: ROSUVASTATIN 10 MG TAB (CRESTOR) PO SCH (20:58)
[2022-05-30 22:00] VITALS: BP 142/90
[2022-05-31] MEDS: ACETAMINOPHEN TAB 650MG DOSE (2X325MG) PO PRN ×3 (04:12→20:40)
[2022-05-31 06:00] VITALS: BP 139/68
[2022-05-31] MEDS: ENOXAPARIN 40MG/0.4ML SYRINGE (J1650 PER 10MG) SC SCH (08:57)
[2022-05-31] MEDS: NYSTATIN 100,000 UNITS/GM TOPICAL PWD 15 GM TOP SCH ×2 (08:57→20:41)
[2022-05-31] MEDS: ASPIRIN 81MG ENTERIC TABLET PO SCH (08:57)
[2022-05-31] MEDS: GABAPENTIN 100 MG CAP PO SCH ×2 (08:58→15:01)
[2022-05-31] MEDS: PANTOPRAZOLE 40MG TAB (PROTONIX) PO SCH (08:58)
[2022-05-31] MEDS: VITAMIN D 1,000 INTERNATIONAL UNITS TABLET PO SCH (08:58)
[2022-05-31] MEDS: busPIRone 10 MG TAB PO SCH ×2 (08:59→20:40)
[2022-05-31] MEDS: ROSUVASTATIN 10 MG TAB (CRESTOR) PO SCH (20:40)
[2022-05-31 20:41] VITALS: BP 137/72
[2022-05-31] MEDS: RAMELTEON 8 MG TAB (ROZEREM) PO PRN (20:41)
[2022-06-01] MEDS: SENOKOT S TAB PO PRN (01:56)
[2022-06-01] MEDS: ACETAMINOPHEN TAB 650MG DOSE (2X325MG) PO PRN (01:56)
[2022-06-01 06:00] VITALS: BP 136/71
[2022-06-01] MEDS: IBUPROFEN 400MG TAB PO PRN (06:12)
[2022-06-01] MEDS: ASPIRIN 81MG ENTERIC TABLET PO SCH (09:18)
[2022-06-01] MEDS: PANTOPRAZOLE 40MG TAB (PROTONIX) PO SCH (09:18)
[2022-06-01] MEDS: busPIRone 10 MG TAB PO SCH (09:18)
[2022-06-01] MEDS: GABAPENTIN 100 MG CAP PO SCH (09:18)
[2022-06-01] MEDS: VITAMIN D 1,000 INTERNATIONAL UNITS TABLET PO SCH (09:18)
[2022-06-01] MEDS: ENOXAPARIN 40MG/0.4ML SYRINGE (J1650 PER 10MG) SC SCH (09:19)
[2022-06-01] MEDS: NYSTATIN 100,000 UNITS/GM TOPICAL PWD 15 GM TOP SCH (09:21)
[2022-06-01] MEDS ORDERED: NYST10006 TOP (12:14)
[2022-06-01] MEDS ORDERED: VITAD1000T PO (12:14)
== END 2022-06-01 13:55 | DRG 695 ==
LOC: M ED 14:33 → M ED INP 14:34 → ENRESERV 16:44 → M MS5PR 18:40 → OBSVTOIN 05-28 23:26
PROVIDERS: ADMIT Internal Medicine; ATTEND Internal Medicine
DX: R33.9 Retention of urine, unspecified (principal); G93.41 Metabolic encephalopathy; I10 Essential (primary) hypertension; E78.5 Hyperlipidemia, unspecified; J44.9 Chronic obstructive pulmonary disease, unspecified; G24.01 Drug induced subacute dyskinesia; M81.0 Age-related osteoporosis without current pathological fracture; G47.33 Obstructive sleep apnea (adult) (pediatric); F32.A Depression, unspecified; M19.90 Unspecified osteoarthritis, unspecified site; Z66 Do not resuscitate; Z79.82 Long term (current) use of aspirin; Z79.899 Other long term (current) drug therapy; Z88.2 Allergy status to sulfonamides

== ENCOUNTER 2022-07-31 12:11 | Emergency (ER) | payer BC, MEDICARE ==
[~2022-07-31] VITALS: Ht 165.1 cm; Wt 78.4 kg
[~2022-07-31 12:11] MED LIST changes: +ROSU5TAB5 PO; +VITAD1000T PO
[2022-07-31 12:13] VITALS: BP 160/79
[2022-07-31 14:52] LABS: BASO # 0.1 10^3/uL (0.0-0.2); BASO % 0.7 % (0.0-1.0); EOS # 0.4 10^3/uL (0.0-0.5); EOS % 5.1 % (0.0-3.0); HEMATOCRIT 45.8 % (36.0-47.0); LYMPH # 1.8 10^3/uL (1.5-5.0); LYMPH % 22.8 % (24.0-44.0); MEAN CORPUSCULAR HEMOGLOBIN 34.6 pg (27.0-33.0); MEAN CORPUSCULAR HGB CONC 32.8 g/dl (32.0-36.5); MEAN CORPUSCULAR VOLUME 105.8 fl (80.0-96.0); MONO % 12.1 % (2.0-8.0); NEUTROPHILS # 4.7 10^3/uL (1.5-8.5); NEUTROPHILS % 59.1 % (36.0-66.0); PLATELET COUNT, AUTOMATED 144 10^3/uL (150-450); RED BLOOD COUNT 4.33 10^6/uL (4.00-5.40)
[2022-07-31] MEDS ORDERED: CEFD300C41 PO (15:28)
[2022-07-31] MEDS ORDERED: CEFDINIR 300 MG CAP (OMNICEF) PO ONE (15:30)
== END 2022-07-31 16:01 | disposition home or self-care (01) ==
LOC: M ED 12:11
DX: N39.0 Urinary tract infection, site not specified (principal); E11.9 Type 2 diabetes mellitus without complications; I10 Essential (primary) hypertension; Z87.442 Personal history of urinary calculi; Z87.448 Personal history of other diseases of urinary system; Z79.82 Long term (current) use of aspirin; Z79.899 Other long term (current) drug therapy; Z88.2 Allergy status to sulfonamides

== ENCOUNTER 2022-08-29 01:22 | Inpatient (IN) | payer MEDICARE ==
[~2022-08-29] VITALS: Ht 170.2 cm; Wt 75.0 kg
[~2022-08-29 01:22] MED LIST changes: +CEFD300C41 PO
[2022-08-29 05:49] LABS: BASO # 0.1 10^3/uL (0.0-0.2); BASO % 0.7 % (0.0-1.0); EOS # 0.4 10^3/uL (0.0-0.5); EOS % 5.1 % (0.0-3.0); HEMATOCRIT 45.6 % (36.0-47.0); HEMOGLOBIN 14.9 g/dl (12.0-15.5); LYMPH # 1.6 10^3/uL (1.5-5.0); LYMPH % 23.7 % (24.0-44.0); MEAN CORPUSCULAR HEMOGLOBIN 34.8 pg (27.0-33.0); MEAN CORPUSCULAR HGB CONC 32.7 g/dl (32.0-36.5); MEAN CORPUSCULAR VOLUME 106.5 fl (80.0-96.0); MONO # 0.8 10^3/uL (0.0-0.8); MONO % 11.2 % (2.0-8.0); PLATELET COUNT, AUTOMATED 156 10^3/uL (150-450); RED BLOOD COUNT 4.28 10^6/uL (4.00-5.40); WHITE BLOOD COUNT 6.8 10^3/uL (4.0-10.0)
[2022-08-29] MEDS ORDERED: KETOROLAC TROMETHAMINE 10 MG TAB PO ONE (06:00)
[2022-08-29 06:14] LABS: BLOOD UREA NITROGEN 24 MG/DL (9-23); CALCIUM LEVEL 9.4 MG/DL (8.3-10.6); CARBON DIOXIDE LEVEL 28 MMOL/L (20-31); CHLORIDE LEVEL 107 MMOL/L (98-107); CREATININE FOR GFR 0.78 MG/DL (0.55-1.30); GLOMERULAR FILTRATION RATE > 60.0 (>39); GLUCOSE, FASTING 111 MG/DL (74-106); SODIUM LEVEL 144 MMOL/L (136-145)
[2022-08-29] MEDS ORDERED: LIDOCAINE 5% (LIDODERM) PATCH TD ONE (06:35)
[2022-08-29] MEDS ORDERED: NS 500 ML IV ONE (06:40)
[2022-08-29 07:01] LABS: ALBUMIN 3.7 G/DL (3.2-5.2); ALT/SGPT 18 U/L (7.0-40); BILIRUBIN,DIRECT 0.3 MG/DL (<0.4); TOTAL PROTEIN 6.6 G/DL (5.7-8.2)
[2022-08-29] MEDS ORDERED: cefTRIAXone SOD 1 GM in D5W MINI-BAG PLUS 50 ML IV ONE (08:15)
[2022-08-29 08:42] LABS: RSV AMPLIFICATION NEGATIVE (NEGATIVE)
[2022-08-29] MEDS ORDERED: KETOROLAC 30 MG/ML 1ML VIAL IV PRN (09:00)
[2022-08-29] MEDS ORDERED: NS 1,000 ML IV SCH (09:00)
[2022-08-29 10:53] LABS: INR 1.04; PROTHROMBIN TIME 13.8 SECONDS (12.5-14.5)
[2022-08-29 10:54] LABS: PARTIAL THROMBOPLASTIN TIME 27.2 SECONDS (24.8-34.2)
[2022-08-29] MEDS: DOCUSATE SODIUM 100MG CAPSULE PO SCH ×2 (10:58→21:04)
[2022-08-29] MEDS ORDERED: ISOVUE-300 61% 50ML VIAL As Ordered ONE (12:16)
[2022-08-29] MEDS ORDERED: propofoL 200 MG/20 ML VIAL As Ordered ONE (13:23)
[2022-08-29] MEDS ORDERED: ONDANSETRON 4MG 2ML VIAL As Ordered ONE (13:23)
[2022-08-29] MEDS ORDERED: dexameTHASONE 4 MG/ML 1ML VIAL (J1100 PER 1MG) As Ordered ONE (13:23)
[2022-08-29] MEDS ORDERED: LIDOCAINE 2% 100MG/5ML SDV (FOR ANES.) As Ordered ONE (13:23)
[2022-08-29] MEDS ORDERED: fentaNYL 100 MCG/2 ML INJECTION As Ordered ONE (13:23)
[2022-08-29] MEDS ORDERED: ePHEDrine SULFATE 25 MG/5 ML(5MG/ML) SYRINGE As Ordered ONE (13:23)
[2022-08-29] MEDS ORDERED: MIDAZOLAM INJ 2MG/2ML VIAL (J2250 PER 1MG) As Ordered ONE (13:23)
[2022-08-29] MEDS ORDERED: ACETAMINOPHEN 1000MG 100ML IV BAG As Ordered ONE (13:23)
[2022-08-29] MEDS ORDERED: HYDROMORPHONE HCL 0.5 MG/ 0.5 ML SYRINGE (J1170 PER 1) IV PRN (13:40)
[2022-08-29] MEDS ORDERED: fentaNYL 100 MCG/2 ML INJECTION IV PRN (13:40)
[2022-08-29] MEDS ORDERED: LR 1,000 ML IV SCH (13:40)
[2022-08-29] MEDS ORDERED: ONDANSETRON 4MG 2ML VIAL IV PRN (13:40)
[2022-08-29] MEDS ORDERED: oxyCODONE 5MG TAB PO PRN ×2 (13:40→23:45)
[2022-08-29 14:38] VITALS: BP 154/94
[2022-08-29] MEDS ORDERED: BUSP15TA47 PO (15:03)
[2022-08-29 15:05] VITALS: BP 155/92
[2022-08-29] MEDS ORDERED: GABA-1171 PO ×2 (15:05→15:06)
[2022-08-29] MEDS ORDERED: SENN-85 PO (15:08)
[2022-08-29] MEDS ORDERED: APAP325T4 PO (15:09)
[2022-08-29] MEDS ORDERED: SYMB16INH INH (15:09)
[2022-08-29] MEDS ORDERED: MELACAP PO (15:14)
[2022-08-29] MEDS ORDERED: VALB40CA PO (15:14)
[2022-08-29] MEDS ORDERED: ACET1TAB55 PO (15:15)
[2022-08-29] MEDS ORDERED: HOME MED LIST COMPLETE! XX SCH (15:20)
[2022-08-29 16:02] VITALS: BP 160/94
[2022-08-29 17:18] VITALS: BP 155/89
[2022-08-29] MEDS: ACETAMINOPHEN 500 MG TAB PO SCH (21:04)
[2022-08-29] MEDS: KETOROLAC TROMETHAMINE 10 MG TAB PO SCH (21:04)
[2022-08-29 21:05] VITALS: BP 149/87
[2022-08-30 01:30] VITALS: BP 145/84
[2022-08-30 06:57] LABS: BASO % 0.2 % (0.0-1.0); HEMATOCRIT 37.6 % (36.0-47.0); LYMPH # 1.2 10^3/uL (1.5-5.0); LYMPH % 18.8 % (24.0-44.0); MEAN CORPUSCULAR HEMOGLOBIN 35.5 pg (27.0-33.0); MEAN CORPUSCULAR HGB CONC 34.3 g/dl (32.0-36.5); MEAN CORPUSCULAR VOLUME 103.6 fl (80.0-96.0); MONO # 0.7 10^3/uL (0.0-0.8); MONO % 10.1 % (2.0-8.0); NEUTROPHILS # 4.6 10^3/uL (1.5-8.5); NEUTROPHILS % 70.6 % (36.0-66.0); PLATELET COUNT, AUTOMATED 142 10^3/uL (150-450); RED BLOOD COUNT 3.63 10^6/uL (4.00-5.40); WHITE BLOOD COUNT 6.5 10^3/uL (4.0-10.0)
[2022-08-30 06:58] LABS: HEMOGLOBIN 12.9 g/dl (12.0-15.5)
[2022-08-30 07:30] LABS: BLOOD UREA NITROGEN 22 MG/DL (9-23); CARBON DIOXIDE LEVEL 25 MMOL/L (20-31); CHLORIDE LEVEL 106 MMOL/L (98-107); CREATININE FOR GFR 0.79 MG/DL (0.55-1.30); GLOMERULAR FILTRATION RATE > 60.0 (>39); GLUCOSE, FASTING 120 MG/DL (74-106); POTASSIUM SERUM 3.6 MMOL/L (3.5-5.1); SODIUM LEVEL 140 MMOL/L (136-145)
[2022-08-30] MEDS ORDERED: KETO10TAB PO (08:46)
[2022-08-30] MEDS ORDERED: OXYC-517 PO (08:46)
[2022-08-30 10:00] VITALS: BP 147/87
[2022-08-30] MEDS: ACETAMINOPHEN 500 MG TAB PO SCH ×2 (10:33→20:25)
[2022-08-30] MEDS: DOCUSATE SODIUM 100MG CAPSULE PO SCH ×2 (10:33→20:23)
[2022-08-30] MEDS: KETOROLAC TROMETHAMINE 10 MG TAB PO SCH ×2 (10:34→20:24)
[2022-08-30] MEDS ORDERED: cefTRIAXone SOD 1 GM in D5W MINI-BAG PLUS 50 ML IV SCH (11:00)
[2022-08-30 21:45] VITALS: BP 146/85
[2022-08-31 06:00] VITALS: BP 139/81
[2022-08-31 07:18] LABS: BASO # 0.1 10^3/uL (0.0-0.2); BASO % 1.1 % (0.0-1.0); EOS # 0.2 10^3/uL (0.0-0.5); EOS % 4.1 % (0.0-3.0); HEMATOCRIT 38.5 % (36.0-47.0); HEMOGLOBIN 12.9 g/dl (12.0-15.5); LYMPH # 2.1 10^3/uL (1.5-5.0); LYMPH % 37.3 % (24.0-44.0); MEAN CORPUSCULAR HEMOGLOBIN 35.1 pg (27.0-33.0); MEAN CORPUSCULAR HGB CONC 33.5 g/dl (32.0-36.5); MEAN CORPUSCULAR VOLUME 104.6 fl (80.0-96.0); MONO # 0.7 10^3/uL (0.0-0.8); MONO % 11.9 % (2.0-8.0); NEUTROPHILS # 2.6 10^3/uL (1.5-8.5); NEUTROPHILS % 45.4 % (36.0-66.0); PLATELET COUNT, AUTOMATED 145 10^3/uL (150-450); RED BLOOD COUNT 3.68 10^6/uL (4.00-5.40); WHITE BLOOD COUNT 5.6 10^3/uL (4.0-10.0)
[2022-08-31 08:04] LABS: BLOOD UREA NITROGEN 28 MG/DL (9-23); CALCIUM LEVEL 8.4 MG/DL (8.3-10.6); CARBON DIOXIDE LEVEL 26 MMOL/L (20-31); CHLORIDE LEVEL 108 MMOL/L (98-107); CREATININE FOR GFR 0.75 MG/DL (0.55-1.30); GLOMERULAR FILTRATION RATE > 60.0 (>39); GLUCOSE, FASTING 89 MG/DL (74-106); POTASSIUM SERUM 3.4 MMOL/L (3.5-5.1); SODIUM LEVEL 143 MMOL/L (136-145)
[2022-08-31] MEDS ORDERED: POTASSIUM CHLORIDE 10MEQ SR TABLET PO ONE (08:15)
[2022-08-31] MEDS: DOCUSATE SODIUM 100MG CAPSULE PO SCH (09:42)
[2022-08-31] MEDS: ACETAMINOPHEN 500 MG TAB PO SCH (09:42)
[2022-08-31] MEDS: KETOROLAC TROMETHAMINE 10 MG TAB PO SCH (09:43)
[2022-08-31] MEDS ORDERED: CEFDINIR 300 MG CAP (OMNICEF) PO ONE (11:25)
[2022-08-31] MEDS ORDERED: PROBCAP14 PO (11:29)
[2022-08-31] MEDS ORDERED: CEFD300C41 PO (11:29)
[2022-08-31] MEDS ORDERED: LIDO5DIS41 TOP (12:36)
== END 2022-08-31 13:15 | disposition home or self-care (01) | DRG 661 ==
LOC: M ED 01:22 → EDBD 01:22 → M ED INP 09:00 → M MS5PR 12:35
PROVIDERS: ADMIT Internal Medicine Nephrology; ATTEND Internal Medicine Nephrology
PROC: 0T778DZ Dilation of Left Ureter with Intraluminal Device, Via Natural or Artificial Opening Endoscopic (ICD-10-PCS; principal; 2022-08-29 13:00)
DX: N13.6 Pyonephrosis (principal); R29.6 Repeated falls; E86.0 Dehydration; Z66 Do not resuscitate; I10 Essential (primary) hypertension; G47.33 Obstructive sleep apnea (adult) (pediatric); M19.90 Unspecified osteoarthritis, unspecified site; F32.A Depression, unspecified; J44.9 Chronic obstructive pulmonary disease, unspecified; G24.01 Drug induced subacute dyskinesia; N39.41 Urge incontinence; S30.0XXA Contusion of lower back and pelvis, initial encounter; W01.0XXA Fall on same level from slipping, tripping and stumbling without subsequent striking against object, initial encounter; Y92.009 Unspecified place in unspecified non-institutional (private) residence as the place of occurrence of the external cause; M48.061 Spinal stenosis, lumbar region without neurogenic claudication; Z79.82 Long term (current) use of aspirin; Z79.899 Other long term (current) drug therapy; Z88.1 Allergy status to other antibiotic agents; Z88.2 Allergy status to sulfonamides; Z88.8 Allergy status to other drugs, medicaments and biological substances; D05.10 Intraductal carcinoma in situ of unspecified breast; R26.89 Other abnormalities of gait and mobility; Z90.49 Acquired absence of other specified parts of digestive tract; Z90.79 Acquired absence of other genital organ(s); Z98.41 Cataract extraction status, right eye; Z98.42 Cataract extraction status, left eye

== ENCOUNTER → 2022-09-08 | Outpatient (REF) | payer MEDICARE, BC ==
[~2022-09-08] MED LIST changes: +ACET1TAB55 PO; +APAP325T4 PO; +BUSP15TA47 PO; +KETO10TAB PO; +LIDO5DIS41 TOP; +MELACAP PO; +OXYC-517 PO; +PROBCAP14 PO; +SENN-85 PO; +SYMB16INH INH
[2022-09-09 13:29] LABS: APPEARANCE, URINE MANUAL CLOUDY (CLEAR)
[2022-09-09 13:30] LABS: BILIRUBIN, URINE MANUAL NEGATIVE (NEGATIVE); BLOOD URINE MANUAL POSITIVE (NEGATIVE); COLOR, URINE MANUAL AMBER (YELLOW); GLUCOSE, URINE (UA) MANUAL NEGATIVE (NEGATIVE); KETONE, URINE MANUAL NEGATIVE (NEGATIVE); LEUKOCYTE ESTERASE, URINE MAN POSITIVE (NEGATIVE); NITRITE, URINE MANUAL NEGATIVE (NEGATIVE); PROTEIN, URINE MANUAL 3+ mg/dL (NEGATIVE); UROBILINOGEN, URINE MANUAL NORMAL (NORMAL)
[2022-09-09 13:50] LABS: BACTERIA, URINE SMALL AMOUNT; MUCUS, URINE SMALL AMOUNT (NEGATIVE); RBC, URINE TNTC /hpf (0-3); SQUAMOUS EPITHELIAL CELL URINE MOD AMOUNT /hpf (SMALL AMT)
[2022-09-09 13:51] LABS: CALCIUM OXALATE CRYSTALS,URINE SMALL AMOUNT /hpf
== END ==
LOC: M LAB REF 12:30
PROVIDERS: ATTEND Internal Medicine
DX: N20.0 Calculus of kidney (principal)

== ENCOUNTER → 2022-09-18 | Outpatient (REF) | payer MEDICARE ==
[2022-09-18 14:32] LABS: APPEARANCE, URINE MANUAL HAZY (CLEAR); COLOR, URINE MANUAL AMBER (YELLOW)
[2022-09-18 14:35] LABS: BILIRUBIN, URINE MANUAL 1+ (NEGATIVE); BLOOD URINE MANUAL POSITIVE (NEGATIVE); GLUCOSE, URINE (UA) MANUAL NEGATIVE (NEGATIVE); KETONE, URINE MANUAL NEGATIVE (NEGATIVE); LEUKOCYTE ESTERASE, URINE MAN POSITIVE (NEGATIVE); NITRITE, URINE MANUAL NEGATIVE (NEGATIVE); PROTEIN, URINE MANUAL 1+ mg/dL (NEGATIVE); UROBILINOGEN, URINE MANUAL NORMAL (NORMAL)
[2022-09-18 14:53] LABS: BACTERIA, URINE SMALL AMOUNT; HYALINE CAST, URINE NONE SEEN /lpf (0-1); RBC, URINE TNTC /hpf (0-3); SQUAMOUS EPITHELIAL CELL URINE MOD AMOUNT /hpf (SMALL AMT)
== END ==
LOC: M LAB REF 13:04
PROVIDERS: ATTEND Internal Medicine
DX: N20.0 Calculus of kidney (principal); Z01.818 Encounter for other preprocedural examination

== ENCOUNTER → 2022-09-22 | Outpatient (CLI) | payer BC, MEDICARE | LOC: M RAD 10:46 | PROVIDERS: ATTEND Physician Assistant | DX: Z48.816 Encounter for surgical aftercare following surgery on the genitourinary system (principal); M47.9 Spondylosis, unspecified; I70.0 Atherosclerosis of aorta ==

== ENCOUNTER → 2022-09-22 | Outpatient (CLI) | payer MEDICARE | LOC: M LABSMTC 10:27 | PROVIDERS: ATTEND Anesthesiology | DX: Z01.812 Encounter for preprocedural laboratory examination (principal); Z20.822 Contact with and (suspected) exposure to COVID-19 ==

== ENCOUNTER 2022-09-24 07:01 | Inpatient (IN) | payer BC, MEDICARE ==
[~2022-09-24] VITALS: Ht 165.1 cm; Wt 79.0 kg
[2022-09-24] MEDS ORDERED: ceFAZolin SOD 2 GM in IV 1 EA IV ONE (07:20)
[2022-09-24] MEDS ORDERED: LIDOCAINE 2% 100MG/5ML SDV (FOR ANES.) As Ordered ONE (08:37)
[2022-09-24] MEDS ORDERED: propofoL 200 MG/20 ML VIAL As Ordered ONE ×2 (08:37→09:26)
[2022-09-24] MEDS ORDERED: TRAM50TA2 PO (09:32)
[2022-09-24] MEDS ORDERED: FLOM0.4C39 PO (09:32)
[2022-09-24] MEDS: traMADol 50 MG TAB PO PRN ×2 (13:01→19:15)
[2022-09-24 16:01] LABS: HEMATOCRIT 42.5 % (36.0-47.0); HEMOGLOBIN 14.3 g/dl (12.0-15.5); MEAN CORPUSCULAR HEMOGLOBIN 35.3 pg (27.0-33.0); MEAN CORPUSCULAR HGB CONC 33.6 g/dl (32.0-36.5); MEAN CORPUSCULAR VOLUME 104.9 fl (80.0-96.0); PLATELET COUNT, AUTOMATED 130 10^3/uL (150-450); RED BLOOD COUNT 4.05 10^6/uL (4.00-5.40); WHITE BLOOD COUNT 7.8 10^3/uL (4.0-10.0)
[2022-09-24 16:14] LABS: INR 1.02; PROTHROMBIN TIME 13.6 SECONDS (12.5-14.5)
[2022-09-24 16:15] LABS: PARTIAL THROMBOPLASTIN TIME 28.1 SECONDS (24.8-34.2)
[2022-09-24 16:21] LABS: ALBUMIN 3.2 G/DL (3.2-5.2); ALKALINE PHOSPHATASE 106 U/L (46-116); ALT/SGPT 20 U/L (7.0-40); AST/SGOT 27 U/L (<34); BILIRUBIN,TOTAL 1.1 MG/DL (0.3-1.2); BLOOD UREA NITROGEN 13 MG/DL (9-23); CALCIUM LEVEL 9.6 MG/DL (8.3-10.6); CARBON DIOXIDE LEVEL 29 MMOL/L (20-31); CHLORIDE LEVEL 108 MMOL/L (98-107); CREATININE FOR GFR 0.64 MG/DL (0.55-1.30); GLOMERULAR FILTRATION RATE > 60.0 (>39); GLUCOSE, FASTING 107 MG/DL (74-106); POTASSIUM SERUM 3.4 MMOL/L (3.5-5.1); SODIUM LEVEL 145 MMOL/L (136-145); TOTAL PROTEIN 5.9 G/DL (5.7-8.2)
[2022-09-24 17:45] VITALS: BP 168/93
[2022-09-24] MEDS ORDERED: POTASSIUM CHLORIDE 10MEQ SR TABLET PO ONE (18:00)
[2022-09-24] MEDS: LACTOBACILLUS ACIDOPHILUS CAP (BACID) PO SCH (18:06)
[2022-09-24] MEDS: ACETAMINOPHEN TAB 650MG DOSE (2X325MG) PO PRN (18:07)
[2022-09-24] MEDS: SYMBICORT 160/4.5MCG INHALER 6GM INH SCH (19:51)
[2022-09-24] MEDS: GABAPENTIN 100 MG CAP PO SCH (20:16)
[2022-09-24] MEDS: NYSTATIN 100,000 UNITS/GM TOPICAL PWD 15GM TOP SCH (20:17)
[2022-09-24] MEDS: busPIRone 5 MG TAB PO SCH (20:17)
[2022-09-24] MEDS: ROSUVASTATIN 10 MG TAB (CRESTOR) PO SCH (20:17)
[2022-09-24 22:00] VITALS: BP 156/78
[2022-09-25] VITALS (7 sets, daily range): BP systolic 124–170; BP diastolic 71–92
[2022-09-25] MEDS ORDERED: UNRESOLVED CLARIFICATION ENTRY XX SCH (00:01)
[2022-09-25 06:10] LABS: HEMATOCRIT 36.4 % (36.0-47.0); MEAN CORPUSCULAR HEMOGLOBIN 35.4 pg (27.0-33.0); MEAN CORPUSCULAR HGB CONC 33.8 g/dl (32.0-36.5); MEAN CORPUSCULAR VOLUME 104.9 fl (80.0-96.0); PLATELET COUNT, AUTOMATED 110 10^3/uL (150-450); RED BLOOD COUNT 3.47 10^6/uL (4.00-5.40); WHITE BLOOD COUNT 5.2 10^3/uL (4.0-10.0)
[2022-09-25 06:23] LABS: HEMOGLOBIN 12.3 g/dl (12.0-15.5)
[2022-09-25 06:28] LABS: ALBUMIN 2.7 G/DL (3.2-5.2); ALKALINE PHOSPHATASE 88 U/L (46-116); ALT/SGPT 14 U/L (7.0-40); AST/SGOT 23 U/L (<34); BILIRUBIN,TOTAL 1.1 MG/DL (0.3-1.2); BLOOD UREA NITROGEN 16 MG/DL (9-23); CALCIUM LEVEL 8.7 MG/DL (8.3-10.6); CARBON DIOXIDE LEVEL 24 MMOL/L (20-31); CHLORIDE LEVEL 108 MMOL/L (98-107); CREATININE FOR GFR 0.54 MG/DL (0.55-1.30); GLOMERULAR FILTRATION RATE > 60.0 (>39); GLUCOSE, FASTING 95 MG/DL (74-106); POTASSIUM SERUM 3.7 MMOL/L (3.5-5.1); SODIUM LEVEL 142 MMOL/L (136-145); TOTAL PROTEIN 5.1 G/DL (5.7-8.2)
[2022-09-25] MEDS: SYMBICORT 160/4.5MCG INHALER 6GM INH SCH ×2 (07:18→20:00)
[2022-09-25] MEDS: LACTOBACILLUS ACIDOPHILUS CAP (BACID) PO SCH ×2 (08:24→17:48)
[2022-09-25] MEDS: ACETAMINOPHEN TAB 650MG DOSE (2X325MG) PO PRN (08:24)
[2022-09-25] MEDS: VITAMIN D 1,000 INTERNATIONAL UNITS TABLET PO SCH (08:24)
[2022-09-25] MEDS: busPIRone 5 MG TAB PO SCH ×3 (08:24→20:13)
[2022-09-25] MEDS: ASPIRIN 81MG ENTERIC TABLET PO SCH (08:24)
[2022-09-25] MEDS: PANTOPRAZOLE 40MG TAB (PROTONIX) PO SCH (08:25)
[2022-09-25] MEDS: GABAPENTIN 100 MG CAP PO SCH ×3 (08:25→20:13)
[2022-09-25] MEDS: NYSTATIN 100,000 UNITS/GM TOPICAL PWD 15GM TOP SCH ×3 (08:26→20:18)
[2022-09-25] MEDS: DOCUSATE SODIUM 100MG CAPSULE PO SCH (20:12)
[2022-09-25] MEDS: ROSUVASTATIN 10 MG TAB (CRESTOR) PO SCH (20:12)
[2022-09-26] VITALS: BP 140/70
[2022-09-26 04:00] VITALS: BP 180/87
[2022-09-26 05:37] LABS: HEMATOCRIT 38.5 % (36.0-47.0); HEMOGLOBIN 12.7 g/dl (12.0-15.5); MEAN CORPUSCULAR HEMOGLOBIN 34.4 pg (27.0-33.0); MEAN CORPUSCULAR VOLUME 104.3 fl (80.0-96.0); PLATELET COUNT, AUTOMATED 111 10^3/uL (150-450); RED BLOOD COUNT 3.69 10^6/uL (4.00-5.40); WHITE BLOOD COUNT 5.1 10^3/uL (4.0-10.0)
[2022-09-26] MEDS: ACETAMINOPHEN TAB 650MG DOSE (2X325MG) PO PRN ×2 (05:39→20:16)
[2022-09-26 06:09] LABS: ALBUMIN 2.7 G/DL (3.2-5.2); ALKALINE PHOSPHATASE 96 U/L (46-116); ALT/SGPT 14 U/L (7.0-40); AST/SGOT 23 U/L (<34); BILIRUBIN,TOTAL 1.1 MG/DL (0.3-1.2); BLOOD UREA NITROGEN 13 MG/DL (9-23); CALCIUM LEVEL 8.9 MG/DL (8.3-10.6); CARBON DIOXIDE LEVEL 25 MMOL/L (20-31); CHLORIDE LEVEL 109 MMOL/L (98-107); CHOLESTEROL LEVEL 148 MG/DL (<200); CHOLESTEROL RISK RATIO 2.43 (<5); CREATININE FOR GFR 0.56 MG/DL (0.55-1.30); GLOMERULAR FILTRATION RATE > 60.0 (>39); GLUCOSE, FASTING 106 MG/DL (74-106); HDL CHOLESTEROL 60.7 MG/DL (>40); LDL CHOLESTEROL 77.3 MG/DL (<100); NON-HDL-C 87 MG/DL; POTASSIUM SERUM 3.5 MMOL/L (3.5-5.1); SODIUM LEVEL 145 MMOL/L (136-145); TOTAL PROTEIN 5.3 G/DL (5.7-8.2); TRIGLYCERIDES LEVEL 50 MG/DL (<150)
[2022-09-26] MEDS: SYMBICORT 160/4.5MCG INHALER 6GM INH SCH ×2 (07:18→19:27)
[2022-09-26 08:00] VITALS: BP 158/90
[2022-09-26] MEDS: GABAPENTIN 100 MG CAP PO SCH ×3 (08:17→20:13)
[2022-09-26] MEDS: LACTOBACILLUS ACIDOPHILUS CAP (BACID) PO SCH ×2 (08:17→17:06)
[2022-09-26] MEDS: VITAMIN D 1,000 INTERNATIONAL UNITS TABLET PO SCH (08:17)
[2022-09-26] MEDS: PANTOPRAZOLE 40MG TAB (PROTONIX) PO SCH (08:17)
[2022-09-26] MEDS: ASPIRIN 81MG ENTERIC TABLET PO SCH (08:17)
[2022-09-26] MEDS: busPIRone 5 MG TAB PO SCH ×3 (08:17→20:13)
[2022-09-26] MEDS: NYSTATIN 100,000 UNITS/GM TOPICAL PWD 15GM TOP SCH ×2 (08:18→20:15)
[2022-09-26] MEDS: ENOXAPARIN 40MG/0.4ML SYRINGE (J1650 PER 10MG) SC SCH (08:18)
[2022-09-26 12:00] VITALS: BP 135/75
[2022-09-26 16:00] VITALS: BP 125/61
[2022-09-26 19:37] VITALS: BP 129/70
[2022-09-26] MEDS: SENNA 8.6 MG TAB (SENOKOT) PO SCH (20:14)
[2022-09-26] MEDS: ROSUVASTATIN 10 MG TAB (CRESTOR) PO SCH (20:14)
[2022-09-27] VITALS: BP 142/74
[2022-09-27 04:00] VITALS: BP 152/84
[2022-09-27] MEDS: ACETAMINOPHEN TAB 650MG DOSE (2X325MG) PO PRN ×2 (04:16→22:17)
[2022-09-27 06:36] LABS: HEMOGLOBIN 12.6 g/dl (12.0-15.5); MEAN CORPUSCULAR HEMOGLOBIN 34.5 pg (27.0-33.0); MEAN CORPUSCULAR HGB CONC 33.2 g/dl (32.0-36.5); MEAN CORPUSCULAR VOLUME 104.1 fl (80.0-96.0); PLATELET COUNT, AUTOMATED 114 10^3/uL (150-450); RED BLOOD COUNT 3.65 10^6/uL (4.00-5.40); WHITE BLOOD COUNT 5.4 10^3/uL (4.0-10.0)
[2022-09-27 07:03] LABS: ALBUMIN 2.9 G/DL (3.2-5.2); ALKALINE PHOSPHATASE 94 U/L (46-116); ALT/SGPT 12 U/L (7.0-40); AST/SGOT 21 U/L (<34); BILIRUBIN,TOTAL 0.9 MG/DL (0.3-1.2); BLOOD UREA NITROGEN 14 MG/DL (9-23); CARBON DIOXIDE LEVEL 27 MMOL/L (20-31); CHLORIDE LEVEL 108 MMOL/L (98-107); CREATININE FOR GFR 0.55 MG/DL (0.55-1.30); GLOMERULAR FILTRATION RATE > 60.0 (>39); GLUCOSE, FASTING 98 MG/DL (74-106); POTASSIUM SERUM 3.3 MMOL/L (3.5-5.1); SODIUM LEVEL 141 MMOL/L (136-145); TOTAL PROTEIN 5.4 G/DL (5.7-8.2)
[2022-09-27] MEDS ORDERED: POTASSIUM CHLORIDE 10MEQ SR TABLET PO ONE (07:15)
[2022-09-27] MEDS: SYMBICORT 160/4.5MCG INHALER 6GM INH SCH ×2 (07:28→20:44)
[2022-09-27] MEDS: ASPIRIN 81MG ENTERIC TABLET PO SCH (07:44)
[2022-09-27] MEDS: busPIRone 5 MG TAB PO SCH ×3 (07:45→20:01)
[2022-09-27] MEDS: VITAMIN D 1,000 INTERNATIONAL UNITS TABLET PO SCH (07:45)
[2022-09-27] MEDS: LACTOBACILLUS ACIDOPHILUS CAP (BACID) PO SCH ×2 (07:46→16:46)
[2022-09-27] MEDS: ENOXAPARIN 40MG/0.4ML SYRINGE (J1650 PER 10MG) SC SCH (07:46)
[2022-09-27] MEDS: PANTOPRAZOLE 40MG TAB (PROTONIX) PO SCH (07:46)
[2022-09-27] MEDS: GABAPENTIN 100 MG CAP PO SCH ×3 (07:46→20:00)
[2022-09-27] MEDS: ROSUVASTATIN 10 MG TAB (CRESTOR) PO SCH (07:46)
[2022-09-27] MEDS: NYSTATIN 100,000 UNITS/GM TOPICAL PWD 15GM TOP SCH ×2 (07:47→20:08)
[2022-09-27 08:00] VITALS: BP 184/81
[2022-09-27] MEDS: DOCUSATE SODIUM 100MG CAPSULE PO SCH (20:01)
[2022-09-27] MEDS: RAMELTEON 8 MG TAB (ROZEREM) PO SCH (20:01)
[2022-09-27 20:45] VITALS: BP 131/60
[2022-09-28] MEDS ORDERED: TEMAZEPAM 7.5 MG CAP PO ONE (04:00)
[2022-09-28 04:59] VITALS: BP 133/61
[2022-09-28] MEDS: ACETAMINOPHEN TAB 650MG DOSE (2X325MG) PO PRN (05:20)
[2022-09-28 05:59] LABS: HEMATOCRIT 35.9 % (36.0-47.0); HEMOGLOBIN 12.2 g/dl (12.0-15.5); MEAN CORPUSCULAR HEMOGLOBIN 35.4 pg (27.0-33.0); MEAN CORPUSCULAR VOLUME 104.1 fl (80.0-96.0); PLATELET COUNT, AUTOMATED 103 10^3/uL (150-450); RED BLOOD COUNT 3.45 10^6/uL (4.00-5.40); WHITE BLOOD COUNT 4.3 10^3/uL (4.0-10.0)
[2022-09-28 06:30] LABS: ALBUMIN 2.7 G/DL (3.2-5.2); ALKALINE PHOSPHATASE 91 U/L (46-116); ALT/SGPT 14 U/L (7.0-40); AST/SGOT 23 U/L (<34); BILIRUBIN,TOTAL 0.9 MG/DL (0.3-1.2); BLOOD UREA NITROGEN 16 MG/DL (9-23); CALCIUM LEVEL 8.5 MG/DL (8.3-10.6); CARBON DIOXIDE LEVEL 28 MMOL/L (20-31); CHLORIDE LEVEL 108 MMOL/L (98-107); CREATININE FOR GFR 0.52 MG/DL (0.55-1.30); GLOMERULAR FILTRATION RATE > 60.0 (>39); GLUCOSE, FASTING 120 MG/DL (74-106); POTASSIUM SERUM 3.8 MMOL/L (3.5-5.1); SODIUM LEVEL 142 MMOL/L (136-145)
[2022-09-28 08:00] VITALS: BP 147/79
[2022-09-28] MEDS: SYMBICORT 160/4.5MCG INHALER 6GM INH SCH ×2 (08:00→20:34)
[2022-09-28] MEDS: busPIRone 5 MG TAB PO SCH ×3 (08:48→20:39)
[2022-09-28] MEDS: GABAPENTIN 100 MG CAP PO SCH ×3 (08:48→20:41)
[2022-09-28] MEDS: VITAMIN D 1,000 INTERNATIONAL UNITS TABLET PO SCH (08:48)
[2022-09-28] MEDS: LACTOBACILLUS ACIDOPHILUS CAP (BACID) PO SCH ×2 (08:48→17:22)
[2022-09-28] MEDS: PANTOPRAZOLE 40MG TAB (PROTONIX) PO SCH (08:48)
[2022-09-28] MEDS: NYSTATIN 100,000 UNITS/GM TOPICAL PWD 15GM TOP SCH ×2 (11:08→20:41)
[2022-09-28 20:00] VITALS: BP 116/63
[2022-09-28] MEDS: SENNA 8.6 MG TAB (SENOKOT) PO SCH (20:39)
[2022-09-28] MEDS: ROSUVASTATIN 10 MG TAB (CRESTOR) PO SCH (20:40)
[2022-09-28] MEDS: RAMELTEON 8 MG TAB (ROZEREM) PO SCH (20:41)
[2022-09-29] MEDS: ACETAMINOPHEN TAB 650MG DOSE (2X325MG) PO PRN (02:10)
[2022-09-29 05:21] LABS: HEMATOCRIT 35.5 % (36.0-47.0); MEAN CORPUSCULAR HEMOGLOBIN 35.8 pg (27.0-33.0); MEAN CORPUSCULAR HGB CONC 33.8 g/dl (32.0-36.5); PLATELET COUNT, AUTOMATED 123 10^3/uL (150-450); RED BLOOD COUNT 3.35 10^6/uL (4.00-5.40); WHITE BLOOD COUNT 4.8 10^3/uL (4.0-10.0)
[2022-09-29 05:51] LABS: ALBUMIN 2.6 G/DL (3.2-5.2); ALKALINE PHOSPHATASE 91 U/L (46-116); ALT/SGPT 14 U/L (7.0-40); AST/SGOT 22 U/L (<34); BILIRUBIN,TOTAL 0.6 MG/DL (0.3-1.2); BLOOD UREA NITROGEN 23 MG/DL (9-23); CALCIUM LEVEL 8.8 MG/DL (8.3-10.6); CARBON DIOXIDE LEVEL 26 MMOL/L (20-31); CHLORIDE LEVEL 108 MMOL/L (98-107); CREATININE FOR GFR 0.63 MG/DL (0.55-1.30); GLOMERULAR FILTRATION RATE > 60.0 (>39); GLUCOSE, FASTING 119 MG/DL (74-106); POTASSIUM SERUM 4.2 MMOL/L (3.5-5.1); SODIUM LEVEL 143 MMOL/L (136-145); TOTAL PROTEIN 4.9 G/DL (5.7-8.2)
[2022-09-29 08:00] VITALS: BP 132/76
[2022-09-29 08:12] VITALS: BP 144/79
[2022-09-29] MEDS: PANTOPRAZOLE 40MG TAB (PROTONIX) PO SCH (08:12)
[2022-09-29] MEDS: GABAPENTIN 100 MG CAP PO SCH ×2 (08:12→12:02)
[2022-09-29] MEDS: VITAMIN D 1,000 INTERNATIONAL UNITS TABLET PO SCH (08:12)
[2022-09-29] MEDS: NYSTATIN 100,000 UNITS/GM TOPICAL PWD 15GM TOP SCH (08:12)
[2022-09-29] MEDS: LACTOBACILLUS ACIDOPHILUS CAP (BACID) PO SCH (08:12)
[2022-09-29] MEDS: busPIRone 5 MG TAB PO SCH (08:12)
[2022-09-29] MEDS: SYMBICORT 160/4.5MCG INHALER 6GM INH SCH (08:48)
[2022-09-29] MEDS ORDERED: RAME8TAB2 PO (12:32)
[2022-09-29] MEDS ORDERED: AMLO25TA PO (12:32)
== END 2022-09-29 15:17 | disposition home or self-care (01) | DRG 694 ==
LOC: M SDC 07:01 → M MS5PR 07:02 → M SDC 17:40 → M PCU 09-25 09:16 → M SDC 09-25 09:16 → M PCU 09-25 09:17 → UNDOFXSDCSVC 09-25 09:17 → M MS5PR 09-25 09:17 → M PCU 09-25 09:20 → OBSVTOIN 09-25 16:02
PROVIDERS: ADMIT Internal Medicine; ATTEND Family Medicine
PROC: B417YZZ Fluoroscopy of Left Renal Artery using Other Contrast (ICD-10-PCS; 2022-09-24)
PROC: 0TF4XZZ Fragmentation in Left Kidney Pelvis, External Approach (ICD-10-PCS; principal; 2022-09-24 09:25)
PROC: B246ZZZ Ultrasonography of Right and Left Heart (ICD-10-PCS; 2022-09-25)
DX: N20.0 Calculus of kidney (principal); I67.4 Hypertensive encephalopathy; G45.9 Transient cerebral ischemic attack, unspecified; I10 Essential (primary) hypertension; G47.33 Obstructive sleep apnea (adult) (pediatric); M19.90 Unspecified osteoarthritis, unspecified site; J44.9 Chronic obstructive pulmonary disease, unspecified; F03.90 Unspecified dementia, unspecified severity, without behavioral disturbance, psychotic disturbance, mood disturbance, and anxiety; F32.A Depression, unspecified; R33.9 Retention of urine, unspecified; R29.6 Repeated falls; R26.89 Other abnormalities of gait and mobility; M48.061 Spinal stenosis, lumbar region without neurogenic claudication; Z85.3 Personal history of malignant neoplasm of breast; Z90.12 Acquired absence of left breast and nipple; Z92.3 Personal history of irradiation; Z92.21 Personal history of antineoplastic chemotherapy; M81.0 Age-related osteoporosis without current pathological fracture; F41.9 Anxiety disorder, unspecified; G24.01 Drug induced subacute dyskinesia; R41.82 Altered mental status, unspecified; N39.41 Urge incontinence; R51.9 Headache, unspecified; R73.03 Prediabetes; R56.9 Unspecified convulsions; Z90.49 Acquired absence of other specified parts of digestive tract; Z98.41 Cataract extraction status, right eye; Z98.42 Cataract extraction status, left eye; Z87.891 Personal history of nicotine dependence; Z79.82 Long term (current) use of aspirin; Z79.899 Other long term (current) drug therapy; Z88.0 Allergy status to penicillin; Z88.2 Allergy status to sulfonamides; Z88.8 Allergy status to other drugs, medicaments and biological substances; Z96.0 Presence of urogenital implants

== ENCOUNTER → 2022-10-07 | Outpatient (REF) | payer MEDICARE ==
[~2022-10-07] MED LIST changes: +AMLO25TA PO; +FLOM0.4C39 PO; +RAME8TAB2 PO
[2022-10-08 12:11] LABS: APPEARANCE, URINE MANUAL TURBID (CLEAR)
[2022-10-08 12:12] LABS: COLOR, URINE MANUAL RED (YELLOW)
[2022-10-08 12:13] LABS: PH,URINE MAN 5.5 UNITS (5.0 - 7.0)
[2022-10-08 12:14] LABS: GLUCOSE, URINE (UA) MANUAL NEGATIVE (NEGATIVE); PROTEIN, URINE MANUAL 3+ mg/dL (NEGATIVE); SPECIFIC GRAVITY,URINE MANUAL 1.015 (1.002-1.035)
[2022-10-08 12:15] LABS: KETONE, URINE MANUAL OBSCURED mg/dL (NEGATIVE); LEUKOCYTE ESTERASE, URINE MAN POSITIVE (NEGATIVE)
[2022-10-08 12:16] LABS: BILIRUBIN, URINE MANUAL OBSCURED (NEGATIVE); BLOOD URINE MANUAL POSITIVE (NEGATIVE); UROBILINOGEN, URINE MANUAL OBSCURED mg/dl (NORMAL)
[2022-10-08 12:17] LABS: NITRITE, URINE MANUAL OBSCURED (NEGATIVE)
[2022-10-08 12:37] LABS: RBC, URINE TNTC /hpf (0-3); SQUAMOUS EPITHELIAL CELL URINE SMALL AMOUNT /hpf (SMALL AMT)
[2022-10-08 12:38] LABS: AMORPHOUS SEDIMENT, URINE MOD AMOUNT (NEGATIVE); BACTERIA, URINE SMALL AMOUNT; HYALINE CAST, URINE NONE SEEN /lpf (0-1); MUCUS, URINE SMALL AMOUNT (NEGATIVE)
== END ==
LOC: M LAB REF 11:43
PROVIDERS: ATTEND Internal Medicine
DX: R30.0 Dysuria (principal)

== ENCOUNTER → 2022-10-13 | Outpatient (CLI) | payer MEDICARE | LOC: M RAD 11:22 | PROVIDERS: ATTEND Physician Assistant | DX: N39.0 Urinary tract infection, site not specified (principal); M47.9 Spondylosis, unspecified; I87.8 Other specified disorders of veins ==

== ENCOUNTER → 2022-10-26 | Outpatient (CLI) | payer MEDICARE | LOC: M LAB 14:47 | PROVIDERS: ATTEND Urology | DX: Z01.818 Encounter for other preprocedural examination (principal); N39.0 Urinary tract infection, site not specified; N20.0 Calculus of kidney ==

== ENCOUNTER → 2022-10-27 | Outpatient (CLI) | payer MEDICARE | LOC: M LABSMTC 10:49 | PROVIDERS: ATTEND Anesthesiology | DX: Z01.812 Encounter for preprocedural laboratory examination (principal); Z11.52 Encounter for screening for COVID-19 ==

== ENCOUNTER → 2022-10-28 | Outpatient (REF) | payer MEDICARE ==
[2022-10-28 15:49] LABS: APPEARANCE, URINE MANUAL CLOUDY (CLEAR); COLOR, URINE MANUAL RED (YELLOW)
[2022-10-28 15:51] LABS: BILIRUBIN, URINE MANUAL NEGATIVE (NEGATIVE); BLOOD URINE MANUAL POSITIVE (NEGATIVE); GLUCOSE, URINE (UA) MANUAL NEGATIVE (NEGATIVE); KETONE, URINE MANUAL NEGATIVE (NEGATIVE); LEUKOCYTE ESTERASE, URINE MAN POSITIVE (NEGATIVE); NITRITE, URINE MANUAL OBSCURED (NEGATIVE); PH,URINE MAN 6.5 UNITS (5.0 - 7.0); PROTEIN, URINE MANUAL 2+ mg/dL (NEGATIVE); SPECIFIC GRAVITY,URINE MANUAL 1.015 (1.002-1.035); UROBILINOGEN, URINE MANUAL NORMAL (NORMAL)
[2022-10-28 16:53] LABS: BACTERIA, URINE NONE SEEN; HYALINE CAST, URINE NONE SEEN /lpf (0-1); RBC, URINE TNTC /hpf (0-3); SQUAMOUS EPITHELIAL CELL URINE SMALL AMOUNT /hpf (SMALL AMT)
== END ==
LOC: M SMT 12:46
PROVIDERS: ATTEND Urology
DX: N39.0 Urinary tract infection, site not specified (principal)

== ENCOUNTER 2022-10-30 06:07 | Day surgery (SDC) | payer MEDICARE ==
[~2022-10-30] VITALS: Ht 166.4 cm; Wt 77.1 kg
[~2022-10-30 06:07] MED LIST changes: +ceFAZolin SOD 2 GM in IV 1 EA IV ONE
[2022-10-30] MEDS ORDERED: LIDOCAINE 1% SDV 5ML VIAL SC PRN (06:30)
[2022-10-30] MEDS ORDERED: LR 1,000 ML IV SCH ×2 (06:30→09:05)
[2022-10-30] MEDS ORDERED: propofoL 200 MG/20 ML VIAL As Ordered ONE (07:12)
[2022-10-30] MEDS ORDERED: LIDOCAINE 2% 100MG/5ML SDV (FOR ANES.) As Ordered ONE (07:12)
[2022-10-30] MEDS ORDERED: ISOVUE-300 61% 50ML VIAL As Ordered ONE (07:13)
[2022-10-30] MEDS ORDERED: ONDANSETRON 4MG 2ML VIAL As Ordered ONE (07:15)
[2022-10-30] MEDS ORDERED: fentaNYL 100 MCG/2 ML INJECTION As Ordered ONE (07:37)
[2022-10-30] MEDS ORDERED: ACETAMINOPHEN 1000MG 100ML IV BAG As Ordered ONE (07:53)
[2022-10-30] MEDS ORDERED: ePHEDrine SULFATE 25 MG/5 ML(5MG/ML) SYRINGE As Ordered ONE (07:59)
[2022-10-30] MEDS ORDERED: PERCOCET 5MG/325MG TAB PO PRN (09:05)
[2022-10-30] MEDS ORDERED: ONDANSETRON 4MG 2ML VIAL IV PRN ×2 (09:05→09:25)
[2022-10-30] MEDS ORDERED: fentaNYL 100 MCG/2 ML INJECTION IV PRN (09:05)
[2022-10-30 14:15] VITALS: BP 130/83
[2022-10-30] MEDS ORDERED: PILL CUTTER 1 EACH XX PRN (14:30)
[2022-10-30] MEDS ORDERED: FLOM0.4C39 PO (15:09)
[2022-10-30 18:00] VITALS: BP 129/82
[2022-10-30] MEDS: ACETAMINOPHEN TAB 650MG DOSE (2X325MG) PO PRN (19:44)
[2022-10-30] MEDS: SYMBICORT 160/4.5MCG INHALER 6GM INH SCH (20:10)
[2022-10-30 20:24] VITALS: BP_SYST 130; BP_DIAS 8; BP_DIAS 80
[2022-10-30] MEDS: busPIRone 5 MG TAB PO SCH (20:58)
[2022-10-30 20:59] VITALS: BP 130/80
[2022-10-30] MEDS ORDERED: amLODIPine 5 MG TAB PO SCH (21:00)
[2022-10-30] MEDS ORDERED: SENNA 8.6 MG TAB (SENOKOT) PO SCH (21:00)
[2022-10-30] MEDS ORDERED: TAMSULOSIN 0.4 MG CAP PO SCH (21:00)
[2022-10-30] MEDS ORDERED: ROSUVASTATIN 10 MG TAB (CRESTOR) PO SCH (21:00)
[2022-10-30] MEDS ORDERED: GABAPENTIN 100 MG CAP PO SCH (21:00)
[2022-10-31] MEDS: ACETAMINOPHEN TAB 650MG DOSE (2X325MG) PO PRN ×2 (00:13→08:03)
[2022-10-31 02:00] VITALS: BP 122/76
[2022-10-31] MEDS ORDERED: NORCO, ANEXSIA 5/325MG TABLET (HYDROcodone/ACETAMINOPHEN) PO ONE (02:20)
[2022-10-31 05:55] VITALS: BP 121/74
[2022-10-31] MEDS: SYMBICORT 160/4.5MCG INHALER 6GM INH SCH (07:38)
[2022-10-31] MEDS ORDERED: GABAPENTIN 100 MG CAP PO SCH (08:00)
[2022-10-31] MEDS: busPIRone 5 MG TAB PO SCH (08:03)
[2022-10-31] MEDS ORDERED: PANTOPRAZOLE 40MG TAB (PROTONIX) PO SCH (09:00)
[2022-11-03 19:07] LABS: CA Oxalate Dihy 40 % (.); Ca Ox Monohydrate 30 % (.); Size 5x3 mm (.)
== END 2022-10-31 11:00 | disposition home or self-care (01) ==
LOC: M SDC 06:07 → M MS5PR 14:15 → M SDC 10-31 11:00
PROVIDERS: ATTEND Urology
DX: N20.0 Calculus of kidney (principal); I10 Essential (primary) hypertension; E78.5 Hyperlipidemia, unspecified; F03.90 Unspecified dementia, unspecified severity, without behavioral disturbance, psychotic disturbance, mood disturbance, and anxiety; F41.9 Anxiety disorder, unspecified; F32.A Depression, unspecified; G20 Parkinson's disease; Z79.82 Long term (current) use of aspirin; Z79.899 Other long term (current) drug therapy; Z88.2 Allergy status to sulfonamides; Z88.0 Allergy status to penicillin; Z88.1 Allergy status to other antibiotic agents; Z92.3 Personal history of irradiation; Z85.3 Personal history of malignant neoplasm of breast; Z87.891 Personal history of nicotine dependence
CPT/HCPCS: 52356; 74420; 82365; 94640; C1769; C1894; C2617; J1100; J2405; Q9967

== ENCOUNTER 2022-11-01 03:42 | Emergency (ER) | payer MEDICARE ==
[~2022-11-01] VITALS: Ht 162.6 cm; Wt 71.6 kg
[~2022-11-01 03:42] MED LIST changes: -ceFAZolin SOD 2 GM in IV 1 EA IV ONE
[2022-11-01] MEDS ORDERED: ACETAMINOPHEN TAB 650MG DOSE (2X325MG) PO ONE (05:30)
[2022-11-01 06:41] VITALS: O2SAT 98
== END 2022-11-01 06:36 | disposition home or self-care (01) ==
LOC: M ED 03:42 → EDBD 03:42 → M ED 06:36
DX: M54.2 Cervicalgia (principal); W01.0XXA Fall on same level from slipping, tripping and stumbling without subsequent striking against object, initial encounter; G30.9 Alzheimer's disease, unspecified; I10 Essential (primary) hypertension; Z87.891 Personal history of nicotine dependence; Z88.1 Allergy status to other antibiotic agents; Z88.2 Allergy status to sulfonamides; Z79.82 Long term (current) use of aspirin; Z79.891 Long term (current) use of opiate analgesic; Z79.811 Long term (current) use of aromatase inhibitors; Z79.899 Other long term (current) drug therapy

== ENCOUNTER → 2022-11-13 | Outpatient (REF) | payer MEDICARE ==
[~2022-11-13] MED LIST changes: -BENZ-52 PO; +BENZ1TAB5 PO
[2022-11-13 16:52] LABS: APPEARANCE, URINE MANUAL CLOUDY (CLEAR); BILIRUBIN, URINE MANUAL NEGATIVE (NEGATIVE); BLOOD URINE MANUAL POSITIVE (NEGATIVE); COLOR, URINE MANUAL DK YELLOW (YELLOW); GLUCOSE, URINE (UA) MANUAL 1+(100 MG/DL) mg/dL (NEGATIVE); KETONE, URINE MANUAL NEGATIVE (NEGATIVE); LEUKOCYTE ESTERASE, URINE MAN POSITIVE (NEGATIVE); NITRITE, URINE MANUAL NEGATIVE (NEGATIVE); PROTEIN, URINE MANUAL 2+ mg/dL (NEGATIVE); UROBILINOGEN, URINE MANUAL NORMAL (NORMAL)
[2022-11-13 17:09] LABS: BACTERIA, URINE LARGE AMOUNT; HYALINE CAST, URINE NONE SEEN /lpf (0-1); RBC, URINE TNTC /hpf (0-3); SQUAMOUS EPITHELIAL CELL URINE SMALL AMOUNT /hpf (SMALL AMT); WBC, URINE TNTC /hpf (0-3)
== END ==
LOC: M SMT 16:39
PROVIDERS: ATTEND Urology
DX: N39.0 Urinary tract infection, site not specified (principal)

== ENCOUNTER → 2022-12-08 | Outpatient (REF) | payer MEDICARE ==
[2022-12-08 16:27] LABS: C REACTIVE PROTEIN QUANTITATIV < 0.40 MG/DL (<1.0)
[2022-12-08 16:31] LABS: VITAMIN B12 LEVEL 354 PG/ML (211-911)
[2022-12-08 17:01] LABS: HIV 1&2 SCREEN CENTAUR NEGATIVE (NEGATIVE)
[2022-12-08 17:06] LABS: FOLATE 20.4 NG/ML (>5.4)
[2022-12-09 16:56] LABS: APPEARANCE, URINE CLOUDY (CLEAR); BACTERIA, URINE AUTO 1+ (NEGATIVE); BILIRUBIN, URINE AUTO NEGATIVE (NEGATIVE); BLOOD, URINE BLOOD NEGATIVE (NEGATIVE); CALCIUM OXALATE CRYSTALS SMALL; COLOR, URINE AMBER (YELLOW); GLUCOSE, URINE (UA) AUTO NEGATIVE (NEGATIVE); KETONE, URINE AUTO TRACE mg/dL (NEGATIVE); LEUKOCYTE ESTERASE, URINE AUTO 3+ (NEGATIVE); MUCUS, URINE SMALL (NEGATIVE); NITRITE, URINE AUTO NEGATIVE (NEGATIVE); PROTEIN, URINE AUTO 1+ mg/dL (NEGATIVE); RBC, URINE AUTO 3 /HPF (0-3); SPECIFIC GRAVITY URINE AUTO 1.021 (1.002-1.035); SQUAMOUS EPITHELIAL CELL UR AU 6 /HPF (0-6); WBC, URINE AUTO TNTC /HPF (0-3)
== END ==
LOC: M LAB REF 16:11
PROVIDERS: ATTEND Internal Medicine
DX: R41.3 Other amnesia (principal); M48.07 Spinal stenosis, lumbosacral region

== ENCOUNTER → 2022-12-14 | Outpatient (REF) | payer MEDICARE ==
[2022-12-14 17:55] LABS: APPEARANCE, URINE CLOUDY (CLEAR); BACTERIA, URINE AUTO 1+ (NEGATIVE); BILIRUBIN, URINE AUTO NEGATIVE (NEGATIVE); BLOOD, URINE BLOOD NEGATIVE (NEGATIVE); CALCIUM OXALATE CRYSTALS LARGE; COLOR, URINE YELLOW (YELLOW); GLUCOSE, URINE (UA) AUTO NEGATIVE (NEGATIVE); KETONE, URINE AUTO NEGATIVE (NEGATIVE); LEUKOCYTE ESTERASE, URINE AUTO 3+ (NEGATIVE); MUCUS, URINE SMALL (NEGATIVE); NITRITE, URINE AUTO NEGATIVE (NEGATIVE); PROTEIN, URINE AUTO NEGATIVE (NEGATIVE); RBC, URINE AUTO 15 /HPF (0-3); SPECIFIC GRAVITY URINE AUTO 1.015 (1.002-1.035); SQUAMOUS EPITHELIAL CELL UR AU 2 /HPF (0-6); WBC, URINE AUTO TNTC /HPF (0-3)
== END ==
LOC: M LAB REF 16:28
PROVIDERS: ATTEND Internal Medicine
DX: R32 Unspecified urinary incontinence (principal); F03.90 Unspecified dementia, unspecified severity, without behavioral disturbance, psychotic disturbance, mood disturbance, and anxiety

== ENCOUNTER → 2022-12-18 | Outpatient (REF) | payer MEDICARE ==
[2022-12-18 14:23] LABS: AMORPHOUS SEDIMENT SMALL (NEGATIVE); APPEARANCE, URINE CLOUDY (CLEAR); BACTERIA, URINE AUTO NEGATIVE (NEGATIVE); BILIRUBIN, URINE AUTO NEGATIVE (NEGATIVE); BLOOD, URINE BLOOD NEGATIVE (NEGATIVE); COLOR, URINE YELLOW (YELLOW); GLUCOSE, URINE (UA) AUTO NEGATIVE (NEGATIVE); KETONE, URINE AUTO NEGATIVE (NEGATIVE); LEUKOCYTE ESTERASE, URINE AUTO 3+ (NEGATIVE); MUCUS, URINE SMALL (NEGATIVE); NITRITE, URINE AUTO NEGATIVE (NEGATIVE); PROTEIN, URINE AUTO 1+ mg/dL (NEGATIVE); RBC, URINE AUTO 5 /HPF (0-3); SPECIFIC GRAVITY URINE AUTO 1.014 (1.002-1.035); SQUAMOUS EPITHELIAL CELL UR AU 0 /HPF (0-6); WBC, URINE AUTO TNTC /HPF (0-3)
== END ==
LOC: M SMT 14:05
PROVIDERS: ATTEND Urology
DX: N39.0 Urinary tract infection, site not specified (principal)

== ENCOUNTER → 2022-12-31 | Outpatient (CLI) | payer MEDICARE | LOC: M PLAIMG 15:20 | PROVIDERS: ATTEND Internal Medicine | DX: F03.90 Unspecified dementia, unspecified severity, without behavioral disturbance, psychotic disturbance, mood disturbance, and anxiety (principal) ==

== ENCOUNTER 2023-01-10 10:10 | Emergency (ER) | payer MEDICARE ==
[~2023-01-10] VITALS: Ht 165.1 cm; Wt 84.2 kg
[2023-01-10 12:22] LABS: BASO % 0.7 % (0.0-1.0); EOS # 0.2 10^3/uL (0.0-0.5); HEMATOCRIT 41.8 % (36.0-47.0); HEMOGLOBIN 13.8 g/dl (12.0-15.5); LYMPH # 1.4 10^3/uL (1.5-5.0); LYMPH % 24.9 % (24.0-44.0); MEAN CORPUSCULAR HEMOGLOBIN 35.1 pg (27.0-33.0); MEAN CORPUSCULAR VOLUME 106.4 fl (80.0-96.0); MONO # 0.9 10^3/uL (0.0-0.8); MONO % 15.7 % (2.0-8.0); NEUTROPHILS # 3.2 10^3/uL (1.5-8.5); NEUTROPHILS % 55.4 % (36.0-66.0); PLATELET COUNT, AUTOMATED 113 10^3/uL (150-450); RED BLOOD COUNT 3.93 10^6/uL (4.00-5.40); WHITE BLOOD COUNT 5.8 10^3/uL (4.0-10.0)
[2023-01-10 12:56] LABS: BLOOD UREA NITROGEN 15 MG/DL (9-23); CALCIUM LEVEL 9.2 MG/DL (8.3-10.6); CARBON DIOXIDE LEVEL 26 MMOL/L (20-31); CHLORIDE LEVEL 110 MMOL/L (98-107); CREATININE FOR GFR 0.54 MG/DL (0.55-1.30); GLOMERULAR FILTRATION RATE > 60.0 (>32); GLUCOSE, FASTING 89 MG/DL (74-106); POTASSIUM SERUM 5.8 MMOL/L (3.5-5.1); SODIUM LEVEL 141 MMOL/L (136-145)
[2023-01-10 15:23] VITALS: O2SAT 96
[2023-01-10 15:36] VITALS: BP 149/79
== END 2023-01-10 17:29 | disposition home or self-care (01) ==
LOC: M ED 10:10 → EDBD 10:10 → M ED 17:29
DX: F03.90 Unspecified dementia, unspecified severity, without behavioral disturbance, psychotic disturbance, mood disturbance, and anxiety (principal); M48.061 Spinal stenosis, lumbar region without neurogenic claudication; I10 Essential (primary) hypertension; J44.9 Chronic obstructive pulmonary disease, unspecified; G47.33 Obstructive sleep apnea (adult) (pediatric); Z85.3 Personal history of malignant neoplasm of breast; Z87.442 Personal history of urinary calculi; Z79.82 Long term (current) use of aspirin; Z79.899 Other long term (current) drug therapy; Z88.2 Allergy status to sulfonamides; Z88.0 Allergy status to penicillin; Z88.8 Allergy status to other drugs, medicaments and biological substances

== ENCOUNTER 2023-01-31 13:19 | Inpatient (IN) | payer MEDICARE ==
[~2023-01-31] VITALS: Ht 165.1 cm; Wt 81.1 kg
[~2023-01-31 13:19] MED LIST changes: -ATRO1OPD SL; +ATRO2DRO4 SL
[2023-01-31 14:04] LABS: BASO % 0.8 % (0.0-1.0); EOS # 0.1 10^3/uL (0.0-0.5); EOS % 1.3 % (0.0-3.0); HEMATOCRIT 41.5 % (36.0-47.0); HEMOGLOBIN 13.8 g/dl (12.0-15.5); LYMPH # 1.2 10^3/uL (1.5-5.0); LYMPH % 22.9 % (24.0-44.0); MEAN CORPUSCULAR HEMOGLOBIN 34.8 pg (27.0-33.0); MEAN CORPUSCULAR HGB CONC 33.3 g/dl (32.0-36.5); MEAN CORPUSCULAR VOLUME 104.5 fl (80.0-96.0); MONO # 0.7 10^3/uL (0.0-0.8); MONO % 13.9 % (2.0-8.0); NEUTROPHILS # 3.2 10^3/uL (1.5-8.5); NEUTROPHILS % 60.7 % (36.0-66.0); PLATELET COUNT, AUTOMATED 142 10^3/uL (150-450); RED BLOOD COUNT 3.97 10^6/uL (4.00-5.40); WHITE BLOOD COUNT 5.2 10^3/uL (4.0-10.0)
[2023-01-31] MEDS ORDERED: NS 500 ML IV ONE (14:10)
[2023-01-31] MEDS ORDERED: LIDOCAINE 2% 5ML JELLY UROJET TOP ONE (14:10)
[2023-01-31 14:23] LABS: BLOOD UREA NITROGEN 18 MG/DL (9-23); CALCIUM LEVEL 9.4 MG/DL (8.3-10.6); CARBON DIOXIDE LEVEL 27 MMOL/L (20-31); CHLORIDE LEVEL 111 MMOL/L (98-107); CREATININE FOR GFR 0.56 MG/DL (0.55-1.30); GLOMERULAR FILTRATION RATE > 60.0 (>32); GLUCOSE, FASTING 89 MG/DL (74-106); SODIUM LEVEL 144 MMOL/L (136-145)
[2023-01-31 15:02] LABS: CK-MB VALUE MASS < 1.0 NG/ML (<3.6)
[2023-01-31 15:03] LABS: ALBUMIN 3.4 G/DL (3.2-5.2); ALKALINE PHOSPHATASE 93 U/L (46-116); ALT/SGPT 22 U/L (7.0-40); AST/SGOT 29 U/L (<34); BILIRUBIN,DIRECT 0.5 MG/DL (<0.4); BILIRUBIN,TOTAL 1.3 MG/DL (0.3-1.2); CPK CREATINE PHOSPHOKINASE 271 U/L (34-145); MB/CK RELATIVE INDEX 0.36 (< OR =4); TOTAL PROTEIN 5.8 G/DL (5.7-8.2)
[2023-01-31 15:06] LABS: THYROID STIMULATING HORMONE 0.882 uIU/ML (0.55-4.78)
[2023-01-31 15:33] LABS: RSV AMPLIFICATION NEGATIVE (NEGATIVE)
[2023-01-31] MEDS ORDERED: LevoFLOXacin IV 500 MG in IV 1 EA IV ONE (15:45)
[2023-01-31] MEDS ORDERED: AMLO2.5T3 PO (16:01)
[2023-01-31] MEDS ORDERED: BUSP10TA PO (16:01)
[2023-01-31] MEDS ORDERED: HOME MED LIST COMPLETE! XX SCH (16:05)
[2023-01-31] MEDS ORDERED: amLODIPine 5 MG TAB PO ONE (17:00)
[2023-01-31] MEDS ORDERED: PILL CUTTER 1 EACH XX PRN (18:10)
[2023-01-31] MEDS: PANTOPRAZOLE 40MG TAB (PROTONIX) PO SCH (18:57)
[2023-01-31 18:58] VITALS: BP 145/93
[2023-01-31] MEDS: LACTULOSE 20GM/30ML SYRUP UDC PO SCH (18:58)
[2023-01-31] MEDS ORDERED: ACETAMINOPHEN TAB 650MG DOSE (2X325MG) PO ONE (20:00)
[2023-01-31 20:07] VITALS: BP 156/90
[2023-01-31] MEDS: GABAPENTIN 100 MG CAP PO SCH (20:34)
[2023-01-31] MEDS: busPIRone 10 MG TAB PO SCH (20:34)
[2023-01-31] MEDS: ROSUVASTATIN 10 MG TAB (CRESTOR) PO SCH (20:35)
[2023-01-31] MEDS: cefTRIAXone SOD 1 GM in D5W MINI-BAG PLUS 50 ML IV SCH (20:35)
[2023-01-31] MEDS: SYMBICORT 160/4.5MCG INHALER 6GM INH SCH (21:10)
[2023-02-01 00:04] VITALS: BP 112/56
[2023-02-01] MEDS ORDERED: PROCHLORPERAZINE 10MG 2ML VIAL IV ONE (01:00)
[2023-02-01] MEDS ORDERED: diphenhydrAMINE 50MG/ML VIAL IV ONE (01:00)
[2023-02-01] MEDS: LACTULOSE 20GM/30ML SYRUP UDC PO SCH ×4 (01:23→18:13)
[2023-02-01 06:21] LABS: BASO % 0.6 % (0.0-1.0); EOS # 0.1 10^3/uL (0.0-0.5); EOS % 2.7 % (0.0-3.0); HEMOGLOBIN 13.2 g/dl (12.0-15.5); LYMPH # 1.6 10^3/uL (1.5-5.0); LYMPH % 33.3 % (24.0-44.0); MEAN CORPUSCULAR HEMOGLOBIN 33.9 pg (27.0-33.0); MEAN CORPUSCULAR HGB CONC 32.2 g/dl (32.0-36.5); MEAN CORPUSCULAR VOLUME 105.4 fl (80.0-96.0); MONO # 0.8 10^3/uL (0.0-0.8); MONO % 16.3 % (2.0-8.0); NEUTROPHILS # 2.2 10^3/uL (1.5-8.5); NEUTROPHILS % 46.9 % (36.0-66.0); PLATELET COUNT, AUTOMATED 107 10^3/uL (150-450); RED BLOOD COUNT 3.89 10^6/uL (4.00-5.40); WHITE BLOOD COUNT 4.8 10^3/uL (4.0-10.0)
[2023-02-01 06:46] LABS: BLOOD UREA NITROGEN 12 MG/DL (9-23); CALCIUM LEVEL 8.8 MG/DL (8.3-10.6); CARBON DIOXIDE LEVEL 27 MMOL/L (20-31); CHLORIDE LEVEL 111 MMOL/L (98-107); GLOMERULAR FILTRATION RATE > 60.0 (>32); GLUCOSE, FASTING 92 MG/DL (74-106); MAGNESIUM LEVEL 1.9 MG/DL (1.8-2.4); POTASSIUM SERUM 3.8 MMOL/L (3.5-5.1); SODIUM LEVEL 144 MMOL/L (136-145)
[2023-02-01] MEDS: SYMBICORT 160/4.5MCG INHALER 6GM INH SCH ×2 (07:13→19:47)
[2023-02-01 08:10] VITALS: BP 134/62
[2023-02-01] MEDS: PANTOPRAZOLE 40MG TAB (PROTONIX) PO SCH (09:36)
[2023-02-01] MEDS: busPIRone 10 MG TAB PO SCH ×2 (09:36→21:12)
[2023-02-01] MEDS: ASPIRIN 81MG ENTERIC TABLET PO SCH (09:36)
[2023-02-01] MEDS: GABAPENTIN 100 MG CAP PO SCH ×3 (09:36→21:11)
[2023-02-01] MEDS: SENOKOT S TAB PO SCH ×2 (09:36→21:11)
[2023-02-01] MEDS: ENOXAPARIN 40MG/0.4ML SYRINGE (J1650 PER 10MG) SC SCH (09:37)
[2023-02-01 12:51] VITALS: BP 138/66
[2023-02-01 16:32] VITALS: BP 137/65
[2023-02-01 19:49] VITALS: BP 147/71
[2023-02-01] MEDS: cefTRIAXone SOD 1 GM in D5W MINI-BAG PLUS 50 ML IV SCH (21:10)
[2023-02-01] MEDS: ROSUVASTATIN 10 MG TAB (CRESTOR) PO SCH (21:12)
[2023-02-02] VITALS (7 sets, daily range): BP systolic 111–147; BP diastolic 60–73
[2023-02-02] MEDS: ACETAMINOPHEN TAB 650MG DOSE (2X325MG) PO PRN ×4 (02:08→21:42)
[2023-02-02] MEDS: LACTULOSE 20GM/30ML SYRUP UDC PO SCH ×4 (05:20→21:39)
[2023-02-02 06:25] LABS: BASO % 0.6 % (0.0-1.0); EOS # 0.3 10^3/uL (0.0-0.5); EOS % 3.5 % (0.0-3.0); HEMATOCRIT 40.9 % (36.0-47.0); HEMOGLOBIN 13.3 g/dl (12.0-15.5); LYMPH # 1.2 10^3/uL (1.5-5.0); LYMPH % 16.3 % (24.0-44.0); MEAN CORPUSCULAR HEMOGLOBIN 34.1 pg (27.0-33.0); MEAN CORPUSCULAR HGB CONC 32.5 g/dl (32.0-36.5); MEAN CORPUSCULAR VOLUME 104.9 fl (80.0-96.0); MONO # 0.8 10^3/uL (0.0-0.8); MONO % 11.6 % (2.0-8.0); NEUTROPHILS # 4.8 10^3/uL (1.5-8.5); NEUTROPHILS % 67.7 % (36.0-66.0); PLATELET COUNT, AUTOMATED 111 10^3/uL (150-450); WHITE BLOOD COUNT 7.1 10^3/uL (4.0-10.0)
[2023-02-02 06:49] LABS: BLOOD UREA NITROGEN 12 MG/DL (9-23); CALCIUM LEVEL 9.4 MG/DL (8.3-10.6); CARBON DIOXIDE LEVEL 27 MMOL/L (20-31); CHLORIDE LEVEL 111 MMOL/L (98-107); CREATININE FOR GFR 0.52 MG/DL (0.55-1.30); GLOMERULAR FILTRATION RATE > 60.0 (>32); GLUCOSE, FASTING 77 MG/DL (74-106); POTASSIUM SERUM 3.1 MMOL/L (3.5-5.1); SODIUM LEVEL 144 MMOL/L (136-145)
[2023-02-02] MEDS: SYMBICORT 160/4.5MCG INHALER 6GM INH SCH ×2 (07:07→19:40)
[2023-02-02] MEDS: ENOXAPARIN 40MG/0.4ML SYRINGE (J1650 PER 10MG) SC SCH (08:33)
[2023-02-02] MEDS: ASPIRIN 81MG ENTERIC TABLET PO SCH (08:33)
[2023-02-02] MEDS: PANTOPRAZOLE 40MG TAB (PROTONIX) PO SCH (08:34)
[2023-02-02] MEDS: busPIRone 10 MG TAB PO SCH ×2 (08:34→21:42)
[2023-02-02] MEDS: GABAPENTIN 100 MG CAP PO SCH ×3 (08:34→21:41)
[2023-02-02] MEDS: SENOKOT S TAB PO SCH ×2 (09:00→21:39)
[2023-02-02] MEDS ORDERED: POTASSIUM CHLORIDE 10MEQ SR TABLET PO ONE (09:05)
[2023-02-02] MEDS: ROSUVASTATIN 10 MG TAB (CRESTOR) PO SCH (21:40)
[2023-02-02] MEDS: cefTRIAXone SOD 1 GM in D5W MINI-BAG PLUS 50 ML IV SCH (21:51)
[2023-02-03] MEDS: LACTULOSE 20GM/30ML SYRUP UDC PO SCH ×3 (05:19→22:00)
[2023-02-03] MEDS: ACETAMINOPHEN TAB 650MG DOSE (2X325MG) PO PRN ×3 (05:19→21:29)
[2023-02-03 06:00] VITALS: BP 116/53
[2023-02-03 06:23] LABS: BASO % 0.8 % (0.0-1.0); EOS # 0.3 10^3/uL (0.0-0.5); HEMATOCRIT 39.4 % (36.0-47.0); LYMPH # 1.6 10^3/uL (1.5-5.0); LYMPH % 30.5 % (24.0-44.0); MEAN CORPUSCULAR HEMOGLOBIN 34.4 pg (27.0-33.0); MEAN CORPUSCULAR VOLUME 104.2 fl (80.0-96.0); MONO # 0.8 10^3/uL (0.0-0.8); MONO % 15.4 % (2.0-8.0); NEUTROPHILS # 2.4 10^3/uL (1.5-8.5); NEUTROPHILS % 46.9 % (36.0-66.0); PLATELET COUNT, AUTOMATED 112 10^3/uL (150-450); RED BLOOD COUNT 3.78 10^6/uL (4.00-5.40); WHITE BLOOD COUNT 5.1 10^3/uL (4.0-10.0)
[2023-02-03 06:44] LABS: BLOOD UREA NITROGEN 15 MG/DL (9-23); CALCIUM LEVEL 8.7 MG/DL (8.3-10.6); CARBON DIOXIDE LEVEL 27 MMOL/L (20-31); CHLORIDE LEVEL 110 MMOL/L (98-107); CREATININE FOR GFR 0.54 MG/DL (0.55-1.30); GLOMERULAR FILTRATION RATE > 60.0 (>32); GLUCOSE, FASTING 107 MG/DL (74-106); POTASSIUM SERUM 3.4 MMOL/L (3.5-5.1); SODIUM LEVEL 143 MMOL/L (136-145)
[2023-02-03] MEDS ORDERED: POTASSIUM CHLORIDE 10MEQ SR TABLET PO ONE (07:10)
[2023-02-03] MEDS: ASPIRIN 81MG ENTERIC TABLET PO SCH (07:56)
[2023-02-03] MEDS: PANTOPRAZOLE 40MG TAB (PROTONIX) PO SCH (07:56)
[2023-02-03] MEDS: GABAPENTIN 100 MG CAP PO SCH ×3 (07:56→21:19)
[2023-02-03] MEDS: busPIRone 10 MG TAB PO SCH ×2 (07:56→21:18)
[2023-02-03] MEDS: SENOKOT S TAB PO SCH ×2 (07:56→21:19)
[2023-02-03] MEDS: ENOXAPARIN 40MG/0.4ML SYRINGE (J1650 PER 10MG) SC SCH (07:57)
[2023-02-03] MEDS: SYMBICORT 160/4.5MCG INHALER 6GM INH SCH ×2 (08:42→20:25)
[2023-02-03 13:51] LABS: INR 1.13; PROTHROMBIN TIME 14.7 SECONDS (12.5-14.5)
[2023-02-03 14:00] VITALS: BP 143/79
[2023-02-03 19:40] VITALS: BP 144/81
[2023-02-03] MEDS: cefTRIAXone SOD 1 GM in D5W MINI-BAG PLUS 50 ML IV SCH (21:12)
[2023-02-03] MEDS: ROSUVASTATIN 10 MG TAB (CRESTOR) PO SCH (21:20)
[2023-02-04] MEDS ORDERED: KETOROLAC 30 MG/ML 1ML VIAL IV ONE (03:15)
[2023-02-04] MEDS: ACETAMINOPHEN TAB 650MG DOSE (2X325MG) PO PRN ×3 (04:21→21:08)
[2023-02-04] MEDS: LACTULOSE 20GM/30ML SYRUP UDC PO SCH ×2 (06:00→17:23)
[2023-02-04 06:28] LABS: BASO % 0.9 % (0.0-1.0); EOS # 0.4 10^3/uL (0.0-0.5); EOS % 7.5 % (0.0-3.0); HEMATOCRIT 37.4 % (36.0-47.0); HEMOGLOBIN 12.4 g/dl (12.0-15.5); LYMPH # 1.3 10^3/uL (1.5-5.0); LYMPH % 28.7 % (24.0-44.0); MEAN CORPUSCULAR HEMOGLOBIN 34.4 pg (27.0-33.0); MEAN CORPUSCULAR HGB CONC 33.2 g/dl (32.0-36.5); MEAN CORPUSCULAR VOLUME 103.9 fl (80.0-96.0); MONO # 0.8 10^3/uL (0.0-0.8); MONO % 16.1 % (2.0-8.0); NEUTROPHILS # 2.2 10^3/uL (1.5-8.5); NEUTROPHILS % 46.4 % (36.0-66.0); WHITE BLOOD COUNT 4.7 10^3/uL (4.0-10.0)
[2023-02-04 06:46] LABS: BLOOD UREA NITROGEN 14 MG/DL (9-23); CALCIUM LEVEL 8.6 MG/DL (8.3-10.6); CARBON DIOXIDE LEVEL 26 MMOL/L (20-31); CHLORIDE LEVEL 111 MMOL/L (98-107); CREATININE FOR GFR 0.49 MG/DL (0.55-1.30); GLOMERULAR FILTRATION RATE > 60.0 (>32); GLUCOSE, FASTING 93 MG/DL (74-106); POTASSIUM SERUM 3.6 MMOL/L (3.5-5.1); SODIUM LEVEL 144 MMOL/L (136-145)
[2023-02-04 06:52] VITALS: BP 160/71
[2023-02-04 06:56] LABS: PLATELET COUNT, AUTOMATED 99 10^3/uL (150-450)
[2023-02-04] MEDS ORDERED: POTASSIUM CHLORIDE 10MEQ SR TABLET PO ONE (07:30)
[2023-02-04] MEDS: SYMBICORT 160/4.5MCG INHALER 6GM INH SCH ×2 (07:34→19:47)
[2023-02-04] MEDS: ASPIRIN 81MG ENTERIC TABLET PO SCH (08:45)
[2023-02-04] MEDS: GABAPENTIN 100 MG CAP PO SCH ×3 (08:45→21:09)
[2023-02-04] MEDS: PANTOPRAZOLE 40MG TAB (PROTONIX) PO SCH (08:45)
[2023-02-04] MEDS: SENOKOT S TAB PO SCH ×2 (08:46→21:09)
[2023-02-04] MEDS: busPIRone 10 MG TAB PO SCH ×2 (08:46→21:09)
[2023-02-04] MEDS: ENOXAPARIN 40MG/0.4ML SYRINGE (J1650 PER 10MG) SC SCH (09:31)
[2023-02-04 14:00] VITALS: BP 143/86
[2023-02-04 19:52] VITALS: BP 151/83
[2023-02-04] MEDS: cefTRIAXone SOD 1 GM in D5W MINI-BAG PLUS 50 ML IV SCH (20:58)
[2023-02-04] MEDS: ROSUVASTATIN 10 MG TAB (CRESTOR) PO SCH (21:09)
[2023-02-04] MEDS: amLODIPine 5 MG TAB PO SCH (21:10)
[2023-02-05] MEDS: IBUPROFEN 400MG TAB PO PRN ×2 (02:00→22:43)
[2023-02-05 05:11] VITALS: BP 144/86
[2023-02-05 06:12] LABS: EOS # 0.3 10^3/uL (0.0-0.5); EOS % 6.5 % (0.0-3.0); HEMATOCRIT 37.4 % (36.0-47.0); HEMOGLOBIN 12.1 g/dl (12.0-15.5); LYMPH # 1.4 10^3/uL (1.5-5.0); LYMPH % 32.9 % (24.0-44.0); MEAN CORPUSCULAR HEMOGLOBIN 34.2 pg (27.0-33.0); MEAN CORPUSCULAR HGB CONC 32.4 g/dl (32.0-36.5); MEAN CORPUSCULAR VOLUME 105.6 fl (80.0-96.0); MONO # 0.6 10^3/uL (0.0-0.8); MONO % 13.2 % (2.0-8.0); NEUTROPHILS # 1.9 10^3/uL (1.5-8.5); NEUTROPHILS % 46.2 % (36.0-66.0); PLATELET COUNT, AUTOMATED 111 10^3/uL (150-450); RED BLOOD COUNT 3.54 10^6/uL (4.00-5.40); WHITE BLOOD COUNT 4.2 10^3/uL (4.0-10.0)
[2023-02-05] MEDS: LACTULOSE 20GM/30ML SYRUP UDC PO SCH ×3 (06:30→20:57)
[2023-02-05 06:35] LABS: BLOOD UREA NITROGEN 14 MG/DL (9-23); CALCIUM LEVEL 8.6 MG/DL (8.3-10.6); CARBON DIOXIDE LEVEL 26 MMOL/L (20-31); CHLORIDE LEVEL 113 MMOL/L (98-107); CREATININE FOR GFR 0.56 MG/DL (0.55-1.30); GLOMERULAR FILTRATION RATE > 60.0 (>32); GLUCOSE, FASTING 89 MG/DL (74-106); SODIUM LEVEL 146 MMOL/L (136-145)
[2023-02-05] MEDS ORDERED: D5W/0.45% SODIUM CHLORIDE 1,000 ML IV SCH (07:15)
[2023-02-05] MEDS: SYMBICORT 160/4.5MCG INHALER 6GM INH SCH ×2 (07:35→20:09)
[2023-02-05] MEDS: PANTOPRAZOLE 40MG TAB (PROTONIX) PO SCH (07:59)
[2023-02-05] MEDS: SENOKOT S TAB PO SCH ×2 (07:59→20:56)
[2023-02-05] MEDS: ASPIRIN 81MG ENTERIC TABLET PO SCH (07:59)
[2023-02-05] MEDS: GABAPENTIN 100 MG CAP PO SCH ×3 (08:00→20:56)
[2023-02-05] MEDS: busPIRone 10 MG TAB PO SCH ×2 (08:00→20:57)
[2023-02-05] MEDS: ACETAMINOPHEN TAB 650MG DOSE (2X325MG) PO PRN (08:00)
[2023-02-05] MEDS: ENOXAPARIN 40MG/0.4ML SYRINGE (J1650 PER 10MG) SC SCH (08:07)
[2023-02-05 14:00] VITALS: BP 121/68
[2023-02-05] MEDS: amLODIPine 5 MG TAB PO SCH (20:56)
[2023-02-05] MEDS: ROSUVASTATIN 10 MG TAB (CRESTOR) PO SCH (20:57)
[2023-02-05 21:19] VITALS: BP 123/68
[2023-02-05] MEDS: RAMELTEON 8 MG TAB (ROZEREM) PO PRN (22:58)
[2023-02-06] MEDS: LACTULOSE 20GM/30ML SYRUP UDC PO SCH ×3 (05:18→21:16)
[2023-02-06] MEDS: ACETAMINOPHEN TAB 650MG DOSE (2X325MG) PO PRN ×2 (05:26→23:19)
[2023-02-06 06:00] VITALS: BP 146/84
[2023-02-06] MEDS: SYMBICORT 160/4.5MCG INHALER 6GM INH SCH ×2 (07:30→20:23)
[2023-02-06] MEDS: ENOXAPARIN 40MG/0.4ML SYRINGE (J1650 PER 10MG) SC SCH (08:53)
[2023-02-06] MEDS: ASPIRIN 81MG ENTERIC TABLET PO SCH (08:53)
[2023-02-06] MEDS: PANTOPRAZOLE 40MG TAB (PROTONIX) PO SCH (08:53)
[2023-02-06] MEDS: SENOKOT S TAB PO SCH ×2 (08:53→21:17)
[2023-02-06] MEDS: GABAPENTIN 100 MG CAP PO SCH ×3 (08:53→21:17)
[2023-02-06] MEDS: busPIRone 10 MG TAB PO SCH ×2 (08:53→21:21)
[2023-02-06] MEDS: amLODIPine 5 MG TAB PO SCH (21:20)
[2023-02-06] MEDS: ROSUVASTATIN 10 MG TAB (CRESTOR) PO SCH (21:20)
[2023-02-06] MEDS: RAMELTEON 8 MG TAB (ROZEREM) PO PRN (21:33)
[2023-02-06] MEDS: diphenhydrAMINE 25MG CAP PO PRN (21:33)
[2023-02-07] MEDS: IBUPROFEN 400MG TAB PO PRN (03:41)
[2023-02-07] MEDS: LACTULOSE 20GM/30ML SYRUP UDC PO SCH ×3 (05:18→20:42)
[2023-02-07 06:00] VITALS: BP 145/81
[2023-02-07 06:40] LABS: BASO % 0.9 % (0.0-1.0); EOS # 0.3 10^3/uL (0.0-0.5); EOS % 7.5 % (0.0-3.0); HEMATOCRIT 36.2 % (36.0-47.0); HEMOGLOBIN 12.1 g/dl (12.0-15.5); LYMPH # 1.3 10^3/uL (1.5-5.0); LYMPH % 30.3 % (24.0-44.0); MEAN CORPUSCULAR HEMOGLOBIN 34.9 pg (27.0-33.0); MEAN CORPUSCULAR HGB CONC 33.4 g/dl (32.0-36.5); MEAN CORPUSCULAR VOLUME 104.3 fl (80.0-96.0); MONO # 0.6 10^3/uL (0.0-0.8); MONO % 13.7 % (2.0-8.0); NEUTROPHILS # 2.1 10^3/uL (1.5-8.5); NEUTROPHILS % 47.4 % (36.0-66.0); PLATELET COUNT, AUTOMATED 111 10^3/uL (150-450); RED BLOOD COUNT 3.47 10^6/uL (4.00-5.40); WHITE BLOOD COUNT 4.4 10^3/uL (4.0-10.0)
[2023-02-07 07:02] LABS: BLOOD UREA NITROGEN 14 MG/DL (9-23); CALCIUM LEVEL 8.8 MG/DL (8.3-10.6); CARBON DIOXIDE LEVEL 28 MMOL/L (20-31); CHLORIDE LEVEL 113 MMOL/L (98-107); CREATININE FOR GFR 0.52 MG/DL (0.55-1.30); GLOMERULAR FILTRATION RATE > 60.0 (>32); GLUCOSE, FASTING 99 MG/DL (74-106); POTASSIUM SERUM 3.5 MMOL/L (3.5-5.1); SODIUM LEVEL 145 MMOL/L (136-145)
[2023-02-07] MEDS: SYMBICORT 160/4.5MCG INHALER 6GM INH SCH ×2 (07:18→19:46)
[2023-02-07] MEDS: PANTOPRAZOLE 40MG TAB (PROTONIX) PO SCH (08:37)
[2023-02-07] MEDS: busPIRone 10 MG TAB PO SCH ×2 (08:37→20:38)
[2023-02-07] MEDS: ACETAMINOPHEN TAB 650MG DOSE (2X325MG) PO PRN (08:37)
[2023-02-07] MEDS: ENOXAPARIN 40MG/0.4ML SYRINGE (J1650 PER 10MG) SC SCH (08:37)
[2023-02-07] MEDS: ASPIRIN 81MG ENTERIC TABLET PO SCH (08:37)
[2023-02-07] MEDS: SENOKOT S TAB PO SCH ×2 (08:38→20:38)
[2023-02-07] MEDS: GABAPENTIN 100 MG CAP PO SCH ×3 (08:38→20:42)
[2023-02-07] MEDS ORDERED: POTASSIUM CHLORIDE 10MEQ SR TABLET PO ONE (09:00)
[2023-02-07 20:41] VITALS: BP 131/71
[2023-02-07] MEDS: amLODIPine 5 MG TAB PO SCH (20:41)
[2023-02-07] MEDS: ROSUVASTATIN 10 MG TAB (CRESTOR) PO SCH (20:42)
[2023-02-08] MEDS: IBUPROFEN 400MG TAB PO PRN (01:04)
[2023-02-08] MEDS: RAMELTEON 8 MG TAB (ROZEREM) PO PRN ×2 (01:04→20:17)
[2023-02-08] MEDS: diphenhydrAMINE 25MG CAP PO PRN (01:06)
[2023-02-08] MEDS: LACTULOSE 20GM/30ML SYRUP UDC PO SCH ×3 (05:26→21:13)
[2023-02-08] MEDS: ACETAMINOPHEN TAB 650MG DOSE (2X325MG) PO PRN ×2 (05:31→20:18)
[2023-02-08] MEDS: SYMBICORT 160/4.5MCG INHALER 6GM INH SCH ×2 (08:05→20:28)
[2023-02-08] MEDS: GABAPENTIN 100 MG CAP PO SCH ×3 (09:20→20:18)
[2023-02-08] MEDS: PANTOPRAZOLE 40MG TAB (PROTONIX) PO SCH (09:20)
[2023-02-08] MEDS: busPIRone 10 MG TAB PO SCH ×2 (09:20→20:17)
[2023-02-08] MEDS: ASPIRIN 81MG ENTERIC TABLET PO SCH (09:20)
[2023-02-08] MEDS: SENOKOT S TAB PO SCH ×2 (09:20→20:18)
[2023-02-08] MEDS: ENOXAPARIN 40MG/0.4ML SYRINGE (J1650 PER 10MG) SC SCH (09:21)
[2023-02-08] MEDS: amLODIPine 5 MG TAB PO SCH (20:17)
[2023-02-08] MEDS: ROSUVASTATIN 10 MG TAB (CRESTOR) PO SCH (20:17)
[2023-02-09] MEDS: ACETAMINOPHEN TAB 650MG DOSE (2X325MG) PO PRN (03:35)
[2023-02-09] MEDS: LACTULOSE 20GM/30ML SYRUP UDC PO SCH (05:36)
[2023-02-09 05:37] VITALS: BP 136/88
[2023-02-09] MEDS: SYMBICORT 160/4.5MCG INHALER 6GM INH SCH (07:01)
[2023-02-09 07:51] VITALS: BP 139/68
[2023-02-09] MEDS: ASPIRIN 81MG ENTERIC TABLET PO SCH (08:26)
[2023-02-09] MEDS: GABAPENTIN 100 MG CAP PO SCH ×2 (08:27→12:26)
[2023-02-09] MEDS: PANTOPRAZOLE 40MG TAB (PROTONIX) PO SCH (08:27)
[2023-02-09] MEDS: busPIRone 10 MG TAB PO SCH (08:27)
[2023-02-09] MEDS: SENOKOT S TAB PO SCH (08:27)
[2023-02-09] MEDS: ENOXAPARIN 40MG/0.4ML SYRINGE (J1650 PER 10MG) SC SCH (08:28)
[2023-02-09] MEDS: IBUPROFEN 400MG TAB PO PRN (08:29)
[2023-02-09] MEDS ORDERED: AMLO1TAB24 PO (09:22)
== END 2023-02-09 13:30 | disposition home health service (06) | DRG 689 ==
LOC: EDBD 13:19 → M ED 13:19 → M ED INP 16:45 → M PCU 18:46 → M MS5PR 02-02 17:52
PROVIDERS: ADMIT Internal Medicine Nephrology; ATTEND Family Medicine
DX: N39.0 Urinary tract infection, site not specified (principal); G93.41 Metabolic encephalopathy; E72.20 Disorder of urea cycle metabolism, unspecified; K76.6 Portal hypertension; F03.90 Unspecified dementia, unspecified severity, without behavioral disturbance, psychotic disturbance, mood disturbance, and anxiety; K72.90 Hepatic failure, unspecified without coma; Z66 Do not resuscitate; I10 Essential (primary) hypertension; R32 Unspecified urinary incontinence; R26.89 Other abnormalities of gait and mobility; R29.6 Repeated falls; J44.9 Chronic obstructive pulmonary disease, unspecified; F41.8 Other specified anxiety disorders; G47.33 Obstructive sleep apnea (adult) (pediatric); E87.6 Hypokalemia; M19.90 Unspecified osteoarthritis, unspecified site; M81.0 Age-related osteoporosis without current pathological fracture; M48.061 Spinal stenosis, lumbar region without neurogenic claudication; R73.03 Prediabetes; E78.5 Hyperlipidemia, unspecified; K21.9 Gastro-esophageal reflux disease without esophagitis; D69.6 Thrombocytopenia, unspecified; K44.9 Diaphragmatic hernia without obstruction or gangrene; Z92.3 Personal history of irradiation; Z90.49 Acquired absence of other specified parts of digestive tract; Z90.79 Acquired absence of other genital organ(s); Z85.3 Personal history of malignant neoplasm of breast; Z98.49 Cataract extraction status, unspecified eye; Z87.891 Personal history of nicotine dependence; Z79.82 Long term (current) use of aspirin; Z79.899 Other long term (current) drug therapy; Z88.1 Allergy status to other antibiotic agents; Z88.2 Allergy status to sulfonamides; Z88.8 Allergy status to other drugs, medicaments and biological substances

== ENCOUNTER → 2023-02-19 | Outpatient (REF) | payer MEDICARE | LOC: M LAB REF 16:41 | PROVIDERS: ATTEND Physician Assistant | DX: R30.0 Dysuria (principal) ==

== ENCOUNTER → 2023-02-23 | Outpatient (REF) | payer MEDICARE | LOC: M LAB REF 12:14 | PROVIDERS: ATTEND Internal Medicine | DX: E72.29 Other disorders of urea cycle metabolism (principal) ==

== ENCOUNTER 2023-03-03 12:16 | Emergency (ER) | payer MEDICARE ==
[~2023-03-03] VITALS: Ht 180.3 cm; Wt 78.0 kg
[2023-03-03 13:12] LABS: BASO # 0.1 10^3/uL (0.0-0.2); EOS # 0.3 10^3/uL (0.0-0.5); EOS % 4.3 % (0.0-3.0); HEMATOCRIT 42.9 % (36.0-47.0); HEMOGLOBIN 14.2 g/dl (12.0-15.5); LYMPH # 2.1 10^3/uL (1.5-5.0); LYMPH % 33.7 % (24.0-44.0); MEAN CORPUSCULAR HEMOGLOBIN 34.8 pg (27.0-33.0); MEAN CORPUSCULAR HGB CONC 33.1 g/dl (32.0-36.5); MEAN CORPUSCULAR VOLUME 105.1 fl (80.0-96.0); MONO # 0.9 10^3/uL (0.0-0.8); MONO % 13.9 % (2.0-8.0); NEUTROPHILS # 2.9 10^3/uL (1.5-8.5); NEUTROPHILS % 46.9 % (36.0-66.0); PLATELET COUNT, AUTOMATED 128 10^3/uL (150-450); RED BLOOD COUNT 4.08 10^6/uL (4.00-5.40); WHITE BLOOD COUNT 6.2 10^3/uL (4.0-10.0)
[2023-03-03 14:33] LABS: CK-MB VALUE MASS < 1.0 NG/ML (<3.6)
[2023-03-03 14:35] LABS: BLOOD UREA NITROGEN 17 MG/DL (9-23); CALCIUM LEVEL 9.3 MG/DL (8.3-10.6); CARBON DIOXIDE LEVEL 23 MMOL/L (20-31); CHLORIDE LEVEL 110 MMOL/L (98-107); CREATININE FOR GFR 0.55 MG/DL (0.55-1.30); GLOMERULAR FILTRATION RATE > 60.0 (>32); GLUCOSE, FASTING 92 MG/DL (74-106); POTASSIUM SERUM 4.3 MMOL/L (3.5-5.1); SODIUM LEVEL 144 MMOL/L (136-145)
[2023-03-03 14:38] LABS: CPK CREATINE PHOSPHOKINASE 211 U/L (34-145); MB/CK RELATIVE INDEX 0.47 (< OR =4)
[2023-03-03 15:31] LABS: CK-MB VALUE MASS < 1.0 NG/ML (<3.6)
[2023-03-03 15:35] LABS: CPK CREATINE PHOSPHOKINASE 189 U/L (34-145); MB/CK RELATIVE INDEX 0.52 (< OR =4)
[2023-03-03 17:45] VITALS: BP 154/75
== END 2023-03-03 18:00 | disposition home or self-care (01) ==
LOC: EDSEX 12:16 → M ED 12:16 → EDBD 12:16 → M ED 18:00
DX: S09.90XA Unspecified injury of head, initial encounter (principal); W19.XXXA Unspecified fall, initial encounter; Y92.89 Other specified places as the place of occurrence of the external cause; I10 Essential (primary) hypertension; J44.9 Chronic obstructive pulmonary disease, unspecified; F03.90 Unspecified dementia, unspecified severity, without behavioral disturbance, psychotic disturbance, mood disturbance, and anxiety; G24.9 Dystonia, unspecified; R26.9 Unspecified abnormalities of gait and mobility; R29.6 Repeated falls; F41.9 Anxiety disorder, unspecified; F32.A Depression, unspecified; G47.33 Obstructive sleep apnea (adult) (pediatric); M19.90 Unspecified osteoarthritis, unspecified site; Z87.442 Personal history of urinary calculi; Z85.3 Personal history of malignant neoplasm of breast; Z87.891 Personal history of nicotine dependence; Z79.82 Long term (current) use of aspirin; Z79.899 Other long term (current) drug therapy; Z88.2 Allergy status to sulfonamides; Z88.0 Allergy status to penicillin; Z88.8 Allergy status to other drugs, medicaments and biological substances

== ENCOUNTER → 2023-04-05 | Outpatient (REF) | payer MEDICARE ==
[~2023-04-05] MED LIST changes: +SENN-111 PO; -SENN18TA PO
== END ==
LOC: M LAB REF 16:22
PROVIDERS: ATTEND Internal Medicine
DX: R74.8 Abnormal levels of other serum enzymes (principal)

== ENCOUNTER → 2023-04-16 | Outpatient (CLI) | payer MEDICARE | LOC: M WHC 13:37 | PROVIDERS: ATTEND Internal Medicine | DX: Z12.31 Encounter for screening mammogram for malignant neoplasm of breast (principal); Z85.3 Personal history of malignant neoplasm of breast ==

== ENCOUNTER → 2023-06-28 | Outpatient (REF) | payer MEDICARE ==
[~2023-06-28] MED LIST changes: -AMIT25TA17; +AMIT25TA19
== END ==
LOC: M LAB REF 16:33
PROVIDERS: ATTEND Internal Medicine
DX: R74.8 Abnormal levels of other serum enzymes (principal)

== ENCOUNTER → 2023-08-12 | Outpatient (CLI) | payer BC, MEDICARE ==
[~2023-08-12] MED LIST changes: -CEFD300C41 PO; +CEFD300C42 PO; -OXYB5TAB10 PO; +OXYB5TAB11 PO
== END ==
LOC: M RAD 16:14
PROVIDERS: ATTEND Physician Assistant
DX: N20.0 Calculus of kidney (principal); N28.1 Cyst of kidney, acquired; K76.89 Other specified diseases of liver

== ENCOUNTER → 2023-08-12 | Outpatient (REF) | payer MEDICARE, BC | LOC: M LAB REF 16:32 | PROVIDERS: ATTEND Internal Medicine | DX: R74.8 Abnormal levels of other serum enzymes (principal) ==

== ENCOUNTER 2023-10-09 10:25 | Emergency (ER) | payer MEDICARE, BC ==
[~2023-10-09] VITALS: Ht 165.1 cm; Wt 82.2 kg
[~2023-10-09 10:25] MED LIST changes: +CEFD1CAP9 PO; -CEFD300C42 PO
[2023-10-09 11:32] LABS: BASO % 0.5 % (0.0-1.0); EOS # 0.2 10^3/uL (0.0-0.5); EOS % 2.5 % (0.0-3.0); HEMOGLOBIN 13.4 g/dl (12.0-15.5); LYMPH # 1.2 10^3/uL (1.5-5.0); LYMPH % 20.2 % (24.0-44.0); MEAN CORPUSCULAR HEMOGLOBIN 36.6 pg (27.0-33.0); MEAN CORPUSCULAR HGB CONC 34.4 g/dl (32.0-36.5); MEAN CORPUSCULAR VOLUME 106.6 fl (80.0-96.0); MONO % 16.7 % (2.0-8.0); NEUTROPHILS # 3.6 10^3/uL (1.5-8.5); NEUTROPHILS % 59.8 % (36.0-66.0); PLATELET COUNT, AUTOMATED 108 10^3/uL (150-450); RED BLOOD COUNT 3.66 10^6/uL (4.00-5.40)
[2023-10-09 12:04] LABS: ALBUMIN 3.3 G/DL (3.2-5.2); ALKALINE PHOSPHATASE 100 U/L (46-116); ALT/SGPT 24 U/L (7.0-40); AST/SGOT 47 U/L (<34); BILIRUBIN,DIRECT 0.4 MG/DL (<0.4); BILIRUBIN,TOTAL 1.1 MG/DL (0.3-1.2); BLOOD UREA NITROGEN 16 MG/DL (9-23); CALCIUM LEVEL 8.7 MG/DL (8.3-10.6); CARBON DIOXIDE LEVEL 26 MMOL/L (20-31); CHLORIDE LEVEL 110 MMOL/L (98-107); CK-MB VALUE MASS < 1.0 NG/ML (<3.6); CREATININE FOR GFR 0.52 MG/DL (0.55-1.30); GLOMERULAR FILTRATION RATE > 60.0 (>32); GLUCOSE, FASTING 91 MG/DL (74-106); POTASSIUM SERUM 3.4 MMOL/L (3.5-5.1); SODIUM LEVEL 143 MMOL/L (136-145); THYROID STIMULATING HORMONE 1.078 uIU/ML (0.55-4.78); TOTAL PROTEIN 5.8 G/DL (5.7-8.2)
[2023-10-09 12:06] LABS: CPK CREATINE PHOSPHOKINASE 208 U/L (34-145); MB/CK RELATIVE INDEX 0.48 (< OR =4)
[2023-10-09] MEDS ORDERED: DOXE10CA (12:06)
[2023-10-09] MEDS ORDERED: LACT10SO3 (12:06)
[2023-10-09] MEDS ORDERED: LEVOTAB10 (12:06)
[2023-10-09 16:55] VITALS: BP 131/79; TEMP 97.4; O2SAT 96
== END 2023-10-09 16:55 | disposition home or self-care (01) ==
LOC: EDBD 10:25 → M ED 10:25
DX: B34.8 Other viral infections of unspecified site (principal); F03.90 Unspecified dementia, unspecified severity, without behavioral disturbance, psychotic disturbance, mood disturbance, and anxiety; I48.91 Unspecified atrial fibrillation; E11.9 Type 2 diabetes mellitus without complications; I10 Essential (primary) hypertension; C50.919 Malignant neoplasm of unspecified site of unspecified female breast; Z87.442 Personal history of urinary calculi; Z88.1 Allergy status to other antibiotic agents; Z88.2 Allergy status to sulfonamides; Z79.82 Long term (current) use of aspirin; Z79.810 Long term (current) use of selective estrogen receptor modulators (SERMs); Z79.899 Other long term (current) drug therapy

== ENCOUNTER → 2023-11-19 | Outpatient (REF) | payer MEDICARE, BC ==
[~2023-11-19] MED LIST changes: +DOXE10CA; +LACT10SO3; +LEVOTAB10; -OXYB5TAB11 PO; +OXYB5TAB14 PO
[2023-11-28 23:08] LABS: COPPER PLASMA 110 ug/dL (80-158); ZINC PLASMA 61 ug/dL (44-115)
== END ==
LOC: M LAB REF 16:19
PROVIDERS: ATTEND Internal Medicine
DX: R74.8 Abnormal levels of other serum enzymes (principal)

== ENCOUNTER → 2023-12-03 | Outpatient (REF) | payer MEDICARE, BC | LOC: M LAB REF 16:26 | PROVIDERS: ATTEND Internal Medicine | DX: R74.8 Abnormal levels of other serum enzymes (principal) ==

== ENCOUNTER → 2024-02-17 | Outpatient (REF) | payer MEDICARE, BC ==
[~2024-02-17] MED LIST changes: +BUPR-597 PO; -BUPR300T92 PO; +ROSU5TAB40 PO; -ROSU5TAB5 PO
== END ==
LOC: M LAB REF 16:14
PROVIDERS: ATTEND Internal Medicine
DX: R74.8 Abnormal levels of other serum enzymes (principal)

== ENCOUNTER → 2024-02-18 | Outpatient (CLI) | payer MEDICARE, BC | LOC: M WUC 10:58 | PROVIDERS: ATTEND Physician Assistant | DX: N20.0 Calculus of kidney (principal) ==

== ENCOUNTER → 2024-04-19 | Outpatient (CLI) | payer BC, MEDICARE | LOC: M WHC 11:15 | PROVIDERS: ATTEND Internal Medicine | DX: Z12.31 Encounter for screening mammogram for malignant neoplasm of breast (principal) ==

== ENCOUNTER → 2024-05-22 | Outpatient (REF) | payer MEDICARE, BC | LOC: M SFHCDERM 18:09 | PROVIDERS: ATTEND Physician Assistant | DX: L82.1 Other seborrheic keratosis (principal) ==

== ENCOUNTER → 2024-11-17 | Outpatient (REF) | payer MEDICARE, BC ==
[~2024-11-17] MED LIST changes: -LACT10SO3; +LACT10SO94; -ROSU5TAB40 PO; +ROSU5TAB49 PO; -SENN-111 PO; +SENN-165 PO
== END ==
LOC: M LAB REF 12:21
PROVIDERS: ATTEND Internal Medicine
DX: R74.8 Abnormal levels of other serum enzymes (principal)

== ENCOUNTER → 2025-05-04 | Outpatient (CLI) | payer MEDICARE ==
[~2025-05-04] MED LIST changes: -BUPR-597 PO; +BUPR-766 PO; -FLOM0.4C39 PO; +LIDO1ADH93 TOP; -LIDO5DIS41 TOP; +TAMS-18 PO
== END ==
LOC: M WHC 13:32
PROVIDERS: ATTEND Internal Medicine
DX: Z12.31 Encounter for screening mammogram for malignant neoplasm of breast (principal); R92.323 Mammographic fibroglandular density, bilateral breasts

== ENCOUNTER → 2025-05-30 | Outpatient (REF) | payer MEDICARE ==
[2025-05-30 14:11] LABS: APPEARANCE, URINE HAZY (CLEAR); BACTERIA, URINE AUTO NEGATIVE (NEGATIVE); BILIRUBIN, URINE AUTO NEGATIVE (NEGATIVE); BLOOD, URINE BLOOD NEGATIVE (NEGATIVE); CALCIUM OXALATE CRYSTALS LARGE; GLUCOSE, URINE (UA) AUTO NEGATIVE (NEGATIVE); KETONE, URINE AUTO NEGATIVE (NEGATIVE); LEUKOCYTE ESTERASE, URINE AUTO NEGATIVE (NEGATIVE); MUCUS, URINE SMALL (NEGATIVE); NITRITE, URINE AUTO NEGATIVE (NEGATIVE); PROTEIN, URINE AUTO NEGATIVE (NEGATIVE); RBC, URINE AUTO 0 /HPF (0-3); SPECIFIC GRAVITY URINE AUTO 1.020 (1.002-1.035); SQUAMOUS EPITHELIAL CELL UR AU 8 /HPF (0-6); UROBILINOGEN, URINE AUTO 0.2 mg/dL (0.0-2.0); WBC, URINE AUTO 2 /HPF (0-3)
== END ==
LOC: M LAB REF 13:09
PROVIDERS: ATTEND Internal Medicine
DX: R41.82 Altered mental status, unspecified (principal); R30.0 Dysuria

== ENCOUNTER 2025-06-13 13:25 | Emergency (ER) | payer MEDICARE ==
[~2025-06-13 13:25] MED LIST changes: -IBUP-1022 PO; +IBUP600T42 PO
[2025-06-13 14:12] LABS: BASO # 0.1 10^3/uL (0.0-0.2); BASO % 0.8 % (0.0-1.0); EOS # 0.3 10^3/uL (0.0-0.5); EOS % 5.4 % (0.0-3.0); LYMPH # 1.7 10^3/uL (1.5-5.0); LYMPH % 28.5 % (24.0-44.0); MONO # 0.9 10^3/uL (0.0-0.8); MONO % 14.1 % (2.0-8.0); NEUTROPHILS # 3.1 10^3/uL (1.5-8.5); NEUTROPHILS % 50.9 % (36.0-66.0); PLATELET COUNT, AUTOMATED 136 10^3/uL (150-450)
[2025-06-13 14:52] LABS: ALT/SGPT 25 U/L (7.0-40); AST/SGOT 31 U/L (<34); CALCIUM LEVEL 10.3 MG/DL (8.3-10.6); CARBON DIOXIDE LEVEL 28 MMOL/L (20-31); CHLORIDE LEVEL 108 MMOL/L (98-107); CREATININE FOR GFR 0.54 MG/DL (0.55-1.30); GLOMERULAR FILTRATION RATE > 90.0 (>32); POTASSIUM SERUM 4.0 MMOL/L (3.5-5.1); SODIUM LEVEL 149 MMOL/L (136-145)
[2025-06-13 15:12] LABS: KETONE, URINE AUTO RFX NEGATIVE (NEGATIVE); LEUKOCYTE ESTERASE UR AUTO RFX NEGATIVE (NEGATIVE); MUCUS, URINE RFX SMALL (NEGATIVE); NITRITE, URINE AUTO RFX NEGATIVE (NEGATIVE); RBC, URINE AUTO RFX 2 /HPF (0-3); SQUAM EPITHELIAL CELL UR AURFX 6 /HPF (0-6); WBC, URINE AUTO RFX 4 /HPF (0-3)
[2025-06-13] MEDS ORDERED: ISOVUE-370 76% 100 ML VIAL As Ordered ONE (15:23)
[2025-06-13 16:26] VITALS: BP 171/97; TEMP 96.8; O2SAT 97
== END 2025-06-13 16:32 | disposition home or self-care (01) ==
LOC: EDBD 13:25 → M ED 13:25
DX: R41.82 Altered mental status, unspecified (principal); E11.9 Type 2 diabetes mellitus without complications; I10 Essential (primary) hypertension; F03.90 Unspecified dementia, unspecified severity, without behavioral disturbance, psychotic disturbance, mood disturbance, and anxiety; Z86.73 Personal history of transient ischemic attack (TIA), and cerebral infarction without residual deficits; Z87.442 Personal history of urinary calculi; F41.9 Anxiety disorder, unspecified; F32.9 Major depressive disorder, single episode, unspecified; Z79.82 Long term (current) use of aspirin; Z79.899 Other long term (current) drug therapy; Z88.2 Allergy status to sulfonamides; Z88.0 Allergy status to penicillin; Z88.1 Allergy status to other antibiotic agents; Z88.8 Allergy status to other drugs, medicaments and biological substances
CPT/HCPCS: 51701; 70450; 70496; 70498; 71045; 80048; 80076; 81001; 82140; 84443; 85025; 93005; 93041; 94760; 99285; Q9967

== ENCOUNTER → 2025-06-27 | Outpatient (CLI) | payer BC, MEDICARE | LOC: M PLAIMG 13:02 | PROVIDERS: ATTEND Internal Medicine | DX: Z86.73 Personal history of transient ischemic attack (TIA), and cerebral infarction without residual deficits (principal); F03.90 Unspecified dementia, unspecified severity, without behavioral disturbance, psychotic disturbance, mood disturbance, and anxiety ==

== ENCOUNTER → 2025-07-26 | Outpatient (REF) | payer MEDICARE | LOC: M LAB REF 16:57 | PROVIDERS: ATTEND Internal Medicine | DX: R74.8 Abnormal levels of other serum enzymes (principal) ==

== ENCOUNTER 2025-08-02 13:37 | Emergency (ER) | payer MEDICARE ==
[~2025-08-02] VITALS: Ht 167.6 cm; Wt 95.1 kg
[2025-08-02 14:08] LABS: BASO # 0.0 10^3/uL (0.0-0.2); BASO % 0.6 % (0.0-1.0); EOS # 0.3 10^3/uL (0.0-0.5); EOS % 5.1 % (0.0-3.0); LYMPH # 1.7 10^3/uL (1.5-5.0); LYMPH % 24.7 % (24.0-44.0); MONO # 1.0 10^3/uL (0.0-0.8); MONO % 14.2 % (2.0-8.0); NEUTROPHILS # 3.7 10^3/uL (1.5-8.5); NEUTROPHILS % 55.0 % (36.0-66.0); PLATELET COUNT, AUTOMATED 115 10^3/uL (150-450)
[2025-08-02 14:39] LABS: CALCIUM LEVEL 10.2 MG/DL (8.3-10.6); CARBON DIOXIDE LEVEL 30.0 MMOL/L (20-31); CHLORIDE LEVEL 108.0 MMOL/L (98-107); CK-MB VALUE MASS 1.0 NG/ML (<3.6); CPK CREATINE PHOSPHOKINASE 98.0 U/L (34-145); CREATININE FOR GFR 0.66 MG/DL (0.55-1.30); GLOMERULAR FILTRATION RATE 87.5 (>32); MB/CK RELATIVE INDEX 1.02 (< OR =4); POTASSIUM SERUM 3.3 MMOL/L (3.5-5.1); SODIUM LEVEL 147.0 MMOL/L (136-145)
[2025-08-02] MEDS ORDERED: ISOVUE-370 76% 100 ML VIAL As Ordered ONE (15:13)
[2025-08-02] MEDS: MORPHINE 4 MG/ML 1 ML VIAL IV PRN ×2 (16:02→16:48)
[2025-08-02 16:44] LABS: CK-MB VALUE MASS < 1.0 NG/ML (<3.6)
[2025-08-02 16:46] LABS: CPK CREATINE PHOSPHOKINASE 85 U/L (34-145)
[2025-08-02] MEDS: ESMOLOL HCL 2,000 MG in IV 1 EA IV SCH (17:16)
[2025-08-02 17:38] VITALS: BP 133/76; TEMP 98; O2SAT 94
== END 2025-08-02 17:39 | disposition short-term general hospital (02) ==
LOC: M ED 13:37
DX: I71.012 Dissection of descending thoracic aorta (principal); E11.9 Type 2 diabetes mellitus without complications; I10 Essential (primary) hypertension; F41.9 Anxiety disorder, unspecified; F32.9 Major depressive disorder, single episode, unspecified; Z85.3 Personal history of malignant neoplasm of breast; Z86.73 Personal history of transient ischemic attack (TIA), and cerebral infarction without residual deficits; Z79.82 Long term (current) use of aspirin; Z79.899 Other long term (current) drug therapy; Z88.2 Allergy status to sulfonamides; Z88.0 Allergy status to penicillin; Z88.1 Allergy status to other antibiotic agents; Z88.8 Allergy status to other drugs, medicaments and biological substances
CPT/HCPCS: 71045; 71275; 74174; 80048; 82550; 82553; 84484; 85025; 93005; 93041; 94760; 96365; 96375; 99285; J1805; Q9967